=== PATIENT | female | born 1955 | race Caucasian/White ===

== ENCOUNTER 2018-08-21 15:41 | Inpatient (IN) | payer OTHER ==
[~2018-08-21] VITALS: Ht 170.2 cm; Wt 47.2 kg
[2018-08-21] VITALS (9 sets, daily range): BP systolic 92–139; BP diastolic 67–94; PULSE 78–90; RESP 18–21; Ht 170.2 cm; Wt 47.2 kg
[2018-08-21] MEDS ORDERED: SODIUM CHLORIDE 0.9% 1L BAG IV* STA (16:20)
[2018-08-21] MEDS ORDERED: NORepinephrine 8MG/250 ML (PMX 250 ML IV STA (16:20)
[2018-08-21] MEDS ORDERED: ACETAMINOPHEN 325 MG SUPP PR STA (16:20)
[2018-08-21] MEDS ORDERED: CEFEPIME 2GM/50 ML (PMX) 50 ML IVPB STA (16:20)
[2018-08-21] MEDS ORDERED: NORepinephrine 8MG/250 ML (PMX 250 ML IV SCH (16:30)
[2018-08-21] MEDS ORDERED: VANCOMYCIN 1 GM (PMX) 250 ML IVPB ONE (16:30)
[2018-08-21] MEDS ORDERED: LIDOCAINE 1% (MDV) 20 ML INJ ONE (19:28)
--- NOTE | 2018-08-21 19:50 | ERD ---
ER Documentation Chief Complaint Chief Complaint R89, from residential care home, respiratory arrest, CPR in progress HPI 62-year-old female brought to the emergency department by paramedics from her care home for evaluation of shortness of breath. Patient is nonverbal and history is available from paramedics. The paramedics arrived to the patient's care facility where they found the patient apparently very warm to touch and having difficulty breathing. They presumed the patient to be septic and began transporting. In route, patient decompensated and became more short of breath and then went into cardiac arrest. CPR was initiated just upon arrival to the emergency department. ROS All systems reviewed and are negative except as per history of present illness. Allergies Allergies: Coded Allergies: No Known Drug Allergies (Unverified Allergy, Unknown, 08/21/18) PMhx/Soc Hx Alcohol Use: No (UNABLE TO OBTAINED) Hx Substance Use: No (UNABLE TO OBTAINED) Hx Tobacco Use: No (UNABLE TO OBTAINED) Smoking Status: Unknown if ever smoked FmHx Unknown at this time Physical Exam Vitals Vital Signs Date Temp Pulse Resp B/P (MAP) Pulse Ox O2 O2 Flow FiO2 Time Delivery Rate 08/21/18 105 22 100 40 19:48 08/21/18 99.0 108 23 118/82 100 Mechanical 18:30 (94) Ventilator Trach Collar 08/21/18 110 22 100 40 18:08 08/21/18 109 23 116/75 100 Mechanical 18:00 (89) Ventilator Trach Collar 08/21/18 113 24 102/74 100 Mechanical 17:45 (83) Ventilator Trach Collar 08/21/18 98.9 17:20 08/21/18 98.8 118 27 95/72 (80) 100 Mechanical 17:12 Ventilator Trach Collar 08/21/18 120 25 74/51 (59) 100 Mechanical 16:45 Ventilator Trach Collar 08/21/18 119 27 76/47 (57) 100 Mechanical 16:30 Ventilator Trach Collar 08/21/18 118 25 100 100 16:19 08/21/18 129 23 150/95 100 Mechanical 16:00 (113) Ventilator Trach Collar 08/21/18 98.0 27 30 47/21 (30) 89 15:45 Physical Exam General: Frail, bed bound, ill appearing HEENT: Mucous membranes dry, sclera nonicteric Neck: Tracheostomy noted. Ostomy patent. No inflammatory changes noted. No JVD. Cardiovascular: Regular rate and rhythm, no murmurs rubs or gallops. Lungs: Diminished breath sounds bilaterally. She is ventilating through the tracheostomy. Transmission of upper airway sounds is noted Abdomen: Soft with G-tube appreciated. Nontender to palpation. Bowel sounds noted. : Diaper in place and incontinent. Extremities: Atrophic but atraumatic with no edema, cyanosis or clubbing. Neurologic: Patient is significantly obtunded and apparently at her vegetative baseline. Motor strength is diminished in all 4 extremities. Skin: Skin breakdown noted per nursing note. Result Diagram: 08/21/18 1556 08/21/18 1556 Results 24 hrs Laboratory Tests Test 08/21/18 15:56 08/21/18 16:20 08/21/18 16:30 08/21/18 19:01 White Blood 26.0 10^3/ul Count Red Blood Count 3.16 10^6/ul Hemoglobin 8.9 g/dl Hematocrit 31.1 % Mean 98.4 fl Corpuscular Volume Mean 28.2 pg Corpuscular Hemoglobin Mean 28.6 g/dl Corpuscular Hemoglobin Conc ent Red Cell 16.9 % Distribution Width Platelet Count 654 10^3/UL Mean Platelet 8.7 fl Volume Immature 6.200 % Granulocytes % Neutrophils % % Segmented 63 % Neutrophils % (Manual) Band 4 % Neutrophils % (Manual) Lymphocytes % % Lymphocytes % 25 % (Manual) Monocytes % % Monocytes % 5 % (Manual) Eosinophils % % Basophils % % Myelocytes % 2 % (Manual) Promyelocytes % 1 % (Manual) Nucleated Red 0.0 /100WBC Blood Cells % Immature 1.610 10^3/ul Granulocytes # Neutrophils # 10^3/ul Neutrophils # 16.6 10^3/ul (Manual) Band 1.0 10^3/ul Neutrophils # Lymphocytes 6.5 10^3/ul (Manual) Lymphocytes # 10^3/ul Monocytes # 10^3/ul Monocytes # 1.3 10^3/ul (Manual) Eosinophils # 10^3/ul Basophils # 10^3/ul Myelocytes # 0.5 10^3/ul Promyelocytes # 0.2 10^3/ul Nucleated Red 10^3/ul Blood Cells # Pathologist YES Review (Hematol ogy) Platelet @See below Morphology Comment Polychromasia 1+ Anisocytosis 1+ Prothrombin 15.3 Sec Time Prothrombin 1.2 Time Ratio INR 1.20 International Normalized Rati o Activated 32.2 Sec Partial Thrombo plast Time Sodium Level 133 mmol/L Potassium Level 4.6 mmol/L Chloride Level 102 mmol/L Carbon Dioxide 16 mmol/L Level Anion Gap 15 Blood Urea 29 mg/dl Nitrogen Creatinine 0.49 mg/dl Est Glomerular > 60 mL/min Filtrat Rate mL/min Glucose Level 367 mg/dl POC Venous 5.4 mmol/L 2.3 mmol/L Lactate Calcium Level 9.1 mg/dl Total Bilirubin 0.0 mg/dl Direct 0.00 mg/dl Bilirubin Indirect 0.0 mg/dl Bilirubin Aspartate Amino 44 IU/L Transf (AST/SGO T) Alanine 10 IU/L Aminotransferas e (ALT/SGPT) Alkaline 162 IU/L Phosphatase Troponin I < 0.012 ng/ml Total Protein 6.8 g/dl Albumin 3.0 g/dl Globulin 3.80 g/dl Albumin/Globuli 0.78 n Ratio Blood Gas Blood arterial Specimen Source Arterial Blood 08/21/2018 4:37: Date Drawn 24 PM Arterial Blood 7.308 pH (Temp corrected ) Arterial Blood 34.6 mmhg pCO2 (Temp correct) Arterial Blood 358.1 mmHG pO2 (Temp corrected ) Arterial Blood 17.0 mmol/L HCO3 Arterial Blood -8.5 mmol/L Base Excess Arterial Blood 99.6 mmHG Oxygen Saturati on Kiko Test ACCEPTAB Arterial Blood Left Radial Gas Puncture Site Arterial 0.3 % Blood Carboxyhe moglobin Arterial Blood 0.6 % Methemoglobin Blood Gas A-a 320.3 mmHg O2 Differential Oxyhemoglobin 98.7 % Percent Blood Gas 37.0 C Temperature Blood Gas 20.0 Respiration Rate Blood Gas 25 Actual Respiration Rat e Blood Gas VENT - AC Modality FiO2 100.0 % Blood Gas Tidal 450.0 mL Volume Blood Gas Low 5.0 cmH2O PEEP Setting Blood Gas M.D. Notified Whom Blood Gas 08/21/2018 4:48: Notified Time 50 PM Urine Color YELLOW Urine Clarity CLOUDY Urine pH 8.0 Urine Specific 1.015 [place] Urine Ketones NEGATIVE mg/dL Urine Nitrite NEGATIVE mg/dL Urine Bilirubin NEGATIVE mg/dL Urine NEGATIVE mg/dL Urobilinogen Urine Leukocyte 2+ Wade/ul Esterase Urine 16 /HPF Microscopic RBC Urine 32 /HPF Microscopic WBC Urine Amorphous FEW /HPF Crystals Urine NEGATIVE mg/dL Hemoglobin Urine Glucose NEGATIVE mg/dL Urine Total 1+ mg/dl Protein Current Medications Medications Dose Sig/Sharona Start Time Status Last (Trade) Ordered Route PRN Stop Time Admin Dose Reason Admin Sodium 1,800 ml BOLUS OVER 2 08/21/18 DC 08/21/18 Chloride HOURS STAT 16:20 16:50 (NS) IV* 08/21/18 16:21 325 mg ONCE STAT 08/21/18 DC 08/21/18 Acetaminophen FL 16:20 17:20 (Tylenol 08/21/18 16:21 Supp) 250 ml @ ONCE STAT 08/21/18 DC Norepinephrin 7.5 mls/hr IV 16:20 e 08/21/18 16:26 Cefepime HCl 50 ml @ ONCE STAT 08/21/18 DC 08/21/18 100 mls/hr IVPB 16:20 16:39 08/21/18 16:49 Vancomycin 250 ml @ ONCE ONCE 08/21/18 DC 08/21/18 HCl 125 mls/hr IVPB 16:30 17:24 08/21/18 18:29 250 ml @ TITRATE IV 08/21/18 08/21/18 Norepinephrin 7.5 mls/hr 16:30 16:49 e Lidocaine 20 ml STK-MED 08/21/18 DC (Xylocaine ONCE .ROUTE 19:28 1% (Mdv) 20 08/21/18 19:29 ml) Procedures/MDM Patient was taken to a room, seen and evaluated. Upon arrival to the emergency department, she had a palpable pulse and apparent return of spontaneous circulation. A code sepsis was initiated. She was continued on ventilator through her tracheostomy. Patient required central line placement. Central Line Placement by me: Percent guidance was used to localize the right internal jugular Under sterile Seldinger technique, initial attempt to place a triple-lumen catheter in the right IJ were unsuccessful with an apparent puncture of the carotid artery. Direct pressure was applied and bleeding was controlled.. Central Line Placement by me: Under sterile Seldinger technique, a triple-lumen catheter was placed in the left femoral vein. Patient had no obvious complications noted. Patient was placed on fluids and pressors and blood pressure stabilized and respiratory status was stabilized on a ventilator Diagnostic tests were ordered and reviewed. 3 LEAD RHYTHM STRIP: Normal sinus rhythm without ectopy Processing Engineer EK lead EKG reviewed by myself: Sinus tachycardia Normal [place] and intervals Baseline artifact with no significant ST elevation Impression: Specific EKG EKG upon arrival interpreted by myself: Sinus tachycardia Nonspecific ST and T wave changes No ST elevation Impression: Nonspecific EKG without significant interval change from the materials management manager EKG RADIOLOGY: Reviewed with the radiologist REEVALUATION: Chest x-ray interpretation was reviewed demonstrating evidence of the left pneumothorax. At this time, prior to the invasive left-sided chest tube, I made contact with the patient's son and discussed his desires for the patient's level of care. He soon call me back after speaking to his uncle and indicated that he did want the chest tube placed. Procedure: Chest tube placement On the left anterior axillary line at approximately the fourth/fifth intercostal space, the skin was prepped with Betadine solution and local lidocaine In the usual fashion a left thoracostomy tube was placed with release of air. Post procedure chest x-ray is now pending Reevaluation: Patient's blood pressure is remaining stable as is her respiratory status. With intervention, her neurologic status seems to be improving and she seems to be opening her eyes and moving weakly but more actively Consultations: Arrangements will be made for admission to the hospital in the intensive care unit MEDICAL DECISION MAKIN-year-old female presents the emergency department after a respiratory and possible brief cardiac arrest. She seems to be in septic shock from what appears to be a urinary tract infection complicated by chronic respiratory failure with tracheostomy dependence and a left-sided pneumothorax. She is required aggressive medical intervention include fluids and antibiotics as well as the chest tube and central line. She seems to be responding nicely on fluids and pressors. Targeted temperature management was not initiated as the patient is seems to be at baseline neurologic status which is a significantly diminished. CRITICAL CARE: Time:>35 minutes Patient has a significant chance of clinical deterioration Treatments/Evaluations: Close monitoring and treatment of unstable vital signs, cardiorespiratory, and neurologic status, while maintaining tight balance of fluid, respiratory, and cardiac interventions. Sepsis Documentation: SEVERE SEPSIS CRITERIA: Infectious source: UTI End organ damage indicated by: Lactate > 2.0 mmol/L Hypotension (SBP < 90 or >40 mmHG drop or MAP < 65) Acute Resp Failure (sat < 92% w/o oxygen) SEPSIS MANAGEMENT Time of recognition of sepsis: Upon arrival. Time of recognition of severe sepsis: upon arrival. Time of recognition of septic shock: upon arrival. 3 HOUR BUNDLE Blood cultures x 2 before broad-spectrum antibiotics: Yes 30 ml/kg NS bolus completed Initial lactate reviewed Repeat lactate pending SEPTIC SHOCK ASSESSMENT: Yes: Lactic acid > 4.0 Yes: Persistent hypotension (SBP < 90 or 40 mmHg drop, MAP < 65) despite 30 mL/kg IV fluid bolus VOLUME REASSESSMENT FOR SEPTIC SHOCK: Reevaluation Time: 1999 Vital signs appreciated per nursing note Heart regular rate & rhythm Lungs no crackles Skin warm & dry Cap Refill less than 2 seconds Peripheral pulses radially present PERSISTENT HYPOTENSION TREATMENT: Comfort care no Central line as above Vasopressor started: Levophed Departure Diagnosis: Primary Impression: Respiratory arrest Additional Impressions: Septic shock Pneumothorax Condition: Critical BRYIRINEOYOKO Aug 21, 2018 19:50
[2018-08-21] MEDS ORDERED: METH10TA3 GTB (20:09)
[2018-08-21] MEDS ORDERED: ONDA4TAB13 GTB (20:10)
[2018-08-21] MEDS ORDERED: [UNRECOGNIZED DRUG - CODE] GTB (20:11)
[2018-08-21] MEDS ORDERED: POTA473S3 GTB (20:13)
[2018-08-21] MEDS ORDERED: TOPI200C6 GTB (20:16)
[2018-08-21] MEDS ORDERED: ATOR10TA65 GTB (20:22)
[2018-08-21] MEDS ORDERED: CARV12.579 GTB (20:23)
[2018-08-21] MEDS ORDERED: BISA10SU75 PR (20:23)
[2018-08-21] MEDS ORDERED: ATRO INHALATION (20:24)
[2018-08-21] MEDS ORDERED: LACTINEX GTB (20:24)
[2018-08-21] MEDS ORDERED: LANS30CA GTB (20:25)
[2018-08-21] MEDS ORDERED: IPRA3AMP29 INHALATION (20:25)
[2018-08-21] MEDS ORDERED: KEP100S GTB (20:26)
[2018-08-21] MEDS ORDERED: LISI-471 GTB (20:27)
[2018-08-21] MEDS ORDERED: AMIN30LI GTB (20:28)
[2018-08-21] MEDS ORDERED: MULT-105 GTB (20:28)
[2018-08-21] MEDS ORDERED: ZINC220T GTB (20:29)
[2018-08-21] MEDS ORDERED: ASC500 GTB (20:29)
[2018-08-21] MEDS ORDERED: BISACODYL (EC) 5 MG TAB PO PRN (20:30)
[2018-08-21] MEDS ORDERED: DOCUSATE SODIUM 100 MG CAP PO PRN (20:30)
[2018-08-21] MEDS ORDERED: ACETAMINOPHEN 650MG/20.3ML CUP PO PRN (20:30)
[2018-08-21] MEDS ORDERED: LEVO500T10 GTB (20:30)
[2018-08-21] MEDS ORDERED: IPRATROPIUM (NEB) 0.5 MG/2.5 ML AMP NEB PRN (20:30)
[2018-08-21] MEDS ORDERED: LEVALBUTEROL (NEB) 1.25 MG/0.5 ML AMP HHN PRN (20:30)
[2018-08-21] MEDS ORDERED: CLIN300C10 GTB (20:31)
--- NOTE | 2018-08-21 20:48 | HP ---
Date/Time of Note Date/Time of Note DATE: 08/21/18 TIME: 20:47 Assessment/Plan VTE Prophylaxis SCD applied (from Nsg): Yes Pharmacological prophylaxis: NA/contraindicated Pharm contraindication: low risk/ambulating Lines/Catheters IV Catheter Type (from Nrsg): Central Line Central line still needed: Yes (pressor support) Assessment/Plan Hospital Course This is a 61-year-old female being admitted to the ICU floor for: #1 cardiopulmonary arrest: Unclear what rhythm patient was in during the arrest in route as I do not have the code run sheet. Currently patient is return of spontaneous circulation. 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 Continue monitoring in the ICU. Trend cardiac enzymes, the first that was negative we will check echocardiogram. Consult cardiology. #2 acute on chronic respiratory failure: Patient has tracheostomy. Currently connected to vent. Continue vent management, pulmonary to consult #3 septic shock: Secondary to pneumonia and urinary tract infection. Broad- spectrum antibiotics of vancomycin and Zosyn. Trend lactic acid levels, initial was 5.4. Pressor support with levophed. #4 healthcare associated pneumonia: Vanco and Zosyn, cultures pending. Respiratory cultures, await culture results #5 urinary tract infection: Antibiotics as per above, await urine culture results #6 left-sided pneumothorax: Possibly traumatic secondary to CPR, chest tube in place resulting in reexpansion of the lung. Connected to suction. recheck chest x-ray in the morning. Consult pulmonology. #7 metabolic acidosis: Secondary to underlying infectious process, shock. Antibiotics and fluids. Monitor labs. #8 normocytic anemia: Check fecal occult blood, iron stores #9 chronic encephalopathy: Secondary to intraparenchymal hemorrhage status post LINOLEUM LAYER shunt. Continue supportive care. Continue home meds #10 dysphagia: Continue meds via J-tube, consult nutrition for feeds #11 Seizure disorder: Continue Keppra, Topamax #12 hypertension: We will hold home blood pressure medications at the current time given patient's sepsis shock and hypotension. #13 DVT GI prophylaxis: SCDs, Protonix CODE STATUS currently full code we will need to get in touch with the son in the a.m. Guarding goals of care and CODE STATUS. PT SON RENZO [phone] L[facility] IN [facility]. Greater than 45 minutes critical care time spent on care management this patient. Result Diagram: 08/21/18 1556 08/21/18 1556 Results 24hrs Laboratory Tests Test 08/21/18 15:56 08/21/18 16:20 08/21/18 16:30 08/21/18 19:01 White Blood Count 26.0 H Red Blood Count 3.16 L Hemoglobin 8.9 L Hematocrit 31.1 L Mean Corpuscular 98.4 Volume Mean Corpuscular 28.2 L Hemoglobin Mean Corpuscular 28.6 L Hemoglobin Concen t Red Cell 16.9 H Distribution Width Platelet Count 654 H Mean Platelet 8.7 Volume Immature 6.200 H Granulocytes % Neutrophils % Segmented 63 Neutrophils % (Manual) Band Neutrophils 4 % (Manual) Lymphocytes % Lymphocytes % 25 (Manual) Monocytes % Monocytes % 5 (Manual) Eosinophils % Basophils % Myelocytes % 2 H (Manual) Promyelocytes % 1 H (Manual) Nucleated Red 0.0 Blood Cells % Immature 1.610 H Granulocytes # Neutrophils # Neutrophils # 16.6 H (Manual) Band Neutrophils 1.0 H # Lymphocytes 6.5 H (Manual) Lymphocytes # Monocytes # Monocytes # 1.3 H (Manual) Eosinophils # Basophils # Myelocytes # 0.5 H Promyelocytes # 0.2 H Nucleated Red Blood Cells # Pathologist YES Review (Hematolog y) Platelet @See below Morphology Comment Polychromasia 1+ Anisocytosis 1+ Prothrombin Time 15.3 H Prothrombin Time 1.2 Ratio INR International 1.20 Normalized Ratio Activated 32.2 Partial Thrombopl ast Time Sodium Level 133 L Potassium Level 4.6 Chloride Level 102 Carbon Dioxide 16 L Level Anion Gap 15 H Blood Urea 29 H Nitrogen Creatinine 0.49 Est Glomerular > 60 Filtrat Rate mL/min Glucose Level 367 H POC Venous 5.4 *H 2.3 *H Lactate Calcium Level 9.1 Total Bilirubin 0.0 L Direct Bilirubin 0.00 Indirect 0.0 Bilirubin Aspartate Amino 44 Transf (AST/SGOT) Alanine 10 L Aminotransferase (ALT/SGPT) Alkaline 162 H Phosphatase Troponin I < 0.012 Total Protein 6.8 Albumin 3.0 L Globulin 3.80 H Albumin/Globulin 0.78 Ratio Blood Gas Blood arterial Specimen Source Arterial Blood 08/21/2018 4:37:2 Date Drawn 4 PM Arterial Blood pH 7.308 L (Temp corrected) Arterial Blood 34.6 L pCO2 (Temp correct) Arterial Blood 358.1 H pO2 (Temp corrected) Arterial Blood 17.0 L HCO3 Arterial Blood -8.5 L Base Excess Arterial Blood 99.6 H Oxygen Saturation Kiko Test ACCEPTAB Arterial Blood Left Radial Gas Puncture Site Arterial 0.3 Blood Carboxyhemo globin Arterial Blood 0.6 Methemoglobin Blood Gas A-a O2 320.3 H Differential Oxyhemoglobin 98.7 Percent Blood Gas 37.0 Temperature Blood Gas 20.0 Respiration Rate Blood Gas Actual 25 Respiration Rate Blood Gas VENT - AC Modality FiO2 100.0 Blood Gas Tidal 450.0 Volume Blood Gas Low 5.0 PEEP Setting Blood Gas M.D. Notified Whom Blood Gas 08/21/2018 4:48:5 Notified Time 0 PM Urine Color YELLOW Urine Clarity CLOUDY A Urine pH 8.0 Urine Specific 1.015 [place] Urine Ketones NEGATIVE Urine Nitrite NEGATIVE Urine Bilirubin NEGATIVE Urine NEGATIVE Urobilinogen Urine Leukocyte 2+ H Esterase Urine Microscopic 16 H RBC Urine Microscopic 32 H WBC Urine Amorphous FEW A Crystals Urine Hemoglobin NEGATIVE Urine Glucose NEGATIVE Urine Total 1+ H Protein HPI/ROS Admit Date/Time Admit Date/Time Hx of Present Illness Chief complaint shortness of breath The following history was obtained from the ED physician documentation as well as from the chart as patient is unable to provide history given her clinical condition. This is a 62-year-old female who was brought in from [facility] care via EMS as patient was noted to be in respiratory distress. She is trached event. Patient is nonverbal as per the paramedics. The paramedics arrived at the facility I did notice the patient be very warm to touch and have difficulty breathing. She was being transported to [facility] while in route she decompensated and became more short of breath and went into cardiac arrest. CPR was initiated. Upon arrival to [facility] she had return of spontaneous circulation with palpable pulses. She was noted to be hypotensive. For which she had a central line placed and pressors were started. She was given antibiotics for suspected sepsis. Chest x-ray did reveal a pneumothorax and a chest tube was placed in the emergency department emergently. Patient at baseline is unresponsive secondary to encephalopathy from a history of intraparenchymal hemorrhage status post LINOLEUM LAYER shunt. She has a tracheostomy. Allergies: NKDA Medications: Ascorbic acid 500 mg G-tube daily Atorvastatin 10 mg via G-tube daily Bisacodyl 10 mg suppository RI daily Carvedilol 12.5 mg G-tube twice daily Stroke acid/potassium citrate 473 UT solution 5 mL's via G-tube daily Clindamycin 300 mg G-tube 4 times daily stop date 08/25/2018 Ipratropium 12.9 g 2 puffs every 6 hours as needed shortness of breath Ipratropium/albuterol 0.5/3 mg 3 mL every 6 hours as needed Lactobacillus 1 tab G-tube daily every 6 hours Lantus resolved 30 mg G-tube daily Keppra 100 mg via G-tube every 8 hours daily Levaquin 500 mg G-tube daily stop on 08/25/2018 Lisinopril 20 mg G-tube daily every 12 hours Methylphenidate 10 mg G-tube daily every 12 hours Multivitamin 1 tab G-tube daily Zofran every 6 hours as needed G-tube daily nausea Selenium 200 mcg G-tube daily Topamax 200 mg G-tube daily every 12 hours Zinc sulfate 220 mg G-tube daily ROS Subjective hx not possible: pt non-verbal Additional Comments PROCEDURE: XR Chest. CLINICAL INDICATION: Pneumothorax TECHNIQUE: Frontal chest x-ray was obtained. COMPARISON: Chest x-ray earlier same date FINDINGS: There has been interval insertion of a left chest tube with evacuation of previously noted pneumothorax and re-expansion of the lung. Again noted is a tracheostomy and a right-sided LINOLEUM LAYER shunt. Heart is not enlarged. Mediastinum is not widened. No hilar masses seen. There is atelectasis at the left lung base. Noted is hyperinflation. There is no effusion. IMPRESSION: Evacuation left pneumothorax with re-expansion left lung following insertion of chest tube. Hyperinflation with left basilar atelectasis. No pneumonia. .Yobany Dominguez MD, MD Date Time Electronically viewed and signed by .Yobany Dominguez MD, on 08/21/2018 20:38 .A/ CC: JUAN MANUEL LONDONO [id number] PROCEDURE: XR Chest. CLINICAL INDICATION: chest pain TECHNIQUE: Single frontal view of the chest was obtained COMPARISON: None FINDINGS: The heart and mediastinum are within normal limits. There is no focal infiltrate. There is a moderate left-sided pneumothorax. There is a tracheostomy tube in place. There is a LINOLEUM LAYER shunt catheter crossing the right hemithorax. There is no pleural effusion. RPTAT: AA IMPRESSION: Left-sided pneumothorax. A critical results call report was made and the findings discussed with Juan Manuel Killian at 08/21/2018 4:37:21 PM. .Shravan Brandt MD, MD Date Time Electronically viewed and signed by .Shravan Brandt MD, MD on 08/21/2018 16:36 .S/ CC: JUAN MANUEL LONDONO [phone] PMH/Family/Social Past Medical History Encephalopathy status post intraparenchymal hemorrhage status post LINOLEUM LAYER shunt Seizure disorder Dysphagia status post J-tube Respiratory failure status post tracheostomy Previous episode of atrial fibrillation Hypertension Hyperlipidemia Medications Current Medications Norepinephrine 250 ml @ 7.5 mls/hr TITRATE IV Last administered on 08/21/18at 16:49; Admin Dose 7.5 MLS/HR; Start 08/21/18 at 16:30 Sodium Chloride 1,000 ml @ 100 mls/hr Q10H IV ; Start 08/21/18 at 20:07 Ipratropium Hart (Atrovent 0.02% (Neb)) 0.5 mg Q2H RESP THERAPY PRN NEB SHORTNESS OF BREATH; Start 08/21/18 at 20:30 Acetaminophen (Tylenol Liquid) 650 mg Q6H PRN PO PAIN LEVEL 1-3 OR FEVER; Start 08/21/18 at 20:30 Docusate Sodium (Colace) 100 mg Q12H PRN PO CONSTIPATION; Start 08/21/18 at 20:30 Bisacodyl (Dulcolax) 5 mg DAILY PRN PO CONSTIPATION; Start 08/21/18 at 20:30 Famotidine (Pepcid Iv) 20 mg DAILY IV ; Start 08/22/18 at 09:00 Levalbuterol (Xopenex Neb) 1.25 mg Q4H RESP THERAPY PRN HHN SHORTNESS OF BREATH; Start 08/21/18 at 20:30 Coded Allergies: No Known Drug Allergies (Unverified Allergy, Unknown, 08/21/18) Past Surgical History Jejunostomy Tracheostomy, LINOLEUM LAYER shunt Family History Significant Family History: no pertinent family hx Social History Unknown, unable to obtain Smoking Status: Unknown if ever smoked Exam/Review of Systems Vital Signs Vitals Vital Signs Date Temp Pulse Resp B/P (MAP) Pulse Ox O2 O2 Flow FiO2 Time Delivery Rate 08/21/18 93 22 104/80 100 Mechanical 20:45 (88) Ventilator Trach Collar 08/21/18 99.1 20:00 08/21/18 40 19:48 Exam Exam General: Patient is nonverbal, trach to vent, minimal spontaneous movement noted of the bilateral lower extremities HEENT: Atraumatic, normocephalic. The pupils are equal, round and reactive. Neck: Tracheostomy in place connected to vent Lungs: Coarse breath sounds bilaterally chest tube Heart: Sinus tachycardia Abdomen: Soft , nontender, nondistended , bowel sounds are present. No guarding no rebound tenderness , No masses or organomegaly. No costovertebral temporal angle mass Extremities: Normal to inspection, no edema no cyanosis Neurologic: Nonverbal, has minimal spontaneous movements of the bilateral lower extremities, does not withdraw to pain Skin: Left femoral central line Additional Comments Sinus tachycardia 120 bpm, no ST or T wave abnormalities concerning for acute ischemia PROCEDURE: XR Chest. CLINICAL INDICATION: Pneumothorax TECHNIQUE: Frontal chest x-ray was obtained. COMPARISON: Chest x-ray earlier same date FINDINGS: There has been interval insertion of a left chest tube with evacuation of previously noted pneumothorax and re-expansion of the lung. Again noted is a tracheostomy and a right-sided LINOLEUM LAYER shunt. Heart is not enlarged. Mediastinum is not widened. No hilar masses seen. There is atelectasis at the left lung base. Noted is hyperinflation. There is no effusion. IMPRESSION: Evacuation left pneumothorax with re-expansion left lung following insertion of chest tube. Hyperinflation with left basilar atelectasis. No pneumonia. .Yobany Dominguez MD, Date Time Electronically viewed and signed by .Yobany Dominguez MD, on 08/21/2018 20: 38 .A/ CC: JUAN MANUEL LONDONO [phone] PROCEDURE: XR Chest. CLINICAL INDICATION: chest pain TECHNIQUE: Single frontal view of the chest was obtained COMPARISON: None FINDINGS: The heart and mediastinum are within normal limits. There is no focal infiltrate. There is a moderate left-sided pneumothorax. There is a tracheostomy tube in place. There is a LINOLEUM LAYER shunt catheter crossing the right hemithorax. There is no pleural effusion. RPTAT: AA IMPRESSION: Left-sided pneumothorax. A critical results call report was made and the findings discussed with Juan Manuel Killian at 08/21/2018 4:37:21 PM. .Shravan Brandt MD, MD Date Time Electronically viewed and signed by .Shravan Brandt MD, on 08/21/2018 16:36 .S/ CC: JUAN MANUEL LONDONO [id number] BIENVENIDO ACEVEDO Aug 21, 2018 20:48
[2018-08-21] MEDS: SOD CHLORIDE 0.9% 1,000 ML IV SCH (20:50)
[2018-08-21] MEDS ORDERED: VANCOMYCIN IV PER PHARMACY XX SCH (21:00)
[2018-08-22] VITALS (93 sets, daily range): BP systolic 82–155; BP diastolic 60–100; PULSE 77–105; RESP 15–23
[2018-08-22] MEDS ORDERED: ALBUTEROL/IPRATROPIUM (NEB) 3 ML AMP INH PRN
[2018-08-22] MEDS ORDERED: IPRATROPIUM (HFA) 12.9 GM INHALER INH PRN
[2018-08-22] MEDS ORDERED: NON-FORMULARY/PATIENT OWN MED (Methylphenidate Hcl* 10 MG) GTB SCH
[2018-08-22] MEDS: PIPER-TAZO 3.375 GM IV (PMX) 100 ML IVPB SCH ×4 (00:55→17:57)
[2018-08-22] MEDS: LEVETIRACETAM (100 MG/ML PO SYG) GTB SCH ×3 (02:04→16:02)
[2018-08-22] MEDS: VANCOMYCIN 500 MG (PMX) 100 ML IVPB SCH ×2 (04:26→16:03)
[2018-08-22] MEDS: ASCORBIC ACID 500 MG TAB GTB SCH (08:35)
[2018-08-22] MEDS: SOD CHLORIDE 0.9% 1,000 ML IV SCH ×3 (08:35→21:22)
[2018-08-22] MEDS: ZINC SULFATE 220 MG CAP GTB SCH (08:35)
[2018-08-22] MEDS: MULTIVITAMINS 30 ML CUP GTB SCH (08:35)
[2018-08-22] MEDS: METHYLPHENIDATE 5 MG TAB GTB SCH ×2 (08:39→21:00)
[2018-08-22] MEDS ORDERED: POT CITRATE/CITRIC ACID (PO SYG) GTB SCH (09:00)
[2018-08-22] MEDS ORDERED: FAMOTIDINE 20 MG INJ IV SCH (09:00)
[2018-08-22] MEDS ORDERED: SELENIUM 200 MCG GTB SCH (09:00)
[2018-08-22] MEDS ORDERED: NON-FORMULARY/PATIENT OWN MED (Amino Acids/Protein Hydrolys (Pro-Stat Liquid) 30 ML) GTB SCH (09:00)
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
--- NOTE | 2018-08-22 11:06 | CONS ---
DATE OF ADMISSION: 08/21/2018 DATE OF CONSULTATION: 08/22/2018 REASON FOR CONSULTATION: Antibiotic management. HISTORY OF PRESENT ILLNESS: Nica Blanco is a 62-year-old unfortunate female who was brought in from residential skilled nursing with respiratory arrest status post CPR and cardiac arrest. The patient was brought in with shortness of breath. She is nonverbal. She had difficulty breathing when the daljit edics came to see her. En route, the patient decompensated and went into cardiac arrest. CPR was in itiated just on arrival to the emergency room department. On admission, her white count was 26,000, H and H of 8.9 and 31.1, platelet counts 254,000. BUN and creatinine 29/0.49. Patient has a central line placed and pressor support. She had a cardiopulmonary arrest and returned to spontaneous circu lation. She has a chronic debility from intracerebral hemorrhage and chronic encephalopathy as well as underlying septic shock at this current time. She has acute respiratory failure. She has a trach eostomy connected to the vent. She has urinary tract infection and probable pneumonia. She is on va ncomycin and Zosyn for healthcare-associated pneumonia. Cultures are pending. UTI, left-sided pneum othorax, possibly secondary to CPR; chest tube in place resulting in reexpansion of the lung, connect ed to the suction, metabolic acidosis, normocytic anemia, chronic encephalopathy secondary to intrapa renchymal hemorrhage status post ventriculoperitoneal shunt, dysphagia. She has a J-tube, seizure di sorder, hypertension, with a white count of 26,000 with 63% polys, 4% bands. PAST MEDICAL HISTORY: As outlined. FAMILY HISTORY: Noncontributory. SOCIAL HISTORY: No history of smoking, drinking or abuse of drugs. ALLERGIES: NONE TO PENICILLIN, SULFA OR FOODS. MEDICATIONS: As per chart. REVIEW OF SYSTEMS: Noncontributory. PHYSICAL EXAMINATION: GENERAL: The patient is an elderly-appearing female. She has a trach, a J-tube, a Forman, and is on pressors. SKIN: Without generalized rash. She has some breakdown, sacral decubitus. HEENT: Within normal limits. NECK: Tracheostomy is present. NECK: Supple. LYMPH NODES: None palpable. CHEST: Decreased breath sounds at the bases with ventilatory sounds. HEART: Without murmur or gallop. ABDOMEN: Soft with J-tube in place. EXTREMITIES: She has a diaper in place. She is incontinent. RECTAL AND GENITAL: Deferred. NEUROLOGIC: The patient is vegetative. IMPRESSION AND PLAN: We should check on hospice status. She has a catheter in place now, Forman cath eter. She has a trach, PEG, Forman, respiratory arrest. Urine culture, so far, is negative. Chest x -ray shows left chest tube, retrocardiac opacity in the left lower lobe. We will continue her on van comycin and Zosyn. I will dictate my findings to the hospitalist. Dictated By: PAT ALLEN MD, JD/NTS Conf#: [id number] DID#: [id number] CC: ANGEL LUIS REDD MD;*EndCC*
--- NOTE | 2018-08-22 11:55 | CONS ---
DATE OF ADMISSION: 08/21/2018 DATE OF CONSULTATION: REASON FOR CONSULTATION: Ventilator management. Thank you, Dr. Meadows, for this consultation. HISTORY OF PRESENT ILLNESS: This is an unfortunate 62-year-old lady, vent-dependent respiratory fail ure, transferred from shelter facility yesterday for respiratory distress. On route, the pat sunny decompensated, had a transient cardiopulmonary arrest requiring CPR and ACLS protocol with subse quent return of circulation. Since that time, she has had central line placed and is now on low dose vasopressor. Chest x-ray demonstrating pneumothorax requiring chest tube placement. 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 PAST MEDICAL HISTORY: As above. MEDICATIONS: Per chart. ALLERGIES: NONE. SOCIAL HISTORY: Nonsmoker, no alcohol, no history of drug use. FAMILY HISTORY: Noncontributory. SYSTEMS REVIEW: A 12-point review of systems currently unable to perform. PHYSICAL EXAMINATION: GENERAL: Elderly-appearing lady on mechanical ventilation, appears comfortable. No respiratory dist ress. VITAL SIGNS: Temperature 98, pulse is 88, blood pressure 116/76, O2 saturation 96%, on FIO2 of 30%. NECK: Trach site clean and intact. CARDIAC: S1, S2, no added sounds or murmurs. CHEST: Diminished air entry bilaterally. ABDOMEN: Soft, nontender. No guarding or rebound. EXTREMITIES: No cyanosis, clubbing, or edema. NEUROLOGIC: Grossly intact. Generalized weakness. DIAGNOSTIC DATA: Chest x-ray demonstrates left chest tube with small apical pneumothorax. LABORATORY DATA: White count 11.6 down from 26, hemoglobin 7.7, platelets of 492. BUN 22, creatinin e 0.35. INR 1.2. IMPRESSION AND PLAN: 1. Cardiopulmonary arrest. 2. Respiratory failure, possibly secondary to healthcare-associated pneumonia. 3. Traumatic pneumothorax following CPR. 4. History of encephalopathy secondary to intraparenchymal bleed with TELEVISION ANNOUNCER shunt. PLAN: 1. Continue mechanical ventilation. 2. Continue broad-spectrum antibiotics. 3. Continue chest tube to suction. 4. Discuss code status with family. 5. Continue antiepileptics. 6. DVT and GI prophylaxis. Dictated By: RONALD CULP/JERARDO Conf#: [id number] [facility]#: [id number] CC: BIENVENIDO MEADOWS MD; ANGEL LUIS REDD MD;*[facility]*
[2018-08-22] MEDS: TOPIRAMATE 100 MG TAB GTB SCH (13:59)
--- NOTE | 2018-08-22 15:02 | CONS ---
Assessment/Plan Assessment/Plan Hospital Course 62 yo F with hx of seizures and multiple other comorbidities who presents for evaluation of respiratory distress. Now s/p cardiac arrest with ROSC x 1 day. Targeted temperature management was deferred. The pt reportedly opens her eyes spontaneously, occasionally. Acute hypoxic-ischemic injury is possible.. Subclinical seizure is not yet excluded.. P: Add CTH without contrast for further characterization. EEG to evaluate for epileptiform activity. Cont topamax/keppra per ops for now. Ativan IV PRN seizure > 5 min or for cluster Other medical management per primary Will follow clinically Consultation Date/Type/Reason Admit Date/Time Type of Consult Neurology Reason for Consultation eval prognosis s/p cardiac arrest Requesting Provider: ANGEL LUIS REDD MD Date/Time of Note DATE: 08/22/18 TIME: 15:02 Hx of Present Illness The pt is currently unable to contribute a hx. Per RN report, the pt's baseline is awake, though nonverbal. It is elsewhere noted: Hx of Present Illness Chief complaint shortness of breath The following history was obtained from the ED physician documentation as well as from the chart as patient is unable to provide history given her clinical condition. This is a 62-year-old female who was brought in from [facility] care via EMS as patient was noted to be in respiratory distress. She is trached event. Patient is nonverbal as per the paramedics. The paramedics arrived at the facility I did notice the patient be very warm to touch and have difficulty breathing. She was being transported to [facility] while in route she decompensated and became more short of breath and went into cardiac arrest. CPR was initiated. Upon arrival to [facility] emergency she had return of spontaneous circulation with palpable pulses. She was noted to be hypotensive. For which she had a central line placed and pressors were started. She was given antibiotics for suspected sepsis. Chest x-ray did reveal a pneumothorax and a chest tube was placed in the emergency department emergently. Patient at baseline is unresponsive secondary to encephalopathy from a history of intraparenchymal hemorrhage status post [employer] shunt. She has a tracheostomy. Subjective hx not possible: pt non-verbal, pt critical Exam/Review of Systems Exam Vitals Vital Signs Date Temp Pulse Resp B/P (MAP) Pulse Ox O2 O2 Flow FiO2 Time Delivery Rate 08/22/18 93 18 119/81 100 Mechanical 14:00 (94) Ventilator 08/22/18 99.0 12:00 08/22/18 30 05:09 Intake and Output 08/21/18 08/21/18 08/22/18 1515:00 23:00 07:00 IntakeIntake Total 2211.25 ml 946.875 ml OutputOutput Total 250 ml 815 ml BalanceBalance 1961.25 ml 131.875 ml Exam PE: Gen Appearance: No Apparent Distress HEENT: Has trach Cardiovascular: Regular rate Abdomen: Soft; has L sided chest tube Extremities: Dry NE: The patient was obtunded and nonverbal. Cranial nerve examination was limited by mental status. Pupils were equal and reactive to light. There was no afferent pupillary defect. Funduscopic examination was limited. Face was grossly symmetric, w/ present corneal and cough reflexes. Tone was increased in BUE. Muscle bulk was diminished. I did not see fasciculations. The patient withdrew to noxious stimulation x 4. Coordination and gait testing was limited by mental status. Arm and leg reflexes were within normal limits and symmetric. Casper's sign was absent. Plantar responses were flexor. Results Result Diagram: 08/22/18 0439 08/22/18 0439 Results 24hrs Laboratory Tests Test 08/21/18 15:56 08/21/18 16:20 08/21/18 16:30 08/21/18 19:01 White Blood Count 26.0 H Red Blood Count 3.16 L Hemoglobin 8.9 L Hematocrit 31.1 L Mean Corpuscular 98.4 Volume Mean Corpuscular 28.2 L Hemoglobin Mean Corpuscular 28.6 L Hemoglobin Concen t Red Cell 16.9 H Distribution Width Platelet Count 654 H Mean Platelet 8.7 Volume Immature 6.200 H Granulocytes % Neutrophils % Segmented 63 Neutrophils % (Manual) Band Neutrophils 4 % (Manual) Lymphocytes % Lymphocytes % 25 (Manual) Monocytes % Monocytes % 5 (Manual) Eosinophils % Basophils % Myelocytes % 2 H (Manual) Promyelocytes % 1 H (Manual) Nucleated Red 0.0 Blood Cells % Immature 1.610 H Granulocytes # Neutrophils # Neutrophils # 16.6 H (Manual) Band Neutrophils 1.0 H # Lymphocytes 6.5 H (Manual) Lymphocytes # Monocytes # Monocytes # 1.3 H (Manual) Eosinophils # Basophils # Myelocytes # 0.5 H Promyelocytes # 0.2 H Nucleated Red Blood Cells # Pathologist YES Review (Hematolog y) Platelet @See below Morphology Comment Polychromasia 1+ Anisocytosis 1+ Prothrombin Time 15.3 H Prothrombin Time 1.2 Ratio INR International 1.20 Normalized Ratio Activated 32.2 Partial Thrombopl ast Time Sodium Level 133 L Potassium Level 4.6 Chloride Level 102 Carbon Dioxide 16 L Level Anion Gap 15 H Blood Urea 29 H Nitrogen Creatinine 0.49 Est Glomerular > 60 Filtrat Rate mL/min Glucose Level 367 H POC Venous 5.4 *H 2.3 *H Lactate Calcium Level 9.1 Total Bilirubin 0.0 L Direct Bilirubin 0.00 Indirect 0.0 Bilirubin Aspartate Amino 44 Transf (AST/SGOT) Alanine 10 L Aminotransferase (ALT/SGPT) Alkaline 162 H Phosphatase Troponin I < 0.012 Total Protein 6.8 Albumin 3.0 L Globulin 3.80 H Albumin/Globulin 0.78 Ratio Blood Gas Blood arterial Specimen Source Arterial Blood 08/21/2018 4:37:2 Date Drawn 4 PM Arterial Blood pH 7.308 L (Temp corrected) Arterial Blood 34.6 L pCO2 (Temp correct) Arterial Blood 358.1 H pO2 (Temp corrected) Arterial Blood 17.0 L HCO3 Arterial Blood -8.5 L Base Excess Arterial Blood 99.6 H Oxygen Saturation Kiko Test ACCEPTAB Arterial Blood Left Radial Gas Puncture Site Arterial 0.3 Blood Carboxyhemo globin Arterial Blood 0.6 Methemoglobin Blood Gas A-a O2 320.3 H Differential Oxyhemoglobin 98.7 Percent Blood Gas 37.0 Temperature Blood Gas 20.0 Respiration Rate Blood Gas Actual 25 Respiration Rate Blood Gas VENT - AC Modality FiO2 100.0 Blood Gas Tidal 450.0 Volume Blood Gas Low 5.0 PEEP Setting Blood Gas M.D. Notified Whom Blood Gas 08/21/2018 4:48:5 Notified Time 0 PM Urine Color YELLOW Urine Clarity CLOUDY A Urine pH 8.0 Urine Specific 1.015 [place] Urine Ketones NEGATIVE Urine Nitrite NEGATIVE Urine Bilirubin NEGATIVE Urine NEGATIVE Urobilinogen Urine Leukocyte 2+ H Esterase Urine Microscopic 16 H RBC Urine Microscopic 32 H WBC Urine Amorphous FEW A Crystals Urine Hemoglobin NEGATIVE Urine Glucose NEGATIVE Urine Total 1+ H Protein Test 08/21/18 20:15 08/22/18 00:43 08/22/18 04:39 08/22/18 10:52 Lactic Acid Level 1.6 Creatine Kinase 64 39 Creatine Kinase 1.6 2.4 Index Creatinine Kinase 1.01 0.93 MB (Mass) Troponin I 0.037 0.018 White Blood Count 11.6 #H Red Blood Count 2.71 L Hemoglobin 7.7 L Hematocrit 25.4 L Mean Corpuscular 93.7 Volume Mean Corpuscular 28.4 L Hemoglobin Mean Corpuscular 30.3 L Hemoglobin Concen t Red Cell 17.0 H Distribution Width Platelet Count 492 #H Mean Platelet 8.6 Volume Immature 1.500 H Granulocytes % Neutrophils % 81.8 H Lymphocytes % 10.4 L Monocytes % 5.7 Eosinophils % 0.3 Basophils % 0.3 Nucleated Red 0.0 Blood Cells % Immature 0.170 H Granulocytes # Neutrophils # 9.5 H Lymphocytes # 1.2 Monocytes # 0.7 Eosinophils # 0.0 Basophils # 0.0 Nucleated Red 0.0 Blood Cells # Sodium Level 139 Potassium Level 3.9 Chloride Level 110 Carbon Dioxide 20 L Level Anion Gap 9 # Blood Urea 22 H Nitrogen Creatinine 0.35 L Est Glomerular > 60 Filtrat Rate mL/min Glucose Level 125 # Hemoglobin A1c 5.3 Calcium Level 8.9 Magnesium Level 2.1 Total Bilirubin 0.1 L Direct Bilirubin 0.00 Indirect 0.1 Bilirubin Aspartate Amino 30 Transf (AST/SGOT) Alanine 28 Aminotransferase (ALT/SGPT) Alkaline 182 H Phosphatase Total Protein 6.6 Albumin 2.8 L Globulin 3.80 H Albumin/Globulin 0.73 Ratio Triglycerides 56 Level Cholesterol Level 108 LDL Cholesterol, 66 Calculated HDL Cholesterol 31 L Cholesterol/HDL 3.4 Ratio Thyroid 4.430 Stimulating Hormone (TSH) Iron Level 17 L Total Iron 201 L Binding Capacity Percent Iron 8 L Saturation Ferritin 456.0 H Medications Medication Current Medications Norepinephrine 250 ml @ 7.5 mls/hr TITRATE IV Last administered on 08/21/18at 16:49; Admin Dose 7.5 MLS/HR; Start 08/21/18 at 16:30 Sodium Chloride 1,000 ml @ 100 mls/hr Q10H IV Last administered on 08/22/18at 08:35; Admin Dose 100 MLS/HR; Start 08/21/18 at 20:07 Ipratropium [place] (Atrovent 0.02% (Neb)) 0.5 mg Q2H RESP THERAPY PRN NEB SHORTNESS OF BREATH; Start 08/21/18 at 20:30 Acetaminophen (Tylenol Liquid) 650 mg Q6H PRN PO PAIN LEVEL 1-3 OR FEVER; Start 08/21/18 at 20:30 Docusate Sodium (Colace) 100 mg Q12H PRN PO CONSTIPATION; Start 08/21/18 at 20:30 Bisacodyl (Dulcolax) 5 mg DAILY PRN PO CONSTIPATION; Start 08/21/18 at 20:30 Famotidine (Pepcid Iv) 20 mg DAILY IV Last administered on 08/22/18at 08:35; Admin Dose 20 MG; Start 08/22/18 at 09:00 Levalbuterol (Xopenex Neb) 1.25 mg Q4H RESP THERAPY PRN HHN SHORTNESS OF BREATH; Start 08/21/18 at 20:30 Vancomycin HCl (Vanco Iv Per Pharmacy) VANCOMYCIN PER PHARMACY PER PROTOCOL XX ; Start 08/21/18 at 21:00 Piperacillin Sod/ Tazobactam Sod 100 ml @ 200 mls/hr Q6 IVPB Last administered on 08/22/18at 12:11; Admin Dose 200 MLS/HR; Start 08/22/18 at 00:00 Vancomycin HCl 100 ml @ 100 mls/hr Q12H IVPB Last administered on 08/22/18at 04:26; Admin Dose 100 MLS/HR; Start 08/22/18 at 05:00 Ascorbic Acid (Vitamin C) 500 mg DAILY GTB Last administered on 08/22/18at 08:35; Admin Dose 500 MG; Start 08/22/18 at 09:00 Atorvastatin Calcium (Lipitor) 10 mg QHS GTB ; Start 08/22/18 at 21:00 Ipratropium [place] (Atrovent Hfa) 2 puff Q6H RESP THERAPY PRN INH SHORTNESS OF BREATH; Start 08/22/18 at 00:00 Albuterol/ Ipratropium (Duoneb) 3 ml Q6H RESP THERAPY PRN INH SHORTNESS OF BREATH; Start 08/22/18 at 00:00 Levetiracetam (Keppra Liq (Ped)) 100 mg Q8H GTB Last administered on 08/22/18at 08:35; Admin Dose 100 MG; Start 08/22/18 at 00:00 Zinc Sulfate (Zinc Sulfate) 220 mg DAILY GTB Last administered on 08/22/18at 08:35; Admin Dose 220 MG; Start 08/22/18 at 09:00 Lactobacillus Acidophilus/ Rhamnosus (Culturelle) 1 cap BID PO ; Start 08/22/18 at 21:00 Topiramate (Topamax) 200 mg Q12H GTB Last administered on 08/22/18at 13:59; Admin Dose 200 MG; Start 08/22/18 at 12:00 Multivitamins (Multivitamin) 30 ml DAILY GTB Last administered on 08/22/18at 08:35; Admin Dose 30 ML; Start 08/22/18 at 09:00 Methylphenidate HCl (Ritalin) 10 mg Q12 GTB ; Start 08/22/18 at 09:00 Miscellaneous Information (*Rx Drug Level Order Reminder*) VANCO TROUGH @ 0,400 ONCE ONCE XX ; Start 08/23/18 at 04:00; Stop 08/23/18 at 04:01 Sodium Hypochlorite (Dakin'S (Dilute )) 1 applic BID IRR ; Start 08/22/18 at 21:00 Past Medical History reviewed Home Meds Reported Medications Clindamycin Hcl* (Clindamycin Hcl*) 300 Mg Capsule, 300 MG GTB QID, CAP STOP DATE 08/25/18 08/21/18 Levofloxacin* (Levofloxacin*) 500 Mg Tablet, 500 MG GTB DAILY, TAB STOP DATE 08/25/18 08/21/18 Zinc Sulfate* (Zinc Sulfate*) 220 Mg Tablet, 220 MG GTB DAILY, TAB 08/21/18 Ascorbic Acid (Vitamin C) 500 Mg Tab, 500 MG GTB DAILY, TAB 08/21/18 Multivitamin with Minerals (Multivitamins with Minerals) 1 Each Tablet, 1 EACH GTB DAILY, TAB 08/21/18 Amino Acids/Protein Hydrolys (PRO-STAT LIQUID) 30 Ml Liquid.pkt, 30 ML GTB BID SUGAR FREE 08/21/18 Lisinopril* (Lisinopril*) 20 Mg Tablet, 20 MG GTB Q12H, #30 TAB 08/21/18 Levetiracetam* (Keppra* (Ped)) 100 Mg/Ml Liq, 100 MG GTB Q8H for 30 Days, BOTTLE 08/21/18 Lansoprazole* (Lansoprazole*) 30 Mg Capsule.dr, 30 MG GTB DAILY, CAP 08/21/18 Ipratropium-Albuterol (Ipratropium-Albuterol) 0.5-3 Mg/3 Ml Ampul.neb, 3 ML INHALATION Q6, #30 VIAL 08/21/18 Ipratropium [place]* (Atrovent HFA*) 12.9 Gm Aer.w.adap, 2 PUFF INHALATION Q6H for SHORTNESS OF BREATH, #1 INHALER 08/21/18 Lactobacillus Acidophilus* (Lactinex*) 1 Tab Chew, 1 TAB GTB Q6H, TAB 08/21/18 Carvedilol* (Carvedilol*) 12.5 Mg Tablet, 12.5 MG GTB BID, #60 TAB 08/21/18 Bisacodyl* (Bisacodyl*) 10 Mg Supp, 10 MG MI Q OTHER DAY, SUPP 08/21/18 Atorvastatin Calcium (Atorvastatin Calcium) 10 Mg Tablet, 10 MG GTB QHS, #30 TAB 08/21/18 Topiramate* (Trokendi XR*) 200 Mg Cap.er.24h, 200 MG GTB Q12H, CAP 08/21/18 Citric Acid/Potassium Citrate (Cytra-K Oral Solution) 473 Ml Solution, 5 ML GTB DAILY 08/21/18 Selenium* (Selenimin*) 200 Mcg Tablet, 200 MCG GTB DAILY, TAB 08/21/18 Ondansetron Hcl* (Zofran*) 4 Mg Tab, 4 MG GTB Q6H PRN for NAUSEA AND OR VOMITING, TAB 08/21/18 Methylphenidate Hcl* (Methylphenidate Hcl*) 10 Mg Tablet, 10 MG GTB Q12H, TAB 08/21/18 Medications Current Medications Norepinephrine 250 ml @ 7.5 mls/hr TITRATE IV Last administered on 08/21/18at 16:49; Admin Dose 7.5 MLS/HR; Start 08/21/18 at 16:30 Sodium Chloride 1,000 ml @ 100 mls/hr Q10H IV Last administered on 08/22/18at 08:35; Admin Dose 100 MLS/HR; Start 08/21/18 at 20:07 Ipratropium [place] (Atrovent 0.02% (Neb)) 0.5 mg Q2H RESP THERAPY PRN NEB SHORTNESS OF BREATH; Start 08/21/18 at 20:30 Acetaminophen (Tylenol Liquid) 650 mg Q6H PRN PO PAIN LEVEL 1-3 OR FEVER; Start 08/21/18 at 20:30 Docusate Sodium (Colace) 100 mg Q12H PRN PO CONSTIPATION; Start 08/21/18 at 20:30 Bisacodyl (Dulcolax) 5 mg DAILY PRN PO CONSTIPATION; Start 08/21/18 at 20:30 Famotidine (Pepcid Iv) 20 mg DAILY IV Last administered on 08/22/18at 08:35; Admin Dose 20 MG; Start 08/22/18 at 09:00 Levalbuterol (Xopenex Neb) 1.25 mg Q4H RESP THERAPY PRN HHN SHORTNESS OF BREATH; Start 08/21/18 at 20:30 Vancomycin HCl (Vanco Iv Per Pharmacy) VANCOMYCIN PER PHARMACY PER PROTOCOL XX ; Start 08/21/18 at 21:00 Piperacillin Sod/ Tazobactam Sod 100 ml @ 200 mls/hr Q6 IVPB Last administered on 08/22/18at 12:11; Admin Dose 200 MLS/HR; Start 08/22/18 at 00:00 Vancomycin HCl 100 ml @ 100 mls/hr Q12H IVPB Last administered on 08/22/18at 04:26; Admin Dose 100 MLS/HR; Start 08/22/18 at 05:00 Ascorbic Acid (Vitamin C) 500 mg DAILY GTB Last administered on 08/22/18at 08:35; Admin Dose 500 MG; Start 08/22/18 at 09:00 Atorvastatin Calcium (Lipitor) 10 mg QHS GTB ; Start 08/22/18 at 21:00 Ipratropium [place] (Atrovent Hfa) 2 puff Q6H RESP THERAPY PRN INH SHORTNESS OF BREATH; Start 08/22/18 at 00:00 Albuterol/ Ipratropium (Duoneb) 3 ml Q6H RESP THERAPY PRN INH SHORTNESS OF BREATH; Start 08/22/18 at 00:00 Levetiracetam (Keppra Liq (Ped)) 100 mg Q8H GTB Last administered on 08/22/18at 08:35; Admin Dose 100 MG; Start 08/22/18 at 00:00 Zinc Sulfate (Zinc Sulfate) 220 mg DAILY GTB Last administered on 08/22/18at 08:35; Admin Dose 220 MG; Start 08/22/18 at 09:00 Lactobacillus Acidophilus/ Rhamnosus (Culturelle) 1 cap BID PO ; Start 08/22/18 at 21:00 Topiramate (Topamax) 200 mg Q12H GTB Last administered on 08/22/18at 13:59; Admin Dose 200 MG; Start 08/22/18 at 12:00 Multivitamins (Multivitamin) 30 ml DAILY GTB Last administered on 08/22/18at 08:35; Admin Dose 30 ML; Start 08/22/18 at 09:00 Methylphenidate HCl (Ritalin) 10 mg Q12 GTB ; Start 08/22/18 at 09:00 Miscellaneous Information (*Rx Drug Level Order Reminder*) VANCO TROUGH @ 0,400 ONCE ONCE XX ; Start 08/23/18 at 04:00; Stop 08/23/18 at 04:01 Sodium Hypochlorite (Dakin'S (Dilute )) 1 applic BID IRR ; Start 08/22/18 at 21:00 Allergies: Coded Allergies: No Known Drug Allergies (Unverified Allergy, Unknown, 08/21/18) Past Surgical History reviewed Social History reviewed Smoking Status: Unknown if ever smoked HELDER VILLALOBOS NP Aug 22, 2018 15:02 PRATIK TATUM Aug 22, 2018 16:39
--- NOTE | 2018-08-22 15:09 | CONS ---
DATE OF ADMISSION: 08/21/2018 DATE OF CONSULTATION: 08/22/2018 TYPE OF CONSULTATION: Cardiology. REASON FOR CONSULTATION: Cardiopulmonary arrest. REQUESTING PHYSICIAN: Angel Luis Johnson MD, from the hospitalist service. HISTORY OF PRESENT ILLNESS: Ms. Blanco is a 62-year-old female with a history of chronic respiratory failure, status post tracheostomy, dysphagia, status post G- tube, hypertension, dyslipidemia, seizure disorder who per report was noted to have respiratory distress in chronic care facility and paramedics were called. Upon arrival, the patient was having difficulty breathing. She was transferred to the ambulance and was brought to the [facility] and en route had a complete decompensation with cardiac arrest. CPR was initiated and ACLS protocol and easily, she had spontaneous return of circulation. She was placed on the vent and admitted to the ICU. The patient's initial vital signs since she arrived in the emergency department, temperature was 98, blood pressure 47/21, respiratory rate 30, satting 89% and then quickly rebound to 150/95 with pulse of 129. The patient's labs revealed white blood cell count of 26, hemoglobin 8.9 and platelet count of 654, sodium 133, potassium 4.6, creatinine 4.9, BUN 29, troponin negative. INR 1.2. UA positive. The patient underwent a chest x-ray revealing left-sided pneumothorax, heart mediastinum within normal limits. The patient subsequently required chest tube placement and remains in ICU now on low dose Levophed pressor support with currently stable blood pressures. PAST MEDICAL HISTORY: As above in HPI. MEDICATIONS CURRENTLY IN HOSPITAL: 1. Lipitor 20 mg at bedtime. 2. Topamax. 3. Pepcid. 4. Vitamin C. 5. Zinc sulfate. 6. Multi-Slime. 7. Ritalin. 8. Vancomycin. 9. Zosyn. 10. Atrovent. 11. Keppra. 12. Vancomycin. 13. Levophed. 14. IV fluid hydration at 100 mL an hour. ALLERGIES: NO KNOWN DRUG ALLERGIES. SOCIAL HISTORY: No current tobacco, EtOH or illicit drug use. FAMILY HISTORY: No history of sudden cardiac or early CAD. REVIEW OF SYSTEMS: As above in HPI. CONSTITUTIONAL: No fevers, chills. PULMONARY: Chronic respiratory failure, status post trach. GASTROINTESTINAL: Dysphagia, status post G-tube. GENITOURINARY: No hematuria. MUSCULOSKELETAL: Degenerative joint disease. PSYCHIATRIC: No documented psych history. NEUROLOGIC: Encephalopathy. PHYSICAL EXAMINATION: VITAL SIGNS: Temperature of 99, blood pressure 108/72, pulse 88, respiratory rate 20, satting 100%. GENERAL: The patient is encephalopathic. NECK: Tracheostomy in place. CHEST: Upper airway transmitted rhonchus sounds. HEART: Regular rate and rhythm. Normal S1, S2, I/ systolic murmur, nondisplaced PMI. ABDOMEN: Positive bowel sounds, soft. EXTREMITIES: No significant pitting edema, 1+ pulses bilateral posterior tibial. LABORATORIES: Most recently from today, sodium 139, potassium 4.9, creatinine 0.3, BUN 22. Troponin negative x3. White blood cell count 11.6, hemoglobin 7.7, platelet count 492. IMAGING STUDIES: As above in HPI with chest x-ray from today revealing limited exam with lateral left ____ chest tube with small pneumothorax in left apex and distal small pneumothorax in left subpulmonic region and deep sulcus sign, retrocardiac opacity, hyperexpanded lungs. ECG from 08/21/2018 reveals sinus tachycardia rate of 120, normal axis, poor R- wave progression across anterior precordial leads concerning for possible anterior GA. IMPRESSION: 1. Cardiopulmonary arrest. At this time, the patient has troponin negative x3 and no definite cardiac etiology and a tracheostomy, the patient may be due to primary respiratory event with hypoxia and subsequent cardiac decompensation. 2. Abnormal electrocardiogram with poor R-wave progression across the anterior precordial leads, assess for acute coronary syndrome. 3. Hypotension, on Levophed pressor support. 4. Chronic respiratory failure, status post tracheostomy, on a ventilator. 5. Dysphagia, status post G-tube. 6. Pneumothorax, status post chest tube. 7. Seizure disorder. 8. Dyslipidemia. 9. Anemia, worsening. 10. Leukocytosis, improving. RECOMMENDATIONS: 1. At this time, we would maintain the patient in ICU for close monitoring. 2. Wean the patient of Levophed pressor support as tolerated. 3. Check 2D echo for this patient's ejection fraction, wall motion or rule out any major valve abnormalities. 4. The patient is status post troponins negative x3. We will send 1 addition on discharge. The patient does not have any cardiac damage post-event or leading to her event. 5. Continue the patient's antibiotics and follow up all culture data. 6. We will follow the patient's respiratory status closely with aggressive pulmonary toilet. 7. Continue the patient's statin and adjust it according to fasting lipid panel to be checked. 8. Continue the patient's Keppra. Thank you for allowing me to take part in the care of this patient. I will continue to follow her very closely with you with further recommendations to be made as the patient progresses through her inpatient hospital clinical course. Dictated By: ANGEL LUIS HENAO/JERARDO Conf#: [id number] DID#: [id number] CC: BIENVENIDO ACEVEDO MD; RONALD GALO MD; ANGEL LUIS JOHNSON MD;*EndCC* MTDD
[2018-08-22] MEDS: LACTOBACILLUS RHAMNOSUS CAP PO SCH (21:22)
[2018-08-22] MEDS: BALSAM PERU/CASTOR OIL 60 GM TUBE TOP SCH (21:22)
[2018-08-22] MEDS: ATORVASTATIN 10 MG TAB GTB SCH (21:22)
[2018-08-22] MEDS: SODIUM HYPOCHLORITE (1/40) 1 APPLIC BTL IRR SCH (21:22)
--- NOTE | 2018-08-22 21:28 | RADRPT ---
Echocardiogram Report Patient Name: SUGEY PAGEPatient ID: [id number] : 1955 (62y 12m)Study Date: 08/22/2018 7:15:56 AM Gender: FAccession #: [id number] Tech: Lucretia Bianchi RDCS Location: 110 Ref.Physician: BIENVENIDO ACEVEDO Height(Cm): BSA: Weight(Kg): Quality: AdequateAccount #: Procedures: Echocardiographic Report: Transthoracic echocardiogram with complete 2D, M-Mode, and doppler examination. Indications: Cardiac Arrest. Measurements: 2D/M Mode Doppler Measurement Value Normal Range Measurement Value Normal Range LVIDd 2D 3.4 [ 3.8 - 5.2 ] cm AV Peak Tony 1.9 [ 100.0 - 170.0 ] cm/sec LVIDs 2D 1.7 [ 2.2 - 3.5 ] cm AV Peak PG 15.0 [ 2.0 - 9.0 ] mmHg LVPWd 2D 1.1 [ 0.6 - 0.9 ] cm LVOT Peak Tony 1.1 [ 70.0 - 110.0 ] cm/sec IVSd 2D 1.1 [ 0.6 - 0.9 ] cm LVOT Peak PG 5.0 [ 2.0 - 6.0 ] mmHg AoR Diam 2D 2.9 [ 2.3 - 3.1 ] cm MV E Peak Tony 0.6 [ 60.0 - 130.0 ] cm/sec EDV 2D 48.1 [ 46.0 - 106.0 ] ml MV A Peak Tony 0.7 [ 100.0 - 120.0 ] cm/sec ESV 2D 8.6 [ 14.0 - 42.0 ] ml MV E/A 0.7 [ 0.8 - 1.5 ] ratio EF 2D 82.0 [ 54.0 - 74.0 ] percent MV Decel Time 285 [ 104 - 258 ] msec LA Dimen 2D 2.9 [ 2.7 - 3.8 ] cm Lat E` Tony 0.1 [ 10.0 - 15.0 ] cm/sec Lateral E/E` 7.0 [ 1.0 - 2.0 ] ratio Med E` Tony 0.1 cm/sec MV E/A 0.7 [ 0.8 - 1.5 ] ratio TR Peak Tony 2.4 [ 100.0 - 280.0 ] cm/sec TR Peak PG 23.0 mmHg RVSP 38.0 [ 10.0 - 36.0 ] mmHg RA Pressure 15.0 mmHg Findings: Left Ventricle: Normal left ventricular systolic function. Normal left ventricular cavity size. Mild concentric left ventricular hypertrophy. Ejection fraction is visually estimated at 60 %. Tissue Doppler/Mitral Doppler indices are consistent with impaired relaxation (Stage I diastolic dysfunction). Right Ventricle: Normal right ventricular size. Normal right ventricular systolic function. Left Atrium: The left atrium is normal in size. Right Atrium: The right atrium is normal in size. Mitral Valve: Normal appearance and function of the mitral valve with trace physiologic regurgitation. Aortic Valve: Normal appearance of the aortic valve. No significant aortic stenosis or insufficiency. Tricuspid Valve: Normal appearance of the tricuspid valve. Estimated peak PA systolic pressure 38 mmHg. There is trace to mild tricuspid regurgitation. Pulmonic Valve: Pulmonic valve not well visualized. Pericardium: Normal pericardium with no significant pericardial effusion. Aorta: Normal aortic root. IVC: Dilated IVC without respiratory collapse, however, patient on ventilator. Conclusions: Normal left ventricular systolic function. Normal left ventricular cavity size. Mild concentric left ventricular hypertrophy. Ejection fraction is visually estimated at 60 %. Tissue Doppler/Mitral Doppler indices are consistent with impaired relaxation (Stage I diastolic dysfunction). Normal appearance and function of the mitral valve with trace physiologic regurgitation. Normal appearance of the tricuspid valve. Estimated peak PA systolic pressure 38 mmHg. There is trace to mild tricuspid regurgitation. Electronically Signed By: Anuj Rosa 2018-08-22 21:27:25 PDT
[2018-08-23] VITALS (37 sets, daily range): BP systolic 130–176; BP diastolic 80–102; PULSE 70–111; RESP 18–23
[2018-08-23] MEDS: TOPIRAMATE 100 MG TAB GTB SCH ×2 (00:44→13:48)
[2018-08-23] MEDS: LEVETIRACETAM (100 MG/ML PO SYG) GTB SCH ×4 (00:44→22:11)
[2018-08-23] MEDS: PIPER-TAZO 3.375 GM IV (PMX) 100 ML IVPB SCH ×4 (00:44→17:10)
[2018-08-23] MEDS: VANCOMYCIN 500 MG (PMX) 100 ML IVPB SCH ×2 (05:01→16:13)
[2018-08-23] MEDS ORDERED: ENALAPRILAT 1.25 MG INJ IV PRN (06:00)
--- NOTE | 2018-08-23 07:27 | EEG ---
EEG NOTE Report Details DATE OF TEST: 08/22/18 HISTORY: The patient is a 62-year-old F who presents with altered mental status s/p reported cardiac arrest.. This EEG is requested to evaluate for subclinical seizures. SEDATION: None. CONDITIONS OF RECORDING: This EEG was recorded digitally on the [employer] machine, using the International 10-20 System of electrodes plus anterior temporals and Nz. STATES SAMPLED: Comatose. FINDIN The background is grossly continuous and symmetric, predominated by polymorphic theta and delta activity. There are frequent right temporal onset seizures with left temporal spread, without consistently annotated clinical correlate. The normal [id number] frequency-amplitude gradient was absent. Photic stimulation does not elicit any definite driving responses or epileptiform discharges. Hyperventilation was not performed. IMPRESSION: Abnormal electroencephalogram due to: frequent right temporal onset seizures. PRATIK TATUM Aug 23, 2018 07:27
--- NOTE | 2018-08-23 07:30 | QN ---
Documentation Comment Subclinical seizures noted on spot EEG.. Load Keppra 1g iv x1 now, then increase maintenance to 250mg q8h for now.. Ativan iv prn prolonged clinical seizure or cluster of the same Will follow PRATIK TATUM Aug 23, 2018 07:30
[2018-08-23] MEDS ORDERED: LEVETIRACETAM 1000 MG (PMX) 100 ML IVPB ONE (08:00)
[2018-08-23] MEDS: MULTIVITAMINS 30 ML CUP GTB SCH (08:18)
[2018-08-23] MEDS: SODIUM HYPOCHLORITE (1/40) 1 APPLIC BTL IRR SCH ×2 (08:18→20:59)
[2018-08-23] MEDS: FAMOTIDINE 20 MG TAB GTB SCH (08:18)
[2018-08-23] MEDS: ZINC SULFATE 220 MG CAP GTB SCH (08:18)
[2018-08-23] MEDS: ASCORBIC ACID 500 MG TAB GTB SCH (08:18)
[2018-08-23] MEDS: LACTOBACILLUS RHAMNOSUS CAP PO SCH ×2 (08:18→20:52)
[2018-08-23] MEDS: BALSAM PERU/CASTOR OIL 60 GM TUBE TOP SCH ×2 (08:19→20:53)
[2018-08-23] MEDS: METHYLPHENIDATE 5 MG TAB GTB SCH ×2 (10:27→20:58)
--- NOTE | 2018-08-23 11:00 | PN ---
Date/Time of Note Date/Time of Note DATE: 08/23/18 TIME: 10:57 Assessment/Plan VTE Prophylaxis Risk score (from Ns)>0 risk: 11 SCD applied (from Ns): Yes Pharmacological prophylaxis: NA/contraindicated Pharm contraindication: hemorrhagic infarct Lines/Catheters IV Catheter Type (from Nrsg): Central Line Central line still needed: Yes Urinary Cath still in place: Yes Reason Cath still needed: other (indicate) (intubated) Assessment/Plan Assessment/Plan 61 yo woman history of stroke on chronic trach and PEG admitted after respiratory failure leading to cardiac arrest. # cardiac arrest: - Apparently patient was reported to have shortness of breath prior to cardiac arrest. Likely was hypoxic arrest. - According to code sheet, was PEA arrest. - No hypothermia due to severe underlying disability, trach and PEG. #Sepsis #Bacteremia - Leukocytosis to 26 on admission; UA with leuk esterase - Will treat empirically for urosepsis - Blood cultures growing gram positive cocci - ID following - Wait for sensitivities, continue current antibiotics per ID. #Pneumothorax - Also associated with L chest subcutaneous emphysema - Likely due to chest compressions - Now with chest tube, pulmonary to manage. #Acute on chronic respiratory failure - Patient chronically on tracheostomy - Continue ICU monitoring. - Vent per pulmonary. # metabolic acidosis: Secondary to underlying infectious process, shock. Antibiotics and fluids. Monitor labs. # normocytic anemia: Check iron stores # History of brain hemorrhage - Apparently had brain hemorrhage in 05/2018 - Will hold off on anticoagulation for now - Has [employer] shunt. - Chronic trach and PEG # Seizure disorder: Continue Keppra, Topamax # hypertension: We will hold home blood pressure medications at the current time given patient's sepsis shock and hypotension. # DVT GI prophylaxis: SCDs, Protonix Code status: Full code, pending neurology consult for prognosis. PT SON RENZO [phone] LIVES IN [facility]. Greater than 45 minutes critical care time spent on care management this patient. Result Diagram: 08/23/18 0357 08/23/18 0357 Subjective 24 Hr Interval Summary Free Text/Dictation No acute overnight events. Off pressors, now hypertensive. Patient opens eyes to stimulation. Exam/Review of Systems Exam Vitals Vital Signs Date Temp Pulse Resp B/P (MAP) Pulse Ox O2 O2 Flow FiO2 Time Delivery Rate 08/23/18 107 08:00 08/23/18 99.4 20 153/97 100 Mechanical 08:00 (115) Ventilator 08/23/18 30 05:47 Intake and Output 08/22/18 08/22/18 08/23/18 1515:00 23:00 07:00 IntakeIntake Total 1046.25 ml 1180 ml 1150 ml OutputOutput Total 365 ml 380 ml 440 ml BalanceBalance 681.25 ml 800 ml 710 ml Exam General: Patient is nonverbal, trach to vent HEENT: Atraumatic, normocephalic. The pupils are equal, round and reactive. Neck: Tracheostomy in place connected to vent Lungs: Mechanical breath sounds bilaterally Chest: L chest subcutaneous edema. L chest tube in place. Heart: Sinus tachycardia, no murmurs Abdomen: Soft , nontender, nondistended , bowel sounds are present. PEG in place. Extremities: Normal to inspection, no edema no cyanosis. L femoral central line. Neurologic: Nonverbal, has minimal spontaneous movements of the bilateral lower extremities, facial grimacing. Eyes now opening spontaneously. Results Results 24hrs Laboratory Tests Test 08/23/18 03:57 08/23/18 03:58 08/23/18 07:00 08/23/18 08:49 White Blood Count 11.9 H Red Blood Count 2.71 L Hemoglobin 7.8 L Hematocrit 25.9 L Mean Corpuscular 95.6 Volume Mean Corpuscular 28.8 L Hemoglobin Mean Corpuscular 30.1 L Hemoglobin Concen t Red Cell 17.2 H Distribution Width Platelet Count 415 Mean Platelet 8.4 Volume Immature 0.700 H Granulocytes % Neutrophils % 84.4 H Lymphocytes % 8.9 L Monocytes % 5.2 Eosinophils % 0.7 Basophils % 0.1 Nucleated Red 0.0 Blood Cells % Immature 0.080 H Granulocytes # Neutrophils # 10.0 H Lymphocytes # 1.1 Monocytes # 0.6 Eosinophils # 0.1 Basophils # 0.0 Nucleated Red 0.0 Blood Cells # Sodium Level 139 Potassium Level 3.1 L Chloride Level 108 Carbon Dioxide 19 L Level Anion Gap 12 Blood Urea 17 Nitrogen Creatinine 0.31 L Est Glomerular > 60 Filtrat Rate mL/min Glucose Level 124 Calcium Level 8.8 Total Bilirubin 0.1 L Direct Bilirubin 0.00 Indirect 0.1 Bilirubin Aspartate Amino 23 Transf (AST/SGOT) Alanine 13 Aminotransferase (ALT/SGPT) Alkaline 156 H Phosphatase Total Protein 6.8 Albumin 2.9 L Globulin 3.90 H Albumin/Globulin 0.74 Ratio Vancomycin Level 11.1 Trough Blood Gas Blood arterial Specimen Source Arterial Blood 08/23/2018 7:21:3 Date Drawn 4 AM Arterial Blood pH 7.452 H (Temp corrected) Arterial Blood 29.6 L pCO2 (Temp correct) Arterial Blood 139.3 H pO2 (Temp corrected) Arterial Blood 20.2 L HCO3 Arterial Blood -3.3 L Base Excess Arterial Blood 99.0 H Oxygen Saturation Kiko Test ACCEPTAB Arterial Blood Right Radial Gas Puncture Site Arterial 0.4 Blood Carboxyhemo globin Arterial Blood 0.5 Methemoglobin Blood Gas A-a O2 39.8 H Differential Oxyhemoglobin 98.1 Percent Blood Gas 37.0 Temperature Blood Gas 20.0 Respiration Rate Blood Gas Actual 21 Respiration Rate Blood Gas VENT - AC Modality FiO2 30.0 Blood Gas Tidal 450.0 Volume Blood Gas Low 5.0 PEEP Setting Blood Gas TM Notified Whom Blood Gas 08/23/2018 7:49:1 Notified Time 4 AM Creatine Kinase 31 Creatine Kinase 2.0 Index Creatinine Kinase 0.61 MB (Mass) Troponin I < 0.012 Medications Medication Current Medications Norepinephrine 250 ml @ 7.5 mls/hr TITRATE IV Last administered on 08/21/18at 16:49; Admin Dose 7.5 MLS/HR; Start 08/21/18 at 16:30 Sodium Chloride 1,000 ml @ 100 mls/hr Q10H IV Last administered on 08/22/18at 21:22; Admin Dose 100 MLS/HR; Start 08/21/18 at 20:07 Ipratropium [place] (Atrovent 0.02% (Neb)) 0.5 mg Q2H RESP THERAPY PRN NEB SHORTNESS OF BREATH; Start 08/21/18 at 20:30 Acetaminophen (Tylenol Liquid) 650 mg Q6H PRN PO PAIN LEVEL 1-3 OR FEVER; Start 08/21/18 at 20:30 Docusate Sodium (Colace) 100 mg Q12H PRN PO CONSTIPATION; Start 08/21/18 at 20:30 Bisacodyl (Dulcolax) 5 mg DAILY PRN PO CONSTIPATION; Start 08/21/18 at 20:30 Levalbuterol (Xopenex Neb) 1.25 mg Q4H RESP THERAPY PRN HHN SHORTNESS OF BREATH; Start 08/21/18 at 20:30 Vancomycin HCl (Vanco Iv Per Pharmacy) VANCOMYCIN PER PHARMACY PER PROTOCOL XX ; Start 08/21/18 at 21:00 Piperacillin Sod/ Tazobactam Sod 100 ml @ 200 mls/hr Q6 IVPB Last administered on 08/23/18 06:08; Admin Dose 200 MLS/HR; Start 08/22/18 at 00:00 Vancomycin HCl 100 ml @ 100 mls/hr Q12H IVPB Last administered on 08/23/18 05:01; Admin Dose 100 MLS/HR; Start 08/22/18 at 05:00 Ascorbic Acid (Vitamin C) 500 mg DAILY GTB Last administered on 08/23/18 08:18; Admin Dose 500 MG; Start 08/22/18 at 09:00 Atorvastatin Calcium (Lipitor) 10 mg QHS GTB Last administered on 08/22/18 21 :22; Admin Dose 10 MG; Start 08/22/18 at 21:00 Ipratropium [place] (Atrovent Hfa) 2 puff Q6H RESP THERAPY PRN INH SHORTNESS OF BREATH; Start 08/22/18 at 00:00 Albuterol/ Ipratropium (Duoneb) 3 ml Q6H RESP THERAPY PRN INH SHORTNESS OF BREATH; Start 08/22/18 at 00:00 Zinc Sulfate (Zinc Sulfate) 220 mg DAILY GTB Last administered on 08/23/18 08:18; Admin Dose 220 MG; Start 08/22/18 at 09:00 Lactobacillus Acidophilus/ Rhamnosus (Culturelle) 1 cap BID PO Last administered on 08/23/18 08:18; Admin Dose 1 CAP; Start 08/22/18 at 21:00 Topiramate (Topamax) 200 mg Q12H GTB Last administered on 08/23/18 00:44; Admin Dose 200 MG; Start 08/22/18 at 12:00 Multivitamins (Multivitamin) 30 ml DAILY GTB Last administered on 08/23/18 08:18; Admin Dose 30 ML; Start 08/22/18 at 09:00 Methylphenidate HCl (Ritalin) 10 mg Q12 GTB Last administered on 08/23/18 10:27; Admin Dose 10 MG; Start 08/22/18 at 09:00 Sodium Hypochlorite (Dakin'S (Dilute )) 1 applic BID IRR Last administered on 08/23/18at 08:18; Admin Dose 1 APPLIC; Start 08/22/18 at 21:00 Famotidine (Pepcid) 20 mg DAILY GTB Last administered on 08/23/18at 08:18; Admin Dose 20 MG; Start 08/23/18 at 09:00 Enalaprilat (Vasotec Iv) 1.25 mg Q6H PRN IV ELEVATED SYSTOLIC BP Last administered on 08/23/18at 10:27; Admin Dose 1.25 MG; Start 08/23/18 at 06:00 Levetiracetam (Keppra Liq (Ped)) 250 mg Q8 GTB ; Start 08/23/18 at 08:00 ANGEL LUIS REDD MD Aug 23, 2018 11:00
--- NOTE | 2018-08-23 11:05 | CONS ---
Consult Date/Type/Reason Admit Date/Time Aug 21, 2018 at 20:08 Initial Consult Date Type of Consult Pulmonary Requesting Provider: ANGEL LUIS REDD MD Date/Time of Note DATE: 08/23/18 TIME: 11:03 Subjective Appears comfortable. No new events. Has mild subcutaneous emphysema left chest wall. Objective Vital Signs Date Temp Pulse Resp B/P (MAP) Pulse Ox O2 O2 Flow FiO2 Time Delivery Rate 08/23/18 107 08:00 08/23/18 99.4 20 153/97 100 Mechanical 08:00 (115) Ventilator 08/23/18 30 05:47 Intake and Output 08/22/18 08/22/18 08/23/18 1515:00 23:00 07:00 IntakeIntake Total 1046.25 ml 1180 ml 1150 ml OutputOutput Total 365 ml 380 ml 440 ml BalanceBalance 681.25 ml 800 ml 710 ml Exam PHYSICAL EXAMINATION: GENERAL: Elderly-appearing lady on mechanical ventilation, appears comfortable. No respiratory distress. VITAL SIGNS: NECK: Trach site clean and intact. CARDIAC: S1, S2, no added sounds or murmurs. CHEST: Diminished air entry bilaterally. ABDOMEN: Soft, nontender. No guarding or rebound. EXTREMITIES: No cyanosis, clubbing, or edema. NEUROLOGIC: Grossly intact. Generalized weakness. Vent Setting Ventilator Support Mode: AC Fraction of Inspired Oxygen pe: 30 Positive End Expiratory Pressu: 5.0 Results/Medications Result Diagram: 08/23/18 0357 08/23/18 0357 Results 24 hrs Laboratory Tests Test 08/23/18 03:57 08/23/18 03:58 08/23/18 07:00 08/23/18 08:49 White Blood Count 11.9 H Red Blood Count 2.71 L Hemoglobin 7.8 L Hematocrit 25.9 L Mean Corpuscular 95.6 Volume Mean Corpuscular 28.8 L Hemoglobin Mean Corpuscular 30.1 L Hemoglobin Concen t Red Cell 17.2 H Distribution Width Platelet Count 415 Mean Platelet 8.4 Volume Immature 0.700 H Granulocytes % Neutrophils % 84.4 H Lymphocytes % 8.9 L Monocytes % 5.2 Eosinophils % 0.7 Basophils % 0.1 Nucleated Red 0.0 Blood Cells % Immature 0.080 H Granulocytes # Neutrophils # 10.0 H Lymphocytes # 1.1 Monocytes # 0.6 Eosinophils # 0.1 Basophils # 0.0 Nucleated Red 0.0 Blood Cells # Sodium Level 139 Potassium Level 3.1 L Chloride Level 108 Carbon Dioxide 19 L Level Anion Gap 12 Blood Urea 17 Nitrogen Creatinine 0.31 L Est Glomerular > 60 Filtrat Rate mL/min Glucose Level 124 Calcium Level 8.8 Total Bilirubin 0.1 L Direct Bilirubin 0.00 Indirect 0.1 Bilirubin Aspartate Amino 23 Transf (AST/SGOT) Alanine 13 Aminotransferase (ALT/SGPT) Alkaline 156 H Phosphatase Total Protein 6.8 Albumin 2.9 L Globulin 3.90 H Albumin/Globulin 0.74 Ratio Vancomycin Level 11.1 Trough Blood Gas Blood arterial Specimen Source Arterial Blood 08/23/2018 7:21:3 Date Drawn 4 AM Arterial Blood pH 7.452 H (Temp corrected) Arterial Blood 29.6 L pCO2 (Temp correct) Arterial Blood 139.3 H pO2 (Temp corrected) Arterial Blood 20.2 L HCO3 Arterial Blood -3.3 L Base Excess Arterial Blood 99.0 H Oxygen Saturation Kiko Test ACCEPTAB Arterial Blood Right Radial Gas Puncture Site Arterial 0.4 Blood Carboxyhemo globin Arterial Blood 0.5 Methemoglobin Blood Gas A-a O2 39.8 H Differential Oxyhemoglobin 98.1 Percent Blood Gas 37.0 Temperature Blood Gas 20.0 Respiration Rate Blood Gas Actual 21 Respiration Rate Blood Gas VENT - AC Modality FiO2 30.0 Blood Gas Tidal 450.0 Volume Blood Gas Low 5.0 PEEP Setting Blood Gas TM Notified Whom Blood Gas 08/23/2018 7:49:1 Notified Time 4 AM Creatine Kinase 31 Creatine Kinase 2.0 Index Creatinine Kinase 0.61 MB (Mass) Troponin I < 0.012 Medications Current Medications Norepinephrine 250 ml @ 7.5 mls/hr TITRATE IV Last administered on 08/21/18at 16:49; Admin Dose 7.5 MLS/HR; Start 08/21/18 at 16:30 Sodium Chloride 1,000 ml @ 100 mls/hr Q10H IV Last administered on 08/22/18at 21:22; Admin Dose 100 MLS/HR; Start 08/21/18 at 20:07 Ipratropium [place] (Atrovent 0.02% (Neb)) 0.5 mg Q2H RESP THERAPY PRN NEB SHORTNESS OF BREATH; Start 08/21/18 at 20:30 Acetaminophen (Tylenol Liquid) 650 mg Q6H PRN PO PAIN LEVEL 1-3 OR FEVER; Start 08/21/18 at 20:30 Docusate Sodium (Colace) 100 mg Q12H PRN PO CONSTIPATION; Start 08/21/18 at 20:30 Bisacodyl (Dulcolax) 5 mg DAILY PRN PO CONSTIPATION; Start 08/21/18 at 20:30 Levalbuterol (Xopenex Neb) 1.25 mg Q4H RESP THERAPY PRN HHN SHORTNESS OF BREATH; Start 08/21/18 at 20:30 Vancomycin HCl (Vanco Iv Per Pharmacy) VANCOMYCIN PER PHARMACY PER PROTOCOL XX ; Start 08/21/18 at 21:00 Piperacillin Sod/ Tazobactam Sod 100 ml @ 200 mls/hr Q6 IVPB Last administered on 08/23/18at 06:08; Admin Dose 200 MLS/HR; Start 08/22/18 at 00:00 Vancomycin HCl 100 ml @ 100 mls/hr Q12H IVPB Last administered on 08/23/18at 05:01; Admin Dose 100 MLS/HR; Start 08/22/18 at 05:00 Ascorbic Acid (Vitamin C) 500 mg DAILY GTB Last administered on 08/23/18at 08:18; Admin Dose 500 MG; Start 08/22/18 at 09:00 Atorvastatin Calcium (Lipitor) 10 mg QHS GTB Last administered on 08/22/18at 21:22; Admin Dose 10 MG; Start 08/22/18 at 21:00 Ipratropium [place] (Atrovent Hfa) 2 puff Q6H RESP THERAPY PRN INH SHORTNESS OF BREATH; Start 08/22/18 at 00:00 Albuterol/ Ipratropium (Duoneb) 3 ml Q6H RESP THERAPY PRN INH SHORTNESS OF NEDA TH; Start 08/22/18 at 00:00 Zinc Sulfate (Zinc Sulfate) 220 mg DAILY GTB Last administered on 08/23/18at 08:18; Admin Dose 220 MG; Start 08/22/18 at 09:00 Lactobacillus Acidophilus/ Rhamnosus (Culturelle) 1 cap BID PO Last administered on 08/23/18at 08:18; Admin Dose 1 CAP; Start 08/22/18 at 21:00 Topiramate (Topamax) 200 mg Q12H GTB Last administered on 08/23/18 00:44; Admin Dose 200 MG; Start 08/22/18 at 12:00 Multivitamins (Multivitamin) 30 ml DAILY GTB Last administered on 08/23/18 08:18; Admin Dose 30 ML; Start 08/22/18 at 09:00 Methylphenidate HCl (Ritalin) 10 mg Q12 GTB Last administered on 08/23/18 10:27; Admin Dose 10 MG; Start 08/22/18 at 09:00 Sodium Hypochlorite (Dakin'S (Dilute 40)) 1 applic BID IRR Last administered on 08/23/18 08:18; Admin Dose 1 APPLIC; Start 08/22/18 at 21:00 Famotidine (Pepcid) 20 mg DAILY GTB Last administered on 08/23/18 08:18; Admin Dose 20 MG; Start 08/23/18 at 09:00 Enalaprilat (Vasotec Iv) 1.25 mg Q6H PRN IV ELEVATED SYSTOLIC BP Last administered on 08/23/18 10:27; Admin Dose 1.25 MG; Start 08/23/18 at 06:00 Levetiracetam (Keppra Liq (Ped)) 250 mg Q8 GTB ; Start 08/23/18 at 08:00 Assessment/Plan Hospital Course (Demo Recall) IMPRESSION 1. Cardiopulmonary arrest. 2. Respiratory failure, possibly secondary to healthcare-associated pneumonia. 3. Traumatic left pneumothorax following CPR. 4. 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 PLAN: 1. Continue mechanical ventilation. 2. Continue broad-spectrum antibiotics. 3. Chest tube to waterseal cardiothoracic surgery evaluation for removal. I have contacted Dr. Rosado 4. Discuss code status with family. 5. Continue antiepileptics. 6. DVT and GI prophylaxis. cc 40 mins stable for transfer to [facility]. RONALD GALO MD, [facility] [place] Aug 23, 2018 11:04
--- NOTE | 2018-08-23 12:54 | CONS ---
Assessment/Plan Assessment/Plan Hospital Course (Demo Recall) No events overnight patient is noncommunicative laying comfortably in bed she opens eyes but does not track, afebrile with a T-max of 99.4, off pressors. WBC 11.9 H&H 7.8 and 25.9 platelets 415 neutrophils 84.4 BUN 17 creatinine 0.31 Microbiology: Blood culture growing gram-positive cocci in clusters, urine culture revealed contaminant sacral wound culture pending Chest x-ray this morning revealed retrocardiac atelectasis/infiltrate is unchanged. Small left-sided pneumothorax is unchanged. Left-sided subcutaneous emphysema is increased. Indwelling's: Trach, PEG, Forman, chest tube, left femoral triple-lumen catheter Antimicrobials: Vancomycin, Zosyn Physical examination: This is a chronically ill-appearing elderly woman who is in no distress. Head atraumatic normocephalic. Neck is supple chest rise symmetrical breath sounds diminished bases. Heart: S1-S2. Abdomen soft bowel sounds present. Extremities without cyanosis. Skin: Patient has unstageable necrotic sacral wound Assessment: 1. Sepsis with bacteremia 2. Status post cardiac arrest 3. Urinary tract infection per urinalysis 4. Left pneumothorax with subcutaneous emphysema 5. Encephalopathy, acute on chronic 6. Possible pneumonia 7. Seizure disorder Plan: Patient is stable, neurology on case, EEG report noted, continue antibiotics, repeat blood and urine cultures, vent management per pulmonary. Consider discontinue femoral line Consultation Date/Type/Reason Admit Date/Time Aug 21, 2018 at 20:08 Initial Consult Date Type of Consult id Requesting Provider: ANGEL LUIS REDD MD Date/Time of Note DATE: 08/23/18 TIME: 12:53 Exam/Review of Systems Exam Vitals Vital Signs Date Temp Pulse Resp B/P (MAP) Pulse Ox O2 O2 Flow FiO2 Time Delivery Rate 08/23/18 107 08:00 08/23/18 99.4 20 153/97 100 Mechanical 08:00 (115) Ventilator 08/23/18 30 05:47 Intake and Output 08/22/18 08/22/18 08/23/18 1515:00 23:00 07:00 IntakeIntake Total 1046.25 ml 1180 ml 1150 ml OutputOutput Total 365 ml 380 ml 440 ml BalanceBalance 681.25 ml 800 ml 710 ml Results Result Diagram: 08/23/18 0357 08/23/18 0357 Results 24hrs Laboratory Tests Test 08/23/18 03:57 08/23/18 03:58 08/23/18 07:00 08/23/18 08:49 White Blood Count 11.9 H Red Blood Count 2.71 L Hemoglobin 7.8 L Hematocrit 25.9 L Mean Corpuscular 95.6 Volume Mean Corpuscular 28.8 L Hemoglobin Mean Corpuscular 30.1 L Hemoglobin Concen t Red Cell 17.2 H Distribution Width Platelet Count 415 Mean Platelet 8.4 Volume Immature 0.700 H Granulocytes % Neutrophils % 84.4 H Lymphocytes % 8.9 L Monocytes % 5.2 Eosinophils % 0.7 Basophils % 0.1 Nucleated Red 0.0 Blood Cells % Immature 0.080 H Granulocytes # Neutrophils # 10.0 H Lymphocytes # 1.1 Monocytes # 0.6 Eosinophils # 0.1 Basophils # 0.0 Nucleated Red 0.0 Blood Cells # Sodium Level 139 Potassium Level 3.1 L Chloride Level 108 Carbon Dioxide 19 L Level Anion Gap 12 Blood Urea 17 Nitrogen Creatinine 0.31 L Est Glomerular > 60 Filtrat Rate mL/min Glucose Level 124 Calcium Level 8.8 Total Bilirubin 0.1 L Direct Bilirubin 0.00 Indirect 0.1 Bilirubin Aspartate Amino 23 Transf (AST/SGOT) Alanine 13 Aminotransferase (ALT/SGPT) Alkaline 156 H Phosphatase Total Protein 6.8 Albumin 2.9 L Globulin 3.90 H Albumin/Globulin 0.74 Ratio Vancomycin Level 11.1 Trough Blood Gas Blood arterial Specimen Source Arterial Blood 08/23/2018 7:21:3 Date Drawn 4 AM Arterial Blood pH 7.452 H (Temp corrected) Arterial Blood 29.6 L pCO2 (Temp correct) Arterial Blood 139.3 H pO2 (Temp corrected) Arterial Blood 20.2 L HCO3 Arterial Blood -3.3 L Base Excess Arterial Blood 99.0 H Oxygen Saturation Kiko Test ACCEPTAB Arterial Blood Right Radial Gas Puncture Site Arterial 0.4 Blood Carboxyhemo globin Arterial Blood 0.5 Methemoglobin Blood Gas A-a O2 39.8 H Differential Oxyhemoglobin 98.1 Percent Blood Gas 37.0 Temperature Blood Gas 20.0 Respiration Rate Blood Gas Actual 21 Respiration Rate Blood Gas VENT - AC Modality FiO2 30.0 Blood Gas Tidal 450.0 Volume Blood Gas Low 5.0 PEEP Setting Blood Gas TM Notified Whom Blood Gas 08/23/2018 7:49:1 Notified Time 4 AM Creatine Kinase 31 Creatine Kinase 2.0 Index Creatinine Kinase 0.61 MB (Mass) Troponin I < 0.012 Medications Medication Current Medications Norepinephrine 250 ml @ 7.5 mls/hr TITRATE IV Last administered on 08/21/18at 16:49; Admin Dose 7.5 MLS/HR; Start 08/21/18 at 16:30 Sodium Chloride 1,000 ml @ 100 mls/hr Q10H IV Last administered on 08/22/18at 21:22; Admin Dose 100 MLS/HR; Start 08/21/18 at 20:07 Ipratropium [place] (Atrovent 0.02% (Neb)) 0.5 mg Q2H RESP THERAPY PRN NEB SH ORTNESS OF BREATH; Start 08/21/18 at 20:30 Acetaminophen (Tylenol Liquid) 650 mg Q6H PRN PO PAIN LEVEL 1-3 OR FEVER; Start 08/21/18 at 20:30 Docusate Sodium (Colace) 100 mg Q12H PRN PO CONSTIPATION; Start 08/21/18 at 20:30 Bisacodyl (Dulcolax) 5 mg DAILY PRN PO CONSTIPATION; Start 08/21/18 at 20:30 Levalbuterol (Xopenex Neb) 1.25 mg Q4H RESP THERAPY PRN HHN SHORTNESS OF BREATH; Start 08/21/18 at 20:30 Vancomycin HCl (Vanco Iv Per Pharmacy) VANCOMYCIN PER PHARMACY PER PROTOCOL XX ; Start 08/21/18 at 21:00 Piperacillin Sod/ Tazobactam Sod 100 ml @ 200 mls/hr Q6 IVPB Last administered on 08/23/18at 06:08; Admin Dose 200 MLS/HR; Start 08/22/18 at 00:00 Vancomycin HCl 100 ml @ 100 mls/hr Q12H IVPB Last administered on 08/23/18at 05:01; Admin Dose 100 MLS/HR; Start 08/22/18 at 05:00 Ascorbic Acid (Vitamin C) 500 mg DAILY GTB Last administered on 08/23/18at 08:18; Admin Dose 500 MG; Start 08/22/18 at 09:00 Atorvastatin Calcium (Lipitor) 10 mg QHS GTB Last administered on 08/22/18at 21:22; Admin Dose 10 MG; Start 08/22/18 at 21:00 Ipratropium [place] (Atrovent Hfa) 2 puff Q6H RESP THERAPY PRN INH SHORTNESS OF BREATH; Start 08/22/18 at 00:00 Albuterol/ Ipratropium (Duoneb) 3 ml Q6H RESP THERAPY PRN INH SHORTNESS OF BREATH; Start 08/22/18 at 00:00 Zinc Sulfate (Zinc Sulfate) 220 mg DAILY GTB Last administered on 08/23/18 08:18; Admin Dose 220 MG; Start 08/22/18 at 09:00 Lactobacillus Acidophilus/ Rhamnosus (Culturelle) 1 cap BID PO Last administered on 08/23/18 08:18; Admin Dose 1 CAP; Start 08/22/18 at 21:00 Topiramate (Topamax) 200 mg Q12H GTB Last administered on 08/23/18 00:44; Admin Dose 200 MG; Start 08/22/18 at 12:00 Multivitamins (Multivitamin) 30 ml DAILY GTB Last administered on 08/23/18 08:18; Admin Dose 30 ML; Start 08/22/18 at 09:00 Methylphenidate HCl (Ritalin) 10 mg Q12 GTB Last administered on 08/23/18 10:27; Admin Dose 10 MG; Start 08/22/18 at 09:00 Sodium Hypochlorite (Dakin'S (Dilute 1/40)) 1 applic BID IRR Last administered on 08/23/18 08:18; Admin Dose 1 APPLIC; Start 08/22/18 at 21:00 Famotidine (Pepcid) 20 mg DAILY GTB Last administered on 08/23/18 08:18; Admin Dose 20 MG; Start 08/23/18 at 09:00 Enalaprilat (Vasotec Iv) 1.25 mg Q6H PRN IV ELEVATED SYSTOLIC BP Last administered on 08/23/18 10:27; Admin Dose 1.25 MG; Start 08/23/18 at 06:00 Levetiracetam (Keppra Liq (Ped)) 250 mg Q8 GTB ; Start 08/23/18 at 08:00 URIAH GARCIA NP Aug 23, 2018 12:54
--- NOTE | 2018-08-23 13:33 | CONS ---
Assessment/Plan Assessment/Plan Hospital Course 62 yo F with hx of seizures and multiple other comorbidities who presents for evaluation of respiratory distress. Now s/p cardiac arrest with ROSC x 2 days. Targeted temperature management was deferred. EEG is notable for frequent R temporal seizures. Now s/p Keppra bolus on 08/23. CTH is without acute intracranial pathology, though is notable for a VPS on the R. P: Cont keppra 250 TID for now Cont topamax per ops for now. Ativan IV PRN seizure > 5 min or for cluster Other medical management per primary Will follow clinically Consultation Date/Type/Reason Admit Date/Time Aug 21, 2018 at 20:08 Type of Consult Neurology Reason for Consultation eval prognosis s/p cardiac arrest Requesting Provider: ANGEL LUIS REDD MD Date/Time of Note DATE: 08/23/18 TIME: 13:33 24 HR Interval Summary Free Text/Dictation Continues critical care. S/p EEG. No seizure events reported. Exam Vital Signs Vitals Vital Signs Date Temp Pulse Resp B/P (MAP) Pulse Ox O2 O2 Flow FiO2 Time Delivery Rate 08/23/18 92 12:00 08/23/18 99.4 20 153/97 100 Mechanical 08:00 (115) Ventilator 08/23/18 30 05:47 Intake and Output 08/22/18 08/22/18 08/23/18 1515:00 23:00 07:00 IntakeIntake Total 1046.25 ml 1180 ml 1150 ml OutputOutput Total 365 ml 380 ml 440 ml BalanceBalance 681.25 ml 800 ml 710 ml Exam PE: Gen Appearance: No Apparent Distress HEENT: Has trach Cardiovascular: Regular rate Abdomen: Soft; has L sided chest tube Extremities: Dry NE: The patient was asleep, though opens eyes to voice. Does not track or follow commands. Cranial nerve examination was limited by mental status. Pupils were equal and reactive to light. There was no afferent pupillary defect. Funduscopic examination was limited. Face was grossly symmetric, w/ present corneal and cough reflexes. Tone was increased in BUE. Muscle bulk was diminished. I did not see fasciculations. The patient withdrew to noxious stimulation x 4. Coordination and gait testing was limited by mental status. Arm and leg reflexes were within normal limits and symmetric. Casper's sign was absent. Plantar responses were flexor. HELDER VILLALOBOS NP Aug 23, 2018 13:33 PRATIK TATUM Aug 23, 2018 19:42
[2018-08-23] MEDS: SOD CHLORIDE 0.9% 1,000 ML IV SCH ×2 (13:44→21:07)
--- NOTE | 2018-08-23 14:23 | RADRPT ---
Vent Rate: 108 bpm RR Interval: 552 msec OR Interval: 196 msec QRS Duration: 93 msec QT Interval: 351 msec QTC Interval: 472 msec P-R-T [place]: 79 - 51 - 37 degrees Sinus tachycardia...rate> 99 Anterior infarct, age indeterminate...Q >35mS, T neg, in V2-V5 Electronically Signed By: Wally Pa
--- NOTE | 2018-08-23 14:27 | RADRPT ---
Vent Rate: 93 bpm RR Interval: 644 msec PA Interval: 155 msec QRS Duration: 91 msec QT Interval: 437 msec QTC Interval: 545 msec P-R-T [place]: 86 - 77 - 53 degrees Sinus rhythm...normal P axis, V-rate 50- 99 Atrial premature complex...SV complex w/ short R-R interval Anterior infarct, age indeterminate...Q >35mS, T neg, in V2-V5 Prolonged QT interval...QTc >500mS Lead(s) I were not used for morphology analysis Electronically Signed By: Wally Pa
--- NOTE | 2018-08-23 14:40 | CONS ---
Assessment/Plan Assessment/Plan Hospital Course (Demo Recall) IMPRESSION: 1. Cardiopulmonary arrest. At this time, the patient has troponin negative x3 and no definite cardiac etiology and a tracheostomy, the patient may be due to primary respiratory event with hypoxia and subsequent cardiac decompensation.-NL EF 60% by echo this admit 2. Abnormal electrocardiogram with poor R-wave progression across the anterior precordial leads, assess for acute coronary syndrome. 3. Hypotension, on Levophed pressor support.-now resolved and hypertensive 4. Chronic respiratory failure, status post tracheostomy, on a ventilator. 5. Dysphagia, status post G-tube. 6. Pneumothorax, status post chest tube. 7. Seizure disorder. 8. Dyslipidemia. 9. Anemia, worsening. 10. Leukocytosis, improving. Recc: -ICU -start antihypertensives -start statin -Contineu abx's and f/u cx data -[place] Consultation Date/Type/Reason Admit Date/Time Aug 21, 2018 at 20:08 Initial Consult Date 08/22/18 Type of Consult Cardiology Reason for Consultation Cardiopulmonary arrest Requesting Provider: ANGEL LUIS REDD MD Date/Time of Note DATE: 08/23/18 TIME: 14:36 Exam/Review of Systems Vital Signs Vitals Vital Signs Date Temp Pulse Resp B/P (MAP) Pulse Ox O2 O2 Flow FiO2 Time Delivery Rate 08/23/18 92 12:00 08/23/18 99.4 20 153/97 100 Mechanical 08:00 (115) Ventilator 08/23/18 30 05:47 Intake and Output 08/22/18 08/22/18 08/23/18 1515:00 23:00 07:00 IntakeIntake Total 1046.25 ml 1180 ml 1200 ml OutputOutput Total 365 ml 380 ml 500 ml BalanceBalance 681.25 ml 800 ml 700 ml Exam Exam Review of Systems: CONSTITUTIONAL: No fevers, chills. PULMONARY: No sob CARDIOVASCULAR: No chest pain/palpitations GASTROINTESTINAL: No nausea/vomiting. GENITOURINARY: No hematuria/dysuria. MUSCULOSKELETAL: No myagias/arthalgias. PSYCHIATRIC: The patient denies depression. NEUROLOGIC: No weakness Constitutional: other (encephalopathic) Psych: no complaints Head: normocephalic ENMT: mucosa pink and moist Neck: other (trached) Respiratory: diminished breath sounds (at bases/B) Cardiovascular: other (tachycardic) Gastrointestinal: soft, non-tender Musculoskeletal: muscle weakness (generalized) Extremities: edema (none) Labs Result Diagram: 08/23/18 0357 08/23/18 0357 Results 24hrs Laboratory Tests Test 08/23/18 03:57 08/23/18 03:58 08/23/18 07:00 08/23/18 08:49 White Blood Count 11.9 H Red Blood Count 2.71 L Hemoglobin 7.8 L Hematocrit 25.9 L Mean Corpuscular 95.6 Volume Mean Corpuscular 28.8 L Hemoglobin Mean Corpuscular 30.1 L Hemoglobin Concen t Red Cell 17.2 H Distribution Width Platelet Count 415 Mean Platelet 8.4 Volume Immature 0.700 H Granulocytes % Neutrophils % 84.4 H Lymphocytes % 8.9 L Monocytes % 5.2 Eosinophils % 0.7 Basophils % 0.1 Nucleated Red 0.0 Blood Cells % Immature 0.080 H Granulocytes # Neutrophils # 10.0 H Lymphocytes # 1.1 Monocytes # 0.6 Eosinophils # 0.1 Basophils # 0.0 Nucleated Red 0.0 Blood Cells # Sodium Level 139 Potassium Level 3.1 L Chloride Level 108 Carbon Dioxide 19 L Level Anion Gap 12 Blood Urea 17 Nitrogen Creatinine 0.31 L Est Glomerular > 60 Filtrat Rate mL/min Glucose Level 124 Calcium Level 8.8 Total Bilirubin 0.1 L Direct Bilirubin 0.00 Indirect 0.1 Bilirubin Aspartate Amino 23 Transf (AST/SGOT) Alanine 13 Aminotransferase (ALT/SGPT) Alkaline 156 H Phosphatase Total Protein 6.8 Albumin 2.9 L Globulin 3.90 H Albumin/Globulin 0.74 Ratio Vancomycin Level 11.1 Trough Blood Gas Blood arterial Specimen Source Arterial Blood 08/23/2018 7:21:3 Date Drawn 4 AM Arterial Blood pH 7.452 H (Temp corrected) Arterial Blood 29.6 L pCO2 (Temp correct) Arterial Blood 139.3 H pO2 (Temp corrected) Arterial Blood 20.2 L HCO3 Arterial Blood -3.3 L Base Excess Arterial Blood 99.0 H Oxygen Saturation Kiko Test ACCEPTAB Arterial Blood Right Radial Gas Puncture Site Arterial 0.4 Blood Carboxyhemo globin Arterial Blood 0.5 Methemoglobin Blood Gas A-a O2 39.8 H Differential Oxyhemoglobin 98.1 Percent Blood Gas 37.0 Temperature Blood Gas 20.0 Respiration Rate Blood Gas Actual 21 Respiration Rate Blood Gas VENT - AC Modality FiO2 30.0 Blood Gas Tidal 450.0 Volume Blood Gas Low 5.0 PEEP Setting Blood Gas TM Notified Whom Blood Gas 08/23/2018 7:49:1 Notified Time 4 AM Creatine Kinase 31 Creatine Kinase 2.0 Index Creatinine Kinase 0.61 MB (Mass) Troponin I < 0.012 Medications Medications Current Medications Norepinephrine 250 ml @ 7.5 mls/hr TITRATE IV Last administered on 08/21/18at 16:49; Admin Dose 7.5 MLS/HR; Start 08/21/18 at 16:30 Sodium Chloride 1,000 ml @ 100 mls/hr Q10H IV Last administered on 08/23/18 13:44; Admin Dose 100 MLS/HR; Start 08/21/18 at 20:07 Ipratropium [place] (Atrovent 0.02% (Neb)) 0.5 mg Q2H RESP THERAPY PRN NEB SHORTNESS OF BREATH; Start 08/21/18 at 20:30 Acetaminophen (Tylenol Liquid) 650 mg Q6H PRN PO PAIN LEVEL 1-3 OR FEVER; Start 08/21/18 at 20:30 Docusate Sodium (Colace) 100 mg Q12H PRN PO CONSTIPATION; Start 08/21/18 at 20:30 Bisacodyl (Dulcolax) 5 mg DAILY PRN PO CONSTIPATION; Start 08/21/18 at 20:30 Levalbuterol (Xopenex Neb) 1.25 mg Q4H RESP THERAPY PRN HHN SHORTNESS OF BREATH; Start 08/21/18 at 20:30 Vancomycin HCl (Vanco Iv Per Pharmacy) VANCOMYCIN PER PHARMACY PER PROTOCOL XX ; Start 08/21/18 at 21:00 Piperacillin Sod/ Tazobactam Sod 100 ml @ 200 mls/hr Q6 IVPB Last administered on 08/23/18at 13:46; Admin Dose 200 MLS/HR; Start 08/22/18 at 00:00 Vancomycin HCl 100 ml @ 100 mls/hr Q12H IVPB Last administered on 08/23/18at 05:01; Admin Dose 100 MLS/HR; Start 08/22/18 at 05:00 Ascorbic Acid (Vitamin C) 500 mg DAILY GTB Last administered on 08/23/18at 08:18; Admin Dose 500 MG; Start 08/22/18 at 09:00 Atorvastatin Calcium (Lipitor) 10 mg QHS GTB Last administered on 08/22/18 21:22; Admin Dose 10 MG; Start 08/22/18 at 21:00 Ipratropium [place] (Atrovent Hfa) 2 puff Q6H RESP THERAPY PRN INH SHORTNESS OF BREATH; Start 08/22/18 at 00:00 Albuterol/ Ipratropium (Duoneb) 3 ml Q6H RESP THERAPY PRN INH SHORTNESS OF BREATH; Start 08/22/18 at 00:00 Zinc Sulfate (Zinc Sulfate) 220 mg DAILY GTB Last administered on 08/23/18 08:18; Admin Dose 220 MG; Start 08/22/18 at 09:00 Lactobacillus Acidophilus/ Rhamnosus (Culturelle) 1 cap BID PO Last administered on 08/23/18 08:18; Admin Dose 1 CAP; Start 08/22/18 at 21:00 Topiramate (Topamax) 200 mg Q12H GTB Last administered on 08/23/18 13:48; Admin Dose 200 MG; Start 08/22/18 at 12:00 Multivitamins (Multivitamin) 30 ml DAILY GTB Last administered on 08/23/18 08:18; Admin Dose 30 ML; Start 08/22/18 at 09:00 Methylphenidate HCl (Ritalin) 10 mg Q12 GTB Last administered on 08/23/18 10:27; Admin Dose 10 MG; Start 08/22/18 at 09:00 Sodium Hypochlorite ([place] (Dilute 140)) 1 applic BID IRR Last administered on 08/23/18 08:18; Admin Dose 1 APPLIC; Start 08/22/18 at 21:00 Famotidine (Pepcid) 20 mg DAILY GTB Last administered on 08/23/18 08:18; Admin Dose 20 MG; Start 08/23/18 at 09:00 Enalaprilat (Vasotec Iv) 1.25 mg Q6H PRN IV ELEVATED SYSTOLIC BP Last administered on 08/23/18 10:27; Admin Dose 1.25 MG; Start 08/23/18 at 06:00 Levetiracetam (Keppra Liq (Ped)) 250 mg Q8 GTB ; Start 08/23/18 at 08:00 ANGEL LUIS HERNANDEZ Aug 23, 2018 14:40
[2018-08-23] MEDS: ATORVASTATIN 10 MG TAB GTB SCH (20:52)
[2018-08-23] MEDS: METOPROLOL 25 MG TAB PO SCH (20:53)
[2018-08-24] VITALS (22 sets, daily range): BP systolic 149–173; BP diastolic 69–97; PULSE 70–96; RESP 19–24
[2018-08-24] MEDS: POTASSIUM CHLORIDE 100 ML IVPB SCH ×2 (01:02→03:16)
[2018-08-24] MEDS: TOPIRAMATE 100 MG TAB GTB SCH ×2 (01:08→13:19)
[2018-08-24] MEDS: PIPER-TAZO 3.375 GM IV (PMX) 100 ML IVPB SCH ×4 (02:03→18:33)
[2018-08-24] MEDS: VANCOMYCIN 500 MG (PMX) 100 ML IVPB SCH ×2 (06:01→17:18)
[2018-08-24] MEDS: LEVETIRACETAM (100 MG/ML PO SYG) GTB SCH ×3 (06:01→21:28)
[2018-08-24] MEDS ORDERED: SOD CHLORIDE 0.9% 250 ML IV* ONE (06:41)
[2018-08-24] MEDS ORDERED: POTASSIUM CHLORIDE 20 MEQ POWDER FOR ORAL SOLN GTB ONE (07:30)
[2018-08-24] MEDS: LACTOBACILLUS RHAMNOSUS CAP PO SCH ×2 (10:09→21:28)
[2018-08-24] MEDS: FAMOTIDINE 20 MG TAB GTB SCH (10:09)
[2018-08-24] MEDS: ASCORBIC ACID 500 MG TAB GTB SCH (10:09)
[2018-08-24] MEDS: ZINC SULFATE 220 MG CAP GTB SCH (10:09)
[2018-08-24] MEDS: SODIUM HYPOCHLORITE (1/40) 1 APPLIC BTL IRR SCH ×2 (10:10→21:29)
[2018-08-24] MEDS: METOPROLOL 25 MG TAB PO SCH (10:10)
[2018-08-24] MEDS: BALSAM PERU/CASTOR OIL 60 GM TUBE TOP SCH ×2 (10:10→21:29)
[2018-08-24] MEDS: SOD CHLORIDE 0.9% 1,000 ML IV SCH ×2 (10:11→21:35)
[2018-08-24] MEDS: METHYLPHENIDATE 5 MG TAB GTB SCH ×2 (13:00→21:35)
[2018-08-24] MEDS: MULTIVITAMINS 30 ML CUP GTB SCH (13:19)
[2018-08-24] MEDS: ENALAPRILAT 2.5 MG INJ IV PRN (13:37)
--- NOTE | 2018-08-24 14:16 | CONS ---
Assessment/Plan Assessment/Plan Hospital Course (Demo Recall) IMPRESSION: 1. Cardiopulmonary arrest. At this time, the patient has troponin negative x3 and no definite cardiac etiology and a tracheostomy, the patient may be due to primary respiratory event with hypoxia and subsequent cardiac decompensation.-NL EF 60% by echo this admit 2. Abnormal electrocardiogram with poor R-wave progression across the anterior precordial leads, assess for acute coronary syndrome. 3. Hypotension, on Levophed pressor support.-now resolved and hypertensive 4. Chronic respiratory failure, status post tracheostomy, on a ventilator. 5. Dysphagia, status post G-tube. 6. Pneumothorax, status post chest tube. 7. Seizure disorder. 8. Dyslipidemia. 9. Anemia, worsening. 10. Leukocytosis, improving. Recc: -Tele -uptitrate antihypertensinves -Continue statin -Contineu abx's and f/u cx data -[place] Consultation Date/Type/Reason Admit Date/Time Aug 21, 2018 at 20:08 Initial Consult Date 08/22/18 Type of Consult Cardiology Reason for Consultation CP arrest Requesting Provider: ANGEL LUIS REDD MD Date/Time of Note DATE: 08/24/18 TIME: 14:14 Exam/Review of Systems Vital Signs Vitals Vital Signs Date Temp Pulse Resp B/P (MAP) Pulse Ox O2 O2 Flow FiO2 Time Delivery Rate 08/24/18 70 12:30 08/24/18 98.8 19 150/90 99 11:38 (110) 08/24/18 30 11:29 08/23/18 Mechanical 22:00 Ventilator Trach Collar Intake and Output 08/23/18 08/23/18 08/24/18 1515:00 23:00 07:00 IntakeIntake Total 900 ml 950 ml 580 ml OutputOutput Total 530 ml 560 ml 1720 ml BalanceBalance 370 ml 390 ml -1140 ml Exam Exam Review of Systems: CONSTITUTIONAL: No fevers, chills. PULMONARY: No sob CARDIOVASCULAR: No chest pain/palpitations GASTROINTESTINAL: No nausea/vomiting. GENITOURINARY: No hematuria/dysuria. MUSCULOSKELETAL: No myagias/arthalgias. PSYCHIATRIC: The patient denies depression. NEUROLOGIC: No weakness Constitutional: other (encephalopathic) Psych: no complaints Head: normocephalic ENMT: mucosa pink and moist, other (trached) Neck: supple, jvd (9 cm water) Respiratory: diminished breath sounds Cardiovascular: regular rate and rhythm Gastrointestinal: soft, non-tender Musculoskeletal: muscle tone (normal) Extremities: edema (none) Labs Result Diagram: 08/24/18 0527 08/24/18 0524 Results 24hrs Laboratory Tests Test 08/24/18 05:24 08/24/18 05:27 Sodium Level 137 Potassium Level 3.1 L Chloride Level 108 Carbon Dioxide Level 20 L Anion Gap 9 Blood Urea Nitrogen 12 Creatinine 0.30 L Est Glomerular Filtrat Rate mL/min > 60 Glucose Level 110 Calcium Level 8.7 Magnesium Level 1.7 Total Bilirubin 0.1 L Direct Bilirubin 0.00 Indirect Bilirubin 0.1 Aspartate Amino Transf (AST/SGOT) 30 Alanine Aminotransferase (ALT/SGPT) 24 Alkaline Phosphatase 147 H Total Protein 6.1 Albumin 2.5 L Globulin 3.60 H Albumin/Globulin Ratio 0.69 White Blood Count 9.5 # Red Blood Count 2.36 L Hemoglobin 6.6 *L Hematocrit 22.1 L Mean Corpuscular Volume 93.6 Mean Corpuscular Hemoglobin 28.0 L Mean Corpuscular Hemoglobin Concent 29.9 L Red Cell Distribution Width 16.7 H Platelet Count 384 Mean Platelet Volume 8.4 Immature Granulocytes % 0.500 H Neutrophils % Segmented Neutrophils % (Manual) 82 H Band Neutrophils % (Manual) 2 Lymphocytes % Lymphocytes % (Manual) 9 L Monocytes % Monocytes % (Manual) 4 Eosinophils % Eosinophils % (Manual) 2 Basophils % Myelocytes % (Manual) 1 H Nucleated Red Blood Cells % 0.0 Immature Granulocytes # 0.050 H Neutrophils # Neutrophils # (Manual) 7.8 H Band Neutrophils # 0.1 Lymphocytes (Manual) 0.8 Lymphocytes # Monocytes # Monocytes # (Manual) 0.3 Eosinophils # Basophils # Myelocytes # 0.0 Nucleated Red Blood Cells # Platelet Estimate NORMAL Polychromasia 2+ Hypochromasia 1+ Poikilocytosis 1+ Ovalocytes 1+ Medications Medications Current Medications Sodium Chloride 1,000 ml @ 100 mls/hr Q10H IV Last administered on 08/24/18at 10:11; Admin Dose 100 MLS/HR; Start 08/21/18 at 20:07 Ipratropium [place] (Atrovent 0.02% (Neb)) 0.5 mg Q2H RESP THERAPY PRN NEB SHORTNESS OF BREATH; Start 08/21/18 at 20:30 Acetaminophen (Tylenol Liquid) 650 mg Q6H PRN PO PAIN LEVEL 1-3 OR FEVER; Start 08/21/18 at 20:30 Docusate Sodium (Colace) 100 mg Q12H PRN PO CONSTIPATION; Start 08/21/18 at 20:30 Bisacodyl (Dulcolax) 5 mg DAILY PRN PO CONSTIPATION; Start 08/21/18 at 20:30 Levalbuterol (Xopenex Neb) 1.25 mg Q4H RESP THERAPY PRN HHN SHORTNESS OF BREATH; Start 08/21/18 at 20:30 Vancomycin HCl (Vanco Iv Per Pharmacy) VANCOMYCIN PER PHARMACY PER PROTOCOL XX ; Start 08/21/18 at 21:00 Piperacillin Sod/ Tazobactam Sod 100 ml @ 200 mls/hr Q6 IVPB Last administered on 08/24/18at 13:19; Admin Dose 200 MLS/HR; Start 08/22/18 at 00:00 Vancomycin HCl 100 ml @ 100 mls/hr Q12H IVPB Last administered on 08/24/18at 06:01; Admin Dose 100 MLS/HR; Start 08/22/18 at 05:00 Ascorbic Acid (Vitamin C) 500 mg DAILY GTB Last administered on 08/24/18at 10:09; Admin Dose 500 MG; Start 08/22/18 at 09:00 Atorvastatin Calcium (Lipitor) 10 mg QHS GTB Last administered on 08/23/18at 20:52; Admin Dose 10 MG; Start 08/22/18 at 21:00 Ipratropium [place] (Atrovent Hfa) 2 puff Q6H RESP THERAPY PRN INH SHORTNESS OF BREATH; Start 08/22/18 at 00:00 Albuterol/ Ipratropium (Duoneb) 3 ml Q6H RESP THERAPY PRN INH SHORTNESS OF BREATH; Start 08/22/18 at 00:00 Zinc Sulfate (Zinc Sulfate) 220 mg DAILY GTB Last administered on 08/24/18at 10:09; Admin Dose 220 MG; Start 08/22/18 at 09:00 Lactobacillus Acidophilus/ Rhamnosus (Culturelle) 1 cap BID PO Last administered on 08/24/18at 10:09; Admin Dose 1 CAP; Start 08/22/18 at 21:00 Topiramate (Topamax) 200 mg Q12H GTB Last administered on 08/24/18 13:19; Admi n Dose 200 MG; Start 08/22/18 at 12:00 Multivitamins (Multivitamin) 30 ml DAILY GTB Last administered on 08/24/18 13:19; Admin Dose 30 ML; Start 08/22/18 at 09:00 Methylphenidate HCl (Ritalin) 10 mg Q12 GTB Last administered on 08/23/18 20:58; Admin Dose 10 MG; Start 08/22/18 at 09:00 Sodium Hypochlorite (Dakin'S (Dilute )) 1 applic BID IRR Last administered on 08/24/18 10:10; Admin Dose 1 APPLIC; Start 08/22/18 at 21:00 Famotidine (Pepcid) 20 mg DAILY GTB Last administered on 08/24/18 10:09; Admin Dose 20 MG; Start 08/23/18 at 09:00 Levetiracetam (Keppra Liq (Ped)) 250 mg Q8 GTB Last administered on 08/24/18 13:19; Admin Dose 250 MG; Start 08/23/18 at 08:00 Metoprolol Tartrate (Lopressor) 25 mg BID PO Last administered on 08/24/18 10:10; Admin Dose 25 MG; Start 08/23/18 at 21:00 Enalaprilat (Vasotec Iv) 1.25 mg Q6H PRN IV ELEVATED SYSTOLIC BP Last administered on 08/24/18 13:37; Admin Dose 1.25 MG; Start 08/24/18 at 14:00 ANGEL LUIS HERNANDEZ Aug 24, 2018 14:16
--- NOTE | 2018-08-24 14:56 | CONS ---
Assessment/Plan Assessment/Plan Hospital Course (Demo Recall) Patient was transfer to telemetry she is noncommunicative looks comfortable no fevers overnight WBC today 9.5 H&H 6.6 and 22.1 platelets 384 neutrophils 82 bands 2 BUN 12 creatinine 0.30 Microbiology: Blood cultures on admission and repeated growing coag negative staph species. Sacral wound culture growing enterococcus and gram-negative rods Chest x-ray this morning revealed bibasilar infiltrates slightly increased Indwelling's: Trach, PEG, [place], chest tube, left femoral triple-lumen catheter Antimicrobials: Vancomycin, Zosyn Physical examination: This is a chronically ill-appearing elderly woman who is in no distress. Head atraumatic normocephalic. Neck is supple chest rise s ymmetrical breath sounds diminished bases. Heart: S1-S2. Abdomen soft bowel sounds present. Extremities without cyanosis. Skin: Patient has unstageable necrotic sacral wound Assessment: 1. Sepsis with bacteremia 2. Status post cardiac arrest 3. Urinary tract infection per urinalysis 4. Left pneumothorax with subcutaneous emphysema 5. Encephalopathy, acute on chronic 6. Healthcare associated pneumonia 7. Seizure disorder 8. Sacral decub Plan: Remains stable, 2D echo revealed no vegetations, continue antibiotics, follow final cultures, vent management per pulmonary. Consultation Date/Type/Reason Admit Date/Time Aug 21, 2018 at 20:08 Initial Consult Date Type of Consult id Requesting Provider: ANGEL LUIS REDD MD Date/Time of Note DATE: 08/24/18 TIME: 14:53 Exam/Review of Systems Exam Vitals Vital Signs Date Temp Pulse Resp B/P (MAP) Pulse Ox O2 O2 Flow FiO2 Time Delivery Rate 08/24/18 70 12:30 08/24/18 98.8 19 150/90 99 11:38 (110) 08/24/18 30 11:29 08/23/18 Mechanical 22:00 Ventilator Trach Collar Intake and Output 08/23/18 08/23/18 08/24/18 1515:00 23:00 07:00 IntakeIntake Total 900 ml 950 ml 580 ml OutputOutput Total 530 ml 560 ml 1720 ml BalanceBalance 370 ml 390 ml -1140 ml Results Result Diagram: 08/24/18 0527 08/24/18 0524 Results 24hrs Laboratory Tests Test 08/24/18 05:24 08/24/18 05:27 Sodium Level 137 Potassium Level 3.1 L Chloride Level 108 Carbon Dioxide Level 20 L Anion Gap 9 Blood Urea Nitrogen 12 Creatinine 0.30 L Est Glomerular Filtrat Rate mL/min > 60 Glucose Level 110 Calcium Level 8.7 Magnesium Level 1.7 Total Bilirubin 0.1 L Direct Bilirubin 0.00 Indirect Bilirubin 0.1 Aspartate Amino Transf (AST/SGOT) 30 Alanine Aminotransferase (ALT/SGPT) 24 Alkaline Phosphatase 147 H Total Protein 6.1 Albumin 2.5 L Globulin 3.60 H Albumin/Globulin Ratio 0.69 White Blood Count 9.5 # Red Blood Count 2.36 L Hemoglobin 6.6 *L Hematocrit 22.1 L Mean Corpuscular Volume 93.6 Mean Corpuscular Hemoglobin 28.0 L Mean Corpuscular Hemoglobin Concent 29.9 L Red Cell Distribution Width 16.7 H Platelet Count 384 Mean Platelet Volume 8.4 Immature Granulocytes % 0.500 H Neutrophils % Segmented Neutrophils % (Manual) 82 H Band Neutrophils % (Manual) 2 Lymphocytes % Lymphocytes % (Manual) 9 L Monocytes % Monocytes % (Manual) 4 Eosinophils % Eosinophils % (Manual) 2 Basophils % Myelocytes % (Manual) 1 H Nucleated Red Blood Cells % 0.0 Immature Granulocytes # 0.050 H Neutrophils # Neutrophils # (Manual) 7.8 H Band Neutrophils # 0.1 Lymphocytes (Manual) 0.8 Lymphocytes # Monocytes # Monocytes # (Manual) 0.3 Eosinophils # Basophils # Myelocytes # 0.0 Nucleated Red Blood Cells # Platelet Estimate NORMAL Polychromasia 2+ Hypochromasia 1+ Poikilocytosis 1+ Ovalocytes 1+ Medications Medication Current Medications Sodium Chloride 1,000 ml @ 100 mls/hr Q10H IV Last administered on 08/24/18at 10:11; Admin Dose 100 MLS/HR; Start 08/21/18 at 20:07 Ipratropium [place] (Atrovent 0.02% (Neb)) 0.5 mg Q2H RESP THERAPY PRN NEB SHORTNESS OF BREATH; Start 08/21/18 at 20:30 Acetaminophen (Tylenol Liquid) 650 mg Q6H PRN PO PAIN LEVEL 1-3 OR FEVER; Start 08/21/18 at 20:30 Docusate Sodium (Colace) 100 mg Q12H PRN PO CONSTIPATION; Start 08/21/18 at 20:30 Bisacodyl (Dulcolax) 5 mg DAILY PRN PO CONSTIPATION; Start 08/21/18 at 20:30 Levalbuterol (Xopenex Neb) 1.25 mg Q4H RESP THERAPY PRN HHN SHORTNESS OF BREATH; Start 08/21/18 at 20:30 Vancomycin HCl (Vanco Iv Per Pharmacy) VANCOMYCIN PER PHARMACY PER PROTOCOL XX ; Start 08/21/18 at 21:00 Piperacillin Sod/ Tazobactam Sod 100 ml @ 200 mls/hr Q6 IVPB Last administered on 08/24/18at 13:19; Admin Dose 200 MLS/HR; Start 08/22/18 at 00:00 Vancomycin HCl 100 ml @ 100 mls/hr Q12H IVPB Last administered on 08/24/18at 06:01; Admin Dose 100 MLS/HR; Start 08/22/18 at 05:00 Ascorbic Acid (Vitamin C) 500 mg DAILY GTB Last administered on 08/24/18 10:09; Admin Dose 500 MG; Start 08/22/18 at 09:00 Atorvastatin Calcium (Lipitor) 10 mg QHS GTB Last administered on 08/23/18at 20:52; Admin Dose 10 MG; Start 08/22/18 at 21:00 Ipratropium [place] (Atrovent Hfa) 2 puff Q6H RESP THERAPY PRN INH SHORTNESS OF BREATH; Start 08/22/18 at 00:00 Albuterol/ Ipratropium (Duoneb) 3 ml Q6H RESP THERAPY PRN INH SHORTNESS OF BREATH; Start 08/22/18 at 00:00 Zinc Sulfate (Zinc Sulfate) 220 mg DAILY GTB Last administered on 08/24/18at 10:09; Admin Dose 220 MG; Start 08/22/18 at 09:00 Lactobacillus Acidophilus/ Rhamnosus (Culturelle) 1 cap BID PO Last administered on 08/24/18 10:09; Admin Dose 1 CAP; Start 08/22/18 at 21:00 Topiramate (Topamax) 200 mg Q12H GTB Last administered on 08/24/18 13:19; Admin Dose 200 MG; Start 08/22/18 at 12:00 Multivitamins (Multivitamin) 30 ml DAILY GTB Last administered on 08/24/18 13:19; Admin Dose 30 ML; Start 08/22/18 at 09:00 Methylphenidate HCl (Ritalin) 10 mg Q12 GTB Last administered on 08/23/18at 20: 58; Admin Dose 10 MG; Start 08/22/18 at 09:00 Sodium Hypochlorite (Dakin'S (Dilute )) 1 applic BID IRR Last administered on 08/24/18at 10:10; Admin Dose 1 APPLIC; Start 08/22/18 at 21:00 Famotidine (Pepcid) 20 mg DAILY GTB Last administered on 08/24/18at 10:09; Admin Dose 20 MG; Start 08/23/18 at 09:00 Levetiracetam (Keppra Liq (Ped)) 250 mg Q8 GTB Last administered on 08/24/18at 13:19; Admin Dose 250 MG; Start 08/23/18 at 08:00 Enalaprilat (Vasotec Iv) 1.25 mg Q6H PRN IV ELEVATED SYSTOLIC BP Last administered on 08/24/18at 13:37; Admin Dose 1.25 MG; Start 08/24/18 at 14:00 Metoprolol Tartrate (Lopressor) 50 mg BID PO ; Start 08/24/18 at 21:00 URIAH GARCIA NP Aug 24, 2018 14:56
--- NOTE | 2018-08-24 16:51 | PN ---
Date/Time of Note Date/Time of Note DATE: 08/24/18 TIME: 16:48 Assessment/Plan VTE Prophylaxis Risk score (from Ns)>0 risk: 7 SCD applied (from [facility]): Yes Pharmacological prophylaxis: NA/contraindicated Pharm contraindication: other (stroke in last 6 months) Lines/Catheters IV Catheter Type (from [facility]): Central Line Central line still needed: Yes Urinary Cath still in place: Yes Reason Cath still needed: skin wounds contaminated by urine Assessment/Plan Assessment/Plan 61 yo woman history of stroke on chronic trach and PEG admitted after respiratory failure leading to cardiac arrest. # cardiac arrest: - Apparently patient was reported to have shortness of breath prior to cardiac arrest. - According to code sheet, was PEA arrest. - No hypothermia due to severe underlying disability, trach and PEG. # Seizure disorder: Continue Keppra, Topamax. - According to EEG, may be having active seizures in the hospital. Neuro following. #Sepsis #Bacteremia - Leukocytosis to 26 on admission; UA with leuk esterase - Will treat empirically for urosepsis - Blood cultures growing gram positive cocci - ID following - Wait for sensitivities, continue current antibiotics per ID. #Pneumothorax - Also associated with L chest subcutaneous emphysema - Likely due to chest compressions - Now with chest tube, pulmonary to manage. #Acute on chronic respiratory failure - Patient chronically on tracheostomy - Continue ICU monitoring. - Vent per pulmonary. # metabolic acidosis: Secondary to underlying infectious process, shock. Antibiotics and fluids. Monitor labs. 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 - Chronic trach and PEG # hypertension: We will hold home blood pressure medications at the current time given patient's sepsis shock and hypotension. # DVT GI prophylaxis: SCDs, Protonix Code status: Full code, pending neurology consult for prognosis. PT SON RENZO [phone] LIVES IN [facility]. Result Diagram: 08/24/1852608/24/1824 Subjective 24 Hr Interval Summary Free Text/Dictation No acute overnight events. Exam/Review of Systems Exam Vitals Vital Signs Date Temp Pulse Resp B/P (MAP) Pulse Ox O2 O2 Flow FiO2 Time Delivery Rate 08/24/18 80 16:11 08/24/18 20 100 30 15:32 08/24/18 98.8 173/97 15:23 (122) 08/23/18 Mechanical 22:00 Ventilator Trach Collar Intake and Output 08/23/18 08/23/18 08/24/18 1515:00 23:00 07:00 IntakeIntake Total 900 ml 950 ml 580 ml OutputOutput Total 530 ml 560 ml 1720 ml BalanceBalance 370 ml 390 ml -1140 ml Exam General: Patient is nonverbal, trach to vent HEENT: Atraumatic, normocephalic. The pupils are equal, round and reactive. Neck: Tracheostomy in place connected to vent Lungs: Mechanical breath sounds bilaterally Chest: L chest subcutaneous edema. L chest tube in place. Heart: Sinus tachycardia, no murmurs Abdomen: Soft , nontender, nondistended , bowel sounds are present. PEG in place. Extremities: Normal to inspection, no edema no cyanosis. L femoral central line. Neurologic: Nonverbal, has minimal spontaneous movements of the bilateral lower extremities, facial grimacing. Eyes now opening spontaneously. Results Results 24hrs Laboratory Tests Test 08/24/18 05:24 08/24/18 05:27 Sodium Level 137 Potassium Level 3.1 L Chloride Level 108 Carbon Dioxide Level 20 L Anion Gap 9 Blood Urea Nitrogen 12 Creatinine 0.30 L Est Glomerular Filtrat Rate mL/min > 60 Glucose Level 110 Calcium Level 8.7 Magnesium Level 1.7 Total Bilirubin 0.1 L Direct Bilirubin 0.00 Indirect Bilirubin 0.1 Aspartate Amino Transf (AST/SGOT) 30 Alanine Aminotransferase (ALT/SGPT) 24 Alkaline Phosphatase 147 H Total Protein 6.1 Albumin 2.5 L Globulin 3.60 H Albumin/Globulin Ratio 0.69 White Blood Count 9.5 # Red Blood Count 2.36 L Hemoglobin 6.6 *L Hematocrit 22.1 L Mean Corpuscular Volume 93.6 Mean Corpuscular Hemoglobin 28.0 L Mean Corpuscular Hemoglobin Concent 29.9 L Red Cell Distribution Width 16.7 H Platelet Count 384 Mean Platelet Volume 8.4 Immature Granulocytes % 0.500 H Neutrophils % Segmented Neutrophils % (Manual) 82 H Band Neutrophils % (Manual) 2 Lymphocytes % Lymphocytes % (Manual) 9 L Monocytes % Monocytes % (Manual) 4 Eosinophils % Eosinophils % (Manual) 2 Basophils % Myelocytes % (Manual) 1 H Nucleated Red Blood Cells % 0.0 Immature Granulocytes # 0.050 H Neutrophils # Neutrophils # (Manual) 7.8 H Band Neutrophils # 0.1 Lymphocytes (Manual) 0.8 Lymphocytes # Monocytes # Monocytes # (Manual) 0.3 Eosinophils # Basophils # Myelocytes # 0.0 Nucleated Red Blood Cells # Platelet Estimate NORMAL Polychromasia 2+ Hypochromasia 1+ Poikilocytosis 1+ Ovalocytes 1+ Medications Medication Current Medications Sodium Chloride 1,000 ml @ 100 mls/hr Q10H IV Last administered on 08/24/18at 10:11; Admin Dose 100 MLS/HR; Start 08/21/18 at 20:07 Ipratropium [place] (Atrovent 0.02% (Neb)) 0.5 mg Q2H RESP THERAPY PRN NEB SHORTNESS OF BREATH; Start 08/21/18 at 20:30 Acetaminophen (Tylenol Liquid) 650 mg Q6H PRN PO PAIN LEVEL 1-3 OR FEVER; Start 08/21/18 at 20:30 Docusate Sodium (Colace) 100 mg Q12H PRN PO CONSTIPATION; Start 08/21/18 at 20:30 Bisacodyl (Dulcolax) 5 mg DAILY PRN PO CONSTIPATION; Start 08/21/18 at 20:30 Levalbuterol (Xopenex Neb) 1.25 mg Q4H RESP THERAPY PRN HHN SHORTNESS OF BREAT H; Start 08/21/18 at 20:30 Vancomycin HCl (Vanco Iv Per Pharmacy) VANCOMYCIN PER PHARMACY PER PROTOCOL XX ; Start 08/21/18 at 21:00 Piperacillin Sod/ Tazobactam Sod 100 ml @ 200 mls/hr Q6 IVPB Last administered on 08/24/18at 13:19; Admin Dose 200 MLS/HR; Start 08/22/18 at 00:00 Vancomycin HCl 100 ml @ 100 mls/hr Q12H IVPB Last administered on 08/24/18at 06:01; Admin Dose 100 MLS/HR; Start 08/22/18 at 05:00 Ascorbic Acid (Vitamin C) 500 mg DAILY GTB Last administered on 08/24/18at 10:09; Admin Dose 500 MG; Start 08/22/18 at 09:00 Atorvastatin Calcium (Lipitor) 10 mg QHS GTB Last administered on 08/23/18at 20:52; Admin Dose 10 MG; Start 08/22/18 at 21:00 Ipratropium [place] (Atrovent Hfa) 2 puff Q6H RESP THERAPY PRN INH SHORTNESS OF BREATH; Start 08/22/18 at 00:00 Albuterol/ Ipratropium (Duoneb) 3 ml Q6H RESP THERAPY PRN INH SHORTNESS OF BREATH; Start 08/22/18 at 00:00 Zinc Sulfate (Zinc Sulfate) 220 mg DAILY GTB Last administered on 08/24/18 10:09; Admin Dose 220 MG; Start 08/22/18 at 09:00 Lactobacillus Acidophilus/ Rhamnosus (Culturelle) 1 cap BID PO Last administered on 08/24/18 10:09; Admin Dose 1 CAP; Start 08/22/18 at 21:00 Topiramate (Topamax) 200 mg Q12H GTB Last administered on 08/24/18 13:19; Admin Dose 200 MG; Start 08/22/18 at 12:00 Multivitamins (Multivitamin) 30 ml DAILY GTB Last administered on 08/24/18 13:19; Admin Dose 30 ML; Start 08/22/18 at 09:00 Methylphenidate HCl (Ritalin) 10 mg Q12 GTB Last administered on 08/23/18 20:58; Admin Dose 10 MG; Start 08/22/18 at 09:00 Sodium Hypochlorite (Dakin'S (Dilute 1/40)) 1 applic BID IRR Last administered on 08/24/18 10:10; Admin Dose 1 APPLIC; Start 08/22/18 at 21:00 Famotidine (Pepcid) 20 mg DAILY GTB Last administered on 08/24/18 10:09; Admin Dose 20 MG; Start 08/23/18 at 09:00 Levetiracetam (Keppra Liq (Ped)) 250 mg Q8 GTB Last administered on 08/24/18 13:19; Admin Dose 250 MG; Start 08/23/18 at 08:00 Enalaprilat (Vasotec Iv) 1.25 mg Q6H PRN IV ELEVATED SYSTOLIC BP Last administered on 08/24/18 13:37; Admin Dose 1.25 MG; Start 08/24/18 at 14:00 Metoprolol Tartrate (Lopressor) 50 mg BID PO ; Start 08/24/18 at 21:00 ANGEL LUIS REDD MD Aug 24, 2018 16:51
--- NOTE | 2018-08-24 16:53 | CONS ---
Consult Date/Type/Reason Admit Date/Time Aug 21, 2018 at 20:08 Initial Consult Date Type of Consultation: Pulm Requesting Provider: ANGEL LUIS REDD MD Date/Time of Note DATE: 08/24/18 TIME: 16:50 Subjective No events overnight Objective Vitals Vital Signs Date Temp Pulse Resp B/P (MAP) Pulse Ox O2 O2 Flow FiO2 Time Delivery Rate 08/24/18 80 16:11 08/24/18 20 100 30 15:32 08/24/18 98.8 173/97 15:23 (122) 08/23/18 Mechanical 22:00 Ventilator Trach Collar Intake and Output 08/23/18 08/23/18 08/24/18 1515:00 23:00 07:00 IntakeIntake Total 900 ml 950 ml 580 ml OutputOutput Total 530 ml 560 ml 1720 ml BalanceBalance 370 ml 390 ml -1140 ml Exam HEENT: Neck supple; no JVD; no LAD; trach site clean CVS: Irreg, S1 and S2 CHEST: Coarse BS b/l ABD: Soft, NT, + BS EXT: No c/c/e Results/Medications Result Diagram: 08/24/18 0527 08/24/18 0524 Results 24 hrs Laboratory Tests Test 08/24/18 05:24 08/24/18 05:27 Sodium Level 137 Potassium Level 3.1 L Chloride Level 108 Carbon Dioxide Level 20 L Anion Gap 9 Blood Urea Nitrogen 12 Creatinine 0.30 L Est Glomerular Filtrat Rate mL/min > 60 Glucose Level 110 Calcium Level 8.7 Magnesium Level 1.7 Total Bilirubin 0.1 L Direct Bilirubin 0.00 Indirect Bilirubin 0.1 Aspartate Amino Transf (AST/SGOT) 30 Alanine Aminotransferase (ALT/SGPT) 24 Alkaline Phosphatase 147 H Total Protein 6.1 Albumin 2.5 L Globulin 3.60 H Albumin/Globulin Ratio 0.69 White Blood Count 9.5 # Red Blood Count 2.36 L Hemoglobin 6.6 *L Hematocrit 22.1 L Mean Corpuscular Volume 93.6 Mean Corpuscular Hemoglobin 28.0 L Mean Corpuscular Hemoglobin Concent 29.9 L Red Cell Distribution Width 16.7 H Platelet Count 384 Mean Platelet Volume 8.4 Immature Granulocytes % 0.500 H Neutrophils % Segmented Neutrophils % (Manual) 82 H Band Neutrophils % (Manual) 2 Lymphocytes % Lymphocytes % (Manual) 9 L Monocytes % Monocytes % (Manual) 4 Eosinophils % Eosinophils % (Manual) 2 Basophils % Myelocytes % (Manual) 1 H Nucleated Red Blood Cells % 0.0 Immature Granulocytes # 0.050 H Neutrophils # Neutrophils # (Manual) 7.8 H Band Neutrophils # 0.1 Lymphocytes (Manual) 0.8 Lymphocytes # Monocytes # Monocytes # (Manual) 0.3 Eosinophils # Basophils # Myelocytes # 0.0 Nucleated Red Blood Cells # Platelet Estimate NORMAL Polychromasia 2+ Hypochromasia 1+ Poikilocytosis 1+ Ovalocytes 1+ Home Meds Reported Medications Clindamycin Hcl* (Clindamycin Hcl*) 300 Mg Capsule, 300 MG GTB QID, CAP STOP DATE 08/25/18 08/21/18 Levofloxacin* (Levofloxacin*) 500 Mg Tablet, 500 MG GTB DAILY, TAB STOP DATE 08/25/18 08/21/18 Zinc Sulfate* (Zinc Sulfate*) 220 Mg Tablet, 220 MG GTB DAILY, TAB 08/21/18 Ascorbic Acid (Vitamin C) 500 Mg Tab, 500 MG GTB DAILY, TAB 08/21/18 Multivitamin with Minerals (Multivitamins with Minerals) 1 Each Tablet, 1 EACH GTB DAILY, TAB 08/21/18 Amino Acids/Protein Hydrolys (PRO-STAT LIQUID) 30 Ml Liquid.pkt, 30 ML GTB BID SUGAR FREE 08/21/18 Lisinopril* (Lisinopril*) 20 Mg Tablet, 20 MG GTB Q12H, #30 TAB 08/21/18 Levetiracetam* (Keppra* (Ped)) 100 Mg/Ml Liq, 100 MG GTB Q8H for 30 Days, BOTTLE 08/21/18 Lansoprazole* (Lansoprazole*) 30 Mg Capsule.dr, 30 MG GTB DAILY, CAP 08/21/18 Ipratropium-Albuterol (Ipratropium-Albuterol) 0.5-3 Mg/3 Ml Ampul.neb, 3 ML INHALATION Q6, #30 VIAL 08/21/[address] [place]* (Atrovent HFA*) 12.9 Gm Aer.w.adap, 2 PUFF INHALATION Q6H for SHORTNESS OF BREATH, #1 INHALER 08/21/18 Lactobacillus Acidophilus* (Lactinex*) 1 Tab Chew, 1 TAB GTB Q6H, TAB 3/20/19 Carvedilol* (Carvedilol*) 12.5 Mg Tablet, 12.5 MG GTB BID, #60 TAB 08/21/18 Bisacodyl* (Bisacodyl*) 10 Mg Supp, 10 MG NH Q OTHER DAY, SUPP 08/21/18 Atorvastatin Calcium (Atorvastatin Calcium) 10 Mg Tablet, 10 MG GTB QHS, #30 TAB 08/21/18 Topiramate* (Trokendi XR*) 200 Mg Cap.er.24h, 200 MG GTB Q12H, CAP 08/21/18 Citric Acid/Potassium Citrate (Cytra-K Oral Solution) 473 Ml Solution, 5 ML GTB DAILY 08/21/18 Selenium* (Selenimin*) 200 Mcg Tablet, 200 MCG GTB DAILY, TAB 08/21/18 Ondansetron Hcl* (Zofran*) 4 Mg Tab, 4 MG GTB Q6H PRN for NAUSEA AND OR VOMITING, TAB 08/21/18 Methylphenidate Hcl* (Methylphenidate Hcl*) 10 Mg Tablet, 10 MG GTB Q12H, TAB 08/21/18 Medications Current Medications Sodium Chloride 1,000 ml @ 100 mls/hr Q10H IV Last administered on 08/24/18at 10:11; Admin Dose 100 MLS/HR; Start 08/21/18 at 20:[address] [place] (Atrovent 0.02% (Neb)) 0.5 mg Q2H RESP THERAPY PRN NEB SHORTNESS OF BREATH; Start 08/21/18 at 20:30 Acetaminophen (Tylenol Liquid) 650 mg Q6H PRN PO PAIN LEVEL 1-3 OR FEVER; Start 08/21/18 at 20:30 Docusate Sodium (Colace) 100 mg Q12H PRN PO CONSTIPATION; Start 08/21/18 at 20:30 Bisacodyl (Dulcolax) 5 mg DAILY PRN PO CONSTIPATION; Start 08/21/18 at 20:30 Levalbuterol (Xopenex Neb) 1.25 mg Q4H RESP THERAPY PRN HHN SHORTNESS OF BREATH; Start 08/21/18 at 20:30 Vancomycin HCl (Vanco Iv Per Pharmacy) VANCOMYCIN PER PHARMACY PER PROTOCOL XX ; Start 08/21/18 at 21:00 Piperacillin Sod/ Tazobactam Sod 100 ml @ 200 mls/hr Q6 IVPB Last administered on 08/24/18 13:19; Admin Dose 200 MLS/HR; Start 08/22/18 at 00:00 Vancomycin HCl 100 ml @ 100 mls/hr Q12H IVPB Last administered on 08/24/18 06:01; Admin Dose 100 MLS/HR; Start 08/22/18 at 05:00 Ascorbic Acid (Vitamin C) 500 mg DAILY GTB Last administered on 08/24/18 10:09; Admin Dose 500 MG; Start 08/22/18 at 09:00 Atorvastatin Calcium (Lipitor) 10 mg QHS GTB Last administered on 08/23/18 20:52; Admin Dose 10 MG; Start 08/22/18 at 21:[address] [place] (Atrovent Hfa) 2 puff Q6H RESP THERAPY PRN INH SHORTNESS OF BREATH; Start 08/22/18 at 00:00 Albuterol/ Ipratropium (Duoneb) 3 ml Q6H RESP THERAPY PRN INH SHORTNESS OF BREATH; Start 08/22/18 at 00:00 Zinc Sulfate (Zinc Sulfate) 220 mg DAILY GTB Last administered on 08/24/18 10:09; Admin Dose 220 MG; Start 08/22/18 at 09:00 Lactobacillus Acidophilus/ Rhamnosus (Culturelle) 1 cap BID PO Last administered on 08/24/18 10:09; Admin Dose 1 CAP; Start 08/22/18 at 21:00 Topiramate (Topamax) 200 mg Q12H GTB Last administered on 08/24/18 13:19; Admin Dose 200 MG; Start 08/22/18 at 12:00 Multivitamins (Multivitamin) 30 ml DAILY GTB Last administered on 08/24/18 13:19; Admin Dose 30 ML; Start 08/22/18 at 09:00 Methylphenidate HCl (Ritalin) 10 mg Q12 GTB Last administered on 08/23/18 20:5 8; Admin Dose 10 MG; Start 08/22/18 at 09:00 Sodium Hypochlorite (Dakin'S (Dilute 40)) 1 applic BID IRR Last administered on 08/24/18 10:10; Admin Dose 1 APPLIC; Start 08/22/18 at 21:00 Famotidine (Pepcid) 20 mg DAILY GTB Last administered on 08/24/18at 10:09; Admin Dose 20 MG; Start 08/23/18 at 09:00 Levetiracetam (Keppra Liq (Ped)) 250 mg Q8 GTB Last administered on 08/24/18at 13:19; Admin Dose 250 MG; Start 08/23/18 at 08:00 Enalaprilat (Vasotec Iv) 1.25 mg Q6H PRN IV ELEVATED SYSTOLIC BP Last administered on 08/24/18at 13:37; Admin Dose 1.25 MG; Start 08/24/18 at 14:00 Metoprolol Tartrate (Lopressor) 50 mg BID PO ; Start 08/24/18 at 21:00 Assessment/Plan Assessment/Plan (Daily) IMP: 1. s/p Cardiopulmonary arrest. 2. Respiratory failure, possibly secondary to healthcare-associated pneumonia. 3. Traumatic left pneumothorax following CPR. 4. 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 RECS: 1. Vent support 2. Continue broad-spectrum antibiotics. 3. Chest tube to water seal 4. Discuss code status with family. 5. Continue antiepileptics. 6. Am CXR ALENA CARDOZO MD Aug 24, 2018 16:53
[2018-08-24] MEDS: ATORVASTATIN 10 MG TAB GTB SCH (21:28)
[2018-08-24] MEDS: METOPROLOL 50 MG TAB PO SCH (21:28)
[2018-08-25] VITALS (22 sets, daily range): BP systolic 151–170; BP diastolic 70–98; PULSE 69–90; RESP 19–22
[2018-08-25] MEDS: PIPER-TAZO 3.375 GM IV (PMX) 100 ML IVPB SCH ×3 (00:22→12:11)
[2018-08-25] MEDS: TOPIRAMATE 100 MG TAB GTB SCH ×2 (00:22→12:10)
[2018-08-25] MEDS: ENALAPRILAT 2.5 MG INJ IV PRN (00:29)
[2018-08-25] MEDS: VANCOMYCIN 500 MG (PMX) 100 ML IVPB SCH ×2 (04:43→16:35)
[2018-08-25] MEDS: SOD CHLORIDE 0.9% 1,000 ML IV SCH ×2 (04:45→14:07)
[2018-08-25] MEDS: LEVETIRACETAM (100 MG/ML PO SYG) GTB SCH ×3 (06:21→21:03)
[2018-08-25] MEDS: BALSAM PERU/CASTOR OIL 60 GM TUBE TOP SCH ×2 (07:50→20:55)
[2018-08-25] MEDS: LACTOBACILLUS RHAMNOSUS CAP PO SCH ×2 (09:01→20:54)
[2018-08-25] MEDS: FAMOTIDINE 20 MG TAB GTB SCH (09:01)
[2018-08-25] MEDS: ZINC SULFATE 220 MG CAP GTB SCH (09:01)
[2018-08-25] MEDS: MULTIVITAMINS 30 ML CUP GTB SCH (09:01)
[2018-08-25] MEDS: METHYLPHENIDATE 5 MG TAB GTB SCH ×2 (09:01→21:03)
[2018-08-25] MEDS: SODIUM HYPOCHLORITE (1/40) 1 APPLIC BTL IRR SCH ×2 (09:02→20:56)
[2018-08-25] MEDS: ASCORBIC ACID 500 MG TAB GTB SCH (09:02)
[2018-08-25] MEDS: METOPROLOL 50 MG TAB PO SCH ×2 (09:02→20:54)
--- NOTE | 2018-08-25 11:41 | CONS ---
Assessment/Plan Assessment/Plan Assessment/Plan (Daily) That is post cardiopulmonary arrest Chest tube in place Chest x-ray with small basilar left-sided pneumothorax Chest tube output is about 50 cc a day Continue chest tube suction Low up chest x-ray tomorrow Consultation Date/Type/Reason Admit Date/Time Aug 21, 2018 at 20:08 Date of Consultation: Aug 25, 2018 Type of Consult Thoracic surgery Reason for Consultation Chest tube managed Date/Time of Note DATE: 08/25/18 TIME: 11:39 Hx of Present Illness 61-year-old female admitted after cardiopulmonary arrest status post CPR patient was found to have a pneumothorax and left chest tube has been placed which is currently functioning Gastrointestinal: no complaints Genitourinary: no complaints Musculoskeletal: no complaints Skin: no complaints Neurologic: no complaints Endocrine: no complaints Lymphatic: no complaints Past Medical History Home Meds Reported Medications Clindamycin Hcl* (Clindamycin Hcl*) 300 Mg Capsule, 300 MG GTB QID, CAP STOP DATE 08/25/18 08/21/18 Levofloxacin* (Levofloxacin*) 500 Mg Tablet, 500 MG GTB DAILY, TAB STOP DATE 08/25/18 08/21/18 Zinc Sulfate* (Zinc Sulfate*) 220 Mg Tablet, 220 MG GTB DAILY, TAB 08/21/18 Ascorbic Acid (Vitamin C) 500 Mg Tab, 500 MG GTB DAILY, TAB 08/21/18 Multivitamin with Minerals (Multivitamins with Minerals) 1 Each Tablet, 1 EACH GTB DAILY, TAB 08/21/18 Amino Acids/Protein Hydrolys (PRO-STAT LIQUID) 30 Ml Liquid.pkt, 30 ML GTB BID SUGAR FREE 08/21/18 Lisinopril* (Lisinopril*) 20 Mg Tablet, 20 MG GTB Q12H, #30 TAB 08/21/18 Levetiracetam* (Keppra* (Ped)) 100 Mg/Ml Liq, 100 MG GTB Q8H for 30 Days, BOTTLE 08/21/18 Lansoprazole* (Lansoprazole*) 30 Mg Capsule.dr, 30 MG GTB DAILY, CAP 08/21/18 Ipratropium-Albuterol (Ipratropium-Albuterol) 0.5-3 Mg/3 Ml Ampul.neb, 3 ML INHALATION Q6, #30 VIAL 08/21/18 Ipratropium [place]* (Atrovent HFA*) 12.9 Gm Aer.w.adap, 2 PUFF INHALATION Q6H for SHORTNESS OF BREATH, #1 INHALER 08/21/18 Lactobacillus Acidophilus* (Lactinex*) 1 Tab Chew, 1 TAB GTB Q6H, TAB 08/21/18 Carvedilol* (Carvedilol*) 12.5 Mg Tablet, 12.5 MG GTB BID, #60 TAB 08/21/18 Bisacodyl* (Bisacodyl*) 10 Mg Supp, 10 MG TX Q OTHER DAY, SUPP 08/21/18 Atorvastatin Calcium (Atorvastatin Calcium) 10 Mg Tablet, 10 MG GTB QHS, #30 TAB 08/21/18 Topiramate* (Trokendi XR*) 200 Mg Cap.er.24h, 200 MG GTB Q12H, CAP 08/21/18 Citric Acid/Potassium Citrate (Cytra-K Oral Solution) 473 Ml Solution, 5 ML GTB DAILY 08/21/18 Selenium* (Selenimin*) 200 Mcg Tablet, 200 MCG GTB DAILY, TAB 08/21/18 Ondansetron Hcl* (Zofran*) 4 Mg Tab, 4 MG GTB Q6H PRN for NAUSEA AND OR VOMITING, TAB 08/21/18 Methylphenidate Hcl* (Methylphenidate Hcl*) 10 Mg Tablet, 10 MG GTB Q12H, TAB 08/21/18 Medications Current Medications Sodium Chloride 1,000 ml @ 100 mls/hr Q10H IV Last administered on 08/25/18at 04:45; Admin Dose 100 MLS/HR; Start 08/21/18 at 20:07 Ipratropium [place] (Atrovent 0.02% (Neb)) 0.5 mg Q2H RESP THERAPY PRN NEB SHORTNESS OF BREATH; Start 08/21/18 at 20:30 Acetaminophen (Tylenol Liquid) 650 mg Q6H PRN PO PAIN LEVEL 1-3 OR FEVER; Start 08/21/18 at 20:30 Docusate Sodium (Colace) 100 mg Q12H PRN PO CONSTIPATION; Start 08/21/18 at 20:30 Bisacodyl (Dulcolax) 5 mg DAILY PRN PO CONSTIPATION; Start 08/21/18 at 20:30 Levalbuterol (Xopenex Neb) 1.25 mg Q4H RESP THERAPY PRN HHN SHORTNESS OF BREATH; Start 08/21/18 at 20:30 Vancomycin HCl (Vanco Iv Per Pharmacy) VANCOMYCIN PER PHARMACY PER PROTOCOL XX ; Start 08/21/18 at 21:00 Piperacillin Sod/ Tazobactam Sod 100 ml @ 200 mls/hr Q6 IVPB Last administered on 08/25/18 06:22; Admin Dose 200 MLS/HR; Start 08/22/18 at 00:00 Vancomycin HCl 100 ml @ 100 mls/hr Q12H IVPB Last administered on 08/25/18 04:43; Admin Dose 100 MLS/HR; Start 08/22/18 at 05:00 Ascorbic Acid (Vitamin C) 500 mg DAILY GTB Last administered on 08/25/18 09:02; Admin Dose 500 MG; Start 08/22/18 at 09:00 Atorvastatin Calcium (Lipitor) 10 mg QHS GTB Last administered on 08/24/18 21:28; Admin Dose 10 MG; Start 08/22/18 at 21:00 Ipratropium [place] (Atrovent Hfa) 2 puff Q6H RESP THERAPY PRN INH SHORTNESS OF BREATH; Start 08/22/18 at 00:00 Albuterol/ Ipratropium (Duoneb) 3 ml Q6H RESP THERAPY PRN INH SHORTNESS OF BREATH; Start 08/22/18 at 00:00 Zinc Sulfate (Zinc Sulfate) 220 mg DAILY GTB Last administered on 08/25/18 09:01; Admin Dose 220 MG; Start 08/22/18 at 09:00 Lactobacillus Acidophilus/ Rhamnosus (Culturelle) 1 cap BID PO Last administered on 08/25/18 09:01; Admin Dose 1 CAP; Start 08/22/18 at 21:00 Topiramate (Topamax) 200 mg Q12H GTB Last administered on 08/25/18 00:22; Admin Dose 200 MG; Start 08/22/18 at 12:00 Multivitamins (Multivitamin) 30 ml DAILY GTB Last administered on 08/25/18 09:01; Admin Dose 30 ML; Start 08/22/18 at 09:00 Methylphenidate HCl (Ritalin) 10 mg Q12 GTB Last administered on 08/25/18 09:01; Admin Dose 10 MG; Start 08/22/18 at 09:00 Sodium Hypochlorite (Dakin'S (Dilute )) 1 applic BID IRR Last administered on 08/25/18at 09:02; Admin Dose 1 APPLIC; Start 08/22/18 at 21:00 Famotidine (Pepcid) 20 mg DAILY GTB Last administered on 08/25/18at 09:01; Admin Dose 20 MG; Start 08/23/18 at 09:00 Levetiracetam (Keppra Liq (Ped)) 250 mg Q8 GTB Last administered on 08/25/18 06:21; Admin Dose 250 MG; Start 08/23/18 at 08:00 Enalaprilat (Vasotec Iv) 1.25 mg Q6H PRN IV ELEVATED SYSTOLIC BP Last administered on 08/25/18at 00:29; Admin Dose 1.25 MG; Start 08/24/18 at 14:00 Metoprolol Tartrate (Lopressor) 50 mg BID PO Last administered on 08/25/18 09:02; Admin Dose 50 MG; Start 08/24/18 at 21:00 Allergies: Coded Allergies: No Known Drug Allergies (Unverified Allergy, Unknown, 08/21/18) Social History Smoking Status: Unknown if ever smoked Exam/Review of Systems Exam Vitals Vital Signs Date Temp Pulse Resp B/P (MAP) Pulse Ox O2 O2 Flow FiO2 Time Delivery Rate 08/25/18 98.4 72 19 169/98 97 11:25 (121) 08/25/18 30 09:00 08/23/18 Mechanical 22:00 Ventilator Trach Collar Intake and Output 08/24/18 08/24/18 08/25/18 1515:00 23:00 07:00 IntakeIntake Total 920 ml 200 ml OutputOutput Total 1100 ml BalanceBalance -180 ml 200 ml Eyes: nl conjunctiva, EOMI, nl lids, nl sclera, PERRL ENMT: nl external ears & nose, nl lips & teeth, nl nasal mucosa & septum Neck: supple, non-tender Respiratory: clear to auscultation, normal air movement Cardiovascular: regular rate and rhythm, nl pulses Musculoskeletal: nl extremities to inspection, nl gait and stance Extremities: normal pulses Results Result Diagram: 3/24/19 0537 3/24/19 0537 Results 24hrs Laboratory Tests Test 08/25/18 05:37 White Blood Count 9.5 Red Blood Count 3.01 #L Hemoglobin 8.5 #L Hematocrit 26.9 #L Mean Corpuscular Volume 89.4 Mean Corpuscular Hemoglobin 28.2 L Mean Corpuscular Hemoglobin Concent 31.6 L Red Cell Distribution Width 16.4 H Platelet Count 384 Mean Platelet Volume 8.6 Immature Granulocytes % 0.600 H Neutrophils % 79.4 H Lymphocytes % 12.3 L Monocytes % 5.6 Eosinophils % 2.0 Basophils % 0.1 Nucleated Red Blood Cells % 0.0 Immature Granulocytes # 0.060 H Neutrophils # 7.5 Lymphocytes # 1.2 Monocytes # 0.5 Eosinophils # 0.2 Basophils # 0.0 Nucleated Red Blood Cells # 0.0 Sodium Level 138 Potassium Level 3.3 L Chloride Level 106 Carbon Dioxide Level 21 Anion Gap 11 Blood Urea Nitrogen 13 Creatinine 0.34 L Est Glomerular Filtrat Rate mL/min > 60 Glucose Level 104 Calcium Level 8.8 Total Bilirubin 0.2 Direct Bilirubin 0.00 Indirect Bilirubin 0.2 Aspartate Amino Transf (AST/SGOT) 29 Alanine Aminotransferase (ALT/SGPT) 24 Alkaline Phosphatase 149 H Total Protein 6.4 Albumin 2.6 L Globulin 3.80 H Albumin/Globulin Ratio 0.68 Medications Medication Current Medications Sodium Chloride 1,000 ml @ 100 mls/hr Q10H IV Last administered on 08/25/18at 04:45; Admin Dose 100 MLS/HR; Start 08/21/18 at 20:07 Ipratropium [place] (Atrovent 0.02% (Neb)) 0.5 mg Q2H RESP THERAPY PRN NEB SHORTNESS OF BREATH; Start 08/21/18 at 20:30 Acetaminophen (Tylenol Liquid) 650 mg Q6H PRN PO PAIN LEVEL 1-3 OR FEVER; Start 08/21/18 at 20:30 Docusate Sodium (Colace) 100 mg Q12H PRN PO CONSTIPATION; Start 08/21/18 at 20:30 Bisacodyl (Dulcolax) 5 mg DAILY PRN PO CONSTIPATION; Start 08/21/18 at 20:30 Levalbuterol (Xopenex Neb) 1.25 mg Q4H RESP THERAPY PRN HHN SHORTNESS OF BREAT H; Start 08/21/18 at 20:30 Vancomycin HCl (Vanco Iv Per Pharmacy) VANCOMYCIN PER PHARMACY PER PROTOCOL XX ; Start 08/21/18 at 21:00 Piperacillin Sod/ Tazobactam Sod 100 ml @ 200 mls/hr Q6 IVPB Last administered on 08/25/18 06:22; Admin Dose 200 MLS/HR; Start 08/22/18 at 00:00 Vancomycin HCl 100 ml @ 100 mls/hr Q12H IVPB Last administered on 08/25/18 04:43; Admin Dose 100 MLS/HR; Start 08/22/18 at 05:00 Ascorbic Acid (Vitamin C) 500 mg DAILY GTB Last administered on 08/25/18 09:02; Admin Dose 500 MG; Start 08/22/18 at 09:00 Atorvastatin Calcium (Lipitor) 10 mg QHS GTB Last administered on 08/24/18 21:28; Admin Dose 10 MG; Start 08/22/18 at 21:00 Ipratropium [place] (Atrovent Hfa) 2 puff Q6H RESP THERAPY PRN INH SHORTNESS OF BREATH; Start 08/22/18 at 00:00 Albuterol/ Ipratropium (Duoneb) 3 ml Q6H RESP THERAPY PRN INH SHORTNESS OF BREATH; Start 08/22/18 at 00:00 Zinc Sulfate (Zinc Sulfate) 220 mg DAILY GTB Last administered on 08/25/18 09:01; Admin Dose 220 MG; Start 08/22/18 at 09:00 Lactobacillus Acidophilus/ Rhamnosus (Culturelle) 1 cap BID PO Last administered on 08/25/18 09:01; Admin Dose 1 CAP; Start 08/22/18 at 21:00 Topiramate (Topamax) 200 mg Q12H GTB Last administered on 08/25/18 00:22; Admin Dose 200 MG; Start 08/22/18 at 12:00 Multivitamins (Multivitamin) 30 ml DAILY GTB Last administered on 08/25/18 09:01; Admin Dose 30 ML; Start 08/22/18 at 09:00 Methylphenidate HCl (Ritalin) 10 mg Q12 GTB Last administered on 08/25/18 09:01; Admin Dose 10 MG; Start 08/22/18 at 09:00 Sodium Hypochlorite (Dakin'S (Dilute 1/40)) 1 applic BID IRR Last administered on 08/25/18 09:02; Admin Dose 1 APPLIC; Start 08/22/18 at 21:00 Famotidine (Pepcid) 20 mg DAILY GTB Last administered on 08/25/18 09:01; Admin Dose 20 MG; Start 08/23/18 at 09:00 Levetiracetam (Keppra Liq (Ped)) 250 mg Q8 GTB Last administered on 08/25/18 06:21; Admin Dose 250 MG; Start 08/23/18 at 08:00 Enalaprilat (Vasotec Iv) 1.25 mg Q6H PRN IV ELEVATED SYSTOLIC BP Last administered on 08/25/18 00:29; Admin Dose 1.25 MG; Start 08/24/18 at 14:00 Metoprolol Tartrate (Lopressor) 50 mg BID PO Last administered on 08/25/18 09:02; Admin Dose 50 MG; Start 08/24/18 at 21:00 MELISSA TOUSSAINT MD Aug 25, 2018 11:41
--- NOTE | 2018-08-25 12:55 | CONS ---
Assessment/Plan Assessment/Plan Hospital Course (Demo Recall) IMPRESSION: 1. Cardiopulmonary arrest. At this time, the patient has troponin negative x3 and no definite cardiac etiology and a tracheostomy, the patient may be due to primary respiratory event with hypoxia and subsequent cardiac decompensation.-NL EF 60% by echo this admit 2. Abnormal electrocardiogram with poor R-wave progression across the anterior precordial leads, assess for acute coronary syndrome. 3. Hypotension, on Levophed pressor support.-now resolved and hypertensive 4. Chronic respiratory failure, status post tracheostomy, on a ventilator. 5. Dysphagia, status post G-tube. 6. Pneumothorax, status post chest tube. 7. Seizure disorder. 8. Dyslipidemia. 9. Anemia, worsening. 10. Leukocytosis, improving. Recc: -Tele -uptitrate antihypertensinves further given uncontrollled BP -Continue statin -Contineu abx's and f/u cx data -[place] Consultation Date/Type/Reason Admit Date/Time Aug 21, 2018 at 20:08 Initial Consult Date 08/22/18 Type of Consult Cardiology Reason for Consultation HTN Requesting Provider: ANGEL LUIS REDD MD Date/Time of Note DATE: 08/25/18 TIME: 12:54 Exam/Review of Systems Vital Signs Vitals Vital Signs Date Temp Pulse Resp B/P (MAP) Pulse Ox O2 O2 Flow FiO2 Time Delivery Rate 08/25/18 98.4 72 19 169/98 97 11:25 (121) 08/25/18 30 09:00 08/23/18 Mechanical 22:00 Ventilator Trach Collar Intake and Output 08/24/18 08/24/18 08/25/18 1515:00 23:00 07:00 IntakeIntake Total 920 ml 200 ml OutputOutput Total 1100 ml BalanceBalance -180 ml 200 ml Exam Exam Review of Systems: CONSTITUTIONAL: No fevers, chills. PULMONARY: No sob CARDIOVASCULAR: No chest pain/palpitations GASTROINTESTINAL: No nausea/vomiting. GENITOURINARY: No hematuria/dysuria. MUSCULOSKELETAL: No myagias/arthalgias. PSYCHIATRIC: The patient denies depression. NEUROLOGIC: No weakness Constitutional: other (encephalopathic) Psych: no complaints Head: normocephalic ENMT: mucosa pink and moist Neck: supple, jvd (9 cm water) Respiratory: diminished breath sounds Cardiovascular: regular rate and rhythm Gastrointestinal: soft, non-tender Musculoskeletal: muscle weakness (generalized) Extremities: edema (none) Neurological: unresponsive Labs Result Diagram: 08/25/1837 08/25/18 0537 Results 24hrs Laboratory Tests Test 08/25/18 05:37 White Blood Count 9.5 Red Blood Count 3.01 #L Hemoglobin 8.5 #L Hematocrit 26.9 #L Mean Corpuscular Volume 89.4 Mean Corpuscular Hemoglobin 28.2 L Mean Corpuscular Hemoglobin Concent 31.6 L Red Cell Distribution Width 16.4 H Platelet Count 384 Mean Platelet Volume 8.6 Immature Granulocytes % 0.600 H Neutrophils % 79.4 H Lymphocytes % 12.3 L Monocytes % 5.6 Eosinophils % 2.0 Basophils % 0.1 Nucleated Red Blood Cells % 0.0 Immature Granulocytes # 0.060 H Neutrophils # 7.5 Lymphocytes # 1.2 Monocytes # 0.5 Eosinophils # 0.2 Basophils # 0.0 Nucleated Red Blood Cells # 0.0 Sodium Level 138 Potassium Level 3.3 L Chloride Level 106 Carbon Dioxide Level 21 Anion Gap 11 Blood Urea Nitrogen 13 Creatinine 0.34 L Est Glomerular Filtrat Rate mL/min > 60 Glucose Level 104 Calcium Level 8.8 Total Bilirubin 0.2 Direct Bilirubin 0.00 Indirect Bilirubin 0.2 Aspartate Amino Transf (AST/SGOT) 29 Alanine Aminotransferase (ALT/SGPT) 24 Alkaline Phosphatase 149 H Total Protein 6.4 Albumin 2.6 L Globulin 3.80 H Albumin/Globulin Ratio 0.68 Medications Medications Current Medications Sodium Chloride 1,000 ml @ 100 mls/hr Q10H IV Last administered on 08/25/18at 04:45; Admin Dose 100 MLS/HR; Start 08/21/18 at 20:07 Ipratropium [place] (Atrovent 0.02% (Neb)) 0.5 mg Q2H RESP THERAPY PRN NEB SHORTNESS OF BREATH; Start 08/21/18 at 20:30 Acetaminophen (Tylenol Liquid) 650 mg Q6H PRN PO PAIN LEVEL 1-3 OR FEVER; Start 08/21/18 at 20:30 Docusate Sodium (Colace) 100 mg Q12H PRN PO CONSTIPATION; Start 08/21/18 at 20:30 Bisacodyl (Dulcolax) 5 mg DAILY PRN PO CONSTIPATION; Start 08/21/18 at 20:30 Levalbuterol (Xopenex Neb) 1.25 mg Q4H RESP THERAPY PRN HHN SHORTNESS OF BREATH; Start 08/21/18 at 20:30 Vancomycin HCl (Vanco Iv Per Pharmacy) VANCOMYCIN PER PHARMACY PER PROTOCOL XX ; Start 08/21/18 at 21:00 Piperacillin Sod/ Tazobactam Sod 100 ml @ 200 mls/hr Q6 IVPB Last administered on 08/25/18 12:11; Admin Dose 200 MLS/HR; Start 08/22/18 at 00:00 Vancomycin HCl 100 ml @ 100 mls/hr Q12H IVPB Last administered on 08/25/18 04:43; Admin Dose 100 MLS/HR; Start 08/22/18 at 05:00 Ascorbic Acid (Vitamin C) 500 mg DAILY GTB Last administered on 08/25/18 09:02; Admin Dose 500 MG; Start 08/22/18 at 09:00 Atorvastatin Calcium (Lipitor) 10 mg QHS GTB Last administered on 08/24/18 21:28; Admin Dose 10 MG; Start 08/22/18 at 21:00 Ipratropium [place] (Atrovent Hfa) 2 puff Q6H RESP THERAPY PRN INH SHORTNESS OF BREATH; Start 08/22/18 at 00:00 Albuterol/ Ipratropium (Duoneb) 3 ml Q6H RESP THERAPY PRN INH SHORTNESS OF BREATH; Start 08/22/18 at 00:00 Zinc Sulfate (Zinc Sulfate) 220 mg DAILY GTB Last administered on 08/25/18 09:01; Admin Dose 220 MG; Start 08/22/18 at 09:00 Lactobacillus Acidophilus/ Rhamnosus (Culturelle) 1 cap BID PO Last administered on 08/25/18 09:01; Admin Dose 1 CAP; Start 08/22/18 at 21:00 Topiramate (Topamax) 200 mg Q12H GTB Last administered on 08/25/18 12:10; Admin Dose 200 MG; Start 08/22/18 at 12:00 Multivitamins (Multivitamin) 30 ml DAILY GTB Last administered on 08/25/18 09:01; Admin Dose 30 ML; Start 08/22/18 at 09:00 Methylphenidate HCl (Ritalin) 10 mg Q12 GTB Last administered on 08/25/18 09:01; Admin Dose 10 MG; Start 08/22/18 at 09:00 Sodium Hypochlorite (Dakin'S (Dilute )) 1 applic BID IRR Last administered on 08/25/18 09:02; Admin Dose 1 APPLIC; Start 08/22/18 at 21:00 Famotidine (Pepcid) 20 mg DAILY GTB Last administered on 08/25/18 09:01; Admin Dose 20 MG; Start 08/23/18 at 09:00 Levetiracetam (Keppra Liq (Ped)) 250 mg Q8 GTB Last administered on 08/25/18 06:21; Admin Dose 250 MG; Start 08/23/18 at 08:00 Enalaprilat (Vasotec Iv) 1.25 mg Q6H PRN IV ELEVATED SYSTOLIC BP Last administered on 08/25/18 00:29; Admin Dose 1.25 MG; Start 08/24/18 at 14:00 Metoprolol Tartrate (Lopressor) 50 mg BID PO Last administered on 08/25/18 09:02; Admin Dose 50 MG; Start 08/24/18 at 21:00 ANGEL LUIS HERNANDEZ Aug 25, 2018 12:55
--- NOTE | 2018-08-25 13:22 | CONS ---
Consultation Date/Type/Reason Admit Date/Time Aug 21, 2018 at 20:08 Initial Consult Date SUBJECTIVE: Patient is noncommunicative, looks comfortable , afebrile. VS: stable T: 98.4 LABS: Reviewed. WBC- 9.5 Microbiology: Blood cultures on admission and repeated growing coag negative staph species. Sacral wound culture growing enterococcus and gram-negative rods Repeat blood Cultures: BLOOD CULTURE Preliminary BCULT GRAM BOTTLE 1 Gram positive cocci in clusters 1 of 2 bottles . seen on gram stain of the broth Organism 1 STAPHYLOCOCCUS SPECIES CRITICAL TEST VALUE BTL 1 . PHONED TO & READ BACK BY MALIHA RIDER,[id number],08/24/18 AD. WOUND CULTURE: GRAM STAIN Final POLYMORPH. LEUKOCYTE RARE GRAM POS COCCI IN PAIRS RARE WOUND CULTURE Preliminary Organism 1 ESCHERICHIA COLI (ESBL) QUANTITY SCANT GROWTH . MULTI DRUG RESISTANT ORGANISM Organism 2 PROTEUS MIRABILIS QUANTITY SCANT GROWTH Organism 3 ENTEROCOCCUS SPECIES QUANTITY SCANT GROWTH Organism 4 CORYNEBACTER JEIKEIUM (GRP JK) QUANTITY SCANT GROWTH CORYNEBACTERIUM JK: Clinical susceptibiltiy testing standard for this organism have not been established. However, this organism has demonstrated in vitro growth inhibition to the following chemotherapeutic agents listed as susceptible. CXR: IMPRESSION: Displacement of left-sided chest tube which is now in the subcutaneous soft tissues of the left chest. Similar appearance of bibasilar infiltrates. Minimal pleural effusions are unchanged. New small left-sided pneumothorax. Indwelling's: Trach, PEG, Forman, chest tube, left femoral triple-lumen catheter Antimicrobials: Vancomycin, Zosyn Physical examination: GEN: This is a chronically ill-appearing elderly woman who is in no distress. HENT: Head atraumatic normocephalic. Neck is supple PULM: chest rise symmetrical breath sounds diminished bases. Heart: S1-S2. Abdomen soft bowel sounds present. Extremities without cyanosis. Skin: Patient has unstageable necrotic sacral wound Assessment: 1. Sepsis with bacteremia 2. Status post cardiac arrest 3. Urinary tract infection per urinalysis 4. Left pneumothorax with subcutaneous emphysema 5. Encephalopathy, acute on chronic 6. Healthcare associated pneumonia 7. Seizure disorder 8. Sacral decub 9. Lt side pneumothorax. with chest tube Plan: Pt remains stable. Continue current antibiotics. Wound culture final results pending + ESBL . Isolation. Await for final cultures, vent management per pulmonary. Daily wound care and offloading. Pt with persistent bacteremia. Will order to remove triple lumen femoral catheter. D/W nurse Requesting Provider: ANGEL LUIS REDD MD Date/Time of Note DATE: 08/25/18 TIME: 13:03 Exam/Review of Systems Exam Vitals Vital Signs Date Temp Pulse Resp B/P (MAP) Pulse Ox O2 O2 Flow FiO2 Time Delivery Rate 08/25/18 98.4 72 19 169/98 97 11:25 (121) 08/25/18 30 09:00 08/23/18 Mechanical 22:00 Ventilator Trach Collar Intake and Output 08/24/18 08/24/18 08/25/18 1515:00 23:00 07:00 IntakeIntake Total 920 ml 200 ml OutputOutput Total 1100 ml BalanceBalance -180 ml 200 ml Results Result Diagram: 08/25/18 0537 08/25/18 0537 Results 24hrs Laboratory Tests Test 08/25/18 05:37 White Blood Count 9.5 Red Blood Count 3.01 #L Hemoglobin 8.5 #L Hematocrit 26.9 #L Mean Corpuscular Volume 89.4 Mean Corpuscular Hemoglobin 28.2 L Mean Corpuscular Hemoglobin Concent 31.6 L Red Cell Distribution Width 16.4 H Platelet Count 384 Mean Platelet Volume 8.6 Immature Granulocytes % 0.600 H Neutrophils % 79.4 H Lymphocytes % 12.3 L Monocytes % 5.6 Eosinophils % 2.0 Basophils % 0.1 Nucleated Red Blood Cells % 0.0 Immature Granulocytes # 0.060 H Neutrophils # 7.5 Lymphocytes # 1.2 Monocytes # 0.5 Eosinophils # 0.2 Basophils # 0.0 Nucleated Red Blood Cells # 0.0 Sodium Level 138 Potassium Level 3.3 L Chloride Level 106 Carbon Dioxide Level 21 Anion Gap 11 Blood Urea Nitrogen 13 Creatinine 0.34 L Est Glomerular Filtrat Rate mL/min > 60 Glucose Level 104 Calcium Level 8.8 Total Bilirubin 0.2 Direct Bilirubin 0.00 Indirect Bilirubin 0.2 Aspartate Amino Transf (AST/SGOT) 29 Alanine Aminotransferase (ALT/SGPT) 24 Alkaline Phosphatase 149 H Total Protein 6.4 Albumin 2.6 L Globulin 3.80 H Albumin/Globulin Ratio 0.68 Medications Medication Current Medications Sodium Chloride 1,000 ml @ 100 mls/hr Q10H IV Last administered on 08/25/18at 04:45; Admin Dose 100 MLS/HR; Start 08/21/18 at 20:07 Ipratropium [place] (Atrovent 0.02% (Neb)) 0.5 mg Q2H RESP THERAPY PRN NEB SHORTNESS OF BREATH; Start 08/21/18 at 20:30 Acetaminophen (Tylenol Liquid) 650 mg Q6H PRN PO PAIN LEVEL 1-3 OR FEVER; Start 08/21/18 at 20:30 Docusate Sodium (Colace) 100 mg Q12H PRN PO CONSTIPATION; Start 08/21/18 at 20:30 Bisacodyl (Dulcolax) 5 mg DAILY PRN PO CONSTIPATION; Start 08/21/18 at 20:30 Levalbuterol (Xopenex Neb) 1.25 mg Q4H RESP THERAPY PRN HHN SHORTNESS OF BREATH; Start 08/21/18 at 20:30 Vancomycin HCl (Vanco Iv Per Pharmacy) VANCOMYCIN PER PHARMACY PER PROTOCOL XX ; Start 08/21/18 at 21:00 Piperacillin Sod/ Tazobactam Sod 100 ml @ 200 mls/hr Q6 IVPB Last administered on 08/25/18at 12:11; Admin Dose 200 MLS/HR; Start 08/22/18 at 00:00 Vancomycin HCl 100 ml @ 100 mls/hr Q12H IVPB Last administered on 08/25/18at 04:43; Admin Dose 100 MLS/HR; Start 08/22/18 at 05:00 Ascorbic Acid (Vitamin C) 500 mg DAILY GTB Last administered on 08/25/18at 09:02; Admin Dose 500 MG; Start 08/22/18 at 09:00 Atorvastatin Calcium (Lipitor) 10 mg QHS GTB Last administered on 08/24/18at 21:28; Admin Dose 10 MG; Start 08/22/18 at 21:00 Ipratropium [place] (Atrovent Hfa) 2 puff Q6H RESP THERAPY PRN INH SHORTNESS OF BREATH; Start 08/22/18 at 00:00 Albuterol/ Ipratropium (Duoneb) 3 ml Q6H RESP THERAPY PRN INH SHORTNESS OF [place] ATH; Start 08/22/18 at 00:00 Zinc Sulfate (Zinc Sulfate) 220 mg DAILY GTB Last administered on 08/25/18at 09:01; Admin Dose 220 MG; Start 08/22/18 at 09:00 Lactobacillus Acidophilus/ Rhamnosus (Culturelle) 1 cap BID PO Last administered on 08/25/18 09:01; Admin Dose 1 CAP; Start 08/22/18 at 21:00 Topiramate (Topamax) 200 mg Q12H GTB Last administered on 08/25/18 12:10; Admin Dose 200 MG; Start 08/22/18 at 12:00 Multivitamins (Multivitamin) 30 ml DAILY GTB Last administered on 08/25/18 09:01; Admin Dose 30 ML; Start 08/22/18 at 09:00 Methylphenidate HCl (Ritalin) 10 mg Q12 GTB Last administered on 08/25/18 09:01; Admin Dose 10 MG; Start 08/22/18 at 09:00 Sodium Hypochlorite (Dakin'S (Dilute 40)) 1 applic BID IRR Last administered on 08/25/18 09:02; Admin Dose 1 APPLIC; Start 08/22/18 at 21:00 Famotidine (Pepcid) 20 mg DAILY GTB Last administered on 08/25/18 09:01; Admin Dose 20 MG; Start 08/23/18 at 09:00 Levetiracetam (Keppra Liq (Ped)) 250 mg Q8 GTB Last administered on 08/25/18 06:21; Admin Dose 250 MG; Start 08/23/18 at 08:00 Enalaprilat (Vasotec Iv) 1.25 mg Q6H PRN IV ELEVATED SYSTOLIC BP Last administered on 08/25/18 00:29; Admin Dose 1.25 MG; Start 08/24/18 at 14:00 Metoprolol Tartrate (Lopressor) 50 mg BID PO Last administered on 08/25/18 09:02; Admin Dose 50 MG; Start 08/24/18 at 21:00 Benazepril HCl (Lotensin) 10 mg BID PO ; Start 08/25/18 at 21:00 FAISAL KYLE Aug 25, 2018 13:13
--- NOTE | 2018-08-25 13:47 | PN ---
Date/Time of Note Date/Time of Note DATE: 08/25/18 TIME: 13:41 Assessment/Plan VTE Prophylaxis Risk score (from Nsg)>0 risk: 2 SCD applied (from Ns): Yes Pharmacological prophylaxis: NA/contraindicated Pharm contraindication: other (stroke in May) Lines/Catheters IV Catheter Type (from [facility]): Central Line Central line still needed: Yes Urinary Cath still in place: Yes Reason Cath still needed: other (indicate) (on vent) Assessment/Plan Assessment/Plan 61 yo woman history of stroke on chronic trach and PEG admitted after respiratory failure leading to cardiac arrest. # cardiac arrest: - Apparently patient was reported to have shortness of breath prior to cardiac arrest. - According to code sheet, was PEA arrest. - No hypothermia due to severe underlying disability, trach and PEG. # Seizure disorder: Continue Keppra, Topamax. - According to EEG, may be having active seizures in the hospital. Neuro following. - Son wants to know drawer in plain loom neurologic prognosis prior to deciding on DNR status. #Sepsis #Bacteremia - Leukocytosis to 26 on admission; UA with leuk esterase - Will treat empirically for urosepsis - Blood cultures growing staph aureus, pending sensitivities - ID following - Wait for sensitivities, continue current antibiotics per ID. - Had "wound cultures" done on 08/21 but this was not associated with surgical debridement to my knowledge. Maybe just a swab of the surface of her sacral decub ulcer? The ulcer did not appear infected on my exam. So will disregard these results. #Pneumothorax - Also associated with L chest subcutaneous emphysema - Likely due to chest compressions - Now with chest tube, pulmonary to manage. #Acute on chronic respiratory failure - Patient chronically on tracheostomy - Continue ICU monitoring. - Vent per pulmonary. # metabolic acidosis: Secondary to underlying infectious process, shock. Antibiotics and fluids. Monitor labs. 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 - Chronic trach and PEG # hypertension: We will hold home blood pressure medications at the current time given patient's sepsis shock and hypotension. # DVT GI prophylaxis: SCDs, Protonix Code status: Full code, pending neurology consult for prognosis. PT SON RENZO [phone] [facility]. Result Diagram: 08/25/18 0537 08/25/18 0537 Subjective 24 Hr Interval Summary Free Text/Dictation No acute overnight events. Repeat CXR shows dislodgement of chest tube today with enlargement of pneumothorax. Exam/Review of Systems Exam Vitals Vital Signs Date Temp Pulse Resp B/P (MAP) Pulse Ox O2 O2 Flow FiO2 Time Delivery Rate 08/25/18 79 12:30 08/25/18 98.4 19 169/98 97 11:25 (121) 08/25/18 30 11:20 08/23/18 Mechanical 22:00 Ventilator Trach Collar Intake and Output 08/24/18 08/24/18 08/25/18 1515:00 23:00 07:00 IntakeIntake Total 920 ml 200 ml OutputOutput Total 1100 ml BalanceBalance -180 ml 200 ml Exam General: Patient is nonverbal, trach to vent HEENT: Atraumatic, normocephalic. The pupils are equal, round and reactive. Neck: Tracheostomy in place connected to vent Lungs: Mechanical breath sounds bilaterally Chest: L chest subcutaneous edema. L chest tube in place. Heart: Sinus tachycardia, no murmurs Abdomen: Soft , nontender, nondistended , bowel sounds are present. PEG in place. Extremities: Normal to inspection, no edema no cyanosis. L femoral central line. Neurologic: Nonverbal, has minimal spontaneous movements of the bilateral lower extremities, facial grimacing. Eyes now opening spontaneously. Results Results 24hrs Laboratory Tests Test 08/25/18 05:37 White Blood Count 9.5 Red Blood Count 3.01 #L Hemoglobin 8.5 #L Hematocrit 26.9 #L Mean Corpuscular Volume 89.4 Mean Corpuscular Hemoglobin 28.2 L Mean Corpuscular Hemoglobin Concent 31.6 L Red Cell Distribution Width 16.4 H Platelet Count 384 Mean Platelet Volume 8.6 Immature Granulocytes % 0.600 H Neutrophils % 79.4 H Lymphocytes % 12.3 L Monocytes % 5.6 Eosinophils % 2.0 Basophils % 0.1 Nucleated Red Blood Cells % 0.0 Immature Granulocytes # 0.060 H Neutrophils # 7.5 Lymphocytes # 1.2 Monocytes # 0.5 Eosinophils # 0.2 Basophils # 0.0 Nucleated Red Blood Cells # 0.0 Sodium Level 138 Potassium Level 3.3 L Chloride Level 106 Carbon Dioxide Level 21 Anion Gap 11 Blood Urea Nitrogen 13 Creatinine 0.34 L Est Glomerular Filtrat Rate mL/min > 60 Glucose Level 104 Calcium Level 8.8 Total Bilirubin 0.2 Direct Bilirubin 0.00 Indirect Bilirubin 0.2 Aspartate Amino Transf (AST/SGOT) 29 Alanine Aminotransferase (ALT/SGPT) 24 Alkaline Phosphatase 149 H Total Protein 6.4 Albumin 2.6 L Globulin 3.80 H Albumin/Globulin Ratio 0.68 Medications Medication Current Medications Sodium Chloride 1,000 ml @ 100 mls/hr Q10H IV Last administered on 08/25/18at 04:45; Admin Dose 100 MLS/HR; Start 08/21/18 at 20:07 Ipratropium [place] (Atrovent 0.02% (Neb)) 0.5 mg Q2H RESP THERAPY PRN NEB SHORTNESS OF BREATH; Start 08/21/18 at 20:30 Acetaminophen (Tylenol Liquid) 650 mg Q6H PRN PO PAIN LEVEL 1-3 OR FEVER; Start 08/21/18 at 20:30 Docusate Sodium (Colace) 100 mg Q12H PRN PO CONSTIPATION; Start 08/21/18 at 20:30 Bisacodyl (Dulcolax) 5 mg DAILY PRN PO CONSTIPATION; Start 08/21/18 at 20:30 Levalbuterol (Xopenex Neb) 1.25 mg Q4H RESP THERAPY PRN HHN SHORTNESS OF BREATH; Start 08/21/18 at 20:30 Vancomycin HCl (Vanco Iv Per Pharmacy) VANCOMYCIN PER PHARMACY PER PROTOCOL XX ; Start 08/21/18 at 21:00 Piperacillin Sod/ Tazobactam Sod 100 ml @ 200 mls/hr Q6 IVPB Last administered on 08/25/18at 12:11; Admin Dose 200 MLS/HR; Start 08/22/18 at 00:00 Vancomycin HCl 100 ml @ 100 mls/hr Q12H IVPB Last administered on 08/25/18at 04:43; Admin Dose 100 MLS/HR; Start 08/22/18 at 05:00 Ascorbic Acid (Vitamin C) 500 mg DAILY GTB Last administered on 08/25/18at 09:02; Admin Dose 500 MG; Start 08/22/18 at 09:00 Atorvastatin Calcium (Lipitor) 10 mg QHS GTB Last administered on 08/24/18at 21:28; Admin Dose 10 MG; Start 08/22/18 at 21:00 Ipratropium [place] (Atrovent Hfa) 2 puff Q6H RESP THERAPY PRN INH SHORTNESS OF BREATH; Start 08/22/18 at 00:00 Albuterol/ Ipratropium (Duoneb) 3 ml Q6H RESP THERAPY PRN INH SHORTNESS OF BREATH; Start 08/22/18 at 00:00 Zinc Sulfate (Zinc Sulfate) 220 mg DAILY GTB Last administered on 08/25/18 09:01; Admin Dose 220 MG; Start 08/22/18 at 09:00 Lactobacillus Acidophilus/ Rhamnosus (Culturelle) 1 cap BID PO Last administered on 08/25/18 09:01; Admin Dose 1 CAP; Start 08/22/18 at 21:00 Topiramate (Topamax) 200 mg Q12H GTB Last administered on 08/25/18 12:10; Admin Dose 200 MG; Start 08/22/18 at 12:00 Multivitamins (Multivitamin) 30 ml DAILY GTB Last administered on 08/25/18 09:01; Admin Dose 30 ML; Start 08/22/18 at 09:00 Methylphenidate HCl (Ritalin) 10 mg Q12 GTB Last administered on 08/25/18 09:01; Admin Dose 10 MG; Start 08/22/18 at 09:00 Sodium Hypochlorite (Dakin'S (Dilute 1/40)) 1 applic BID IRR Last administered on 08/25/18 09:02; Admin Dose 1 APPLIC; Start 08/22/18 at 21:00 Famotidine (Pepcid) 20 mg DAILY GTB Last administered on 08/25/18 09:01; Admin Dose 20 MG; Start 08/23/18 at 09:00 Levetiracetam (Keppra Liq (Ped)) 250 mg Q8 GTB Last administered on 08/25/18 06:21; Admin Dose 250 MG; Start 08/23/18 at 08:00 Enalaprilat (Vasotec Iv) 1.25 mg Q6H PRN IV ELEVATED SYSTOLIC BP Last administered on 08/25/18 00:29; Admin Dose 1.25 MG; Start 08/24/18 at 14:00 Metoprolol Tartrate (Lopressor) 50 mg BID PO Last administered on 3/24/19at 09:02; Admin Dose 50 MG; Start 08/24/18 at 21:00 Benazepril HCl (Lotensin) 10 mg BID PO ; Start 08/25/18 at 21:00 ANGEL LUIS REDD MD Aug 25, 2018 13:47
--- NOTE | 2018-08-25 15:05 | CONS ---
Consult Date/Type/Reason Admit Date/Time Aug 21, 2018 at 20:08 Initial Consult Date Type of Consultation: Pulm Requesting Provider: ANGEL LUIS ERDD MD Date/Time of Note DATE: 08/25/18 TIME: 15:01 Subjective Remains on the vent via trach. Right chest tube appears to be nearly out. Objective Vitals Vital Signs Date Temp Pulse Resp B/P (MAP) Pulse Ox O2 O2 Flow FiO2 Time Delivery Rate 08/25/18 97 20 100 30 13:10 08/25/18 98.4 169/98 11:25 (121) 08/23/18 Mechanical 22:00 Ventilator Trach Collar Intake and Output 08/24/18 08/24/18 08/25/18 1515:00 23:00 07:00 IntakeIntake Total 920 ml 200 ml OutputOutput Total 1100 ml BalanceBalance -180 ml 200 ml Exam HEENT: Neck supple; no JVD; no LAD; trach site clean CVS: Irreg, S1 and S2 CHEST: Coarse BS b/l ABD: Soft, NT, + BS EXT: No c/c/e Results/Medications Result Diagram: 08/25/1837 08/25/18 0537 Results 24 hrs Laboratory Tests Test 08/25/18 05:37 White Blood Count 9.5 Red Blood Count 3.01 #L Hemoglobin 8.5 #L Hematocrit 26.9 #L Mean Corpuscular Volume 89.4 Mean Corpuscular Hemoglobin 28.2 L Mean Corpuscular Hemoglobin Concent 31.6 L Red Cell Distribution Width 16.4 H Platelet Count 384 Mean Platelet Volume 8.6 Immature Granulocytes % 0.600 H Neutrophils % 79.4 H Lymphocytes % 12.3 L Monocytes % 5.6 Eosinophils % 2.0 Basophils % 0.1 Nucleated Red Blood Cells % 0.0 Immature Granulocytes # 0.060 H Neutrophils # 7.5 Lymphocytes # 1.2 Monocytes # 0.5 Eosinophils # 0.2 Basophils # 0.0 Nucleated Red Blood Cells # 0.0 Sodium Level 138 Potassium Level 3.3 L Chloride Level 106 Carbon Dioxide Level 21 Anion Gap 11 Blood Urea Nitrogen 13 Creatinine 0.34 L Est Glomerular Filtrat Rate mL/min > 60 Glucose Level 104 Calcium Level 8.8 Total Bilirubin 0.2 Direct Bilirubin 0.00 Indirect Bilirubin 0.2 Aspartate Amino Transf (AST/SGOT) 29 Alanine Aminotransferase (ALT/SGPT) 24 Alkaline Phosphatase 149 H Total Protein 6.4 Albumin 2.6 L Globulin 3.80 H Albumin/Globulin Ratio 0.68 Home Meds Reported Medications Clindamycin Hcl* (Clindamycin Hcl*) 300 Mg Capsule, 300 MG GTB QID, CAP STOP DATE 08/25/18 08/21/18 Levofloxacin* (Levofloxacin*) 500 Mg Tablet, 500 MG GTB DAILY, TAB STOP DATE 08/25/18 08/21/18 Zinc Sulfate* (Zinc Sulfate*) 220 Mg Tablet, 220 MG GTB DAILY, TAB 08/21/18 Ascorbic Acid (Vitamin C) 500 Mg Tab, 500 MG GTB DAILY, TAB 08/21/18 Multivitamin with Minerals (Multivitamins with Minerals) 1 Each Tablet, 1 EACH GTB DAILY, TAB 08/21/18 Amino Acids/Protein Hydrolys (PRO-STAT LIQUID) 30 Ml Liquid.pkt, 30 ML GTB BID SUGAR FREE 08/21/18 Lisinopril* (Lisinopril*) 20 Mg Tablet, 20 MG GTB Q12H, #30 TAB 08/21/18 Levetiracetam* (Keppra* (Ped)) 100 Mg/Ml Liq, 100 MG GTB Q8H for 30 Days, BOTTLE 08/21/18 Lansoprazole* (Lansoprazole*) 30 Mg Capsule.dr, 30 MG GTB DAILY, CAP 08/21/18 Ipratropium-Albuterol (Ipratropium-Albuterol) 0.5-3 Mg/3 Ml Ampul.neb, 3 ML INHALATION Q6, #30 VIAL 08/21/18 Ipratropium [place]* (Atrovent HFA*) 12.9 Gm Aer.w.adap, 2 PUFF INHALATION Q6H for SHORTNESS OF BREATH, #1 INHALER 08/21/18 Lactobacillus Acidophilus* (Lactinex*) 1 Tab Chew, 1 TAB GTB Q6H, TAB 08/21/18 Carvedilol* (Carvedilol*) 12.5 Mg Tablet, 12.5 MG GTB BID, #60 TAB 08/21/18 Bisacodyl* (Bisacodyl*) 10 Mg Supp, 10 MG MT Q OTHER DAY, SUPP 08/21/18 Atorvastatin Calcium (Atorvastatin Calcium) 10 Mg Tablet, 10 MG GTB QHS, #30 TAB 08/21/18 Topiramate* (Trokendi XR*) 200 Mg Cap.er.24h, 200 MG GTB Q12H, CAP 08/21/18 Citric Acid/Potassium Citrate (Cytra-K Oral Solution) 473 Ml Solution, 5 ML GTB DAILY 08/21/18 Selenium* (Selenimin*) 200 Mcg Tablet, 200 MCG GTB DAILY, TAB 08/21/18 Ondansetron Hcl* (Zofran*) 4 Mg Tab, 4 MG GTB Q6H PRN for NAUSEA AND OR VOMITING, TAB 08/21/18 Methylphenidate Hcl* (Methylphenidate Hcl*) 10 Mg Tablet, 10 MG GTB Q12H, TAB 08/21/18 Medications Current Medications Sodium Chloride 1,000 ml @ 100 mls/hr Q10H IV Last administered on 08/25/18at 04:45; Admin Dose 100 MLS/HR; Start 08/21/18 at 20:07 Ipratropium [place] (Atrovent 0.02% (Neb)) 0.5 mg Q2H RESP THERAPY PRN NEB SHORTNESS OF BREATH; Start 08/21/18 at 20:30 Acetaminophen (Tylenol Liquid) 650 mg Q6H PRN PO PAIN LEVEL 1-3 OR FEVER; Start 08/21/18 at 20:30 Docusate Sodium (Colace) 100 mg Q12H PRN PO CONSTIPATION; Start 08/21/18 at 20:30 Bisacodyl (Dulcolax) 5 mg DAILY PRN PO CONSTIPATION; Start 08/21/18 at 20:30 Levalbuterol (Xopenex Neb) 1.25 mg Q4H RESP THERAPY PRN HHN SHORTNESS OF BREATH; Start 08/21/18 at 20:30 Vancomycin HCl (Vanco Iv Per Pharmacy) VANCOMYCIN PER PHARMACY PER PROTOCOL XX ; Start 08/21/18 at 21:00 Piperacillin Sod/ Tazobactam Sod 100 ml @ 200 mls/hr Q6 IVPB Last administered on 08/25/18at 12:11; Admin Dose 200 MLS/HR; Start 08/22/18 at 00:00 Vancomycin HCl 100 ml @ 100 mls/hr Q12H IVPB Last administered on 08/25/18at 04:43; Admin Dose 100 MLS/HR; Start 08/22/18 at 05:00 Ascorbic Acid (Vitamin C) 500 mg DAILY GTB Last administered on 08/25/18 09:02; Admin Dose 500 MG; Start 08/22/18 at 09:00 Atorvastatin Calcium (Lipitor) 10 mg QHS GTB Last administered on 08/24/18 21:28; Admin Dose 10 MG; Start 08/22/18 at 21:00 Ipratropium [place] (Atrovent Hfa) 2 puff Q6H RESP THERAPY PRN INH SHORTNESS OF BREATH; Start 08/22/18 at 00:00 Albuterol/ Ipratropium (Duoneb) 3 ml Q6H RESP THERAPY PRN INH SHORTNESS OF BREATH; Start 08/22/18 at 00:00 Zinc Sulfate (Zinc Sulfate) 220 mg DAILY GTB Last administered on 08/25/18 09:01; Admin Dose 220 MG; Start 08/22/18 at 09:00 Lactobacillus Acidophilus/ Rhamnosus (Culturelle) 1 cap BID PO Last ad ministered on 08/25/18 09:01; Admin Dose 1 CAP; Start 08/22/18 at 21:00 Topiramate (Topamax) 200 mg Q12H GTB Last administered on 08/25/18 12:10; Admin Dose 200 MG; Start 08/22/18 at 12:00 Multivitamins (Multivitamin) 30 ml DAILY GTB Last administered on 08/25/18 09:01; Admin Dose 30 ML; Start 08/22/18 at 09:00 Methylphenidate HCl (Ritalin) 10 mg Q12 GTB Last administered on 08/25/18 09:01; Admin Dose 10 MG; Start 08/22/18 at 09:00 Sodium Hypochlorite (Dakin'S (Dilute 1/40)) 1 applic BID IRR Last administered on 08/25/18 09:02; Admin Dose 1 APPLIC; Start 08/22/18 at 21:00 Famotidine (Pepcid) 20 mg DAILY GTB Last administered on 08/25/18 09:01; Admin Dose 20 MG; Start 08/23/18 at 09:00 Levetiracetam (Keppra Liq (Ped)) 250 mg Q8 GTB Last administered on 08/25/18 06:21; Admin Dose 250 MG; Start 08/23/18 at 08:00 Enalaprilat (Vasotec Iv) 1.25 mg Q6H PRN IV ELEVATED SYSTOLIC BP Last administered on 08/25/18at 00:29; Admin Dose 1.25 MG; Start 08/24/18 at 14:00 Metoprolol Tartrate (Lopressor) 50 mg BID PO Last administered on 08/25/18at 09:02; Admin Dose 50 MG; Start 08/24/18 at 21:00 Benazepril HCl (Lotensin) 10 mg BID PO ; Start 08/25/18 at 21:00 Assessment/Plan Assessment/Plan (Daily) IMP: 1. s/p Cardiopulmonary arrest. 2. Respiratory failure, possibly secondary to healthcare-associated pneumonia. 3. Traumatic left pneumothorax following CPR--CXR today shows chest tube nearly out and a moderate-sized loculated left PTX 4. 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 RECS: 1. Vent support. 2. Will need a new chest tube placed given risk of tension physiology given positive pressure ventilation. ALENA CARDOZO MD Aug 25, 2018 15:05
[2018-08-25] MEDS ORDERED: HYDROmorphONE 0.5 MG/0.5 ML SYG IV STA (15:21)
--- NOTE | 2018-08-25 15:44 | PRO ---
Date/Time of Note Date/Time of Note DATE: 08/25/18 TIME: 15:37 Femoral CV Placement PROCEDURE NOTE PROCEDURE: Left chest tube thoracostomy INDICATION: Pneumothorax on the ventilator/dislodgement of existing chest tube PROCEDURE ENERGY TRADER: Enrique CONSENT: Consent was implied due to the emergent nature of the procedure. PROCEDURE SUMMARY: The patient was prepped and draped in the usual sterile manner. 1% lidocaine was used to numb the region. The existing 20F chest tube appeared to be fully out with the end tip of the catheter out of the thorax. The sutures were removed. Using the existing incision and minimal blunt dissection, a 24 F chest tube was advanced in the mid-axillary region 4/5th ICS in to the pleural cavity. Upon insertion a large mcneil of air was noted. Chest tube was secured in place with 0 sutures. The tube was also secured using sterile dressings and silk tape. The chest tube was connected to a pleurevac. Normal tidal pattern was noted with an airleak. Patient tolerated procedure well with no complications. Stat CXR ordered. ESTIMATED BLOOD LOSS: < 1 ml ALENA CARDOZO MD Aug 25, 2018 15:44
[2018-08-25] MEDS: CEFEPIME 1GM/50 ML (PMX) 50 ML IVPB SCH ×2 (16:35→20:54)
[2018-08-25] MEDS: ATORVASTATIN 10 MG TAB GTB SCH (20:54)
[2018-08-25] MEDS: BENAZEPRIL 10 MG TAB PO SCH (20:55)
[2018-08-26] VITALS (22 sets, daily range): BP systolic 149–182; BP diastolic 69–101; PULSE 72–117; RESP 19–33
[2018-08-26] MEDS: TOPIRAMATE 100 MG TAB GTB SCH ×3 (01:11→22:08)
[2018-08-26] MEDS: SOD CHLORIDE 0.9% 1,000 ML IV SCH ×4 (01:11→20:07)
[2018-08-26] MEDS: VANCOMYCIN 500 MG (PMX) 100 ML IVPB SCH ×2 (05:43→16:36)
[2018-08-26] MEDS: LEVETIRACETAM (100 MG/ML PO SYG) GTB SCH ×3 (05:44→22:08)
[2018-08-26] MEDS: LACTOBACILLUS RHAMNOSUS CAP PO SCH ×2 (09:10→22:02)
[2018-08-26] MEDS: CEFEPIME 1GM/50 ML (PMX) 50 ML IVPB SCH ×2 (09:10→22:03)
[2018-08-26] MEDS: MULTIVITAMINS 30 ML CUP GTB SCH (09:10)
[2018-08-26] MEDS: ZINC SULFATE 220 MG CAP GTB SCH (09:10)
[2018-08-26] MEDS: ASCORBIC ACID 500 MG TAB GTB SCH (09:10)
[2018-08-26] MEDS: FAMOTIDINE 20 MG TAB GTB SCH (09:10)
[2018-08-26] MEDS: BENAZEPRIL 10 MG TAB PO SCH (09:11)
[2018-08-26] MEDS: METOPROLOL 50 MG TAB PO SCH ×2 (09:11→22:04)
[2018-08-26] MEDS: SODIUM HYPOCHLORITE (1/40) 1 APPLIC BTL IRR SCH ×2 (09:12→22:02)
[2018-08-26] MEDS: BALSAM PERU/CASTOR OIL 60 GM TUBE TOP SCH ×2 (09:12→22:03)
[2018-08-26] MEDS: METHYLPHENIDATE 5 MG TAB GTB SCH ×2 (09:14→22:02)
--- NOTE | 2018-08-26 11:41 | CONS ---
Consult Date/Type/Reason Admit Date/Time Aug 21, 2018 at 20:08 Initial Consult Date Type of Consult Pulmonary Requesting Provider: ANGEL LUIS REDD MD Date/Time of Note DATE: 08/26/18 TIME: 11:40 Subjective Chest tube replaced yesterday. Patient remained stable this morning. Objective Vital Signs Date Temp Pulse Resp B/P (MAP) Pulse Ox O2 O2 Flow FiO2 Time Delivery Rate 08/26/18 30 09:24 08/26/18 72 20 97 09:00 08/26/18 98.6 151/87 07:47 (108) 08/23/18 Mechanical 22:00 Ventilator Trach Collar Intake and Output 08/25/18 08/25/18 08/26/18 1515:00 23:00 07:00 IntakeIntake Total 1120 ml 2480 ml 1180 ml OutputOutput Total 1200 ml 2800 ml 1400 ml BalanceBalance -80 ml -320 ml -220 ml Exam GENERAL: Elderly lady on mechanical ventilation via tracheostomy VITAL SIGNS: per chart NECK: Supple. No JVD or lymphadenopathy. CARDIAC EXAM: S1, S2. No added sounds or murmurs. CHEST: clear bilaterally, No added sounds, rales or wheezes ABDOMEN: Soft, nontender. No guarding or rebound. EXTREMITIES: No cyanosis, clubbing or edema. NEUROLOGIC: Generalized weakness. No focal deficits. Vent Setting Ventilator Support Mode: AC Fraction of Inspired Oxygen pe: 30 Positive End Expiratory Pressu: 5.0 Results/Medications Result Diagram: 08/25/18 0537 08/25/18 0537 Results 24 hrs Laboratory Tests Test 08/26/18 08:48 Lab Scanned Report BLOOD TRANSFUSION Medications Current Medications Sodium Chloride 1,000 ml @ 100 mls/hr Q10H IV Last administered on 08/26/18at 01:11; Admin Dose 100 MLS/HR; Start 08/21/18 at 20:07 Ipratropium [place] (Atrovent 0.02% (Neb)) 0.5 mg Q2H RESP THERAPY PRN NEB SHORTNESS OF BREATH; Start 08/21/18 at 20:30 Acetaminophen (Tylenol Liquid) 650 mg Q6H PRN PO PAIN LEVEL 1-3 OR FEVER; Start 08/21/18 at 20:30 Docusate Sodium (Colace) 100 mg Q12H PRN PO CONSTIPATION; Start 08/21/18 at 20:30 Bisacodyl (Dulcolax) 5 mg DAILY PRN PO CONSTIPATION; Start 08/21/18 at 20:30 Levalbuterol (Xopenex Neb) 1.25 mg Q4H RESP THERAPY PRN HHN SHORTNESS OF BREATH; Start 08/21/18 at 20:30 Vancomycin HCl (Vanco Iv Per Pharmacy) VANCOMYCIN PER PHARMACY PER PROTOCOL XX ; Start 08/21/18 at 21:00 Vancomycin HCl 100 ml @ 100 mls/hr Q12H IVPB Last administered on 08/26/18 05:43; Admin Dose 100 MLS/HR; Start 08/22/18 at 05:00 Ascorbic Acid (Vitamin C) 500 mg DAILY GTB Last administered on 08/26/18 09:10; Admin Dose 500 MG; Start 08/22/18 at 09:00 Atorvastatin Calcium (Lipitor) 10 mg QHS GTB Last administered on 08/25/18 20:54; Admin Dose 10 MG; Start 08/22/18 at 21:00 Ipratropium [place] (Atrovent Hfa) 2 puff Q6H RESP THERAPY PRN INH SHORTNESS OF BREATH; Start 08/22/18 at 00:00 Albuterol/ Ipratropium (Duoneb) 3 ml Q6H RESP THERAPY PRN INH SHORTNESS OF BREATH; Start 08/22/18 at 00:00 Zinc Sulfate (Zinc Sulfate) 220 mg DAILY GTB Last administered on 08/26/18 09:10; Admin Dose 220 MG; Start 08/22/18 at 09:00 Lactobacillus Acidophilus/ Rhamnosus (Culturelle) 1 cap BID PO Last administered on 08/26/18 09:10; Admin Dose 1 CAP; Start 08/22/18 at 21:00 Topiramate (Topamax) 200 mg Q12H GTB Last administered on 08/26/18 11:03; Admin Dose 200 MG; Start 08/22/18 at 12:00 Multivitamins (Multivitamin) 30 ml DAILY GTB Last administered on 08/26/18 09:10; Admin Dose 30 ML; Start 08/22/18 at 09:00 Methylphenidate HCl (Ritalin) 10 mg Q12 GTB Last administered on 08/26/18 09:14; Admin Dose 10 MG; Start 08/22/18 at 09:00 Sodium Hypochlorite (Dakin'S (Dilute 140)) 1 applic BID IRR Last administered on 08/26/18 09:12; Admin Dose 1 APPLIC; Start 08/22/18 at 21:00 Famotidine (Pepcid) 20 mg DAILY GTB Last administered on 08/26/18 09:10; Admin Dose 20 MG; Start 08/23/18 at 09:00 Levetiracetam (Keppra Liq (Ped)) 250 mg Q8 GTB Last administered on 08/26/18 05:44; Admin Dose 250 MG; Start 08/23/18 at 08:00 Enalaprilat (Vasotec Iv) 1.25 mg Q6H PRN IV ELEVATED SYSTOLIC BP Last administered on 08/25/18 00:29; Admin Dose 1.25 MG; Start 08/24/18 at 14:00 Metoprolol Tartrate (Lopressor) 50 mg BID PO Last administered on 08/26/18 09:11; Admin Dose 50 MG; Start 08/24/18 at 21:00 Benazepril HCl (Lotensin) 10 mg BID PO Last administered on 08/26/18 09:11; Admin Dose 10 MG; Start 08/25/18 at 21:00 Cefepime HCl 50 ml @ 100 mls/hr Q12 IVPB Last administered on 08/26/18 09:10; Admin Dose 100 MLS/HR; Start 08/25/18 at 15:30 Assessment/Plan Hospital Course (Demo Recall) IMP: 1. s/p Cardiopulmonary arrest. 2. Respiratory failure, possibly secondary to healthcare-associated pneumonia. 3. Traumatic left pneumothorax following CPR--CXR today shows chest tube nearly out and a moderate-sized loculated left PTX now removed and replaced 4. 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 RECS: 1. Vent support. 2. Chest tube repositioned Thoracic surgery evaluation for removal of chest tube DC planning. RONALD GALO MD, [facility] Aug 26, 2018 11:41
--- NOTE | 2018-08-26 11:45 | CONS ---
Assessment/Plan Assessment/Plan Hospital Course (Demo Recall) IMPRESSION: 1. Cardiopulmonary arrest. At this time, the patient has troponin negative x3 and no definite cardiac etiology and a tracheostomy, the patient may be due to primary respiratory event with hypoxia and subsequent cardiac decompensation.-NL EF 60% by echo this admit 2. Abnormal electrocardiogram with poor R-wave progression across the anterior precordial leads, assess for acute coronary syndrome. 3. Hypotension, on Levophed pressor support.-now resolved and hypertensive 4. Chronic respiratory failure, status post tracheostomy, on a ventilator. 5. Dysphagia, status post G-tube. 6. Pneumothorax, status post chest tube. 7. Seizure disorder. 8. Dyslipidemia. 9. Anemia, worsening. 10. Leukocytosis, improving. Recc: -Tele -uptitrate antihypertensinves further given uncontrollled BP -Continue statin -Contineu abx's and f/u cx data -[place] Consultation Date/Type/Reason Admit Date/Time Aug 21, 2018 at 20:08 Initial Consult Date 08/22/18 Type of Consult Cardiology Reason for Consultation Cardiac arrest Requesting Provider: ANGEL LUIS REDD MD Date/Time of Note DATE: 08/26/18 TIME: 11:44 Exam/Review of Systems Vital Signs Vitals Vital Signs Date Temp Pulse Resp B/P (MAP) Pulse Ox O2 O2 Flow FiO2 Time Delivery Rate 08/26/18 76 20 98 30 11:41 08/26/18 98.6 151/87 07:47 (108) 08/23/18 Mechanical 22:00 Ventilator Trach Collar Intake and Output 08/25/18 08/25/18 08/26/18 1515:00 23:00 07:00 IntakeIntake Total 1120 ml 2480 ml 1180 ml OutputOutput Total 1200 ml 2800 ml 1400 ml BalanceBalance -80 ml -320 ml -220 ml Exam Exam Review of Systems: CONSTITUTIONAL: No fevers, chills. PULMONARY: No sob CARDIOVASCULAR: No chest pain/palpitations GASTROINTESTINAL: No nausea/vomiting. GENITOURINARY: No hematuria/dysuria. MUSCULOSKELETAL: No myagias/arthalgias. PSYCHIATRIC: The patient denies depression. NEUROLOGIC: encaphalopathic Constitutional: other (encephalopathic) Psych: no complaints Head: normocephalic ENMT: mucosa pink and moist Neck: supple, jvd (9 cm water), other (trached) Respiratory: diminished breath sounds Cardiovascular: regular rate and rhythm Gastrointestinal: soft, non-tender Musculoskeletal: muscle weakness (generalized) Extremities: edema (none) Neurological: lethargic Labs Result Diagram: 08/25/1853608/25/18536 Results 24hrs Laboratory Tests Test 08/26/18 08:48 Lab Scanned Report BLOOD TRANSFUSION Medications Medications Current Medications Sodium Chloride 1,000 ml @ 100 mls/hr Q10H IV Last administered on 08/26/18at 01:11; Admin Dose 100 MLS/HR; Start 08/21/18 at 20:07 Ipratropium [place] (Atrovent 0.02% (Neb)) 0.5 mg Q2H RESP THERAPY PRN NEB SHORTNESS OF BREATH; Start 08/21/18 at 20:30 Acetaminophen (Tylenol Liquid) 650 mg Q6H PRN PO PAIN LEVEL 1-3 OR FEVER; Start 08/21/18 at 20:30 Docusate Sodium (Colace) 100 mg Q12H PRN PO CONSTIPATION; Start 08/21/18 at 20:30 Bisacodyl (Dulcolax) 5 mg DAILY PRN PO CONSTIPATION; Start 08/21/18 at 20:30 Levalbuterol (Xopenex Neb) 1.25 mg Q4H RESP THERAPY PRN HHN SHORTNESS OF BREATH; Start 08/21/18 at 20:30 Vancomycin HCl (Vanco Iv Per Pharmacy) VANCOMYCIN PER PHARMACY PER PROTOCOL XX ; Start 08/21/18 at 21:00 Vancomycin HCl 100 ml @ 100 mls/hr Q12H IVPB Last administered on 08/26/18at 05:43; Admin Dose 100 MLS/HR; Start 08/22/18 at 05:00 Ascorbic Acid (Vitamin C) 500 mg DAILY GTB Last administered on 08/26/18at 09:10; Admin Dose 500 MG; Start 08/22/18 at 09:00 Atorvastatin Calcium (Lipitor) 10 mg QHS GTB Last administered on 08/25/18at 20:54; Admin Dose 10 MG; Start 08/22/18 at 21:00 Ipratropium [place] (Atrovent Hfa) 2 puff Q6H RESP THERAPY PRN INH SHORTNESS OF BREATH; Start 08/22/18 at 00:00 Albuterol/ Ipratropium (Duoneb) 3 ml Q6H RESP THERAPY PRN INH SHORTNESS OF BREATH; Start 08/22/18 at 00:00 Zinc Sulfate (Zinc Sulfate) 220 mg DAILY GTB Last administered on 08/26/18 09:10; Admin Dose 220 MG; Start 08/22/18 at 09:00 Lactobacillus Acidophilus/ Rhamnosus (Culturelle) 1 cap BID PO Last administered on 08/26/18 09:10; Admin Dose 1 CAP; Start 08/22/18 at 21:00 Topiramate (Topamax) 200 mg Q12H GTB Last administered on 08/26/18 11:03; Admin Dose 200 MG; Start 08/22/18 at 12:00 Multivitamins (Multivitamin) 30 ml DAILY GTB Last administered on 08/26/18 09:10; Admin Dose 30 ML; Start 08/22/18 at 09:00 Methylphenidate HCl (Ritalin) 10 mg Q12 GTB Last administered on 08/26/18 09:14; Admin Dose 10 MG; Start 08/22/18 at 09:00 Sodium Hypochlorite (Dakin'S (Dilute 1/40)) 1 applic BID IRR Last administered on 08/26/18 09:12; Admin Dose 1 APPLIC; Start 08/22/18 at 21:00 Famotidine (Pepcid) 20 mg DAILY GTB Last administered on 08/26/18 09:10; Admin Dose 20 MG; Start 08/23/18 at 09:00 Levetiracetam (Keppra Liq (Ped)) 250 mg Q8 GTB Last administered on 08/26/18 05:44; Admin Dose 250 MG; Start 08/23/18 at 08:00 Enalaprilat (Vasotec Iv) 1.25 mg Q6H PRN IV ELEVATED SYSTOLIC BP Last administered on 08/25/18 00:29; Admin Dose 1.25 MG; Start 08/24/18 at 14:00 Metoprolol Tartrate (Lopressor) 50 mg BID PO Last administered on 08/26/18 09:11; Admin Dose 50 MG; Start 08/24/18 at 21:00 Benazepril HCl (Lotensin) 10 mg BID PO Last administered on 08/26/18 09:11; Admin Dose 10 MG; Start 08/25/18 at 21:00 Cefepime HCl 50 ml @ 100 mls/hr Q12 IVPB Last administered on 08/26/18at 09:10; Admin Dose 100 MLS/HR; Start 08/25/18 at 15:30 ANGEL LUIS HERNANDEZ Aug 26, 2018 11:45
--- NOTE | 2018-08-26 11:51 | PN ---
Date/Time of Note Date/Time of Note DATE: 08/26/18 TIME: 11:36 Assessment/Plan VTE Prophylaxis Risk score (from Ns)>0 risk: 6 SCD applied (from Nsg): Yes Pharmacological prophylaxis: other Lines/Catheters IV Catheter Type (from Nrsg): Peripheral IV Urinary Cath still in place: Yes Reason Cath still needed: urinary retention Assessment/Plan Hospital Course S: Tolerating tube feeds, still unresponsive, per nurse exam no apparent seizure activity overnight. Chest tube appears to be working better today. No fevers overnight. Tolerating PEG feeds. O: Vs - see below PE: General: Patient is nonverbal, trach to vent HEENT: Atraumatic, normocephalic. The pupils are equal, round and reactive. Neck: Tracheostomy in place connected to vent Lungs: Mechanical breath sounds bilaterally Chest: L chest subcutaneous edema. L chest tube in place. Heart: Sinus tachycardia, no murmurs Abdomen: Soft , nontender, nondistended , bowel sounds are present. PEG in place. Extremities: Normal to inspection, no edema no cyanosis. L femoral central line. Neurologic: Nonverbal, has minimal spontaneous movements of the bilateral lower extremities, facial grimacing. Opens eyes spontaneously Assessment/Plan: 61 yo woman history of stroke on chronic trach and PEG admitted after respiratory failure leading to cardiac arrest. # cardiac arrest: - Apparently patient was reported to have shortness of breath prior to cardiac arrest- According to code sheet, was PEA arrest- No hypothermia due to severe underlying disability, trach and PEG. -Continue EDWIN inhibitor, beta-anali, Lipitor -Continue antiseizure medications, follow cardiology and neurology recommendations # Seizure disorder: No seizures noted in the last 24 hours, however EEG apparently was positive for right temporal seizures, presently on Keppra, Topamax. - According to EEG, may be having active seizures in the hospital. Neuro following. 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 #Sepsis-secondary to coagulase-negative staph bacteremia and polymicrobial growth wound infection- Leukocytosis to 26 on admission with fevers, now both resolving; -Continue cefepime and vancomycin IV now per ID recommendation -Follow final culture results #Pneumothorax- Also associated with L chest subcutaneous emphysema- Likely due to chest compressions- Now with chest tube which apparently had to be readjusted yesterday -Monitor drainage from left chest tube, chest x-ray as per pulmonary and cardiothoracic surgery recommendations #Acute on chronic respiratory failure- Patient chronically on tracheostomy -Monitor, vent management per pulmonary. # metabolic acidosis: Secondary to underlying infectious process, shock. Improving - antibiotics and fluids. Monitor labs. 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 Result Diagram: 08/25/18 0537 08/25/18 0537 Results 24hrs Laboratory Tests Test 08/26/18 08:48 Lab Scanned Report BLOOD TRANSFUSION Exam/Review of Systems Exam Vitals Vital Signs Date Temp Pulse Resp B/P (MAP) Pulse Ox O2 O2 Flow FiO2 Time Delivery Rate 08/26/18 30 09:24 08/26/18 72 20 97 09:00 08/26/18 98.6 151/87 07:47 (108) 08/23/18 Mechanical 22:00 Ventilator Trach Collar Intake and Output 08/25/18 08/25/18 08/26/18 1515:00 23:00 07:00 IntakeIntake Total 1120 ml 2480 ml 1180 ml OutputOutput Total 1200 ml 2800 ml 1400 ml BalanceBalance -80 ml -320 ml -220 ml Results Results 24hrs Laboratory Tests Test 08/26/18 08:48 Lab Scanned Report BLOOD TRANSFUSION Medications Medication Current Medications Sodium Chloride 1,000 ml @ 100 mls/hr Q10H IV Last administered on 08/26/18at 01:11; Admin Dose 100 MLS/HR; Start 08/21/18 at 20:07 Ipratropium [place] (Atrovent 0.02% (Neb)) 0.5 mg Q2H RESP THERAPY PRN NEB SHORTNESS OF BREATH; Start 08/21/18 at 20:30 Acetaminophen (Tylenol Liquid) 650 mg Q6H PRN PO PAIN LEVEL 1-3 OR FEVER; Start 08/21/18 at 20:30 Docusate Sodium (Colace) 100 mg Q12H PRN PO CONSTIPATION; Start 08/21/18 at 20:30 Bisacodyl (Dulcolax) 5 mg DAILY PRN PO CONSTIPATION; Start 08/21/18 at 20:30 Levalbuterol (Xopenex Neb) 1.25 mg Q4H RESP THERAPY PRN HHN SHORTNESS OF BREATH; Start 08/21/18 at 20:30 Vancomycin HCl (Vanco Iv Per Pharmacy) VANCOMYCIN PER PHARMACY PER PROTOCOL XX ; Start 08/21/18 at 21:00 Vancomycin HCl 100 ml @ 100 mls/hr Q12H IVPB Last administered on 08/26/18 05:43; Admin Dose 100 MLS/HR; Start 08/22/18 at 05:00 Ascorbic Acid (Vitamin C) 500 mg DAILY GTB Last administered on 08/26/18 09:10; Admin Dose 500 MG; Start 08/22/18 at 09:00 Atorvastatin Calcium (Lipitor) 10 mg QHS GTB Last administered on 08/25/18 20:54; Admin Dose 10 MG; Start 08/22/18 at 21:00 Ipratropium [place] (Atrovent Hfa) 2 puff Q6H RESP THERAPY PRN INH SHORTNESS OF BREATH; Start 08/22/18 at 00:00 Albuterol/ Ipratropium (Duoneb) 3 ml Q6H RESP THERAPY PRN INH SHORTNESS OF BREATH; Start 08/22/18 at 00:00 Zinc Sulfate (Zinc Sulfate) 220 mg DAILY GTB Last administered on 08/26/18 09:10; Admin Dose 220 MG; Start 08/22/18 at 09:00 Lactobacillus Acidophilus/ Rhamnosus (Culturelle) 1 cap BID PO Last administered on 08/26/18 09:10; Admin Dose 1 CAP; Start 08/22/18 at 21:00 Topiramate (Topamax) 200 mg Q12H GTB Last administered on 08/26/18 11:03; Admin Dose 200 MG; Start 08/22/18 at 12:00 Multivitamins (Multivitamin) 30 ml DAILY GTB Last administered on 08/26/18 09:10; Admin Dose 30 ML; Start 08/22/18 at 09:00 Methylphenidate HCl (Ritalin) 10 mg Q12 GTB Last administered on 08/26/18 09:14; Admin Dose 10 MG; Start 08/22/18 at 09:00 Sodium Hypochlorite (Dakin'S (Dilute )) 1 applic BID IRR Last administered on 08/26/18 09:12; Admin Dose 1 APPLIC; Start 08/22/18 at 21:00 Famotidine (Pepcid) 20 mg DAILY GTB Last administered on 08/26/18 09:10; Admin Dose 20 MG; Start 08/23/18 at 09:00 Levetiracetam (Keppra Liq (Ped)) 250 mg Q8 GTB Last administered on 08/26/18 05:44; Admin Dose 250 MG; Start 08/23/18 at 08:00 Enalaprilat (Vasotec Iv) 1.25 mg Q6H PRN IV ELEVATED SYSTOLIC BP Last administered on 08/25/18 00:29; Admin Dose 1.25 MG; Start 08/24/18 at 14:00 Metoprolol Tartrate (Lopressor) 50 mg BID PO Last administered on 08/26/18 09:11; Admin Dose 50 MG; Start 08/24/18 at 21:00 Benazepril HCl (Lotensin) 10 mg BID PO Last administered on 08/26/18 09:11; Admin Dose 10 MG; Start 08/25/18 at 21:00 Cefepime HCl 50 ml @ 100 mls/hr Q12 IVPB Last administered on 08/26/18 09:10; Admin Dose 100 MLS/HR; Start 08/25/18 at 15:30 DIMA MARCUS Aug 26, 2018 11:46
--- NOTE | 2018-08-26 12:00 | CONS ---
Assessment/Plan Assessment/Plan Hospital Course 62 yo F with hx of seizures and multiple other comorbidities who presents for evaluation of respiratory distress. Now s/p cardiac arrest with ROSC x 2 days. Targeted temperature management was deferred. EEG was notable for frequent R temporal seizures. Now s/p Keppra bolus on 08/23. The pt now opens her eyes to voice. CTH is without acute intracranial pathology, though is notable for a VPS on the R. P: Cont keppra 250 TID for now Cont topamax per ops for now. Ativan IV PRN seizure > 5 min or for cluster Other medical management per primary Will follow clinically Consultation Date/Type/Reason Admit Date/Time Aug 21, 2018 at 20:08 Type of Consult Neurology Reason for Consultation eval prognosis s/p cardiac arrest Requesting Provider: ANGEL LUIS REDD MD Date/Time of Note DATE: 08/26/18 TIME: 12:00 24 HR Interval Summary Free Text/Dictation Cont acute care. No seizure events reported. Subjective hx not possible: pt non-verbal Exam Vital Signs Vitals Vital Signs Date Temp Pulse Resp B/P (MAP) Pulse Ox O2 O2 Flow FiO2 Time Delivery Rate 08/26/18 98.0 102 20 149/85 98 11:49 (106) 08/26/18 30 11:41 08/23/18 Mechanical 22:00 Ventilator Trach Collar Intake and Output 08/25/18 08/25/18 08/26/18 1515:00 23:00 07:00 IntakeIntake Total 1120 ml 2480 ml 1180 ml OutputOutput Total 1200 ml 2800 ml 1400 ml BalanceBalance -80 ml -320 ml -220 ml Exam PE: Gen Appearance: No Apparent Distress HEENT: Has trach Cardiovascular: Regular rate Abdomen: Soft; has L sided chest tube Extremities: Dry NE: The patient was awake with eyes opening spontaneously. Does not track or follow commands. Cranial nerve examination was limited by mental status. Pupils were equal and reactive to light. There was no afferent pupillary defect. Funduscopic examination was limited. Face was grossly symmetric, w/ present corneal and cough reflexes. Tone was increased in BUE. Muscle bulk was diminished. I did not see fasciculations. The patient withdrew to noxious stimulation x 4. Coordination and gait testing was limited by mental status. Arm and leg reflexes were within normal limits and symmetric. Casper's sign was absent. Plantar responses were flexor. HELDER VILALLOBOS NP Aug 26, 2018 12:00 PRATIK TATUM Aug 26, 2018 15:04
--- NOTE | 2018-08-26 15:13 | CONS ---
Assessment/Plan Assessment/Plan Hospital Course (Demo Recall) No events patient looks comfortable afebrile Microbiology: Blood cultures grew growing coag negative staph species. Sacral wound culture growing E. coli ESBL, pseudomonas aeruginosa, Corynebacterium group JK, enterococcus species, Proteus mirabilis Indwelling's: Trach, PEG, [place], chest tube, left femoral triple-lumen catheter Antimicrobials: Vancomycin, cefepime Physical examination: This is a chronically ill-appearing elderly woman who is in no distress. Head atraumatic normocephalic. Neck is supple chest rise symmetrical breath sounds diminished bases. Heart: S1-S2. Abdomen soft bowel sounds present. Extremities without cyanosis. Skin: Patient has unstageable necrotic sacral wound Assessment: 1. Status post sepsis with bacteremia 2. Status post cardiac arrest 3. Urinary tract infection per urinalysis 4. Left pneumothorax with subcutaneous emphysema 5. Encephalopathy, acute on chronic 6. Healthcare associated pneumonia 7. Seizure disorder 8. Sacral decub Plan: Remains stable, 2D echo revealed no vegetations, patient had triple-lumen catheter in her femoral area that was discontinued yesterday, repeat blood cultures pending, continue antibiotics Consultation Date/Type/Reason Admit Date/Time Aug 21, 2018 at 20:08 Initial Consult Date Type of Consult id Requesting Provider: ANGEL LUIS REDD MD Date/Time of Note DATE: 08/26/18 TIME: 15:11 Exam/Review of Systems Exam Vitals Vital Signs Date Temp Pulse Resp B/P (MAP) Pulse Ox O2 O2 Flow FiO2 Time Delivery Rate 08/26/18 72 20 96 30 13:49 08/26/18 98.0 149/85 11:49 (106) 08/23/18 Mechanical 22:00 Ventilator Trach Collar Intake and Output 08/25/18 08/25/18 08/26/18 1515:00 23:00 07:00 IntakeIntake Total 1120 ml 2480 ml 1180 ml OutputOutput Total 1200 ml 2800 ml 1400 ml BalanceBalance -80 ml -320 ml -220 ml Results Result Diagram: 08/25/18 0537 08/25/18 0537 Results 24hrs Laboratory Tests Test 08/26/18 08:48 Lab Scanned Report BLOOD TRANSFUSION Medications Medication Current Medications Sodium Chloride 1,000 ml @ 100 mls/hr Q10H IV Last administered on 08/26/18at 01:11; Admin Dose 100 MLS/HR; Start 08/21/18 at 20:07 Ipratropium [place] (Atrovent 0.02% (Neb)) 0.5 mg Q2H RESP THERAPY PRN NEB SHORTNESS OF BREATH; Start 08/21/18 at 20:30 Acetaminophen (Tylenol Liquid) 650 mg Q6H PRN PO PAIN LEVEL 1-3 OR FEVER; Start 08/21/18 at 20:30 Docusate Sodium (Colace) 100 mg Q12H PRN PO CONSTIPATION; Start 08/21/18 at 20:30 Bisacodyl (Dulcolax) 5 mg DAILY PRN PO CONSTIPATION; Start 08/21/18 at 20:30 Levalbuterol (Xopenex Neb) 1.25 mg Q4H RESP THERAPY PRN HHN SHORTNESS OF BREATH; Start 08/21/18 at 20:30 Vancomycin HCl (Vanco Iv Per Pharmacy) VANCOMYCIN PER PHARMACY PER PROTOCOL XX ; Start 08/21/18 at 21:00 Vancomycin HCl 100 ml @ 100 mls/hr Q12H IVPB Last administered on 08/26/18at 05:43; Admin Dose 100 MLS/HR; Start 08/22/18 at 05:00 Ascorbic Acid (Vitamin C) 500 mg DAILY GTB Last administered on 08/26/18at 09:10; Admin Dose 500 MG; Start 08/22/18 at 09:00 Atorvastatin Calcium (Lipitor) 10 mg QHS GTB Last administered on 08/25/18at 20:54; Admin Dose 10 MG; Start 08/22/18 at 21:00 Ipratropium [place] (Atrovent Hfa) 2 puff Q6H RESP THERAPY PRN INH SHORTNESS OF BREATH; Start 08/22/18 at 00:00 Albuterol/ Ipratropium (Duoneb) 3 ml Q6H RESP THERAPY PRN INH SHORTNESS OF BREATH; Start 08/22/18 at 00:00 Zinc Sulfate (Zinc Sulfate) 220 mg DAILY GTB Last administered on 08/26/18at 09:10; Admin Dose 220 MG; Start 08/22/18 at 09:00 Lactobacillus Acidophilus/ Rhamnosus (Culturelle) 1 cap BID PO Last administered on 08/26/18at 09:10; Admin Dose 1 CAP; Start 08/22/18 at 21:00 Topiramate (Topamax) 200 mg Q12H GTB Last administered on 08/26/18 11:03; Admin Dose 200 MG; Start 08/22/18 at 12:00 Multivitamins (Multivitamin) 30 ml DAILY GTB Last administered on 08/26/18 09:10; Admin Dose 30 ML; Start 08/22/18 at 09:00 Methylphenidate HCl (Ritalin) 10 mg Q12 GTB Last administered on 08/26/18 09:14; Admin Dose 10 MG; Start 08/22/18 at 09:00 Sodium Hypochlorite (Dakin'S (Dilute 40)) 1 applic BID IRR Last administered on 08/26/18 09:12; Admin Dose 1 APPLIC; Start 08/22/18 at 21:00 Famotidine (Pepcid) 20 mg DAILY GTB Last administered on 08/26/18 09:10; Admin Dose 20 MG; Start 08/23/18 at 09:00 Levetiracetam (Keppra Liq (Ped)) 250 mg Q8 GTB Last administered on 08/26/18 14:02; Admin Dose 250 MG; Start 08/23/18 at 08:00 Enalaprilat (Vasotec Iv) 1.25 mg Q6H PRN IV ELEVATED SYSTOLIC BP Last administered on 08/25/18 00:29; Admin Dose 1.25 MG; Start 08/24/18 at 14:00 Metoprolol Tartrate (Lopressor) 50 mg BID PO Last administered on 08/26/18 09:11; Admin Dose 50 MG; Start 08/24/18 at 21:00 Cefepime HCl 50 ml @ 100 mls/hr Q12 IVPB Last administered on 08/26/18 09:10; Admin Dose 100 MLS/HR; Start 08/25/18 at 15:30 Benazepril HCl (Lotensin) 20 mg BID PO ; Start 08/26/18 at 21:00 Miscellaneous Information (*Rx Drug Level Order Reminder*) VANCOMYCIN TROUGH AT... ONCE ONCE XX ; Start 08/27/18 at 16:00; Stop 08/27/18 at 16:01 URIAH GARCIA NP Aug 26, 2018 15:13
--- NOTE | 2018-08-26 16:09 | PN ---
Date/Time of Note Date/Time of Note DATE: 08/26/18 TIME: 16:04 Assessment/Plan Lines/Catheters IV Catheter Type (from Nrsg): Peripheral IV Forman in Place (from Nrsg): Yes Assessment/Plan Assessment/Plan Left-sided Status post repositioning left chest tube Patient with a 3 mm pneumothorax Clamp the chest tube If no significant pneumothorax plan to remove the chest tube Subjective 24 Hr Interval Summary Constitutional: improved Pain Control: mild Exam/Review of Systems Vital Signs Vitals Vital Signs Date Temp Pulse Resp B/P (MAP) Pulse Ox O2 O2 Flow FiO2 Time Delivery Rate 08/26/18 81 20 97 30 15:58 08/26/18 98.2 157/90 15:39 (112) 08/23/18 Mechanical 22:00 Ventilator Trach Collar Intake and Output 08/25/18 08/25/18 08/26/18 1414:59 22:59 06:59 IntakeIntake Total 1120 ml 2480 ml 1180 ml OutputOutput Total 1200 ml 2800 ml 1400 ml BalanceBalance -80 ml -320 ml -220 ml Exam Eyes: nl conjunctiva, EOMI, nl lids, nl sclera ENMT: nl external ears & nose, nl lips & teeth, nl nasal mucosa & septum, mucosa pink and moist Neck: supple, non-tender Respiratory: clear to auscultation, normal air movement Cardiovascular: regular rate and rhythm, nl pulses Gastrointestinal: soft, nl liver, spleen, non-tender Musculoskeletal: nl extremities to inspection, nl gait and stance Results Result Diagram: 08/25/18 0537 08/25/18 0537 MELISSA TOUSSAINT MD Aug 26, 2018 16:09
[2018-08-26] MEDS: ATORVASTATIN 10 MG TAB GTB SCH (22:02)
[2018-08-26] MEDS: BENAZEPRIL 20 MG TAB PO SCH (22:04)
[2018-08-26] MEDS: ENALAPRILAT 2.5 MG INJ IV PRN (22:08)
[2018-08-27] VITALS (23 sets, daily range): BP systolic 140–188; BP diastolic 84–108; PULSE 79–95; RESP 19–28
[2018-08-27] MEDS ORDERED: LABETALOL HCL 20MG INJ IV ONE (02:30)
[2018-08-27] MEDS: VANCOMYCIN 500 MG (PMX) 100 ML IVPB SCH ×2 (06:11→17:17)
[2018-08-27] MEDS: SOD CHLORIDE 0.9% 1,000 ML IV SCH ×3 (06:11→18:30)
[2018-08-27] MEDS: LEVETIRACETAM (100 MG/ML PO SYG) GTB SCH ×3 (06:11→21:07)
[2018-08-27] MEDS: BENAZEPRIL 20 MG TAB PO SCH ×2 (08:34→21:06)
[2018-08-27] MEDS: POTASSIUM CHLORIDE 20 MEQ POWDER FOR ORAL SOLN GTB SCH ×2 (08:34→12:34)
[2018-08-27] MEDS: FAMOTIDINE 20 MG TAB GTB SCH (08:34)
[2018-08-27] MEDS: ASCORBIC ACID 500 MG TAB GTB SCH (08:34)
[2018-08-27] MEDS: LACTOBACILLUS RHAMNOSUS CAP PO SCH ×2 (08:34→21:06)
[2018-08-27] MEDS: BALSAM PERU/CASTOR OIL 60 GM TUBE TOP SCH ×2 (08:35→21:06)
[2018-08-27] MEDS: ZINC SULFATE 220 MG CAP GTB SCH (08:35)
[2018-08-27] MEDS: SODIUM HYPOCHLORITE (1/40) 1 APPLIC BTL IRR SCH ×2 (08:35→21:05)
[2018-08-27] MEDS: CEFEPIME 1GM/50 ML (PMX) 50 ML IVPB SCH ×2 (08:35→21:05)
[2018-08-27] MEDS: METOPROLOL 50 MG TAB PO SCH ×2 (08:35→21:06)
[2018-08-27] MEDS: MULTIVITAMINS 30 ML CUP GTB SCH (08:35)
[2018-08-27] MEDS: METHYLPHENIDATE 5 MG TAB GTB SCH ×2 (09:09→21:05)
--- NOTE | 2018-08-27 11:13 | PN ---
Date/Time of Note Date/Time of Note DATE: 08/27/18 TIME: 11:04 Assessment/Plan VTE Prophylaxis Risk score (from Nsg)>0 risk: 6 SCD applied (from Nsg): Yes Pharmacological prophylaxis: other Lines/Catheters IV Catheter Type (from Nrsg): Saline Lock Urinary Cath still in place: Yes Reason Cath still needed: urinary retention Assessment/Plan Hospital Course S: Tolerating tube feeds, seen by neuro, CTS teams yesterday. Chest tube has been clamped since yesterday. Per neuro team, opening eyes to voice, but not tracking. O: Vs - see below PE: General: Patient is nonverbal, trach to vent HEENT: Atraumatic, normocephalic. The pupils are equal, round and reactive. Neck: Tracheostomy in place connected to vent Lungs: Mechanical breath sounds bilaterally Chest: L chest subcutaneous edema. L chest tube in place. Heart: Sinus tachycardia, no murmurs Abdomen: Soft , nontender, nondistended , bowel sounds are present. PEG in place. Extremities: Normal to inspection, no edema no cyanosis. L femoral central line. Neurologic: Nonverbal, has minimal spontaneous movements of the bilateral lower extremities, facial grimacing. Assessment/Plan: 61 yo woman history of stroke on chronic trach and PEG admitted after respiratory failure leading to cardiac arrest. # cardiac arrest: - Apparently patient was reported to have shortness of breath prior to cardiac arrest- According to code sheet, was PEA arrest- No hypothermia due to severe underlying disability, trach and PEG. -Continue EDWIN inhibitor, beta-anali, Lipitor -Continue antiseizure medications, follow cardiology and neurology recommendations # Seizure disorder: No seizures noted in the last 24 hours, however EEG apparently was positive for right temporal seizures, presently on Keppra, Topamax. -Continue current antiseizure medications, neuro following. - Son wants to know jail neurologic prognosis prior to deciding on DNR status. #Sepsis-secondary to coagulase-negative staph bacteremia and polymicrobial growth wound infection- Leukocytosis to 26 on admission with fevers, now both resolving; -Continue cefepime and vancomycin IV now per ID recommendation -Follow final culture results #Pneumothorax- Also associated with L chest subcutaneous emphysema- Likely due to chest compressions- Now the chest tube as mentioned above was clamped -Follow-up repeat chest x-ray results and recommendations from cardiothoracic surgery team #Acute on chronic respiratory failure- Patient chronically on tracheostomy -Monitor, vent management per pulmonary. # metabolic acidosis: Secondary to underlying infectious process, shock. Improving - antibiotics and fluids. Monitor labs. # normocytic anemia: Check iron stores # History of brain hemorrhage-patient with encephalopathy from a history of intraparenchymal hemorrhage status post [employer]IST shunt (Apparently had brain hemorrhage in 05/2018). -Holding off on anticoagulation for now -Continue antiseizure medicines, follow neurology recommendations, patient also with chronic trach and PEG # hypertension: Presently in the high normal range -Patient back on home blood pressure medications, continue for now, follow-up cardiology recommendations # DVT GI prophylaxis: SCDs, Protonix Code status: Full code, for now, but again son may change that to DNR once he has a better idea of the patient's long-term neurologic status. PT SON RENZO [phone] LIV[facility] IN [facility]. Result Diagram: 08/27/18 0611 08/27/18 0611 Results 24hrs Laboratory Tests Test 08/27/18 06:11 White Blood Count 13.3 #H Red Blood Count 3.79 #L Hemoglobin 10.5 #L Hematocrit 33.6 #L Mean Corpuscular Volume 88.7 Mean Corpuscular Hemoglobin 27.7 L Mean Corpuscular Hemoglobin Concent 31.3 L Red Cell Distribution Width 16.4 H Platelet Count 455 H Mean Platelet Volume 9.4 Immature Granulocytes % 0.600 H Neutrophils % 88.6 H Lymphocytes % 6.0 L Monocytes % 4.1 Eosinophils % 0.5 Basophils % 0.2 Nucleated Red Blood Cells % 0.0 Immature Granulocytes # 0.080 H Neutrophils # 11.8 H Lymphocytes # 0.8 Monocytes # 0.5 Eosinophils # 0.1 Basophils # 0.0 Nucleated Red Blood Cells # 0.0 Sodium Level 139 Potassium Level 2.9 *L Chloride Level 103 Carbon Dioxide Level 23 Anion Gap 13 Blood Urea Nitrogen 21 H Creatinine 0.48 Est Glomerular Filtrat Rate mL/min > 60 Glucose Level 139 Calcium Level 9.0 Phosphorus Level 5.5 H Magnesium Level 2.0 Exam/Review of Systems Exam Vitals Vital Signs Date Temp Pulse Resp B/P (MAP) Pulse Ox O2 O2 Flow FiO2 Time Delivery Rate 08/27/18 88 20 98 30 09:35 08/27/18 140/84 09:08 (102) 08/27/18 98.0 07:47 08/23/18 Mechanical 22:00 Ventilator Trach Collar Intake and Output 08/26/18 08/26/18 08/27/18 1414:59 22:59 06:59 IntakeIntake Total 50 ml 2330 ml 2330 ml OutputOutput Total 21 ml 2606 ml 1850 ml BalanceBalance 29 ml -276 ml 480 ml Results Results 24hrs Laboratory Tests Test 08/27/18 06:11 White Blood Count 13.3 #H Red Blood Count 3.79 #L Hemoglobin 10.5 #L Hematocrit 33.6 #L Mean Corpuscular Volume 88.7 Mean Corpuscular Hemoglobin 27.7 L Mean Corpuscular Hemoglobin Concent 31.3 L Red Cell Distribution Width 16.4 H Platelet Count 455 H Mean Platelet Volume 9.4 Immature Granulocytes % 0.600 H Neutrophils % 88.6 H Lymphocytes % 6.0 L Monocytes % 4.1 Eosinophils % 0.5 Basophils % 0.2 Nucleated Red Blood Cells % 0.0 Immature Granulocytes # 0.080 H Neutrophils # 11.8 H Lymphocytes # 0.8 Monocytes # 0.5 Eosinophils # 0.1 Basophils # 0.0 Nucleated Red Blood Cells # 0.0 Sodium Level 139 Potassium Level 2.9 *L Chloride Level 103 Carbon Dioxide Level 23 Anion Gap 13 Blood Urea Nitrogen 21 H Creatinine 0.48 Est Glomerular Filtrat Rate mL/min > 60 Glucose Level 139 Calcium Level 9.0 Phosphorus Level 5.5 H Magnesium Level 2.0 Medications Medication Current Medications Sodium Chloride 1,000 ml @ 100 mls/hr Q10H IV Last administered on 08/27/18at 06:11; Admin Dose 100 MLS/HR; Start 08/21/18 at 20:07 Ipratropium [place] (Atrovent 0.02% (Neb)) 0.5 mg Q2H RESP THERAPY PRN NEB SHORTNESS OF BREATH; Start 08/21/18 at 20:30 Acetaminophen (Tylenol Liquid) 650 mg Q6H PRN PO PAIN LEVEL 1-3 OR FEVER; Start 08/21/18 at 20:30 Docusate Sodium (Colace) 100 mg Q12H PRN PO CONSTIPATION; Start 08/21/18 at 20:30 Bisacodyl (Dulcolax) 5 mg DAILY PRN PO CONSTIPATION; Start 08/21/18 at 20:30 Levalbuterol (Xopenex Neb) 1.25 mg Q4H RESP THERAPY PRN HHN SHORTNESS OF BREATH; Start 08/21/18 at 20:30 Vancomycin HCl (Vanco Iv Per Pharmacy) VANCOMYCIN PER PHARMACY PER PROTOCOL XX ; Start 08/21/18 at 21:00 Vancomycin HCl 100 ml @ 100 mls/hr Q12H IVPB Last administered on 08/27/18 06:11; Admin Dose 100 MLS/HR; Start 08/22/18 at 05:00 Ascorbic Acid (Vitamin C) 500 mg DAILY GTB Last administered on 08/27/18 08:34; Admin Dose 500 MG; Start 08/22/18 at 09:00 Atorvastatin Calcium (Lipitor) 10 mg QHS GTB Last administered on 08/26/18 22:02; Admin Dose 10 MG; Start 08/22/18 at 21:00 Ipratropium [place] (Atrovent Hfa) 2 puff Q6H RESP THERAPY PRN INH SHORTNESS OF BREATH; Start 08/22/18 at 00:00 Albuterol/ Ipratropium (Duoneb) 3 ml Q6H RESP THERAPY PRN INH SHORTNESS OF BREATH; Start 08/22/18 at 00:00 Zinc Sulfate (Zinc Sulfate) 220 mg DAILY GTB Last administered on 08/27/18 08:35; Admin Dose 220 MG; Start 08/22/18 at 09:00 Lactobacillus Acidophilus/ Rhamnosus (Culturelle) 1 cap BID PO Last administered on 08/27/18 08:34; Admin Dose 1 CAP; Start 08/22/18 at 21:00 Topiramate (Topamax) 200 mg Q12H GTB Last administered on 08/26/18 22:08; Admin Dose 200 MG; Start 08/22/18 at 12:00 Multivitamins (Multivitamin) 30 ml DAILY GTB Last administered on 08/27/18 08:35; Admin Dose 30 ML; Start 08/22/18 at 09:00 Methylphenidate HCl (Ritalin) 10 mg Q12 GTB Last administered on 08/27/18 09:09; Admin Dose 10 MG; Start 08/22/18 at 09:00 Sodium Hypochlorite (Dakin'S (Dilute 1/40)) 1 applic BID IRR Last administered on 08/27/18 08:35; Admin Dose 1 APPLIC; Start 08/22/18 at 21:00 Famotidine (Pepcid) 20 mg DAILY GTB Last administered on 08/27/18 08:34; Admin Dose 20 MG; Start 08/23/18 at 09:00 Levetiracetam (Keppra Liq (Ped)) 250 mg Q8 GTB Last administered on 08/27/18 06:11; Admin Dose 250 MG; Start 08/23/18 at 08:00 Enalaprilat (Vasotec Iv) 1.25 mg Q6H PRN IV ELEVATED SYSTOLIC BP Last administered on 08/26/18 22:08; Admin Dose 1.25 MG; Start 08/24/18 at 14:00 Metoprolol Tartrate (Lopressor) 50 mg BID PO Last administered on 08/27/18 08:35; Admin Dose 50 MG; Start 08/24/18 at 21:00 Cefepime HCl 50 ml @ 100 mls/hr Q12 IVPB Last administered on 08/27/18 08:35; Admin Dose 100 MLS/HR; Start 08/25/18 at 15:30 Benazepril HCl (Lotensin) 20 mg BID PO Last administered on 08/27/18 08:34; Admin Dose 20 MG; Start 08/26/18 at 21:00 Miscellaneous Information (*Rx Drug Level Order Reminder*) VANCOMYCIN TROUGH AT... ONCE ONCE XX ; Start 08/27/18 at 16:00; Stop 08/27/18 at 16:01 Potassium Chloride (Potassium Chloride Pwd/Soln) 40 meq Q4H GTB Last administered on 08/27/18 08:34; Admin Dose 40 MEQ; Start 08/27/18 at 08:00; Stop 08/27/18 at 12:01 DIMA MARCUS Aug 27, 2018 11:13
--- NOTE | 2018-08-27 11:39 | CONS ---
Consult Date/Type/Reason Admit Date/Time Aug 21, 2018 at 20:08 Initial Consult Date Type of Consult Pulmonary Requesting Provider: ANGEL LUIS REDD MD Date/Time of Note DATE: 08/27/18 TIME: 11:39 Subjective Patient continues mechanical ventilation appears comfortable with no respiratory distress Objective Vital Signs Date Temp Pulse Resp B/P (MAP) Pulse Ox O2 O2 Flow FiO2 Time Delivery Rate 08/27/18 84 20 99 30 11:33 08/27/18 140/84 09:08 (102) 08/27/18 98.0 07:47 08/23/18 Mechanical 22:00 Ventilator Trach Collar Intake and Output 08/26/18 08/26/18 08/27/18 1515:00 23:00 07:00 IntakeIntake Total 50 ml 2330 ml 2330 ml OutputOutput Total 21 ml 2606 ml 1850 ml BalanceBalance 29 ml -276 ml 480 ml Exam GENERAL: Elderly lady on mechanical ventilation via tracheostomy VITAL SIGNS: per chart NECK: Supple. No JVD or lymphadenopathy. CARDIAC EXAM: S1, S2. No added sounds or murmurs. CHEST: clear bilaterally, No added sounds, rales or wheezes ABDOMEN: Soft, nontender. No guarding or rebound. EXTREMITIES: No cyanosis, clubbing or edema. NEUROLOGIC: Generalized weakness. No focal deficits. Vent Setting Ventilator Support Mode: AC Fraction of Inspired Oxygen pe: 30 Positive End Expiratory Pressu: 5.0 Results/Medications Result Diagram: 08/27/18 0611 08/27/18 0611 Results 24 hrs Laboratory Tests Test 08/27/18 06:11 White Blood Count 13.3 #H Red Blood Count 3.79 #L Hemoglobin 10.5 #L Hematocrit 33.6 #L Mean Corpuscular Volume 88.7 Mean Corpuscular Hemoglobin 27.7 L Mean Corpuscular Hemoglobin Concent 31.3 L Red Cell Distribution Width 16.4 H Platelet Count 455 H Mean Platelet Volume 9.4 Immature Granulocytes % 0.600 H Neutrophils % 88.6 H Lymphocytes % 6.0 L Monocytes % 4.1 Eosinophils % 0.5 Basophils % 0.2 Nucleated Red Blood Cells % 0.0 Immature Granulocytes # 0.080 H Neutrophils # 11.8 H Lymphocytes # 0.8 Monocytes # 0.5 Eosinophils # 0.1 Basophils # 0.0 Nucleated Red Blood Cells # 0.0 Sodium Level 139 Potassium Level 2.9 *L Chloride Level 103 Carbon Dioxide Level 23 Anion Gap 13 Blood Urea Nitrogen 21 H Creatinine 0.48 Est Glomerular Filtrat Rate mL/min > 60 Glucose Level 139 Calcium Level 9.0 Phosphorus Level 5.5 H Magnesium Level 2.0 Medications Current Medications Sodium Chloride 1,000 ml @ 100 mls/hr Q10H IV Last administered on 08/27/18at 06:11; Admin Dose 100 MLS/HR; Start 08/21/18 at 20:07 Ipratropium [place] (Atrovent 0.02% (Neb)) 0.5 mg Q2H RESP THERAPY PRN NEB BRIAN RTNESS OF BREATH; Start 08/21/18 at 20:30 Acetaminophen (Tylenol Liquid) 650 mg Q6H PRN PO PAIN LEVEL 1-3 OR FEVER; Start 08/21/18 at 20:30 Docusate Sodium (Colace) 100 mg Q12H PRN PO CONSTIPATION; Start 08/21/18 at 20:30 Bisacodyl (Dulcolax) 5 mg DAILY PRN PO CONSTIPATION; Start 08/21/18 at 20:30 Levalbuterol (Xopenex Neb) 1.25 mg Q4H RESP THERAPY PRN HHN SHORTNESS OF BREATH; Start 08/21/18 at 20:30 Vancomycin HCl (Vanco Iv Per Pharmacy) VANCOMYCIN PER PHARMACY PER PROTOCOL XX ; Start 08/21/18 at 21:00 Vancomycin HCl 100 ml @ 100 mls/hr Q12H IVPB Last administered on 08/27/18at 06:11; Admin Dose 100 MLS/HR; Start 08/22/18 at 05:00 Ascorbic Acid (Vitamin C) 500 mg DAILY GTB Last administered on 08/27/18at 08:34; Admin Dose 500 MG; Start 08/22/18 at 09:00 Atorvastatin Calcium (Lipitor) 10 mg QHS GTB Last administered on 08/26/18at 22:02; Admin Dose 10 MG; Start 08/22/18 at 21:00 Ipratropium [place] (Atrovent Hfa) 2 puff Q6H RESP THERAPY PRN INH SHORTNESS OF BREATH; Start 08/22/18 at 00:00 Albuterol/ Ipratropium (Duoneb) 3 ml Q6H RESP THERAPY PRN INH SHORTNESS OF BREATH; Start 08/22/18 at 00:00 Zinc Sulfate (Zinc Sulfate) 220 mg DAILY GTB Last administered on 08/27/18 08:35; Admin Dose 220 MG; Start 08/22/18 at 09:00 Lactobacillus Acidophilus/ Rhamnosus (Culturelle) 1 cap BID PO Last administered on 08/27/18 08:34; Admin Dose 1 CAP; Start 08/22/18 at 21:00 Topiramate (Topamax) 200 mg Q12H GTB Last administered on 08/26/18 22:08; Admin Dose 200 MG; Start 08/22/18 at 12:00 Multivitamins (Multivitamin) 30 ml DAILY GTB Last administered on 08/27/18 08:35; Admin Dose 30 ML; Start 08/22/18 at 09:00 Methylphenidate HCl (Ritalin) 10 mg Q12 GTB Last administered on 08/27/18 09:09; Admin Dose 10 MG; Start 08/22/18 at 09:00 Sodium Hypochlorite (Dakin'S (Dilute )) 1 applic BID IRR Last administered on 08/27/18 08:35; Admin Dose 1 APPLIC; Start 08/22/18 at 21:00 Famotidine (Pepcid) 20 mg DAILY GTB Last administered on 08/27/18 08:34; Admin Dose 20 MG; Start 08/23/18 at 09:00 Levetiracetam (Keppra Liq (Ped)) 250 mg Q8 GTB Last administered on 08/27/18 0 6:11; Admin Dose 250 MG; Start 08/23/18 at 08:00 Enalaprilat (Vasotec Iv) 1.25 mg Q6H PRN IV ELEVATED SYSTOLIC BP Last administered on 08/26/18 22:08; Admin Dose 1.25 MG; Start 08/24/18 at 14:00 Metoprolol Tartrate (Lopressor) 50 mg BID PO Last administered on 08/27/18 08:35; Admin Dose 50 MG; Start 08/24/18 at 21:00 Cefepime HCl 50 ml @ 100 mls/hr Q12 IVPB Last administered on 08/27/18 08:35; Admin Dose 100 MLS/HR; Start 08/25/18 at 15:30 Benazepril HCl (Lotensin) 20 mg BID PO Last administered on 08/27/18at 08:34; Admin Dose 20 MG; Start 08/26/18 at 21:00 Miscellaneous Information (*Rx Drug Level Order Reminder*) VANCOMYCIN TROUGH AT... ONCE ONCE XX ; Start 08/27/18 at 16:00; Stop 08/27/18 at 16:01 Potassium Chloride (Potassium Chloride Pwd/Soln) 40 meq Q4H GTB Last admini stered on 08/27/18at 08:34; Admin Dose 40 MEQ; Start 08/27/18 at 08:00; Stop 08/27/18 at 12:01 Assessment/Plan Hospital Course (Demo Recall) IMP: 1. s/p Cardiopulmonary arrest. 2. Respiratory failure, possibly secondary to healthcare-associated pneumonia. 3. Traumatic left pneumothorax following CPR--CXR today shows chest tube nearly out and a moderate-sized loculated left PTX now removed and replaced 4. History of encephalopathy secondary to intraparenchymal bleed with [employer]GER shunt. RECS: 1. Vent support. 2. Chest tube repositioned Chest tube clamped hopefully removed today. DC planning. RONALD GALO MD, [facility] Aug 27, 2018 11:39
--- NOTE | 2018-08-27 11:42 | CONS ---
Assessment/Plan Assessment/Plan Hospital Course 62 yo F with hx of seizures and multiple other comorbidities who presents for evaluation of respiratory distress. Now s/p cardiac arrest with ROSC x 2 days. Targeted temperature management was deferred. EEG is notable for frequent R temporal seizures. Now s/p Keppra bolus on 08/23. The pt now opens her eyes to voice. CTH is without acute intracranial pathology, though is notable for a VPS on the R. P: Cont keppra 250 TID for now Cont topamax per ops for now. Ativan IV PRN seizure > 5 min or for cluster Other medical management per primary Will follow clinically Consultation Date/Type/Reason Admit Date/Time Aug 21, 2018 at 20:08 Type of Consult Neurology Reason for Consultation eval prognosis s/p cardiac arrest Requesting Provider: ANGEL LUIS REDD MD Date/Time of Note DATE: 08/27/18 TIME: 11:42 24 HR Interval Summary Free Text/Dictation Continues acute care. Exam Vital Signs Vitals Vital Signs Date Temp Pulse Resp B/P (MAP) Pulse Ox O2 O2 Flow FiO2 Time Delivery Rate 08/27/18 84 20 99 30 11:33 08/27/18 140/84 09:08 (102) 08/27/18 98.0 07:47 08/23/18 Mechanical 22:00 Ventilator Trach Collar Intake and Output 08/26/18 08/26/18 08/27/18 1515:00 23:00 07:00 IntakeIntake Total 50 ml 2330 ml 2330 ml OutputOutput Total 21 ml 2606 ml 1850 ml BalanceBalance 29 ml -276 ml 480 ml Exam PE: Gen Appearance: No Apparent Distress HEENT: Has trach Cardiovascular: Regular rate Abdomen: Soft; has L sided chest tube Extremities: Dry NE: The patient was awake with eyes opening spontaneously. Does not track or follow commands. Cranial nerve examination was limited by mental status. Pupils were equal and reactive to light. There was no afferent pupillary defect. Funduscopic examination was limited. Face was grossly symmetric, w/ present corneal and cough reflexes. Tone was increased in BUE. Muscle bulk was diminished. I did not see fasciculations. The patient moved her L wrist/hand spontaneously; withdrew to noxious stimulation x 4. Coordination and gait testing was limited by mental status. Arm and leg reflexes were within normal limits and symmetric. Casper's sign was absent. Plantar responses were flexor. HELDER VILLALOBOS NP Aug 27, 2018 11:42 PRATIK TATUM Aug 27, 2018 14:59
[2018-08-27] MEDS: TOPIRAMATE 100 MG TAB GTB SCH ×2 (12:32→23:38)
--- NOTE | 2018-08-27 13:51 | CONS ---
Consult Date/Type/Reason Admit Date/Time Aug 21, 2018 at 20:08 Initial Consult Date 08/25/18 Type of Consultation: Pulm Requesting Provider: ANGEL LUIS REDD MD Date/Time of Note DATE: 08/27/18 TIME: 13:49 Subjective NO acute events - rate controlled - con't resp Rx now. ROS: No fever, no chills, no nausea, no vomiting, no diarrhea/constipation No recent weight changes No chest pain, no PND, no orthopnea - chronic SOB No dizziness, blurred vision No thirst, no heat or cold intolerance Objective Vitals Vital Signs Date Temp Pulse Resp B/P (MAP) Pulse Ox O2 O2 Flow FiO2 Time Delivery Rate 08/27/18 79 13:22 08/27/18 98.8 20 157/89 99 12:45 (111) 08/27/18 30 11:33 08/23/18 Mechanical 22:00 Ventilator Trach Collar Intake and Output 08/26/18 08/26/18 08/27/18 1515:00 23:00 07:00 IntakeIntake Total 50 ml 2330 ml 2330 ml OutputOutput Total 21 ml 2606 ml 1850 ml BalanceBalance 29 ml -276 ml 480 ml Exam General: WN/WD/NAD, AOx comfortable HEENT: Unicetric/atraumatic/EOMI (does not follow commands) NECK: trach Lymph: no lymphadenopathy HEART: regular with no S3, II/ systolic murmur at apex LUNGS: Coarse sounds ABD: soft, NT, ND, +BS : Intact Neuro: non focal SKIN: chronic changes EXT: trace edema Results/Medications Result Diagram: 08/27/18 0611 08/27/18 0611 Results 24 hrs Laboratory Tests Test 08/27/18 06:11 White Blood Count 13.3 #H Red Blood Count 3.79 #L Hemoglobin 10.5 #L Hematocrit 33.6 #L Mean Corpuscular Volume 88.7 Mean Corpuscular Hemoglobin 27.7 L Mean Corpuscular Hemoglobin Concent 31.3 L Red Cell Distribution Width 16.4 H Platelet Count 455 H Mean Platelet Volume 9.4 Immature Granulocytes % 0.600 H Neutrophils % 88.6 H Lymphocytes % 6.0 L Monocytes % 4.1 Eosinophils % 0.5 Basophils % 0.2 Nucleated Red Blood Cells % 0.0 Immature Granulocytes # 0.080 H Neutrophils # 11.8 H Lymphocytes # 0.8 Monocytes # 0.5 Eosinophils # 0.1 Basophils # 0.0 Nucleated Red Blood Cells # 0.0 Sodium Level 139 Potassium Level 2.9 *L Chloride Level 103 Carbon Dioxide Level 23 Anion Gap 13 Blood Urea Nitrogen 21 H Creatinine 0.48 Est Glomerular Filtrat Rate mL/min > 60 Glucose Level 139 Calcium Level 9.0 Phosphorus Level 5.5 H Magnesium Level 2.0 Home Meds Reported Medications Clindamycin Hcl* (Clindamycin Hcl*) 300 Mg Capsule, 300 MG GTB QID, CAP STOP DATE 08/25/18 08/21/18 Levofloxacin* (Levofloxacin*) 500 Mg Tablet, 500 MG GTB DAILY, TAB STOP DATE 08/25/18 08/21/18 Zinc Sulfate* (Zinc Sulfate*) 220 Mg Tablet, 220 MG GTB DAILY, TAB 08/21/18 Ascorbic Acid (Vitamin C) 500 Mg Tab, 500 MG GTB DAILY, TAB 08/21/18 Multivitamin with Minerals (Multivitamins with Minerals) 1 Each Tablet, 1 EACH GTB DAILY, TAB 08/21/18 Amino Acids/Protein Hydrolys (PRO-STAT LIQUID) 30 Ml Liquid.pkt, 30 ML GTB BID SUGAR FREE 08/21/18 Lisinopril* (Lisinopril*) 20 Mg Tablet, 20 MG GTB Q12H, #30 TAB 08/21/18 Levetiracetam* (Keppra* (Ped)) 100 Mg/Ml Liq, 100 MG GTB Q8H for 30 Days, BOTTLE 08/21/18 Lansoprazole* (Lansoprazole*) 30 Mg Capsule.dr, 30 MG GTB DAILY, CAP 08/21/18 Ipratropium-Albuterol (Ipratropium-Albuterol) 0.5-3 Mg/3 Ml Ampul.neb, 3 ML INHALATION Q6, #30 VIAL 08/21/18 Ipratropium [place]* (Atrovent HFA*) 12.9 Gm Aer.w.adap, 2 PUFF INHALATION Q6H for SHORTNESS OF BREATH, #1 INHALER 08/21/18 Lactobacillus Acidophilus* (Lactinex*) 1 Tab Chew, 1 TAB GTB Q6H, TAB 08/21/18 Carvedilol* (Carvedilol*) 12.5 Mg Tablet, 12.5 MG GTB BID, #60 TAB 08/21/18 Bisacodyl* (Bisacodyl*) 10 Mg Supp, [address] Q OTHER DAY, SUPP 08/21/18 Atorvastatin Calcium (Atorvastatin Calcium) 10 Mg Tablet, 10 MG GTB QHS, #30 TAB 08/21/18 Topiramate* (Trokendi XR*) 200 Mg Cap.er.24h, 200 MG GTB Q12H, CAP 08/21/18 Citric Acid/Potassium Citrate (Cytra-K Oral Solution) 473 Ml Solution, 5 ML GTB DAILY 08/21/18 Selenium* (Selenimin*) 200 Mcg Tablet, 200 MCG GTB DAILY, TAB 08/21/18 Ondansetron Hcl* (Zofran*) 4 Mg Tab, 4 MG GTB Q6H PRN for NAUSEA AND OR VOMITING, TAB 08/21/18 Methylphenidate Hcl* (Methylphenidate Hcl*) 10 Mg Tablet, 10 MG GTB Q12H, TAB 08/21/18 Medications Current Medications Sodium Chloride 1,000 ml @ 100 mls/hr Q10H IV Last administered on 08/27/18at 06:11; Admin Dose 100 MLS/HR; Start 08/21/18 at 20:07 Ipratropium [place] (Atrovent 0.02% (Neb)) 0.5 mg Q2H RESP THERAPY PRN NEB SHORTNESS OF BREATH; Start 08/21/18 at 20:30 Acetaminophen (Tylenol Liquid) 650 mg Q6H PRN PO PAIN LEVEL 1-3 OR FEVER; Start 08/21/18 at 20:30 Docusate Sodium (Colace) 100 mg Q12H PRN PO CONSTIPATION; Start 08/21/18 at 20:30 Bisacodyl (Dulcolax) 5 mg DAILY PRN PO CONSTIPATION; Start 08/21/18 at 20:30 Levalbuterol (Xopenex Neb) 1.25 mg Q4H RESP THERAPY PRN HHN SHORTNESS OF BREATH; Start 08/21/18 at 20:30 Vancomycin HCl (Vanco Iv Per Pharmacy) VANCOMYCIN PER PHARMACY PER PROTOCOL XX ; Start 08/21/18 at 21:00 Vancomycin HCl 100 ml @ 100 mls/hr Q12H IVPB Last administered on 08/27/18at 06:11; Admin Dose 100 MLS/HR; Start 08/22/18 at 05:00 Ascorbic Acid (Vitamin C) 500 mg DAILY GTB Last administered on 08/27/18 08:34; Admin Dose 500 MG; Start 08/22/18 at 09:00 Atorvastatin Calcium (Lipitor) 10 mg QHS GTB Last administered on 08/26/18 22:02; Admin Dose 10 MG; Start 08/22/18 at 21:00 Ipratropium [place] (Atrovent Hfa) 2 puff Q6H RESP THERAPY PRN INH SHORTNESS OF BREATH; Start 08/22/18 at 00:00 Albuterol/ Ipratropium (Duoneb) 3 ml Q6H RESP THERAPY PRN INH SHORTNESS OF BREATH; Start 08/22/18 at 00:00 Zinc Sulfate (Zinc Sulfate) 220 mg DAILY GTB Last administered on 08/27/18 08:35; Admin Dose 220 MG; Start 08/22/18 at 09:00 Lactobacillus Acidophilus/ Rhamnosus (Culturelle) 1 cap BID PO Last administered on 08/27/18 08:34; Admin Dose 1 CAP; Start 08/22/18 at 21:00 Topiramate (Topamax) 200 mg Q12H GTB Last administered on 08/27/18 12:32; Admin Dose 200 MG; Start 08/22/18 at 12:00 Multivitamins (Multivitamin) 30 ml DAILY GTB Last administered on 08/27/18 08:35; Admin Dose 30 ML; Start 08/22/18 at 09:00 Methylphenidate HCl (Ritalin) 10 mg Q12 GTB Last administered on 08/27/18 09:09; Admin Dose 10 MG; Start 08/22/18 at 09:00 Sodium Hypochlorite (Dakin'S (Dilute )) 1 applic BID IRR Last administered on 08/27/18 08:35; Admin Dose 1 APPLIC; Start 08/22/18 at 21:00 Famotidine (Pepcid) 20 mg DAILY GTB Last administered on 08/27/18 08:34; Admin Dose 20 MG; Start 08/23/18 at 09:00 Levetiracetam (Keppra Liq (Ped)) 250 mg Q8 GTB Last administered on 3/26/19at 13:40; Admin Dose 250 MG; Start 08/23/18 at 08:00 Enalaprilat (Vasotec Iv) 1.25 mg Q6H PRN IV ELEVATED SYSTOLIC BP Last administe red on 08/26/18at 22:08; Admin Dose 1.25 MG; Start 08/24/18 at 14:00 Metoprolol Tartrate (Lopressor) 50 mg BID PO Last administered on 08/27/18 08:35; Admin Dose 50 MG; Start 08/24/18 at 21:00 Cefepime HCl 50 ml @ 100 mls/hr Q12 IVPB Last administered on 08/27/18 08:35; Admin Dose 100 MLS/HR; Start 08/25/18 at 15:30 Benazepril HCl (Lotensin) 20 mg BID PO Last administered on 08/27/18 08:34; Admin Dose 20 MG; Start 08/26/18 at 21:00 Miscellaneous Information (*Rx Drug Level Order Reminder*) VANCOMYCIN TROUGH AT... ONCE ONCE XX ; Start 08/27/18 at 16:00; Stop 08/27/18 at 16:01 VASU GUERRA MD Aug 27, 2018 13:50
--- NOTE | 2018-08-27 15:05 | CONS ---
Assessment/Plan Assessment/Plan Hospital Course (Demo Recall) No events patient remains afebrile looks comfortable, repeat blood cultures 2 days ago negative Microbiology: Blood cultures grew growing coag negative staph species. Sacral wound culture growing E. coli ESBL, pseudomonas aeruginosa, Corynebacterium group JK, enterococcus species, Proteus mirabilis Indwelling's: Trach, PEG, Forman, chest tube, left femoral triple-lumen catheter Antimicrobials: Vancomycin, cefepime Physical examination: This is a chronically ill-appearing elderly woman who is in no distress. Head atraumatic normocephalic. Neck is supple chest rise symmetrical breath sounds diminished bases. Heart: S1-S2. Abdomen soft bowel sounds present. Extremities without cyanosis. Skin: Patient has unstageable necrotic sacral wound Assessment: 1. Status post sepsis with bacteremia 2. Status post cardiac arrest 3. Urinary tract infection per urinalysis 4. Left pneumothorax with subcutaneous emphysema 5. Encephalopathy, acute on chronic 6. Healthcare associated pneumonia 7. Seizure disorder 8. Sacral decub Plan: Remains stable, 2D echo revealed no vegetations, repeat blood cultures negative, continue local wound care, okay to discharge on current antibiotics for patient had triple-lumen catheter in her femoral area that was discontinued yesterday, repeat blood cultures pending, continue antibiotics 7 more days Consultation Date/Type/Reason Admit Date/Time Aug 21, 2018 at 20:08 Initial Consult Date Type of Consult id Requesting Provider: ANGEL LUIS REDD MD Date/Time of Note DATE: 08/27/18 TIME: 15:04 Exam/Review of Systems Exam Vitals Vital Signs Date Temp Pulse Resp B/P (MAP) Pulse Ox O2 O2 Flow FiO2 Time Delivery Rate 08/27/18 80 20 97 30 13:45 08/27/18 98.8 157/89 12:45 (111) 08/23/18 Mechanical 22:00 Ventilator Trach Collar Intake and Output 08/26/18 08/26/18 08/27/18 1515:00 23:00 07:00 IntakeIntake Total 50 ml 2330 ml 2330 ml OutputOutput Total 21 ml 2606 ml 1850 ml BalanceBalance 29 ml -276 ml 480 ml Results Result Diagram: 08/27/18 0611 08/27/18 0611 Results 24hrs Laboratory Tests Test 08/27/18 06:11 White Blood Count 13.3 #H Red Blood Count 3.79 #L Hemoglobin 10.5 #L Hematocrit 33.6 #L Mean Corpuscular Volume 88.7 Mean Corpuscular Hemoglobin 27.7 L Mean Corpuscular Hemoglobin Concent 31.3 L Red Cell Distribution Width 16.4 H Platelet Count 455 H Mean Platelet Volume 9.4 Immature Granulocytes % 0.600 H Neutrophils % 88.6 H Lymphocytes % 6.0 L Monocytes % 4.1 Eosinophils % 0.5 Basophils % 0.2 Nucleated Red Blood Cells % 0.0 Immature Granulocytes # 0.080 H Neutrophils # 11.8 H Lymphocytes # 0.8 Monocytes # 0.5 Eosinophils # 0.1 Basophils # 0.0 Nucleated Red Blood Cells # 0.0 Sodium Level 139 Potassium Level 2.9 *L Chloride Level 103 Carbon Dioxide Level 23 Anion Gap 13 Blood Urea Nitrogen 21 H Creatinine 0.48 Est Glomerular Filtrat Rate mL/min > 60 Glucose Level 139 Calcium Level 9.0 Phosphorus Level 5.5 H Magnesium Level 2.0 Medications Medication Current Medications Sodium Chloride 1,000 ml @ 100 mls/hr Q10H IV Last administered on 08/27/18at 06:11; Admin Dose 100 MLS/HR; Start 08/21/18 at 20:07 Ipratropium [place] (Atrovent 0.02% (Neb)) 0.5 mg Q2H RESP THERAPY PRN NEB SHORTNESS OF BREATH; Start 08/21/18 at 20:30 Acetaminophen (Tylenol Liquid) 650 mg Q6H PRN PO PAIN LEVEL 1-3 OR FEVER; Star t 08/21/18 at 20:30 Docusate Sodium (Colace) 100 mg Q12H PRN PO CONSTIPATION; Start 08/21/18 at 20:30 Bisacodyl (Dulcolax) 5 mg DAILY PRN PO CONSTIPATION; Start 08/21/18 at 20:30 Levalbuterol (Xopenex Neb) 1.25 mg Q4H RESP THERAPY PRN HHN SHORTNESS OF BREATH; Start 08/21/18 at 20:30 Vancomycin HCl (Vanco Iv Per Pharmacy) VANCOMYCIN PER PHARMACY PER PROTOCOL XX ; Start 08/21/18 at 21:00 Vancomycin HCl 100 ml @ 100 mls/hr Q12H IVPB Last administered on 08/27/18at 06:11; Admin Dose 100 MLS/HR; Start 08/22/18 at 05:00 Ascorbic Acid (Vitamin C) 500 mg DAILY GTB Last administered on 08/27/18 08 :34; Admin Dose 500 MG; Start 08/22/18 at 09:00 Atorvastatin Calcium (Lipitor) 10 mg QHS GTB Last administered on 08/26/18 22:02; Admin Dose 10 MG; Start 08/22/18 at 21:00 Ipratropium [place] (Atrovent Hfa) 2 puff Q6H RESP THERAPY PRN INH SHORTNESS OF BREATH; Start 08/22/18 at 00:00 Albuterol/ Ipratropium (Duoneb) 3 ml Q6H RESP THERAPY PRN INH SHORTNESS OF BREATH; Start 08/22/18 at 00:00 Zinc Sulfate (Zinc Sulfate) 220 mg DAILY GTB Last administered on 08/27/18 08:35; Admin Dose 220 MG; Start 08/22/18 at 09:00 Lactobacillus Acidophilus/ Rhamnosus (Culturelle) 1 cap BID PO Last administe red on 08/27/18 08:34; Admin Dose 1 CAP; Start 08/22/18 at 21:00 Topiramate (Topamax) 200 mg Q12H GTB Last administered on 08/27/18 12:32; Admin Dose 200 MG; Start 08/22/18 at 12:00 Multivitamins (Multivitamin) 30 ml DAILY GTB Last administered on 08/27/18 08:35; Admin Dose 30 ML; Start 08/22/18 at 09:00 Methylphenidate HCl (Ritalin) 10 mg Q12 GTB Last administered on 08/27/18 09:09; Admin Dose 10 MG; Start 08/22/18 at 09:00 Sodium Hypochlorite (Dakin'S (Dilute )) 1 applic BID IRR Last administered on 08/27/18 08:35; Admin Dose 1 APPLIC; Start 08/22/18 at 21:00 Famotidine (Pepcid) 20 mg DAILY GTB Last administered on 08/27/18 08:34; Admin Dose 20 MG; Start 08/23/18 at 09:00 Levetiracetam (Keppra Liq (Ped)) 250 mg Q8 GTB Last administered on 08/27/18 13:40; Admin Dose 250 MG; Start 08/23/18 at 08:00 Enalaprilat (Vasotec Iv) 1.25 mg Q6H PRN IV ELEVATED SYSTOLIC BP Last ad ministered on 08/26/18at 22:08; Admin Dose 1.25 MG; Start 08/24/18 at 14:00 Metoprolol Tartrate (Lopressor) 50 mg BID PO Last administered on 08/27/18at 08:35; Admin Dose 50 MG; Start 08/24/18 at 21:00 Cefepime HCl 50 ml @ 100 mls/hr Q12 IVPB Last administered on 08/27/18at 08:35; Admin Dose 100 MLS/HR; Start 08/25/18 at 15:30 Benazepril HCl (Lotensin) 20 mg BID PO Last administered on 08/27/18at 08:34; Admin Dose 20 MG; Start 08/26/18 at 21:00 Miscellaneous Information (*Rx Drug Level Order Reminder*) VANCOMYCIN TROUGH AT... ONCE ONCE XX ; Start 08/27/18 at 16:00; Stop 08/27/18 at 16:01 URIAH GARCIA NP Aug 27, 2018 15:05
[2018-08-27] MEDS: ATORVASTATIN 10 MG TAB GTB SCH (21:05)
[2018-08-28] VITALS (23 sets, daily range): BP systolic 132–206; BP diastolic 72–100; PULSE 78–148; RESP 20–28
[2018-08-28] MEDS: ENALAPRILAT 2.5 MG INJ IV PRN (01:45)
[2018-08-28] MEDS: SOD CHLORIDE 0.9% 1,000 ML IV SCH ×3 (02:07→22:56)
[2018-08-28] MEDS ORDERED: hydrALAzine 20 MG INJ IV ONE (05:00)
[2018-08-28] MEDS: LEVETIRACETAM (100 MG/ML PO SYG) GTB SCH ×3 (05:19→21:10)
[2018-08-28] MEDS: VANCOMYCIN 500 MG (PMX) 100 ML IVPB SCH ×2 (05:19→16:47)
[2018-08-28] MEDS: FAMOTIDINE 20 MG TAB GTB SCH (08:57)
[2018-08-28] MEDS: LACTOBACILLUS RHAMNOSUS CAP PO SCH ×2 (08:57→21:12)
[2018-08-28] MEDS: ZINC SULFATE 220 MG CAP GTB SCH (08:57)
[2018-08-28] MEDS: BENAZEPRIL 20 MG TAB PO SCH ×2 (08:57→21:09)
[2018-08-28] MEDS: METHYLPHENIDATE 5 MG TAB GTB SCH ×2 (08:57→21:10)
[2018-08-28] MEDS: ASCORBIC ACID 500 MG TAB GTB SCH (08:57)
[2018-08-28] MEDS: MULTIVITAMINS 30 ML CUP GTB SCH (08:57)
[2018-08-28] MEDS: METOPROLOL 50 MG TAB PO SCH ×2 (08:58→21:10)
[2018-08-28] MEDS: SODIUM HYPOCHLORITE (1/40) 1 APPLIC BTL IRR SCH ×2 (08:59→21:09)
[2018-08-28] MEDS: BALSAM PERU/CASTOR OIL 60 GM TUBE TOP SCH ×2 (08:59→21:09)
[2018-08-28] MEDS: CEFEPIME 1GM/50 ML (PMX) 50 ML IVPB SCH ×2 (09:03→21:11)
--- NOTE | 2018-08-28 11:41 | CONS ---
Assessment/Plan Assessment/Plan Hospital Course 62 yo F with hx of seizures and multiple other comorbidities who presents for evaluation of respiratory distress. Now s/p cardiac arrest with ROSC x 2 days. Targeted temperature management was deferred. EEG is notable for frequent R temporal seizures. Now s/p Keppra bolus on 08/23. The pt now opens her eyes to voice. CTH is without acute intracranial pathology, though is notable for a VPS on the R. P: Cont keppra 250 TID for now Cont topamax per ops for now. Ativan IV PRN seizure > 5 min or for cluster Other medical management per primary Will follow clinically Consultation Date/Type/Reason Admit Date/Time Aug 21, 2018 at 20:08 Type of Consult Neurology Reason for Consultation eval prognosis s/p cardiac arrest Requesting Provider: ANGEL LUIS REDD MD Date/Time of Note DATE: 08/28/18 TIME: 11:41 Exam Vital Signs Vitals Vital Signs Date Temp Pulse Resp B/P (MAP) Pulse Ox O2 O2 Flow FiO2 Time Delivery Rate 08/28/18 99.0 84 24 146/83 99 Mechanical 11:34 (104) Ventilator 08/28/18 30 10:16 Intake and Output 08/27/18 08/27/18 08/28/18 1515:00 23:00 07:00 IntakeIntake Total 50 ml 2230 ml 1230 ml OutputOutput Total 2600 ml 1700 ml BalanceBalance 50 ml -370 ml -470 ml Exam PE: Gen Appearance: No Apparent Distress HEENT: Has trach Cardiovascular: Regular rate Abdomen: Soft; has L sided chest tube Extremities: Dry NE: The patient was awake with eyes opening spontaneously. Does not track or follow commands. Cranial nerve examination was limited by mental status. Pupils were equal and reactive to light. There was no afferent pupillary defect. Funduscopic examination was limited. Face was grossly symmetric, w/ present corneal and cough reflexes. Tone was increased in BUE. Muscle bulk was diminished. I did not see fasciculations. The patient moved her L wrist/hand spontaneously; withdrew to noxious stimulation x 4. Coordination and gait testing was limited by mental status. Arm and leg reflexes were within normal limits and symmetric. Casper's sign was absent. Plantar responses were flexor. HELDER VILLALOBOS NP Aug 28, 2018 11:41 PRATIK TATUM Aug 28, 2018 14:44
--- NOTE | 2018-08-28 11:49 | PDOCDIS ---
Discharge Instructions CONDITION [id number] Patient Condition: [id number] Stable DIMA MARCUS Aug 28, 2018 11:49
--- NOTE | 2018-08-28 12:01 | DS ---
Date/Time of Note Date/Time of Note DATE: 08/28/18 TIME: 11:54 Discharge Summary Admission/Discharge Info Admit Date/Time Aug 21, 2018 at 20:08 Discharge Date/Time Discharge Diagnosis # cardiac arrest: - Apparently patient was reported to have shortness of breath prior to cardiac arrest- According to code sheet, was PEA arrest-patient had ROSC -no hypothermia due to severe underlying disability, trach and PEG. # Seizure disorder:presently on Keppra, Topamax. 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 # hypertension Patient Condition: Stable Hx of Present Illness 62-year-old female who was brought in from [facility] via EMS as patient was noted to be in respiratory distress. She is trached event. Patient is nonverbal as per the paramedics. The paramedics arrived at the facility I did notice the patient be very warm to touch and have difficulty breathing. She was being transported to [facility] while in route she decompensated and became more short of breath and went into cardiac arrest. CPR was initiated. Upon arrival to [facility] she had return of spontaneous circulation with palpable pulses. She was noted to be hypotensive. For which she had a central line placed and pressors were started. She was gi cony antibiotics for suspected sepsis. Chest x-ray did reveal a pneumothorax and a chest tube was placed in the emergency department emergently. 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 She has a tracheostomy. Hospital Course Patient was admitted after being stabilized, seen by multiple specialists during this hospital stay including pulmonary, infectious disease, cardio thoracic surgery, cardiology and neurology teams. Patient had ROS C after cardiac arrest occurred. Patient also had seizure activity will start antiseizure medication, this was noted on EEG performed by neurology team as well. Patient continued on mechanical ventilation via trach. Patient also found with sepsis secondary to staph bacteremia and polymicrobial growth wound infection. Patient improved on appropriate antibiotic treatment. White blood cell count improved, no fevers. Patient received chest tube placement for the pneumothorax, and this appeared to be improving by the time of hospital discharge. The tube was clamped the day before discharge and cardiothoracic surgery team will come reevaluate to see if the tube can come out which will likely occur later today since the chest x-ray looks improved with no signs of any further pneumothorax. Regarding her infections and cardiac arrest, patient appears to be back at baseline status after being treated for those. She was able to open her eyes on verbal command but still not able to speak. Again she did have a history of a prior brain hemorrhage that occurred in May 2018 at another hospital. Patient was encephalopathic for that prior to this admission. Because of patient's vital signs improved, labs are improved, patient tolerating tube feeding. Once the chest tube is removed which will likely occur later today, patient will be [facility] condition. See printed medical reconciliation sheet for full list of discharge medications. Home Meds Reported Medications Clindamycin Hcl* (Clindamycin Hcl*) 300 Mg Capsule, 300 MG GTB QID, CAP STOP DATE 08/25/18 08/21/18 Levofloxacin* (Levofloxacin*) 500 Mg Tablet, 500 MG GTB DAILY, TAB STOP DATE 08/25/18 08/21/18 Zinc Sulfate* (Zinc Sulfate*) 220 Mg Tablet, 220 MG GTB DAILY, TAB 08/21/18 Ascorbic Acid (Vitamin C) 500 Mg Tab, 500 MG GTB DAILY, TAB 08/21/18 Multivitamin with Minerals (Multivitamins with Minerals) 1 Each Tablet, 1 EACH GTB DAILY, TAB 08/21/18 Amino Acids/Protein Hydrolys (PRO-STAT LIQUID) 30 Ml Liquid.pkt, 30 ML GTB BID SUGAR FREE 08/21/18 Lisinopril* (Lisinopril*) 20 Mg Tablet, 20 MG GTB Q12H, #30 TAB 08/21/18 Levetiracetam* (Keppra* (Ped)) 100 Mg/Ml Liq, 100 MG GTB Q8H for 30 Days, BOTTLE 08/21/18 Lansoprazole* (Lansoprazole*) 30 Mg Capsule.dr, 30 MG GTB DAILY, CAP 08/21/18 Ipratropium-Albuterol (Ipratropium-Albuterol) 0.5-3 Mg/3 Ml Ampul.neb, 3 ML INHALATION Q6, #30 VIAL 08/21/18 Ipratropium [place]* (Atrovent HFA*) 12.9 Gm Aer.w.adap, 2 PUFF INHALATION Q6H for SHORTNESS OF BREATH, #1 INHALER 08/21/18 Lactobacillus Acidophilus* (Lactinex*) 1 Tab Chew, 1 TAB GTB Q6H, TAB 08/21/18 Carvedilol* (Carvedilol*) 12.5 Mg Tablet, 12.5 MG GTB BID, #60 TAB 08/21/18 Bisacodyl* (Bisacodyl*) 10 Mg Supp, 10 MG IA Q OTHER DAY, SUPP 08/21/18 Atorvastatin Calcium (Atorvastatin Calcium) 10 Mg Tablet, 10 MG GTB QHS, #30 TAB 08/21/18 Topiramate* (Trokendi XR*) 200 Mg Cap.er.24h, 200 MG GTB Q12H, CAP 08/21/18 Citric Acid/Potassium Citrate (Cytra-K Oral Solution) 473 Ml Solution, 5 ML GTB DAILY 08/21/18 Selenium* (Selenimin*) 200 Mcg Tablet, 200 MCG GTB DAILY, TAB 08/21/18 Ondansetron Hcl* (Zofran*) 4 Mg Tab, 4 MG GTB Q6H PRN for NAUSEA AND OR VOMITING, TAB 08/21/18 Methylphenidate Hcl* (Methylphenidate Hcl*) 10 Mg Tablet, 10 MG GTB Q12H, TAB 08/21/18 Primary Care Provider Husam Jacobson MD Time spent on discharge: > 30 minutes Pending Labs Laboratory Tests Test 08/27/18 16:07 Vancomycin Level Trough 14.2 ug/ml (10.0-20.0) DIMA MARCUS Aug 28, 2018 12:01
--- NOTE | 2018-08-28 12:04 | CONS ---
Consult Date/Type/Reason Admit Date/Time Aug 21, 2018 at 20:08 Initial Consult Date Type of Consult Pulmonary Requesting Provider: ANGEL LUIS REDD MD Date/Time of Note DATE: 08/28/18 TIME: 12:03 Subjective Patient remained stable on mechanical ventilation no evidence of pneumothorax with chest tube clamped. Objective Vital Signs Date Temp Pulse Resp B/P (MAP) Pulse Ox O2 O2 Flow FiO2 Time Delivery Rate 08/28/18 99.0 84 24 146/83 99 Mechanical 11:34 (104) Ventilator 08/28/18 30 10:16 Intake and Output 08/27/18 08/27/18 08/28/18 1515:00 23:00 07:00 IntakeIntake Total 50 ml 2230 ml 1230 ml OutputOutput Total 2600 ml 1700 ml BalanceBalance 50 ml -370 ml -470 ml Exam GENERAL: Elderly appearing lady on mechanical ventilation. VITAL SIGNS: per chart NECK: Supple. No JVD or lymphadenopathy. CARDIAC EXAM: S1, S2. No added sounds or murmurs. CHEST: clear bilaterally, No added sounds, rales or wheezes ABDOMEN: Soft, nontender. No guarding or rebound. EXTREMITIES: No cyanosis, clubbing or edema. NEUROLOGIC: Generalized weakness. No focal deficits. Vent Setting Ventilator Support Mode: AC Fraction of Inspired Oxygen pe: 30 Positive End Expiratory Pressu: 5.0 Results/Medications Result Diagram: 08/27/18 0611 08/27/18 0611 Results 24 hrs Laboratory Tests Test 08/27/18 16:07 Vancomycin Level Trough 14.2 Medications Current Medications Sodium Chloride 1,000 ml @ 100 mls/hr Q10H IV Last administered on 08/27/18at 06:11; Admin Dose 100 MLS/HR; Start 08/21/18 at 20:07 Ipratropium [place] (Atrovent 0.02% (Neb)) 0.5 mg Q2H RESP THERAPY PRN NEB SHORTNESS OF BREATH; Start 08/21/18 at 20:30 Acetaminophen (Tylenol Liquid) 650 mg Q6H PRN PO PAIN LEVEL 1-3 OR FEVER; Start 08/21/18 at 20:30 Docusate Sodium (Colace) 100 mg Q12H PRN PO CONSTIPATION; Start 08/21/18 at 20:30 Bisacodyl (Dulcolax) 5 mg DAILY PRN PO CONSTIPATION; Start 08/21/18 at 20:30 Levalbuterol (Xopenex Neb) 1.25 mg Q4H RESP THERAPY PRN HHN SHORTNESS OF BREATH; Start 08/21/18 at 20:30 Vancomycin HCl (Vanco Iv Per Pharmacy) VANCOMYCIN PER PHARMACY PER PROTOCOL XX ; Start 08/21/18 at 21:00 Vancomycin HCl 100 ml @ 100 mls/hr Q12H IVPB Last administered on 08/28/18 05:19; Admin Dose 100 MLS/HR; Start 08/22/18 at 05:00 Ascorbic Acid (Vitamin C) 500 mg DAILY GTB Last administered on 08/28/18 08:57; Admin Dose 500 MG; Start 08/22/18 at 09:00 Atorvastatin Calcium (Lipitor) 10 mg QHS GTB Last administered on 08/27/18 21:05; Admin Dose 10 MG; Start 08/22/18 at 21:00 Ipratropium [place] (Atrovent Hfa) 2 puff Q6H RESP THERAPY PRN INH SHORTNESS OF BREATH; Start 08/22/18 at 00:00 Albuterol/ Ipratropium (Duoneb) 3 ml Q6H RESP THERAPY PRN INH SHORTNESS OF BREATH; Start 08/22/18 at 00:00 Zinc Sulfate (Zinc Sulfate) 220 mg DAILY GTB Last administered on 08/28/18 08:57; Admin Dose 220 MG; Start 08/22/18 at 09:00 Lactobacillus Acidophilus/ Rhamnosus (Culturelle) 1 cap BID PO Last administered on 08/28/18 08:57; Admin Dose 1 CAP; Start 08/22/18 at 21:00 Topiramate (Topamax) 200 mg Q12H GTB Last administered on 08/27/18 23:38; Admin Dose 200 MG; Start 08/22/18 at 12:00 Multivitamins (Multivitamin) 30 ml DAILY GTB Last administered on 08/28/18 08:57; Admin Dose 30 ML; Start 08/22/18 at 09:00 Methylphenidate HCl (Ritalin) 10 mg Q12 GTB Last administered on 08/28/18 08:57; Admin Dose 10 MG; Start 08/22/18 at 09:00 Sodium Hypochlorite (Dakin'S (Dilute 1/40)) 1 applic BID IRR Last administered on 08/28/18 08:59; Admin Dose 1 APPLIC; Start 08/22/18 at 21:00 Famotidine (Pepcid) 20 mg DAILY GTB Last administered on 08/28/18 08:57; Admin Dose 20 MG; Start 08/23/18 at 09:00 Levetiracetam (Keppra Liq (Ped)) 250 mg Q8 GTB Last administered on 08/28/18 05:19; Admin Dose 250 MG; Start 08/23/18 at 08:00 Enalaprilat (Vasotec Iv) 1.25 mg Q6H PRN IV ELEVATED SYSTOLIC BP Last administered on 08/28/18 01:45; Admin Dose 1.25 MG; Start 08/24/18 at 14:00 Metoprolol Tartrate (Lopressor) 50 mg BID PO Last administered on 08/28/18 08:58; Admin Dose 50 MG; Start 08/24/18 at 21:00 Cefepime HCl 50 ml @ 100 mls/hr Q12 IVPB Last administered on 08/28/18 09:03; Admin Dose 100 MLS/HR; Start 08/25/18 at 15:30 Benazepril HCl (Lotensin) 20 mg BID PO Last administered on 08/28/18 08:57; Admin Dose 20 MG; Start 08/26/18 at 21:00 Assessment/Plan Hospital Course (Demo Recall) IMP: 1. s/p Cardiopulmonary arrest. 2. Respiratory failure, possibly secondary to healthcare-associated pneumonia. 3. Traumatic left pneumothorax following CPR--CXR today shows chest tube nearly out and a moderate-sized loculated left PTX now removed and replaced 4. 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 RECS: 1. Vent support. 2. Chest tube repositioned Chest tube clamped hopefully removed today. DC planning. RONALD GALO MD, [facility] Aug 28, 2018 12:04
[2018-08-28] MEDS: TOPIRAMATE 100 MG TAB GTB SCH ×2 (12:26→23:55)
--- NOTE | 2018-08-28 12:44 | CONS ---
Assessment/Plan Assessment/Plan Hospital Course (Demo Recall) IMPRESSION: 1. Cardiopulmonary arrest. At this time, the patient has troponin negative x3 and no definite cardiac etiology and a tracheostomy, the patient may be due to primary respiratory event with hypoxia and subsequent cardiac decompensation.-NL EF 60% by echo this admit 2. Abnormal electrocardiogram with poor R-wave progression across the anterior precordial leads, assess for acute coronary syndrome. 3. Hypotension, on Levophed pressor support.-now resolved and hypertensive 4. Chronic respiratory failure, status post tracheostomy, on a ventilator. 5. Dysphagia, status post G-tube. 6. Pneumothorax, status post chest tube. 7. Seizure disorder. 8. Dyslipidemia. 9. Anemia, worsening. 10. Leukocytosis, improving. Recc: -Tele -uptitrate antihypertensinves further given uncontrollled BP -Continue statin -Contineu abx's and f/u cx data -[place] Consultation Date/Type/Reason Admit Date/Time Aug 21, 2018 at 20:08 Initial Consult Date 08/22/18 Type of Consult Cardiology Reason for Consultation HTN Requesting Provider: ANGEL LUIS REDD MD Date/Time of Note DATE: 08/28/18 TIME: 12:41 Exam/Review of Systems Vital Signs Vitals Vital Signs Date Temp Pulse Resp B/P (MAP) Pulse Ox O2 O2 Flow FiO2 Time Delivery Rate 08/28/18 99.0 84 24 146/83 99 Mechanical 11:34 (104) Ventilator 08/28/18 30 10:16 Intake and Output 08/27/18 08/27/18 08/28/18 1515:00 23:00 07:00 IntakeIntake Total 50 ml 2230 ml 1230 ml OutputOutput Total 2600 ml 1700 ml BalanceBalance 50 ml -370 ml -470 ml Exam Exam Review of Systems: CONSTITUTIONAL: No fevers, chills. PULMONARY: No sob CARDIOVASCULAR: No chest pain/palpitations GASTROINTESTINAL: No nausea/vomiting. GENITOURINARY: No hematuria/dysuria. MUSCULOSKELETAL: No myagias/arthalgias. PSYCHIATRIC: The patient denies depression. NEUROLOGIC: No weakness Constitutional: alert Psych: no complaints Head: normocephalic ENMT: mucosa pink and moist Neck: supple, jvd (9 cm water) Respiratory: diminished breath sounds (at bases/B) Cardiovascular: regular rate and rhythm Gastrointestinal: soft, non-tender Musculoskeletal: muscle tone (normal) Extremities: edema (none) Neurological: unresponsive Labs Result Diagram: 08/27/18 0608/27/18 06 Results 24hrs Laboratory Tests Test 08/27/18 16:07 Vancomycin Level Trough 14.2 Medications Medications Current Medications Sodium Chloride 1,000 ml @ 100 mls/hr Q10H IV Last administered on 08/27/18at 18:30; Admin Dose 100 MLS/HR; Start 08/21/18 at 20:07 Ipratropium [place] (Atrovent 0.02% (Neb)) 0.5 mg Q2H RESP THERAPY PRN NEB SHORTNESS OF BREATH; Start 08/21/18 at 20:30 Acetaminophen (Tylenol Liquid) 650 mg Q6H PRN PO PAIN LEVEL 1-3 OR FEVER; Start 08/21/18 at 20:30 Docusate Sodium (Colace) 100 mg Q12H PRN PO CONSTIPATION; Start 08/21/18 at 20:30 Bisacodyl (Dulcolax) 5 mg DAILY PRN PO CONSTIPATION; Start 08/21/18 at 20:30 Levalbuterol (Xopenex Neb) 1.25 mg Q4H RESP THERAPY PRN HHN SHORTNESS OF BREATH; Start 08/21/18 at 20:30 Vancomycin HCl (Vanco Iv Per Pharmacy) VANCOMYCIN PER PHARMACY PER PROTOCOL XX ; Start 08/21/18 at 21:00 Vancomycin HCl 100 ml @ 100 mls/hr Q12H IVPB Last administered on 08/28/18at 05:19; Admin Dose 100 MLS/HR; Start 08/22/18 at 05:00 Ascorbic Acid (Vitamin C) 500 mg DAILY GTB Last administered on 08/28/18at 08:57; Admin Dose 500 MG; Start 08/22/18 at 09:00 Atorvastatin Calcium (Lipitor) 10 mg QHS GTB Last administered on 08/27/18at 21:05; Admin Dose 10 MG; Start 08/22/18 at 21:00 Ipratropium [place] (Atrovent Hfa) 2 puff Q6H RESP THERAPY PRN INH SHORTNESS OF BREATH; Start 08/22/18 at 00:00 Albuterol/ Ipratropium (Duoneb) 3 ml Q6H RESP THERAPY PRN INH SHORTNESS OF BREATH; Start 08/22/18 at 00:00 Zinc Sulfate (Zinc Sulfate) 220 mg DAILY GTB Last administered on 08/28/18 08:57; Admin Dose 220 MG; Start 08/22/18 at 09:00 Lactobacillus Acidophilus/ Rhamnosus (Culturelle) 1 cap BID PO Last administered on 08/28/18 08:57; Admin Dose 1 CAP; Start 08/22/18 at 21:00 Topiramate (Topamax) 200 mg Q12H GTB Last administered on 08/28/18 12:26; Admin Dose 200 MG; Start 08/22/18 at 12:00 Multivitamins (Multivitamin) 30 ml DAILY GTB Last administered on 08/28/18 08:57; Admin Dose 30 ML; Start 08/22/18 at 09:00 Methylphenidate HCl (Ritalin) 10 mg Q12 GTB Last administered on 08/28/18 08:57; Admin Dose 10 MG; Start 08/22/18 at 09:00 Sodium Hypochlorite (Dakin'S (Dilute 40)) 1 applic BID IRR Last administered on 08/28/18 08:59; Admin Dose 1 APPLIC; Start 08/22/18 at 21:00 Famotidine (Pepcid) 20 mg DAILY GTB Last administered on 08/28/18 08:57; Admin Dose 20 MG; Start 08/23/18 at 09:00 Levetiracetam (Keppra Liq (Ped)) 250 mg Q8 GTB Last administered on 08/28/18 05:19; Admin Dose 250 MG; Start 08/23/18 at 08:00 Enalaprilat (Vasotec Iv) 1.25 mg Q6H PRN IV ELEVATED SYSTOLIC BP Last administered on 08/28/18 01:45; Admin Dose 1.25 MG; Start 08/24/18 at 14:00 Metoprolol Tartrate (Lopressor) 50 mg BID PO Last administered on 08/28/18 08:58; Admin Dose 50 MG; Start 08/24/18 at 21:00 Cefepime HCl 50 ml @ 100 mls/hr Q12 IVPB Last administered on 08/28/18 09:03; Admin Dose 100 MLS/HR; Start 08/25/18 at 15:30 Benazepril HCl (Lotensin) 20 mg BID PO Last administered on 08/28/18at 08:57; Admin Dose 20 MG; Start 08/26/18 at 21:00 ANGEL LUIS HERNANDEZ Aug 28, 2018 12:44
--- NOTE | 2018-08-28 13:29 | CONS ---
Assessment/Plan Assessment/Plan Hospital Course (Demo Recall) No events, patient remains afebrile looks comfortable, repeat blood cultures 2 days ago negative Microbiology: Blood cultures grew growing coag negative staph species, repeat blood cultures 2 days ago negative. Sacral wound culture growing E. coli ESBL, pseudomonas aeruginosa, Corynebacterium group JK, enterococcus species, Proteus mirabilis Indwelling's: Trach, PEG, [place], chest tube, left femoral triple-lumen catheter Antimicrobials: Vancomycin, cefepime Physical examination: This is a chronically ill-appearing elderly woman who is in no distress. Head atraumatic normocephalic. Neck is supple chest rise symmetrical breath sounds diminished bases. Heart: S1-S2. Abdomen soft bowel sounds present. Extremities without cyanosis. Skin: Patient has unstageable necrotic sacral wound Assessment: 1. Status post sepsis with bacteremia 2. Status post cardiac arrest 3. Urinary tract infection per urinalysis 4. Left pneumothorax with subcutaneous emphysema 5. Encephalopathy, acute on chronic 6. Healthcare associated pneumonia 7. Seizure disorder 8. Sacral decub Plan: Remains stable,continue abx, pending dc to SNF, pending CT dc, abx for 6 more days Consultation Date/Type/Reason Admit Date/Time Aug 21, 2018 at 20:08 Initial Consult Date Type of Consult id Requesting Provider: ANGEL LUIS REDD MD Date/Time of Note DATE: 08/28/18 TIME: 13:28 Exam/Review of Systems Exam Vitals Vital Signs Date Temp Pulse Resp B/P (MAP) Pulse Ox O2 O2 Flow FiO2 Time Delivery Rate 08/28/18 99.0 84 24 146/83 99 Mechanical 11:34 (104) Ventilator 08/28/18 30 10:16 Intake and Output 08/27/18 08/27/18 08/28/18 1515:00 23:00 07:00 IntakeIntake Total 50 ml 2230 ml 1230 ml OutputOutput Total 2600 ml 1700 ml BalanceBalance 50 ml -370 ml -470 ml Results Result Diagram: 08/27/18 0611 08/27/18 0611 Results 24hrs Laboratory Tests Test 08/27/18 16:07 Vancomycin Level Trough 14.2 Medications Medication Current Medications Sodium Chloride 1,000 ml @ 100 mls/hr Q10H IV Last administered on 08/27/18at 18:30; Admin Dose 100 MLS/HR; Start 08/21/18 at 20:07 Ipratropium [place] (Atrovent 0.02% (Neb)) 0.5 mg Q2H RESP THERAPY PRN NEB SHORTNESS OF BREATH; Start 08/21/18 at 20:30 Acetaminophen (Tylenol Liquid) 650 mg Q6H PRN PO PAIN LEVEL 1-3 OR FEVER; Start 08/21/18 at 20:30 Docusate Sodium (Colace) 100 mg Q12H PRN PO CONSTIPATION; Start 08/21/18 at 20:30 Bisacodyl (Dulcolax) 5 mg DAILY PRN PO CONSTIPATION; Start 08/21/18 at 20:30 Levalbuterol (Xopenex Neb) 1.25 mg Q4H RESP THERAPY PRN HHN SHORTNESS OF BREATH; Start 08/21/18 at 20:30 Vancomycin HCl (Vanco Iv Per Pharmacy) VANCOMYCIN PER PHARMACY PER PROTOCOL XX ; Start 08/21/18 at 21:00 Vancomycin HCl 100 ml @ 100 mls/hr Q12H IVPB Last administered on 08/28/18at 05:19; Admin Dose 100 MLS/HR; Start 08/22/18 at 05:00 Ascorbic Acid (Vitamin C) 500 mg DAILY GTB Last administered on 08/28/18at 08:57; Admin Dose 500 MG; Start 08/22/18 at 09:00 Atorvastatin Calcium (Lipitor) 10 mg QHS GTB Last administered on 08/27/18at 21:05; Admin Dose 10 MG; Start 08/22/18 at 21:00 Ipratropium [place] (Atrovent Hfa) 2 puff Q6H RESP THERAPY PRN INH SHORTNESS OF BREATH; Start 08/22/18 at 00:00 Albuterol/ Ipratropium (Duoneb) 3 ml Q6H RESP THERAPY PRN INH SHORTNESS OF BR EATH; Start 08/22/18 at 00:00 Zinc Sulfate (Zinc Sulfate) 220 mg DAILY GTB Last administered on 08/28/18at 08:57; Admin Dose 220 MG; Start 08/22/18 at 09:00 Lactobacillus Acidophilus/ Rhamnosus (Culturelle) 1 cap BID PO Last administered on 08/28/18at 08:57; Admin Dose 1 CAP; Start 08/22/18 at 21:00 Topiramate (Topamax) 200 mg Q12H GTB Last administered on 08/28/18 12:26; Admin Dose 200 MG; Start 08/22/18 at 12:00 Multivitamins (Multivitamin) 30 ml DAILY GTB Last administered on 08/28/18 08: 57; Admin Dose 30 ML; Start 08/22/18 at 09:00 Methylphenidate HCl (Ritalin) 10 mg Q12 GTB Last administered on 08/28/18 08:57; Admin Dose 10 MG; Start 08/22/18 at 09:00 Sodium Hypochlorite (Dakin'S (Dilute )) 1 applic BID IRR Last administered on 08/28/18 08:59; Admin Dose 1 APPLIC; Start 08/22/18 at 21:00 Famotidine (Pepcid) 20 mg DAILY GTB Last administered on 08/28/18 08:57; Admin Dose 20 MG; Start 08/23/18 at 09:00 Levetiracetam (Keppra Liq (Ped)) 250 mg Q8 GTB Last administered on 08/28/18 05:19; Admin Dose 250 MG; Start 08/23/18 at 08:00 Enalaprilat (Vasotec Iv) 1.25 mg Q6H PRN IV ELEVATED SYSTOLIC BP Last administered on 08/28/18 01:45; Admin Dose 1.25 MG; Start 08/24/18 at 14:00 Cefepime HCl 50 ml @ 100 mls/hr Q12 IVPB Last administered on 08/28/18 09:03; Admin Dose 100 MLS/HR; Start 08/25/18 at 15:30 Benazepril HCl (Lotensin) 20 mg BID PO Last administered on 08/28/18 08:57; Admin Dose 20 MG; Start 08/26/18 at 21:00 Metoprolol Tartrate (Lopressor) 75 mg BID PO ; Start 08/28/18 at 21:00 URIAH GARCIA NP Aug 28, 2018 13:29
--- NOTE | 2018-08-28 19:40 | PN ---
Date/Time of Note Date/Time of Note DATE: 08/28/18 TIME: 19:39 Assessment/Plan Lines/Catheters IV Catheter Type (from Nrsg): Peripheral IV Forman in Place (from Nrsg): Yes Assessment/Plan Assessment/Plan Left-sided Status post repositioning left chest tube pneumothorax resolved plan to remove the chest tube Subjective 24 Hr Interval Summary Constitutional: improved Pain Control: mild Exam/Review of Systems Vital Signs Vitals Vital Signs Date Temp Pulse Resp B/P (MAP) Pulse Ox O2 O2 Flow FiO2 Time Delivery Rate 08/28/18 94 24 99 30 17:19 08/28/18 97.6 154/88 Mechanical 16:13 (110) Ventilator Intake and Output 08/27/18 08/27/18 08/28/18 1414:59 22:59 06:59 IntakeIntake Total 50 ml 2230 ml 1230 ml OutputOutput Total 2600 ml 1700 ml BalanceBalance 50 ml -370 ml -470 ml Exam ENMT: nl external ears & nose, nl lips & teeth, nl nasal mucosa & septum, mucosa pink and moist Neck: supple, non-tender Respiratory: clear to auscultation, normal air movement Cardiovascular: regular rate and rhythm, nl pulses Gastrointestinal: soft, nl liver, spleen, non-tender Musculoskeletal: nl extremities to inspection, nl gait and stance Results Result Diagram: 08/27/1861008/27/18610 MELISSA TOUSSAINT MD Aug 28, 2018 19:40
[2018-08-28] MEDS: ATORVASTATIN 10 MG TAB GTB SCH (21:12)
[2018-08-29] VITALS (19 sets, daily range): BP systolic 155–184; BP diastolic 81–96; PULSE 68–89; RESP 13–26
[2018-08-29] MEDS: ENALAPRILAT 2.5 MG INJ IV PRN ×2 (05:14→13:41)
[2018-08-29] MEDS: LEVETIRACETAM (100 MG/ML PO SYG) GTB SCH ×2 (06:08→13:34)
[2018-08-29] MEDS: VANCOMYCIN 500 MG (PMX) 100 ML IVPB SCH ×2 (06:08→17:08)
[2018-08-29] MEDS: MULTIVITAMINS 30 ML CUP GTB SCH (09:10)
[2018-08-29] MEDS: METHYLPHENIDATE 5 MG TAB GTB SCH (09:10)
[2018-08-29] MEDS: ASCORBIC ACID 500 MG TAB GTB SCH (09:11)
[2018-08-29] MEDS: METOPROLOL 50 MG TAB PO SCH (09:11)
[2018-08-29] MEDS: FAMOTIDINE 20 MG TAB GTB SCH (09:11)
[2018-08-29] MEDS: BENAZEPRIL 20 MG TAB PO SCH (09:11)
[2018-08-29] MEDS: LACTOBACILLUS RHAMNOSUS CAP PO SCH (09:11)
[2018-08-29] MEDS: ZINC SULFATE 220 MG CAP GTB SCH (09:11)
[2018-08-29] MEDS: SODIUM HYPOCHLORITE (1/40) 1 APPLIC BTL IRR SCH (09:12)
[2018-08-29] MEDS: CEFEPIME 1GM/50 ML (PMX) 50 ML IVPB SCH (09:12)
[2018-08-29] MEDS: BALSAM PERU/CASTOR OIL 60 GM TUBE TOP SCH (09:12)
[2018-08-29] MEDS: SOD CHLORIDE 0.9% 1,000 ML IV SCH (09:16)
--- NOTE | 2018-08-29 10:59 | DS ---
Date/Time of Note Date/Time of Note DATE: 08/29/18 TIME: 10:58 Discharge Summary Admission/Discharge Info Admit Date/Time Aug 21, 2018 at 20:08 Discharge Date/Time Discharge Diagnosis # cardiac arrest: - Apparently patient was reported to have shortness of breath prior to cardiac arrest- According to code sheet, was PEA arrest-patient had ROSC -no hypothermia due to severe underlying disability, trach and PEG. # Seizure disorder:presently on Keppra, Topamax. 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 # hypertension Patient Condition: Stable Hx of Present Illness 62-year-old female who was brought in from [facility] via EMS as patient was noted to be in respiratory distress. She is trached event. Patient is nonverbal as per the paramedics. The paramedics arrived at the facility I did notice the patient be very warm to touch and have difficulty breathing. She was being transported to [facility] while in route she decompensated and became more short of breath and went into cardiac arrest. CPR was initiated. Upon arrival to [facility] she had return of spontaneous circulation with palpable pulses. She was noted to be hypotensive. For which she had a central line placed and pressors were started. She was gi cony antibiotics for suspected sepsis. Chest x-ray did reveal a pneumothorax and a chest tube was placed in the emergency department emergently. Patient at baseline is unresponsive secondary to encephalopathy from a history of intraparenchymal hemorrhage status post OPTICAL INSTRUMENT INSPECTOR shunt. She has a tracheostomy. Hospital Course Patient was admitted after being stabilized, seen by multiple specialists during this hospital stay including pulmonary, infectious disease, cardio thoracic surgery, cardiology and neurology teams. Patient had ROS C after cardiac arrest occurred. Patient also had seizure activity will start antiseizure medication, this was noted on EEG performed by neurology team as well. Patient continued on mechanical ventilation via trach. Patient also found with sepsis secondary to staph bacteremia and polymicrobial growth wound infection. Patient improved on appropriate antibiotic treatment. White blood cell count improved, no fevers. Patient received chest tube placement for the pneumothorax, and this appeared to be improving by the time of hospital discharge. The tube was clamped the day before discharge and cardiothoracic surgery team will come reevaluate to see if the tube can come out which will likely occur later today since the chest x-ray looks improved with no signs of any further pneumothorax. Regarding her infections and cardiac arrest, patient appears to be back at baseline status after being treated for those. She was able to open her eyes on verbal command but still not able to speak. Again she did have a history of a prior brain hemorrhage that occurred in May 2018 at another hospital. Patient was encephalopathic for that prior to this admission. Because of patient's vital signs improved, labs are improved, patient tolerating tube feeding. Chest tube was removed on August 28, 2018, follow-up chest x-ray on the morning of August 29, 2018 shows very small apical left pneumothorax. Patient on same ventilator settings with good saturations. Once we get clearance from cardiothoracic surgery team, if cleared patient will be discharged to intermediate facility later today and in improved condition. See printed medical reconciliation sheet for full list of discharge medications. Home Meds Reported Medications Clindamycin Hcl* (Clindamycin Hcl*) 300 Mg Capsule, 300 MG GTB QID, CAP STOP DATE 08/25/18 08/21/18 Levofloxacin* (Levofloxacin*) 500 Mg Tablet, 500 MG GTB DAILY, TAB STOP DATE 08/25/18 08/21/18 Zinc Sulfate* (Zinc Sulfate*) 220 Mg Tablet, 220 MG GTB DAILY, TAB 08/21/18 Ascorbic Acid (Vitamin C) 500 Mg Tab, 500 MG GTB DAILY, TAB 08/21/18 Multivitamin with Minerals (Multivitamins with Minerals) 1 Each Tablet, 1 EACH GTB DAILY, TAB 08/21/18 Amino Acids/Protein Hydrolys (PRO-STAT LIQUID) 30 Ml Liquid.pkt, 30 ML GTB BID SUGAR FREE 08/21/18 Lisinopril* (Lisinopril*) 20 Mg Tablet, 20 MG GTB Q12H, #30 TAB 08/21/18 Levetiracetam* (Keppra* (Ped)) 100 Mg/Ml Liq, 100 MG GTB Q8H for 30 Days, BOTTLE 08/21/18 Lansoprazole* (Lansoprazole*) 30 Mg Capsule.dr, 30 MG GTB DAILY, CAP 08/21/18 Ipratropium-Albuterol (Ipratropium-Albuterol) 0.5-3 Mg/3 Ml Ampul.neb, 3 ML INHALATION Q6, #30 VIAL 08/21/18 Ipratropium [place]* (Atrovent HFA*) 12.9 Gm Aer.w.adap, 2 PUFF INHALATION Q6H for SHORTNESS OF BREATH, #1 INHALER 08/21/18 Lactobacillus Acidophilus* (Lactinex*) 1 Tab Chew, 1 TAB GTB Q6H, TAB 08/21/18 Carvedilol* (Carvedilol*) 12.5 Mg Tablet, 12.5 MG GTB BID, #60 TAB 08/21/18 Bisacodyl* (Bisacodyl*) 10 Mg Supp, 10 MG IL Q OTHER DAY, SUPP 08/21/18 Atorvastatin Calcium (Atorvastatin Calcium) 10 Mg Tablet, 10 MG GTB QHS, #30 TAB 08/21/18 Topiramate* (Trokendi XR*) 200 Mg Cap.er.24h, 200 MG GTB Q12H, CAP 08/21/18 Citric Acid/Potassium Citrate (Cytra-K Oral Solution) 473 Ml Solution, 5 ML GTB DAILY 08/21/18 Selenium* (Selenimin*) 200 Mcg Tablet, 200 MCG GTB DAILY, TAB 08/21/18 Ondansetron Hcl* (Zofran*) 4 Mg Tab, 4 MG GTB Q6H PRN for NAUSEA AND OR VOMITING, TAB 08/21/18 Methylphenidate Hcl* (Methylphenidate Hcl*) 10 Mg Tablet, 10 MG GTB Q12H, TAB 08/21/18 Primary Care Provider Husam Jacobson MD Time spent on discharge: > 30 minutes Pending Labs Laboratory Tests Test 08/29/18 05:41 Blood Urea Nitrogen 18 mg/dl (7-20) Creatinine 0.30 mg/dl (0.44-1.00) DIMA MARCUS Aug 29, 2018 10:59
--- NOTE | 2018-08-29 11:13 | CONS ---
Consult Date/Type/Reason Admit Date/Time Aug 21, 2018 at 20:08 Initial Consult Date Type of Consult Pulmonary Requesting Provider: ANGEL LUIS REDD MD Date/Time of Note DATE: 08/29/18 TIME: 11:12 Subjective Chest tube removed. Small apical pneumothorax. Patient is asymptomatic Objective Vital Signs Date Temp Pulse Resp B/P (MAP) Pulse Ox O2 O2 Flow FiO2 Time Delivery Rate 08/29/18 91 20 100 30 09:05 08/29/18 99.8 173/96 Mechanical 08:32 (121) Ventilator Intake and Output 08/28/18 08/28/18 08/29/18 1515:00 23:00 07:00 IntakeIntake Total 50 ml 1080 ml OutputOutput Total 2000 ml BalanceBalance 50 ml -920 ml Exam GENERAL: Elderly appearing lady on mechanical ventilation. VITAL SIGNS: per chart NECK: Supple. No JVD or lymphadenopathy. CARDIAC EXAM: S1, S2. No added sounds or murmurs. CHEST: clear bilaterally, No added sounds, rales or wheezes ABDOMEN: Soft, nontender. No guarding or rebound. EXTREMITIES: No cyanosis, clubbing or edema. NEUROLOGIC: Generalized weakness. No focal deficits. Vent Setting Ventilator Support Mode: AC Fraction of Inspired Oxygen pe: 30 Positive End Expiratory Pressu: 5.0 Results/Medications Result Diagram: 08/27/18 0611 08/29/18 0541 Results 24 hrs Laboratory Tests Test 08/29/18 05:41 Blood Urea Nitrogen 18 Creatinine 0.30 L Medications Current Medications Sodium Chloride 1,000 ml @ 100 mls/hr Q10H IV Last administered on 08/29/18at 09:16; Admin Dose 100 MLS/HR; Start 08/21/18 at 20:07 Ipratropium [place] (Atrovent 0.02% (Neb)) 0.5 mg Q2H RESP THERAPY PRN NEB SHORTNESS OF BREATH; Start 08/21/18 at 20:30 Acetaminophen (Tylenol Liquid) 650 mg Q6H PRN PO PAIN LEVEL 1-3 OR FEVER; Start 08/21/18 at 20:30 Docusate Sodium (Colace) 100 mg Q12H PRN PO CONSTIPATION; Start 08/21/18 at 20:30 Bisacodyl (Dulcolax) 5 mg DAILY PRN PO CONSTIPATION; Start 08/21/18 at 20:30 Levalbuterol (Xopenex Neb) 1.25 mg Q4H RESP THERAPY PRN HHN SHORTNESS OF BREATH; Start 08/21/18 at 20:30 Vancomycin HCl (Vanco Iv Per Pharmacy) VANCOMYCIN PER PHARMACY PER PROTOCOL XX ; Start 08/21/18 at 21:00 Vancomycin HCl 100 ml @ 100 mls/hr Q12H IVPB Last administered on 08/29/18 06:08; Admin Dose 100 MLS/HR; Start 08/22/18 at 05:00 Ascorbic Acid (Vitamin C) 500 mg DAILY GTB Last administered on 08/29/18 09:11; Admin Dose 500 MG; Start 08/22/18 at 09:00 Atorvastatin Calcium (Lipitor) 10 mg QHS GTB Last administered on 08/28/18 21:12; Admin Dose 10 MG; Start 08/22/18 at 21:00 Ipratropium [place] (Atrovent Hfa) 2 puff Q6H RESP THERAPY PRN INH SHORTNESS OF BREATH; Start 08/22/18 at 00:00 Albuterol/ Ipratropium (Duoneb) 3 ml Q6H RESP THERAPY PRN INH SHORTNESS OF BREATH; Start 08/22/18 at 00:00 Zinc Sulfate (Zinc Sulfate) 220 mg DAILY GTB Last administered on 08/29/18 09:11; Admin Dose 220 MG; Start 08/22/18 at 09:00 Lactobacillus Acidophilus/ Rhamnosus (Culturelle) 1 cap BID PO Last administered on 08/29/18 09:11; Admin Dose 1 CAP; Start 08/22/18 at 21:00 Topiramate (Topamax) 200 mg Q12H GTB Last administered on 08/28/18 23:55; Admin Dose 200 MG; Start 08/22/18 at 12:00 Multivitamins (Multivitamin) 30 ml DAILY GTB Last administered on 08/29/18 09:10; Admin Dose 30 ML; Start 08/22/18 at 09:00 Methylphenidate HCl (Ritalin) 10 mg Q12 GTB Last administered on 08/29/18 09:10; Admin Dose 10 MG; Start 08/22/18 at 09:00 Sodium Hypochlorite (Dakin'S (Dilute )) 1 applic BID IRR Last administered on 08/29/18 09:12; Admin Dose 1 APPLIC; Start 08/22/18 at 21:00 Famotidine (Pepcid) 20 mg DAILY GTB Last administered on 08/29/18 09:11; Admin Dose 20 MG; Start 08/23/18 at 09:00 Levetiracetam (Keppra Liq (Ped)) 250 mg Q8 GTB Last administered on 08/29/18 06:08; Admin Dose 250 MG; Start 08/23/18 at 08:00 Enalaprilat (Vasotec Iv) 1.25 mg Q6H PRN IV ELEVATED SYSTOLIC BP Last administered on 08/29/18 05:14; Admin Dose 1.25 MG; Start 08/24/18 at 14:00 Cefepime HCl 50 ml @ 100 mls/hr Q12 IVPB Last administered on 08/29/18 09:12; Admin Dose 100 MLS/HR; Start 08/25/18 at 15:30 Benazepril HCl (Lotensin) 20 mg BID PO Last administered on 08/29/18 09:11; Admin Dose 20 MG; Start 08/26/18 at 21:00 Metoprolol Tartrate (Lopressor) 75 mg BID PO Last administered on 08/29/18 09:11; Admin Dose 75 MG; Start 08/28/18 at 21:00 Assessment/Plan Hospital Course (Demo Recall) IMP: 1. s/p Cardiopulmonary arrest. 2. Respiratory failure, possibly secondary to healthcare-associated pneumonia. 3. Traumatic left pneumothorax following CPR-chest tube now removed small apical pneumothorax present no evidence of tension pneumothorax 4. 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 RECS: 1. Vent support. 2. Small apical pneumothorax post chest tube removal currently not clinically significant Discharge planning okay from pulmonary standpoint RONALD GALO MD, [facility] Aug 29, 2018 11:13
--- NOTE | 2018-08-29 12:23 | CONS ---
Assessment/Plan Assessment/Plan Hospital Course (Demo Recall) No events,looks comfortable, Tm 99.8 Microbiology: Blood cultures grew growing coag negative staph species, repeat blood cultures 2 days ago negative. Sacral wound culture growing E. coli ESBL, pseudomonas aeruginosa, Corynebacterium group JK, enterococcus species, Proteus mirabilis Indwelling's: Trach, PEG, Form[place], chest tube, left femoral triple-lumen catheter Antimicrobials: Vancomycin, cefepime Physical examination: This is a chronically ill-appearing elderly woman who is in no distress. Head atraumatic normocephalic. Neck is supple chest rise symmetrical breath sounds diminished bases. Heart: S1-S2. Abdomen soft bowel sounds present. Extremities without cyanosis. Skin: Patient has unstageable necrotic sacral wound Assessment: 1. Status post sepsis with bacteremia 2. Status post cardiac arrest 3. Urinary tract infection per urinalysis 4. Left pneumothorax with subcutaneous emphysema, s/p CT removed 5. Encephalopathy, acute on chronic 6. Healthcare associated pneumonia 7. Seizure disorder 8. Sacral decub Plan: Remains stable, pulmonary rec-s noted, pending dc on current abx for 5 more days Consultation Date/Type/Reason Admit Date/Time Aug 21, 2018 at 20:08 Initial Consult Date Type of Consult id Requesting Provider: ANGEL LUIS REDD MD Date/Time of Note DATE: 08/29/18 TIME: 12:22 Exam/Review of Systems Exam Vitals Vital Signs Date Temp Pulse Resp B/P (MAP) Pulse Ox O2 O2 Flow FiO2 Time Delivery Rate 08/29/18 97.8 68 176/91 99 Mechanical 11:58 (119) Ventilator 08/29/18 20 30 09:05 Intake and Output 08/28/18 08/28/18 08/29/18 1515:00 23:00 07:00 IntakeIntake Total 50 ml 1080 ml OutputOutput Total 2000 ml BalanceBalance 50 ml -920 ml Results Result Diagram: 08/27/18 0611 08/29/18 0541 Results 24hrs Laboratory Tests Test 08/29/18 05:41 Blood Urea Nitrogen 18 Creatinine 0.30 L Medications Medication Current Medications Sodium Chloride 1,000 ml @ 100 mls/hr Q10H IV Last administered on 08/29/18at 09:16; Admin Dose 100 MLS/HR; Start 08/21/18 at 20:07 Ipratropium [place] (Atrovent 0.02% (Neb)) 0.5 mg Q2H RESP THERAPY PRN NEB SHORTNESS OF BREATH; Start 08/21/18 at 20:30 Acetaminophen (Tylenol Liquid) 650 mg Q6H PRN PO PAIN LEVEL 1-3 OR FEVER; Start 08/21/18 at 20:30 Docusate Sodium (Colace) 100 mg Q12H PRN PO CONSTIPATION; Start 08/21/18 at 20:30 Bisacodyl (Dulcolax) 5 mg DAILY PRN PO CONSTIPATION; Start 08/21/18 at 20:30 Levalbuterol (Xopenex Neb) 1.25 mg Q4H RESP THERAPY PRN HHN SHORTNESS OF BREATH; Start 08/21/18 at 20:30 Vancomycin HCl (Vanco Iv Per Pharmacy) VANCOMYCIN PER PHARMACY PER PROTOCOL XX ; Start 08/21/18 at 21:00 Vancomycin HCl 100 ml @ 100 mls/hr Q12H IVPB Last administered on 08/29/18at 06:08; Admin Dose 100 MLS/HR; Start 08/22/18 at 05:00 Ascorbic Acid (Vitamin C) 500 mg DAILY GTB Last administered on 08/29/18at 09:11; Admin Dose 500 MG; Start 08/22/18 at 09:00 Atorvastatin Calcium (Lipitor) 10 mg QHS GTB Last administered on 08/28/18at 21:12; Admin Dose 10 MG; Start 08/22/18 at 21:00 Ipratropium [place] (Atrovent Hfa) 2 puff Q6H RESP THERAPY PRN INH SHORTNESS OF BREATH; Start 08/22/18 at 00:00 Albuterol/ Ipratropium (Duoneb) 3 ml Q6H RESP THERAPY PRN INH SHORTNESS OF BREATH; Start 08/22/18 at 00:00 Zinc Sulfate (Zinc Sulfate) 220 mg DAILY GTB Last administered on 08/29/18at 09:11; Admin Dose 220 MG; Start 08/22/18 at 09:00 Lactobacillus Acidophilus/ Rhamnosus (Culturelle) 1 cap BID PO Last administered on 08/29/18 09:11; Admin Dose 1 CAP; Start 08/22/18 at 21:00 Topiramate (Topamax) 200 mg Q12H GTB Last administered on 08/28/18 23:55; Admin Dose 200 MG; Start 08/22/18 at 12:00 Multivitamins (Multivitamin) 30 ml DAILY GTB Last administered on 08/29/18 09:10; Admin Dose 30 ML; Start 08/22/18 at 09:00 Methylphenidate HCl (Ritalin) 10 mg Q12 GTB Last administered on 08/29/18 09:10; Admin Dose 10 MG; Start 08/22/18 at 09:00 Sodium Hypochlorite (Dakin'S (Dilute 40)) 1 applic BID IRR Last administered on 08/29/18 09:12; Admin Dose 1 APPLIC; Start 08/22/18 at 21:00 Famotidine (Pepcid) 20 mg DAILY GTB Last administered on 08/29/18 09:11; Admin Dose 20 MG; Start 08/23/18 at 09:00 Levetiracetam (Keppra Liq (Ped)) 250 mg Q8 GTB Last administered on 08/29/18 06:08; Admin Dose 250 MG; Start 08/23/18 at 08:00 Enalaprilat (Vasotec Iv) 1.25 mg Q6H PRN IV ELEVATED SYSTOLIC BP Last administered on 08/29/18 05:14; Admin Dose 1.25 MG; Start 08/24/18 at 14:00 Cefepime HCl 50 ml @ 100 mls/hr Q12 IVPB Last administered on 08/29/18 09:12; Admin Dose 100 MLS/HR; Start 08/25/18 at 15:30 Benazepril HCl (Lotensin) 20 mg BID PO Last administered on 08/29/18 09:11; Admin Dose 20 MG; Start 08/26/18 at 21:00 Metoprolol Tartrate (Lopressor) 75 mg BID PO Last administered on 08/29/18 09:11; Admin Dose 75 MG; Start 08/28/18 at 21:00 URIAH GARCIA NP Aug 29, 2018 12:23
--- NOTE | 2018-08-29 13:32 | CONS ---
Assessment/Plan Assessment/Plan Hospital Course (Demo Recall) IMPRESSION: 1. Cardiopulmonary arrest. At this time, the patient has troponin negative x3 and no definite cardiac etiology and a tracheostomy, the patient may be due to primary respiratory event with hypoxia and subsequent cardiac decompensation.-NL EF 60% by echo this admit 2. Abnormal electrocardiogram with poor R-wave progression across the anterior precordial leads, assess for acute coronary syndrome. 3. Hypotension, on Levophed pressor support.-now resolved and hypertensive 4. Chronic respiratory failure, status post tracheostomy, on a ventilator. 5. Dysphagia, status post G-tube. 6. Pneumothorax, status post chest tube. 7. Seizure disorder. 8. Dyslipidemia. 9. Anemia, worsening. 10. Leukocytosis, improving. Recc: -Tele -uptitrate antihypertensinves with benazepril further given uncontrollled BP -Continue statin -Contineu abx's and f/u cx data -[place] Consultation Date/Type/Reason Admit Date/Time Aug 21, 2018 at 20:08 Initial Consult Date 08/22/18 Type of Consult Cardiology Reason for Consultation CP arrest Requesting Provider: ANGEL LUIS REDD MD Date/Time of Note DATE: 08/29/18 TIME: 13:30 Exam/Review of Systems Vital Signs Vitals Vital Signs Date Temp Pulse Resp B/P (MAP) Pulse Ox O2 O2 Flow FiO2 Time Delivery Rate 08/29/18 75 12:40 08/29/18 97.8 176/91 99 Mechanical 11:58 (119) Ventilator 08/29/18 20 30 09:05 Intake and Output 08/28/18 08/28/18 08/29/18 1515:00 23:00 07:00 IntakeIntake Total 50 ml 1080 ml OutputOutput Total 2000 ml BalanceBalance 50 ml -920 ml Exam Exam Review of Systems: CONSTITUTIONAL: No fevers, chills. PULMONARY: No sob CARDIOVASCULAR: No chest pain/palpitations GASTROINTESTINAL: No nausea/vomiting. GENITOURINARY: No hematuria/dysuria. MUSCULOSKELETAL: No myagias/arthalgias. PSYCHIATRIC: The patient denies depression. NEUROLOGIC: encephalopathic Constitutional: alert Psych: no complaints Head: normocephalic ENMT: mucosa pink and moist Neck: supple, jvd (9 cm water) Respiratory: diminished breath sounds Cardiovascular: regular rate and rhythm Gastrointestinal: soft, non-tender Musculoskeletal: muscle tone (normal) Extremities: edema (none) Neurological: other (No focal deficits) Labs Result Diagram: 08/27/18 0611 08/29/18 0541 Results 24hrs Laboratory Tests Test 08/29/18 05:41 Blood Urea Nitrogen 18 Creatinine 0.30 L Medications Medications Current Medications Sodium Chloride 1,000 ml @ 100 mls/hr Q10H IV Last administered on 08/29/18at 09:16; Admin Dose 100 MLS/HR; Start 08/21/18 at 20:07 Ipratropium [place] (Atrovent 0.02% (Neb)) 0.5 mg Q2H RESP THERAPY PRN NEB SHORTNESS OF BREATH; Start 08/21/18 at 20:30 Acetaminophen (Tylenol Liquid) 650 mg Q6H PRN PO PAIN LEVEL 1-3 OR FEVER; Start 08/21/18 at 20:30 Docusate Sodium (Colace) 100 mg Q12H PRN PO CONSTIPATION; Start 08/21/18 at 20:30 Bisacodyl (Dulcolax) 5 mg DAILY PRN PO CONSTIPATION; Start 08/21/18 at 20:30 Levalbuterol (Xopenex Neb) 1.25 mg Q4H RESP THERAPY PRN HHN SHORTNESS OF BREATH; Start 08/21/18 at 20:30 Vancomycin HCl (Vanco Iv Per Pharmacy) VANCOMYCIN PER PHARMACY PER PROTOCOL XX ; Start 08/21/18 at 21:00 Vancomycin HCl 100 ml @ 100 mls/hr Q12H IVPB Last administered on 08/29/18at 06:08; Admin Dose 100 MLS/HR; Start 08/22/18 at 05:00 Ascorbic Acid (Vitamin C) 500 mg DAILY GTB Last administered on 08/29/18at 09:11; Admin Dose 500 MG; Start 08/22/18 at 09:00 Atorvastatin Calcium (Lipitor) 10 mg QHS GTB Last administered on 08/28/18at 21:12; Admin Dose 10 MG; Start 08/22/18 at 21:00 Ipratropium [place] (Atrovent Hfa) 2 puff Q6H RESP THERAPY PRN INH SHORTNESS OF BREATH; Start 08/22/18 at 00:00 Albuterol/ Ipratropium (Duoneb) 3 ml Q6H RESP THERAPY PRN INH SHORTNESS OF BREATH; Start 08/22/18 at 00:00 Zinc Sulfate (Zinc Sulfate) 220 mg DAILY GTB Last administered on 08/29/18 09:11; Admin Dose 220 MG; Start 08/22/18 at 09:00 Lactobacillus Acidophilus/ Rhamnosus (Culturelle) 1 cap BID PO Last administered on 08/29/18 09:11; Admin Dose 1 CAP; Start 08/22/18 at 21:00 Topiramate (Topamax) 200 mg Q12H GTB Last administered on 08/28/18 23:55; Ad min Dose 200 MG; Start 08/22/18 at 12:00 Multivitamins (Multivitamin) 30 ml DAILY GTB Last administered on 08/29/18 09:10; Admin Dose 30 ML; Start 08/22/18 at 09:00 Methylphenidate HCl (Ritalin) 10 mg Q12 GTB Last administered on 08/29/18 09:10; Admin Dose 10 MG; Start 08/22/18 at 09:00 Sodium Hypochlorite (Dakin'S (Dilute 1/40)) 1 applic BID IRR Last administered on 08/29/18 09:12; Admin Dose 1 APPLIC; Start 08/22/18 at 21:00 Famotidine (Pepcid) 20 mg DAILY GTB Last administered on 08/29/18 09:11; Admin Dose 20 MG; Start 08/23/18 at 09:00 Levetiracetam (Keppra Liq (Ped)) 250 mg Q8 GTB Last administered on 08/29/18 06:08; Admin Dose 250 MG; Start 08/23/18 at 08:00 Enalaprilat (Vasotec Iv) 1.25 mg Q6H PRN IV ELEVATED SYSTOLIC BP Last administered on 08/29/18 05:14; Admin Dose 1.25 MG; Start 08/24/18 at 14:00 Cefepime HCl 50 ml @ 100 mls/hr Q12 IVPB Last administered on 08/29/18 09:12; Admin Dose 100 MLS/HR; Start 08/25/18 at 15:30 Benazepril HCl (Lotensin) 20 mg BID PO Last administered on 08/29/18 09:11; Admin Dose 20 MG; Start 08/26/18 at 21:00 Metoprolol Tartrate (Lopressor) 75 mg BID PO Last administered on 08/29/18at 09:11; Admin Dose 75 MG; Start 08/28/18 at 21:00 ANGEL LUIS HERNANDEZ Aug 29, 2018 13:32
[2018-08-29] MEDS: TOPIRAMATE 100 MG TAB GTB SCH (13:34)
[2018-08-29] MEDS ORDERED: hydrALAzine 20 MG INJ IV ONE (17:30)
--- NOTE | 2018-08-29 17:46 | CONS ---
Assessment/Plan Assessment/Plan Hospital Course 62 yo F with hx of seizures and multiple other comorbidities who presents for evaluation of respiratory distress. Now s/p cardiac arrest with ROSC x 2 days. Targeted temperature management was deferred. EEG is notable for frequent R temporal seizures. Now s/p Keppra bolus on 08/23. CTH is without acute intracranial pathology, though is notable for a VPS on the R. P: Cont keppra 250 TID for now Cont topamax per ops for now. Ativan IV PRN seizure > 5 min or for cluster Other medical management per primary Will follow clinically Consultation Date/Type/Reason Admit Date/Time Aug 21, 2018 at 20:08 Type of Consult Neurology Reason for Consultation eval prognosis s/p cardiac arrest Requesting Provider: ANGEL LUIS REDD MD Date/Time of Note DATE: 08/29/18 TIME: 17:45 24 HR Interval Summary Free Text/Dictation Continues acute care. Exam Vital Signs Vitals Vital Signs Date Temp Pulse Resp B/P (MAP) Pulse Ox O2 O2 Flow FiO2 Time Delivery Rate 08/29/18 78 13 100 30 17:23 08/29/18 97.8 176/91 Mechanical 11:58 (119) Ventilator Intake and Output 08/28/18 08/28/18 08/29/18 1515:00 23:00 07:00 IntakeIntake Total 50 ml 1080 ml OutputOutput Total 2000 ml BalanceBalance 50 ml -920 ml Exam PE: Gen Appearance: No Apparent Distress HEENT: Has trach Cardiovascular: Regular rate Abdomen: Soft Extremities: Dry NE: The patient was awake with eyes opening spontaneously. Able to track and follow simple axial commands. Cranial nerve examination was limited by mental status. Pupils were equal and reactive to light. There was no afferent pupillary defect. Funduscopic examination was limited. Face was grossly symmetric, w/ present corneal and cough reflexes. Tone was increased in BUE. Muscle bulk was diminished. I did not see fasciculations. The patient withdrew her extremities to noxious stimuli. Coordination and gait testing was limited by mental status. Arm and leg reflexes were within normal limits and symmetric. Casper's sign was absent. Plantar responses were flexor. HELDER VILLALOBOS NP Aug 29, 2018 17:46
[2018-08-29] MEDS ORDERED: BENAZEPRIL 40 MG TAB PO SCH (21:00)
== END 2018-08-29 18:06 | DRG 870 ==
LOC: E/R 15:41 → ICU 20:08 → 6WM 08-23 23:27
PROVIDERS: ADMIT Family Medicine; ATTEND Hospitalist
PROC: 5A1955Z Respiratory Ventilation, Greater than 96 Consecutive Hours (ICD-10-PCS; principal; 2018-08-21)
PROC: 06HY33Z Insertion of Infusion Device into Lower Vein, Percutaneous Approach (ICD-10-PCS; 2018-08-21)
PROC: 0W9B30Z Drainage of Left Pleural Cavity with Drainage Device, Percutaneous Approach (ICD-10-PCS; 2018-08-21)
PROC: 30233N1 Transfusion of Nonautologous Red Blood Cells into Peripheral Vein, Percutaneous Approach (ICD-10-PCS; 2018-08-24)
PROC: 0W9B30Z Drainage of Left Pleural Cavity with Drainage Device, Percutaneous Approach (ICD-10-PCS; 2018-08-25)
PROC: 0BPQX0Z Removal of Drainage Device from Pleura, External Approach (ICD-10-PCS; 2018-08-25)
DX: A41.9 Sepsis, unspecified organism (principal); I46.9 Cardiac arrest, cause unspecified; L89.154 Pressure ulcer of sacral region, stage 4; R65.21 Severe sepsis with septic shock; J96.20 Acute and chronic respiratory failure, unspecified whether with hypoxia or hypercapnia; J18.9 Pneumonia, unspecified organism; N39.0 Urinary tract infection, site not specified; E87.2 Acidosis; E44.0 Moderate protein-calorie malnutrition; G93.49 Other encephalopathy; S27.0XXA Traumatic pneumothorax, initial encounter; T85.628A Displacement of other specified internal prosthetic devices, implants and grafts, initial encounter; Z68.1 Body mass index [BMI] 19.9 or less, adult; D64.9 Anemia, unspecified; E78.5 Hyperlipidemia, unspecified; G40.909 Epilepsy, unspecified, not intractable, without status epilepticus; I10 Essential (primary) hypertension; J98.2 Interstitial emphysema; R13.10 Dysphagia, unspecified; X58.XXXA Exposure to other specified factors, initial encounter; Y83.8 Other surgical procedures as the cause of abnormal reaction of the patient, or of later complication, without mention of misadventure at the time of the procedure; I69.198 Other sequelae of nontraumatic intracerebral hemorrhage; Z93.1 Gastrostomy status; Z93.0 Tracheostomy status; Z98.2 Presence of cerebrospinal fluid drainage device; Z74.01 Bed confinement status
CPT/HCPCS: 36415; 36430; 36600; 70450; 71045; 80048; 80053; 80061; 80202; 81001; 82306; 82550; 82553; 82565; 82728; 82803; 83036; 83540; 83605; 83735; 84100; 84443; 84484; 84520; 85025; 85610; 85730; 86850; 86900; 86901; 86920; 87040; 87070; 87081; 87086; 92950; 93005; 93306; 94002; 94003; 95819; 96365; 96366; 96367; 96375; C1751; J0360; J0692; J1170; J1953; J2543; J3370; J3480; J7030; J7040; P9016

== ENCOUNTER 2018-10-02 18:55 | Inpatient (IN) | payer OTHER ==
[~2018-10-02] VITALS: Ht 142.2 cm; Wt 48.9 kg
[~2018-10-02 18:55] MED LIST: AMIN30LI GTB; ASC500 GTB; ATOR10TA65 GTB; ATRO INHALATION; BISA10SU75 PR; CARV12.579 GTB; CLIN300C10 GTB; IPRA3AMP29 INHALATION; KEP100S GTB; LACTINEX GTB; LANS30CA GTB; LEVO500T10 GTB; LISI-471 GTB; METH10TA3 GTB; MULT-105 GTB; ONDA4TAB13 GTB; POTA473S3 GTB; TOPI200C6 GTB; ZINC220T GTB; [UNRECOGNIZED DRUG - CODE] GTB
[2018-10-02] MEDS ORDERED: SODIUM CHLORIDE 0.9% 1L BAG IV* STA (19:42)
[2018-10-02] MEDS ORDERED: SOD CHLORIDE 0.9% 1,000 ML IV STA (21:22)
[2018-10-02] MEDS ORDERED: CEFTRIAXONE 1 GM/50 ML (PMX) 50 ML IVPB ONE (22:30)
--- NOTE | 2018-10-02 23:40 | ERD ---
ER Documentation Chief Complaint Chief Complaint bib ra from long term for fever, HPI 63 year old female that is nonverbal at baseline with trach and vent dependent brought in by ambulance from her long term for reported fever. Otherwise no other history was available and patient is unable to answer any questions. ROS Unable to obtain due to chronic altered mental status Medications Home Meds Reported Medications Acetaminophen* (Acetaminophen*) 650 Mg Tablet, 650 MG GTB Q6H PRN for PAIN AND OR ELEVATED TEMP, #30 TAB 10/03/18 Zinc Sulfate* (Zinc Sulfate*) 220 Mg Tablet, 220 MG GTB DAILY, TAB 08/21/18 Ascorbic Acid (Vitamin C) 500 Mg Tab, 500 MG GTB DAILY, TAB 08/21/18 Multivitamin with Minerals (Multivitamins with Minerals) 1 Each Tablet, 1 EACH GTB DAILY, TAB 08/21/18 Amino Acids/Protein Hydrolys (PRO-STAT LIQUID) 30 Ml Liquid.pkt, 30 ML GTB BID SUGAR FREE 08/21/18 Lisinopril* (Lisinopril*) 20 Mg Tablet, 20 MG GTB Q12H, #30 TAB 08/21/18 Levetiracetam* (Keppra* (Ped)) 100 Mg/Ml Liq, 250 ML GTB Q8H for 30 Days, BOTTLE GIVE 250MG/2.5ML VIA GT Q8H 08/21/18 Lansoprazole* (Lansoprazole*) 30 Mg Capsule.dr, 30 MG GTB DAILY, CAP 08/21/18 Ipratropium-Albuterol (Ipratropium-Albuterol) 0.5-3 Mg/3 Ml Ampul.neb, 3 ML INHALATION Q6, #30 VIAL 08/21/18 Ipratropium [place]* (Atrovent HFA*) 12.9 Gm Aer.w.adap, 2 PUFF INHALATION Q6H for SHORTNESS OF BREATH, #1 INHALER 08/21/18 Lactobacillus Acidophilus* (Lactinex*) 1 Tab Chew, 1 TAB GTB Q6H, TAB 08/21/18 Carvedilol* (Carvedilol*) 12.5 Mg Tablet, 12.5 MG GTB BID, #60 TAB 08/21/18 Bisacodyl* (Bisacodyl*) 10 Mg Supp, 10 MG MA Q OTHER DAY, SUPP 08/21/18 Atorvastatin Calcium (Atorvastatin Calcium) 10 Mg Tablet, 10 MG GTB QHS, #30 TAB 08/21/18 Topiramate* (Trokendi XR*) 200 Mg Cap.er.24h, 200 MG GTB Q12H, CAP 08/21/18 Selenium* (Selenimin*) 200 Mcg Tablet, 200 MCG GTB DAILY, TAB 08/21/18 Ondansetron Hcl* (Zofran*) 4 Mg Tab, 4 MG GTB Q6H PRN for NAUSEA AND OR VOMITING, TAB 08/21/18 Methylphenidate Hcl* (Methylphenidate Hcl*) 10 Mg Tablet, 10 MG GTB Q12H, TAB 08/21/18 Discontinued Reported Medications Clindamycin Hcl* (Clindamycin Hcl*) 300 Mg Capsule, 300 MG GTB QID, CAP STOP DATE 08/25/18 08/21/18 Levofloxacin* (Levofloxacin*) 500 Mg Tablet, 500 MG GTB DAILY, TAB STOP DATE 08/25/18 08/21/18 Citric Acid/Potassium Citrate (Cytra-K Oral Solution) 473 Ml Solution, 5 ML GTB DAILY 08/21/18 Allergies Allergies: Coded Allergies: No Known Drug Allergies (Unverified Allergy, Unknown, 10/03/18) PMhx/Soc Medical and Surgical Hx: Unable to obtain History of Surgery: Yes (Trach, G-tube) Anesthesia Reaction: No (BRENDA) Hx Neurological Disorder: Yes (CVA) Hx Respiratory Disorders: No (BRENDA) Hx Cardiac Disorders: No (BRENDA) Hx Psychiatric Problems: Yes (BRENDA) Hx Miscellaneous Medical Probl: Yes (VDRF, CHRONIC ENCEPHALOPATHY) Hx Alcohol Use: No (BRENDA) Hx Substance Use: No (BRENDA) Hx Tobacco Use: No (BRENDA) Smoking Status: Unknown if ever smoked FmHx Unable to obtain Physical Exam Vitals Physical Exam INITIAL VITAL SIGNS: Reviewed by me GENERAL: Patient is lying on gurney, chronically ill-appearing HEAD: Normocephalic EYES: conjunctiva clear. ENT: Mucous membranes dry, no erythema or tonsillar exudates. Airway patent. NECK: Supple. Trach in place. No surrounding erythema. No masses. RESPIRATORY: Coarse breath sounds bilaterally CV: Regular rate and rhythm. No murmurs, No rubs or gallops. ABDOMEN: Soft, non-distended, non-tender. No guarding. No rebound. No pulsatile mass. Bowel sounds normal. EXTREMITIES: No edema. No clubbing or cyanosis. Pulses symmetric. SKIN: Warm and dry. Decreased turgor. No obvious rash, petechiae or purpura. NEUROLOGIC: Awake and alert. Nonverbal. Does not follow commands. Result Diagram: 10/06/18 0559 10/06/18 0559 Results 24 hrs Laboratory Tests Test 10/02/18 19:18 10/02/18 19:34 10/02/18 19:37 10/02/18 21:12 Blood Gas Blood arterial Specimen Source Arterial Blood 10/02/2018 7:57:4 Date Drawn 5 PM Arterial Blood 7.458 pH (Temp corrected) Arterial Blood 36.9 mmhg pCO2 (Temp correct) Arterial Blood 309.9 mmHG pO2 (Temp corrected) Arterial Blood 25.5 mmol/L HCO3 Arterial Blood 1.8 mmol/L Base Excess Arterial Blood 99.5 mmHG Oxygen Saturatio n Kiko Test ACCEPTAB Arterial Blood Right Radial Gas Puncture Site Arterial 0.2 % Blood Carboxyhem oglobin Arterial Blood 0.4 % Methemoglobin Blood Gas A-a O2 77.3 mmHg Differential Oxyhemoglobin 98.9 % Percent Blood Gas 37.0 C Temperature Blood Gas 14.0 Respiration Rate Blood Gas Actual 14 Respiration Rate Blood Gas VENT - AC Modality FiO2 60.0 % Blood Gas Tidal 450.0 mL Volume Blood Gas Low 5.0 cmH2O PEEP Setting Blood Gas 20.0 Inspiratory Pressure Blood Gas Notified Whom Blood Gas 10/02/2018 8:08:1 Notified Time 5 PM POC Venous 1.4 mmol/L Lactate White Blood 8.2 10^3/ul Count Red Blood Count 3.79 10^6/ul Hemoglobin 10.3 g/dl Hematocrit 33.3 % Mean Corpuscular 87.9 fl Volume Mean Corpuscular 27.2 pg Hemoglobin Mean Corpuscular 30.9 g/dl Hemoglobin Staci nt Red Cell 15.2 % Distribution Width Platelet Count 594 10^3/UL Mean Platelet 9.1 fl Volume Immature 0.700 % Granulocytes % Neutrophils % 69.4 % Lymphocytes % 18.9 % Monocytes % 6.8 % Eosinophils % 3.8 % Basophils % 0.4 % Nucleated Red 0.0 /100WBC Blood Cells % Immature 0.060 10^3/ul Granulocytes # Neutrophils # 5.7 10^3/ul Lymphocytes # 1.6 10^3/ul Monocytes # 0.6 10^3/ul Eosinophils # 0.3 10^3/ul Basophils # 0.0 10^3/ul Nucleated Red 0.0 10^3/ul Blood Cells # Prothrombin Time 13.4 Sec Prothrombin Time 1.0 Ratio INR 1.01 International Normalized Ratio Activated 23.7 Sec Partial Thrombop last Time Sodium Level 136 mmol/L Potassium Level 4.5 mmol/L Chloride Level 98 mmol/L Carbon Dioxide 27 mmol/L Level Anion Gap 11 Blood Urea 63 mg/dl Nitrogen Creatinine 0.66 mg/dl Est Glomerular > 60 mL/min Filtrat Rate mL/min Glucose Level 142 mg/dl Calcium Level 11.0 mg/dl Total Bilirubin 0.2 mg/dl Direct Bilirubin 0.00 mg/dl Indirect 0.2 mg/dl Bilirubin Aspartate Amino 26 IU/L Transf (AST/SGOT ) Alanine 28 IU/L Aminotransferase (ALT/SGPT) Alkaline 178 IU/L Phosphatase Troponin I < 0.012 ng/ml Total Protein 9.0 g/dl Albumin 3.9 g/dl Globulin 5.10 g/dl Albumin/Globulin 0.76 Ratio Urine Color GWYN Urine Clarity TURBID Urine pH 9.0 Urine Specific 1.015 [place] Urine Ketones NEGATIVE mg/dL Urine Nitrite NEGATIVE mg/dL Urine Bilirubin NEGATIVE mg/dL Urine NEGATIVE mg/dL Urobilinogen Urine Leukocyte 3+ Wade/ul Esterase Urine 5 /HPF Microscopic RBC Urine 42 /HPF Microscopic WBC Urine Bacteria MANY /HPF Urine Hemoglobin NEGATIVE mg/dL Urine Glucose NEGATIVE mg/dL Urine Total 1+ mg/dl Protein Current Medications Medications Dose Sig/Sharona Start Time Status Last (Trade) Ordered Route PRN Stop Time Admin Dose Reason Admin Sodium 1,390 ml BOLUS OVER 2 10/02/18 DC 10/02/18 Chloride HOURS STAT 19:42 10/02/18 20:01 (NS) IV* 19:43 Sodium 1,000 ml @ Q1H STAT 10/02/18 DC 10/02/18 Chloride 1,000 mls/hr IV 21:22 10/02/18 22:03 22:21 Ceftriaxone 50 ml @ ONCE ONCE 10/02/18 DC 10/02/18 Sodium 100 mls/hr IVPB 22:30 10/02/18 22:41 22:59 Procedures/MDM EMERGENT LABS AND DIAGNOSTIC STUDIES: Lab Results above were reviewed and interpreted by me. CBC: Mild anemia. No leukocytosis but there is thrombocytosis, possibly due to infection CMP: Elevated BUN with normal creatinine, consistent with prerenal azotemia due to dehydration. No evidence of clinically significant electrolyte abnormality, acidosis, renal failure, hypoglycemia, liver disease, or biliary obstruction Troponin within normal limits, not indicative of cardiac ischemia Lactate within normal limits without evidence of sepsis or tissue hypoperfusion UA: Findings consistent with infection 12-lead EKG was interpreted by Jin Gonzalez MD: Normal Sinus Rhythm with sinus arrhythmia Normal axis Normal intervals No acute ST or T wave changes suggestive of acute ischemia or STEMI. Radiology Results as interpreted by Radiology below were reviewed by Becky Gonzalez MD: Chest x-ray shows no acute abnormalities Initial Nursing notes reviewed. Previous Medical Records requested via the Electronic Health Record. EMERGENCY DEPARTMENT COURSE / MEDICAL DECISION MAKING: Patient was sent here for reported fever but did not have a fever here. However given the history of fever and her heart rate above 90, sepsis work-up was initiated as the patient is high risk for infection. Work-up did not show any evidence of severe sepsis or septic shock. She was given IV fluids and IV antibiotics. Labs and exam are consistent with dehydration. She also seems to have a UTI. Patient will be admitted to the panel team for further management and close monitoring for decompensation. Critical Care Time: 35 minutes Treatments/Evaluations: Close monitoring and treatment of unstable vital signs, cardiorespiratory, and neurologic status, while maintaining tight balance of fluid, respiratory, and cardiac interventions. This time includes discussing the case with the patient and the patients family. This time does not include all procedures stated elsewhere in this record. This time also includes reviewing old records, labs and radiological studies. This time includes examining and re- examining the patient. Additionally, this time also includes arranging care with admitting and consulting physicians. Departure Diagnosis: Primary Impression: Sepsis Sepsis type: sepsis due to unspecified organism Qualified Codes: A41.9 - Sepsis, unspecified organism Additional Impression: UTI (urinary tract infection) Urinary tract infection type: site unspecified Hematuria presence: without hematuria Qualified Codes: N39.0 - Urinary tract infection, site not specified Condition: Serious HALIE GONZALEZ MD October 02, 2018 23:40
[2018-10-03] VITALS (8 sets, daily range): BP systolic 93–105; BP diastolic 58–68; PULSE 81–83; RESP 14–20; Ht 142.2 cm; Wt 48.9 kg
[2018-10-03] MEDS ORDERED: ACETAMINOPHEN 325 MG TAB PO PRN
[2018-10-03] MEDS ORDERED: ONDANSETRON 4 MG INJ IV PRN
[2018-10-03] MEDS ORDERED: IPRATROPIUM (HFA) 12.9 GM INHALER INH PRN (01:30)
[2018-10-03] MEDS ORDERED: CEFTRIAXONE 1 GM/50 ML (PMX) 50 ML IVPB SCH (01:30)
[2018-10-03] MEDS ORDERED: LEVETIRACETAM (100 MG/ML PO SYG) GTB SCH (01:30)
[2018-10-03] MEDS ORDERED: ACETAMINOPHEN 325 MG TAB GTB PRN (01:30)
[2018-10-03] MEDS ORDERED: NACL 0.9% 3 ML SYG IV SCH (01:30)
[2018-10-03] MEDS ORDERED: ONDANSETRON 4 MG TAB GTB PRN (01:30)
[2018-10-03] MEDS ORDERED: ACET-2047 GTB (01:59)
[2018-10-03] MEDS: TOPIRAMATE 100 MG TAB GTB SCH ×3 (04:21→21:00)
[2018-10-03] MEDS: LEVETIRACETAM (100 MG/ML PO SYG) GTB SCH ×3 (04:21→18:21)
[2018-10-03] MEDS: ATORVASTATIN 10 MG TAB GTB SCH ×2 (04:21→21:51)
[2018-10-03] MEDS: LISINOPRIL 20 MG TAB GTB SCH ×2 (04:22→12:36)
[2018-10-03] MEDS: METHYLPHENIDATE 5 MG TAB GTB SCH ×3 (05:51→21:00)
--- NOTE | 2018-10-03 08:51 | HP ---
Date/Time of Note Date/Time of Note DATE: 10/03/18 TIME: 08:39 Assessment/Plan VTE Prophylaxis SCD applied (from Nsg): Yes Pharmacological prophylaxis: NA/contraindicated Pharm contraindication: low risk/ambulating Lines/Catheters IV Catheter Type (from Nrsg): Saline Lock Urinary Cath still in place: Yes Reason Cath still needed: other (indicate) (prolonged immobilization, skin wounds) Assessment/Plan Hospital Course This is a 63 female being admitted to the telemetry floor for: #1 Fever: Patient reportedly had a fever at the [facility], the highest temperature recorded in the ER was 99.7 rectally. suspicion is for likely underlying urinary tract infection. Patient's Forman catheter was cloudy and odorous and urinalysis was positive for leukoesterase. Will treat for suspected UTI. Exam IV every 24 hours. Will await urine culture results. #2 acute on chronic respiratory failure: Patient has tracheostomy. Currently connected to vent. Continue vent management, pulmonary to consult #3 chronic right hip wound: Wound care consult. 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 Continue supportive care. Continue home meds #7 dysphagia: Continue meds via J-tube, consult nutrition for feeds #8 Seizure disorder: Continue Keppra, Topamax #9 hypertension: Resume home blood pressure meds as indicated #10 DVT GI prophylaxis: SCDs, Protonix CODE STATUS currently full code . PT SON RENZO [phone] L[facility] IN [facility]. Result Diagram: 10/03/18 0543 10/03/18 0543 Results 24hrs Laboratory Tests Test 10/02/18 19:18 10/02/18 19:34 10/02/18 19:37 10/02/18 21:12 Blood Gas Specimen Blood arterial Source Arterial Blood 10/02/2018 7:57:45 Date Drawn PM Arterial Blood pH 7.458 H (Temp corrected) Arterial Blood 36.9 pCO2 (Temp correct) Arterial Blood pO2 309.9 H (Temp corrected) Arterial Blood 25.5 HCO3 Arterial Blood 1.8 Base Excess Arterial Blood 99.5 H Oxygen Saturation Kiko Test ACCEPTAB Arterial Blood Gas Right Radial Puncture Site Arterial 0.2 Blood Carboxyhemog lobin Arterial Blood 0.4 Methemoglobin Blood Gas A-a O2 77.3 H Differential Oxyhemoglobin 98.9 Percent Blood Gas 37.0 Temperature Blood Gas 14.0 Respiration Rate Blood Gas Actual 14 Respiration Rate Blood Gas Modality VENT - AC FiO2 60.0 Blood Gas Tidal 450.0 Volume Blood Gas Low PEEP 5.0 Setting Blood Gas 20.0 Inspiratory Pressure Blood Gas Notified KM Whom Blood Gas Notified 10/02/2018 8:08:15 Time PM POC Venous Lactate 1.4 White Blood Count 8.2 # Red Blood Count 3.79 L Hemoglobin 10.3 L Hematocrit 33.3 L Mean Corpuscular 87.9 Volume Mean Corpuscular 27.2 L Hemoglobin Mean Corpuscular 30.9 L Hemoglobin Concent Red Cell 15.2 H Distribution Width Platelet Count 594 #H Mean Platelet 9.1 Volume Immature 0.700 H Granulocytes % Neutrophils % 69.4 Lymphocytes % 18.9 Monocytes % 6.8 Eosinophils % 3.8 Basophils % 0.4 Nucleated Red 0.0 Blood Cells % Immature 0.060 H Granulocytes # Neutrophils # 5.7 Lymphocytes # 1.6 Monocytes # 0.6 Eosinophils # 0.3 Basophils # 0.0 Nucleated Red 0.0 Blood Cells # Prothrombin Time 13.4 Prothrombin Time 1.0 Ratio INR International 1.01 Normalized Ratio Activated 23.[address] Time Sodium Level 136 Potassium Level 4.5 Chloride Level 98 Carbon Dioxide 27 Level Anion Gap 11 Blood Urea 63 H Nitrogen Creatinine 0.66 Est Glomerular > 60 Filtrat Rate mL/min Glucose Level 142 Calcium Level 11.0 H Total Bilirubin 0.2 Direct Bilirubin 0.00 Indirect Bilirubin 0.2 Aspartate Amino 26 Transf (AST/SGOT) Alanine 28 Aminotransferase ( ALT/SGPT) Alkaline 178 H Phosphatase Troponin I < 0.012 Total Protein 9.0 H Albumin 3.9 Globulin 5.10 H Albumin/Globulin 0.76 Ratio Urine Color GWYN Urine Clarity TURBID A Urine pH 9.0 Urine Specific 1.015 [place] Urine Ketones NEGATIVE Urine Nitrite NEGATIVE Urine Bilirubin NEGATIVE Urine Urobilinogen NEGATIVE Urine Leukocyte 3+ H Esterase Urine Microscopic 5 RBC Urine Microscopic 42 H WBC Urine Bacteria MANY A Urine Hemoglobin NEGATIVE Urine Glucose NEGATIVE Urine Total 1+ H Protein Test 10/03/18 05:43 White Blood Count 10.3 # Red Blood Count 3.34 L Hemoglobin 9.0 L Hematocrit 29.4 L Mean Corpuscular 88.0 Volume Mean Corpuscular 26.9 L Hemoglobin Mean Corpuscular 30.6 L Hemoglobin Concent Red Cell 15.2 H Distribution Width Platelet Count 462 #H Mean Platelet 8.7 Volume Immature 0.700 H Granulocytes % Neutrophils % 80.0 H Lymphocytes % 11.4 L Monocytes % 5.4 Eosinophils % 2.2 Basophils % 0.3 Nucleated Red 0.0 Blood Cells % Immature 0.070 H Granulocytes # Neutrophils # 8.2 H Lymphocytes # 1.2 Monocytes # 0.6 Eosinophils # 0.2 Basophils # 0.0 Nucleated Red 0.0 Blood Cells # Sodium Level 139 Potassium Level 3.9 Chloride Level 107 Carbon Dioxide 23 Level Anion Gap 9 Blood Urea 43 #H Nitrogen Creatinine 0.43 L Est Glomerular > 60 Filtrat Rate mL/min Glucose Level 122 Calcium Level 10.1 Magnesium Level 2.0 Total Bilirubin 0.1 L Direct Bilirubin 0.00 Indirect Bilirubin 0.1 Aspartate Amino 19 Transf (AST/SGOT) Alanine 24 Aminotransferase ( ALT/SGPT) Alkaline 153 H Phosphatase Total Protein 7.8 # Albumin 3.4 Globulin 4.40 H Albumin/Globulin 0.77 Ratio HPI/ROS Admit Date/Time Admit Date/Time Hx of Present Illness Chief complaint: Fevers This is a 73-year-old female with chronic encephalopathy trach to [facility] who presented to the emergency department from [facility] for fevers. History was unable to obtain from the patient as she has chronic encephalopathy. Patient's rectal temperature was noted to be 99.7. Patient does withdraw to pain. She is currently connected via tracheostomy to the [facility]. Her urine does appear to be foul-smelling and dirty. She also appears to have a chronic wound of the right hip. 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 MANAGER shunt Seizure disorder Dysphagia status post J-tube Respiratory failure status post tracheostomy Previous episode of atrial fibrillation Hypertension Hyperlipidemia Medications Current Medications Ondansetron HCl (Zofran Inj) 4 mg BRIDGE ORDER PRN IV NAUSEA/VOMITING; Start 10/03/18 at 00:00; Stop 10/03/18 at 23:59 Acetaminophen (Tylenol Tab) 650 mg ER BRIDGE PRN PO .MILD PAIN 1-3 OR TEMP; Start 10/03/18 at 00:00; Stop 10/03/18 at 23:59 Ascorbic Acid (Vitamin C) 500 mg DAILY GTB ; Start 10/03/18 at 09:00 Atorvastatin Calcium (Lipitor) 10 mg QHS GTB Last administered on 10/03/18at 04:21; Admin Dose 10 MG; Start 10/03/18 at 01:30 Bisacodyl (Dulcolax Supp) 10 mg DAILY [place] ; Start 10/03/18 at 09:00 Carvedilol (Coreg) 12.5 mg BID GTB ; Start 10/03/18 at 09:00 Ipratropium [place] (Atrovent Hfa) 2 puff Q6H PRN INH SHORTNESS OF BREATH; Start 10/03/18 at 01:30 Lansoprazole (Prevacid) 30 mg DAILY GTB ; Start 10/03/18 at 09:00 Lisinopril (Zestril) 20 mg Q12H GTB Last administered on 10/03/18at 04:22; Admin Dose 20 MG; Start 10/03/18 at 01:30 Ondansetron HCl (Zofran Tab) 4 mg Q6H PRN GTB NAUSEA AND/OR VOMITING; Start 10/03/18 at 01:30 Zinc Sulfate (Zinc Sulfate) 220 mg DAILY GTB ; Start 10/03/18 at 09:00 Lactobacillus Acidophilus/ Rhamnosus (Culturelle) 1 cap Q6 PO ; Start 10/03/18 at 12:00 Methylphenidate HCl (Ritalin) 10 mg Q12 GTB Last administered on 10/03/18at 05:51; Admin Dose 10 MG; Start 10/03/18 at 02:00 Multivitamins/ Minerals (Theragran-M) 1 tab DAILY GTB ; Start 10/03/18 at 09:00 Topiramate (Topamax) 200 mg BID GTB Last administered on 10/03/18at 04:21; Admin Dose 200 MG; Start 10/03/18 at 02:00 IV Flush (NS 3 ml) 3 ml PER PROTOCOL IV ; Start 10/03/18 at 01:30 Acetaminophen (Tylenol Tab) 650 mg Q6H PRN GTB .PAIN 1-3 OR TEMP; Start 10/03/18 at 01:30 Levetiracetam (Keppra Liq (Ped)) 250 mg Q8H GTB Last administered on 10/03/18at 04:21; Admin Dose 250 MG; Start 10/03/18 at 01:44 Ceftriaxone Sodium 50 ml @ 100 mls/hr Q24H IVPB ; Start 10/03/18 at 22:00 Coded Allergies: No Known Drug Allergies (Unverified Allergy, Unknown, 10/03/18) Past Surgical History Jejunostomy Tracheostomy, [employer] OUTCOMES MANAGER shunt Family History Significant Family History: no pertinent family hx Social History Smoking Status: Never smoker Exam/Review of Systems Vital Signs Vitals Vital Signs Date Temp Pulse Resp B/P (MAP) Pulse Ox O2 O2 Flow FiO2 Time Delivery Rate 10/03/18 99.0 93 14 105/74 100 Mechanical 08:00 (84) Ventilator 10/03/18 30 07:15 Intake and Output 10/02/18 10/02/18 10/03/18 1515:00 23:00 07:00 IntakeIntake Total 1000 ml BalanceBalance 1000 ml Exam Exam General: Chronic encephalopathy, patient does appear to move around in bed, spontaneous eye movements HEENT: Atraumatic, normocephalic. The pupils are equal, round and reactive. Extraocular motor are intact Neck: Supple with full range of motion. No rigidity or meningismus,, trach to vent Lungs: Clear to auscultation bilaterally no crackles rales or wheezing Heart: Normal S1-S2, Regular rhythm and rate. Abdomen: Soft , J-tube, nondistended , bowel sounds are present. No guarding no rebound tenderness , No masses or organomegaly. No costovertebral temporal angle mass Extremities: Normal to inspection, no edema no cyanosis Genitourinary: Chronic Forman with foul smelling, dirty urine Skin: Chronic wound of the right hip, does not appear to be using. Neurologic: Chronic encephalopathy, spontaneous eye movements, spontaneous movements Additional Comments PROCEDURE: XR Chest. CLINICAL INDICATION: Chest pain TECHNIQUE: Single frontal view of the chest was obtained COMPARISON: 08/29/2018 FINDINGS: The tracheostomy is again seen with the tip 3.5 cm above the brionna. The cardiac silhouette is unremarkable Shunt tubing overlies the medial right hemithorax. There is very mild blunting of the left costophrenic angle which could represent a very small left pleural effusion. The right pleural space is clear. The lungs are grossly clear. The bones and soft tissue show no acute change. IMPRESSION: 1. Stable tracheostomy. 2. Very mild blunting of the left costophrenic angle which could represent a very small left pleural effusion. RPTAT:AAJJ Mk Bo Physician Date Time Electronically viewed and signed by Mk Bo Physician on 10/02/2018 20:35 MC/ CC: HALIE EDWARDS MD [phone] EKG: Normal sinus rhythm at approximately 90 bpm, no ST or T wave abnormalities concerning for acute ischemia BIENVENIDO ACEVEDO October 03, 2018 08:50
[2018-10-03] MEDS ORDERED: NON-FORMULARY/PATIENT OWN MED (Amino Acids/Protein Hydrolys (Pro-Stat Liquid) 30 ML) GTB SCH (09:00)
[2018-10-03] MEDS ORDERED: LANSOPRAZOLE 30 MG CAP GTB SCH (09:00)
[2018-10-03] MEDS ORDERED: SELENIUM 200 MCG GTB SCH (09:00)
[2018-10-03] MEDS: ZINC SULFATE 220 MG CAP GTB SCH (09:07)
[2018-10-03] MEDS: ASCORBIC ACID 500 MG TAB GTB SCH (09:08)
[2018-10-03] MEDS: MULTIVITAMINS/MINERALS TAB GTB SCH (09:08)
[2018-10-03] MEDS: BISACODYL 10 MG SUPP PR SCH (09:12)
[2018-10-03] MEDS: LANSOPRAZOLE 15 MG CAP GTB SCH (09:37)
[2018-10-03] MEDS: LACTOBACILLUS RHAMNOSUS CAP PO SCH ×2 (12:28→18:21)
--- NOTE | 2018-10-03 15:01 | PN ---
Date/Time of Note Date/Time of Note DATE: 10/03/18 TIME: 14:55 Assessment/Plan VTE Prophylaxis SCD applied (from Nsg): Yes Pharmacological prophylaxis: NA/contraindicated Pharm contraindication: low risk/ambulating Lines/Catheters IV Catheter Type (from Nrsg): Saline Lock Urinary Cath still in place: Yes Reason Cath still needed: skin wounds contaminated by urine Assessment/Plan Assessment/Plan 63 yo woman s/p brain hemorrhage, chronic trach to vent admitted from [facility] with fever. # Fever: - Patient reportedly had a fever at the [facility], the highest temperature recorded in the ER was 99.7 rectally. - suspicion is for likely underlying urinary tract infection. - Patient's Forman catheter was cloudy and odorous and urinalysis was positive for leukoesterase. - Will treat for suspected UTI - Ceftriaxone IV every 24 hours. Will await urine culture results. # acute on chronic respiratory failure: Patient has tracheostomy. Currently connected to vent. Continue vent management, pulmonary to consult # chronic right hip wound: Wound care consult. 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 Continue supportive care. Continue home meds # dysphagia: Continue meds via J-tube, consult nutrition for feeds # Seizure disorder: Continue Keppra, Topamax # hypertension: Resume home blood pressure meds as indicated # DVT GI prophylaxis: SCDs, Protonix CODE STATUS currently full code . PT SON RENZO [phone] LIVES IN [facility]. Result Diagram: 10/03/18 0543 10/03/18 0543 Subjective 24 Hr Interval Summary Free Text/Dictation No acute overnight events. Patient admitted to [facility] but still boarding in the ED. Exam/Review of Systems Exam Vitals Vital Signs Date Temp Pulse Resp B/P (MAP) Pulse Ox O2 O2 Flow FiO2 Time Delivery Rate 10/03/18 99.0 88 13 102/80 100 Mechanical 14:00 (87) Ventilator 10/03/18 30 07:15 Intake and Output 10/02/18 10/02/18 10/03/18 1515:00 23:00 07:00 IntakeIntake Total 1000 ml BalanceBalance 1000 ml Exam General: Frail appearing woman, chronic trach to vent, unresponsive. HEENT: Atraumatic, normocephalic. The pupils are equal, round and reactive. Neck: Supple with full range of motion. No rigidity or meningismus,, trach to vent Lungs: Mechanical lung sounds bilaterally no crackles rales or wheezing Heart: Normal S1-S2, Regular rhythm and rate. Abdomen: Soft , J-tube, nondistended , bowel sounds are present. Extremities: Normal to inspection, no edema no cyanosis Genitourinary: Chronic Forman with foul smelling, dirty urine Skin: Chronic wound of the right hip, does not appear to be using. Results Results 24hrs Laboratory Tests Test 10/02/18 19:18 10/02/18 19:34 10/02/18 19:37 10/02/18 21:12 Blood Gas Specimen Blood arterial Source Arterial Blood 10/02/2018 7:57:45 Date Drawn PM Arterial Blood pH 7.458 H (Temp corrected) Arterial Blood 36.9 pCO2 (Temp correct) Arterial Blood pO2 309.9 H (Temp corrected) Arterial Blood 25.5 HCO3 Arterial Blood 1.8 Base Excess Arterial Blood 99.5 H Oxygen Saturation Kiko Test ACCEPTAB Arterial Blood Gas Right Radial Puncture Site Arterial 0.2 Blood Carboxyhemog lobin Arterial Blood 0.4 Methemoglobin Blood Gas A-a O2 77.3 H Differential Oxyhemoglobin 98.9 Percent Blood Gas 37.0 Temperature Blood Gas 14.0 Respiration Rate Blood Gas Actual 14 Respiration Rate Blood Gas Modality VENT - AC FiO2 60.0 Blood Gas Tidal 450.0 Volume Blood Gas Low PEEP 5.0 Setting Blood Gas 20.0 Inspiratory Pressure Blood Gas Notified KM Whom Blood Gas Notified 10/02/2018 8:08:15 Time PM POC Venous Lactate 1.4 White Blood Count 8.2 # Red Blood Count 3.79 L Hemoglobin 10.3 L Hematocrit 33.3 L Mean Corpuscular 87.9 Volume Mean Corpuscular 27.2 L Hemoglobin Mean Corpuscular 30.9 L Hemoglobin Concent Red Cell 15.2 H Distribution Width Platelet Count 594 #H Mean Platelet 9.1 Volume Immature 0.700 H Granulocytes % Neutrophils % 69.4 Lymphocytes % 18.9 Monocytes % 6.8 Eosinophils % 3.8 Basophils % 0.4 Nucleated Red 0.0 Blood Cells % Immature 0.060 H Granulocytes # Neutrophils # 5.7 Lymphocytes # 1.6 Monocytes # 0.6 Eosinophils # 0.3 Basophils # 0.0 Nucleated Red 0.0 Blood Cells # Prothrombin Time 13.4 Prothrombin Time 1.0 Ratio INR International 1.01 Normalized Ratio Activated 23.[address] Time Sodium Level 136 Potassium Level 4.5 Chloride Level 98 Carbon Dioxide 27 Level Anion Gap 11 Blood Urea 63 H Nitrogen Creatinine 0.66 Est Glomerular > 60 Filtrat Rate mL/min Glucose Level 142 Calcium Level 11.0 H Total Bilirubin 0.2 Direct Bilirubin 0.00 Indirect Bilirubin 0.2 Aspartate Amino 26 Transf (AST/SGOT) Alanine 28 Aminotransferase ( ALT/SGPT) Alkaline 178 H Phosphatase Troponin I < 0.012 Total Protein 9.0 H Albumin 3.9 Globulin 5.10 H Albumin/Globulin 0.76 Ratio Urine Color GWYN Urine Clarity TURBID A Urine pH 9.0 Urine Specific 1.015 [place] Urine Ketones NEGATIVE Urine Nitrite NEGATIVE Urine Bilirubin NEGATIVE Urine Urobilinogen NEGATIVE Urine Leukocyte 3+ H Esterase Urine Microscopic 5 RBC Urine Microscopic 42 H WBC Urine Bacteria MANY A Urine Hemoglobin NEGATIVE Urine Glucose NEGATIVE Urine Total 1+ H Protein Test 10/03/18 05:43 White Blood Count 10.3 # Red Blood Count 3.34 L Hemoglobin 9.0 L Hematocrit 29.4 L Mean Corpuscular 88.0 Volume Mean Corpuscular 26.9 L Hemoglobin Mean Corpuscular 30.6 L Hemoglobin Concent Red Cell 15.2 H Distribution Width Platelet Count 462 #H Mean Platelet 8.7 Volume Immature 0.700 H Granulocytes % Neutrophils % 80.0 H Lymphocytes % 11.4 L Monocytes % 5.4 Eosinophils % 2.2 Basophils % 0.3 Nucleated Red 0.0 Blood Cells % Immature 0.070 H Granulocytes # Neutrophils # 8.2 H Lymphocytes # 1.2 Monocytes # 0.6 Eosinophils # 0.2 Basophils # 0.0 Nucleated Red 0.0 Blood Cells # Sodium Level 139 Potassium Level 3.9 Chloride Level 107 Carbon Dioxide 23 Level Anion Gap 9 Blood Urea 43 #H Nitrogen Creatinine 0.43 L Est Glomerular > 60 Filtrat Rate mL/min Glucose Level 122 Calcium Level 10.1 Magnesium Level 2.0 Total Bilirubin 0.1 L Direct Bilirubin 0.00 Indirect Bilirubin 0.1 Aspartate Amino 19 Transf (AST/SGOT) Alanine 24 Aminotransferase ( ALT/SGPT) Alkaline 153 H Phosphatase Total Protein 7.8 # Albumin 3.4 Globulin 4.40 H Albumin/Globulin 0.77 Ratio Medications Medication Current Medications Ascorbic Acid (Vitamin C) 500 mg DAILY GTB Last administered on 10/03/18 09:08; Admin Dose 500 MG; Start 10/03/18 at 09:00 Atorvastatin Calcium (Lipitor) 10 mg QHS GTB Last administered on 10/03/18 04:21; Admin Dose 10 MG; Start 10/03/18 at 01:30 Bisacodyl (Dulcolax Supp) 10 mg DAILY [place] Last administered on 10/03/18 09:12; Admin Dose 10 MG; Start 10/03/18 at 09:00 Carvedilol (Coreg) 12.5 mg BID GTB Last administered on 10/03/18 09:07; Admin Dose 12.5 MG; Start 10/03/18 at 09:00 Ipratropium [place] (Atrovent Hfa) 2 puff Q6H PRN INH SHORTNESS OF BREATH; Start 10/03/18 at 01:30 Lisinopril (Zestril) 20 mg Q12H GTB Last administered on 10/03/18 04:22; Admin Dose 20 MG; Start 10/03/18 at 01:30 Ondansetron HCl (Zofran Tab) 4 mg Q6H PRN GTB NAUSEA AND/OR VOMITING; Start 10/03/18 at 01:30 Zinc Sulfate (Zinc Sulfate) 220 mg DAILY GTB Last administered on 10/03/18 09:07; Admin Dose 220 MG; Start 10/03/18 at 09:00 Lactobacillus Acidophilus/ Rhamnosus (Culturelle) 1 cap Q6 PO Last administered on 10/03/18 12:28; Admin Dose 1 CAP; Start 10/03/18 at 12:00 Methylphenidate HCl (Ritalin) 10 mg Q12 GTB Last administered on 10/03/18 05:51; Admin Dose 10 MG; Start 10/03/18 at 02:00 Multivitamins/ Minerals (Theragran-M) 1 tab DAILY GTB Last administered on 10/03/18 09:08; Admin Dose 1 TAB; Start 10/03/18 at 09:00 Topiramate (Topamax) 200 mg BID GTB Last administered on 10/03/18 04:21; Admin Dose 200 MG; Start 10/03/18 at 02:00 IV Flush (NS 3 ml) 3 ml PER PROTOCOL IV ; Start 10/03/18 at 01:30 Acetaminophen (Tylenol Tab) 650 mg Q6H PRN GTB .PAIN 1-3 OR TEMP; Start 10/03/18 at 01:30 Levetiracetam (Keppra Liq (Ped)) 250 mg Q8H GTB Last administered on 10/03/18at 04:21; Admin Dose 250 MG; Start 10/03/18 at 01:44 Ceftriaxone Sodium 50 ml @ 100 mls/hr Q24H IVPB ; Start 10/03/18 at 22:00 Lansoprazole (Prevacid) 30 mg DAILY GTB Last administered on 10/03/18at 09:37; Admin Dose 30 MG; Start 10/03/18 at 09:30 ANGEL LUIS REDD MD October 03, 2018 15:01
[2018-10-03] MEDS ORDERED: SOD CHLORIDE 0.9% 500 ML IV ONE (16:00)
[2018-10-03] MEDS: SOD CHLORIDE 0.9% 1,000 ML IV SCH ×2 (16:01→18:21)
[2018-10-03] MEDS: CEFTRIAXONE 1 GM/50 ML (PMX) 50 ML IVPB SCH (21:51)
[2018-10-04] VITALS (25 sets, daily range): BP systolic 86–144; BP diastolic 54–68; PULSE 64–96; RESP 14–21
[2018-10-04] MEDS: LACTOBACILLUS RHAMNOSUS CAP PO SCH ×4 (00:23→17:45)
[2018-10-04] MEDS: TOPIRAMATE 100 MG TAB GTB SCH ×3 (00:24→21:58)
[2018-10-04] MEDS: METHYLPHENIDATE 5 MG TAB GTB SCH ×3 (00:24→21:58)
[2018-10-04] MEDS: LEVETIRACETAM (100 MG/ML PO SYG) GTB SCH ×3 (01:44→17:45)
[2018-10-04] MEDS: LISINOPRIL 20 MG TAB GTB SCH ×2 (02:24→13:35)
[2018-10-04] MEDS ORDERED: PENDING SANTYL ORDER FOR WOUND CARE XX PRN (08:00)
[2018-10-04] MEDS: MULTIVITAMINS/MINERALS TAB GTB SCH (08:50)
[2018-10-04] MEDS: BISACODYL 10 MG SUPP PR SCH (08:50)
[2018-10-04] MEDS: ZINC SULFATE 220 MG CAP GTB SCH (08:50)
[2018-10-04] MEDS: LANSOPRAZOLE 15 MG CAP GTB SCH (08:50)
[2018-10-04] MEDS: ASCORBIC ACID 500 MG TAB GTB SCH (08:50)
[2018-10-04] MEDS: SOD CHLORIDE 0.9% 1,000 ML IV SCH (08:51)
--- NOTE | 2018-10-04 14:40 | PN ---
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 # Fever: - Patient reportedly had a fever at the [facility], the highest temperature recorded in the ER was 99.7 rectally. - suspicion is for likely underlying urinary tract infection. - Patient's Forman catheter was cloudy and odorous and urinalysis was positive for leukoesterase. - Will treat for UTI - Ceftriaxone IV every 24 hours. Will await urine culture results. # acute on chronic respiratory failure: Patient has tracheostomy. Currently connected to vent. Continue vent management, pulmonary to consult # chronic right hip wound: Wound care consult. 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 Continue supportive care. Continue home meds # dysphagia: Continue meds via J-tube, consult nutrition for feeds # Seizure disorder: Continue Keppra, Topamax # hypertension: Resume home blood pressure meds as indicated # DVT GI prophylaxis: SCDs, Protonix CODE STATUS currently full code . PT SON SHEKHAR [phone] LIVES IN [facility]. Result Diagram: 10/04/18 0607 10/04/18 0607 Subjective 24 Hr Interval Summary Free Text/Dictation No acute overnight events. Spoke to patient's son Shekhar today to update him on the plan. He does not want to make her DNR/DNI with a "complete neurologic evaluation" detailing her prognosis. She had a neuro eval last admission and I told him that any time she's admitted to the hospital she'll have a condition which may potentially influence her mentation. I added that in my opinion she is certainly in a persistent vegetative state with no chance of recovery. He wants to keep her full code though. Exam/Review of Systems Exam Vitals Vital Signs Date Temp Pulse Resp B/P (MAP) Pulse Ox O2 O2 Flow FiO2 Time Delivery Rate 10/04/18 76 15 100 35 13:21 10/04/18 100/61 12:41 (74) 10/04/18 97.9 Room Air 10:43 Intake and Output 10/03/18 10/03/18 10/04/18 1515:00 23:00 07:00 IntakeIntake Total 800 ml OutputOutput Total 900 ml 380 ml BalanceBalance -100 ml -380 ml Exam General: Frail appearing woman, chronic trach to vent, unresponsive. HEENT: Atraumatic, normocephalic. The pupils are equal, round and reactive. Neck: Supple with full range of motion. No rigidity or meningismus,, trach to vent Lungs: Mechanical lung sounds bilaterally no crackles rales or wheezing Heart: Normal S1-S2, Regular rhythm and rate. Abdomen: Soft , J-tube, nondistended , bowel sounds are present. Extremities: Normal to inspection, no edema no cyanosis Genitourinary: Chronic Forman with foul smelling, dirty urine Skin: Chronic wound of the right hip, does not appear to be using. Results Results 24hrs Laboratory Tests Test 10/04/18 06:07 10/04/18 07:00 White Blood Count 8.7 Red Blood Count 3.00 L Hemoglobin 8.2 L Hematocrit 26.6 L Mean Corpuscular Volume 88.7 Mean Corpuscular Hemoglobin 27.3 L Mean Corpuscular Hemoglobin Concent 30.8 L Red Cell Distribution Width 15.4 H Platelet Count 415 Mean Platelet Volume 8.8 Immature Granulocytes % 0.500 H Neutrophils % 78.6 H Lymphocytes % 13.6 L Monocytes % 5.3 Eosinophils % 1.7 Basophils % 0.3 Nucleated Red Blood Cells % 0.0 Immature Granulocytes # 0.040 H Neutrophils # 6.8 Lymphocytes # 1.2 Monocytes # 0.5 Eosinophils # 0.2 Basophils # 0.0 Nucleated Red Blood Cells # 0.0 Sodium Level 142 Potassium Level 3.6 Chloride Level 111 H Carbon Dioxide Level 19 L Anion Gap 12 Blood Urea Nitrogen 25 #H Creatinine 0.42 L Est Glomerular Filtrat Rate mL/min > 60 Glucose Level 92 Calcium Level 10.0 Total Bilirubin 0.1 L Direct Bilirubin 0.00 Indirect Bilirubin 0.1 Aspartate Amino Transf (AST/SGOT) 14 L Alanine Aminotransferase (ALT/SGPT) 16 Alkaline Phosphatase 126 H Total Protein 7.4 Albumin 3.2 L Globulin 4.20 H Albumin/Globulin Ratio 0.76 Blood Gas Specimen Source Blood arterial Arterial Blood Date Drawn 10/04/2018 7:25:39 AM Arterial Blood pH (Temp corrected) 7.414 Arterial Blood pCO2 (Temp correct) 30.8 L Arterial Blood pO2 (Temp corrected) 163.7 H Arterial Blood HCO3 19.3 L Arterial Blood Base Excess -4.5 L Arterial Blood Oxygen Saturation 98.7 H Kiko Test ACCEPTAB Arterial Blood Gas Puncture Site Left Radial Arterial Blood Carboxyhemoglobin 0.2 Arterial Blood Methemoglobin 0.6 Blood Gas A-a O2 Differential 86.1 H Oxyhemoglobin Percent 97.9 Blood Gas Temperature 37.0 Blood Gas Respiration Rate 14.0 Blood Gas Actual Respiration Rate 15 Blood Gas Modality VENT - AC FiO2 40.0 Blood Gas Tidal Volume 450.0 Blood Gas Low PEEP Setting 5.0 Blood Gas Notified Whom TM Blood Gas Notified Time 10/04/2018 7:35:37 AM Medications Medication Current Medications Ascorbic Acid (Vitamin C) 500 mg DAILY GTB Last administered on 10/04/18 08:50; Admin Dose 500 MG; Start 10/03/18 at 09:00 Atorvastatin Calcium (Lipitor) 10 mg QHS GTB Last administered on 10/03/18 21:51; Admin Dose 10 MG; Start 10/03/18 at 01:30 Bisacodyl (Dulcolax Supp) 10 mg DAILY [place] Last administered on 10/04/18 08:50; Admin Dose 10 MG; Start 10/03/18 at 09:00 Carvedilol (Coreg) 12.5 mg BID GTB Last administered on 10/04/18 08:51; Admin Dose 12.5 MG; Start 10/03/18 at 09:00 Ipratropium [place] (Atrovent Hfa) 2 puff Q6H PRN INH SHORTNESS OF BREATH; Start 10/03/18 at 01:30 Lisinopril (Zestril) 20 mg Q12H GTB Last administered on 10/04/18 13:35; Admin Dose 20 MG; Start 10/03/18 at 01:30 Ondansetron HCl (Zofran Tab) 4 mg Q6H PRN GTB NAUSEA AND/OR VOMITING; Start 10/03/18 at 01:30 Zinc Sulfate (Zinc Sulfate) 220 mg DAILY GTB Last administered on 10/04/18 08:50; Admin Dose 220 MG; Start 10/03/18 at 09:00 Lactobacillus Acidophilus/ Rhamnosus (Culturelle) 1 cap Q6 PO Last administered on 10/04/18 12:30; Admin Dose 1 CAP; Start 10/03/18 at 12:00 Methylphenidate HCl (Ritalin) 10 mg Q12 GTB Last administered on 10/04/18 08:50; Admin Dose 10 MG; Start 10/03/18 at 02:00 Multivitamins/ Minerals (Theragran-M) 1 tab DAILY GTB Last administered on 10/04/18 08:50; Admin Dose 1 TAB; Start 10/03/18 at 09:00 Topiramate (Topamax) 200 mg BID GTB Last administered on 10/04/18 08:50; Admin Dose 200 MG; Start 10/03/18 at 02:00 IV Flush (NS 3 ml) 3 ml PER PROTOCOL IV ; Start 10/03/18 at 01:30 Acetaminophen (Tylenol Tab) 650 mg Q6H PRN GTB .PAIN 1-3 OR TEMP; Start 10/03/18 at 01:30 Levetiracetam (Keppra Liq (Ped)) 250 mg Q8H GTB Last administered on 10/04/18 08:51; Admin Dose 250 MG; Start 10/03/18 at 01:44 Ceftriaxone Sodium 50 ml @ 100 mls/hr Q24H IVPB Last administered on 10/03/18 21:51; Admin Dose 100 MLS/HR; Start 10/03/18 at 22:00 Lansoprazole (Prevacid) 30 mg DAILY GTB Last administered on 10/04/18 08:50; Admin Dose 30 MG; Start 10/03/18 at 09:30 Sodium Chloride 1,000 ml @ 75 mls/hr [id number] IV Last administered on 10/04/18 08:51; Admin Dose 75 MLS/HR; Start 10/03/18 at 16:00 Miscellaneous Information (Pending Santyl Order For Wound Care) This patient hsieh... PRN PRN XX WOUND CARE; Start 10/04/18 at 08:00 ANGEL LUIS REDD MD October 04, 2018 14:40
[2018-10-04] MEDS: ENOXAPARIN 40 MG/0.4 ML SYG SC SCH (16:35)
[2018-10-04] MEDS: COLLAGENASE 5 GM (UD JAR) TOP SCH (19:00)
[2018-10-04] MEDS ORDERED: COLLAGENASE 5 GM (UD JAR) TOP PRN (19:00)
[2018-10-04] MEDS: DAKINS 0.0125%(1/40) 473 ML SOLUTION TP SCH (20:30)
[2018-10-04] MEDS: ATORVASTATIN 10 MG TAB GTB SCH (21:58)
[2018-10-04] MEDS: CEFTRIAXONE 1 GM/50 ML (PMX) 50 ML IVPB SCH (21:59)
[2018-10-05] VITALS (22 sets, daily range): BP systolic 110–163; BP diastolic 65–88; PULSE 61–75; RESP 14–23
[2018-10-05] MEDS: LACTOBACILLUS RHAMNOSUS CAP PO SCH ×4 (03:33→17:47)
[2018-10-05] MEDS: LISINOPRIL 20 MG TAB GTB SCH ×2 (03:33→12:30)
[2018-10-05] MEDS: LEVETIRACETAM (100 MG/ML PO SYG) GTB SCH ×3 (03:34→17:47)
[2018-10-05] MEDS: COLLAGENASE 5 GM (UD JAR) TOP SCH ×2 (08:27→08:57)
[2018-10-05] MEDS: DAKINS 0.0125%(1/40) 473 ML SOLUTION TP SCH ×2 (08:28→08:57)
[2018-10-05] MEDS: ZINC SULFATE 220 MG CAP GTB SCH (08:58)
[2018-10-05] MEDS: METHYLPHENIDATE 5 MG TAB GTB SCH ×2 (08:58→20:15)
[2018-10-05] MEDS: TOPIRAMATE 100 MG TAB GTB SCH ×2 (08:58→20:11)
[2018-10-05] MEDS: MULTIVITAMINS/MINERALS TAB GTB SCH (08:58)
[2018-10-05] MEDS: LANSOPRAZOLE 15 MG CAP GTB SCH (08:59)
[2018-10-05] MEDS: ASCORBIC ACID 500 MG TAB GTB SCH (08:59)
[2018-10-05] MEDS: BISACODYL 10 MG SUPP PR SCH (08:59)
[2018-10-05] MEDS: ENOXAPARIN 40 MG/0.4 ML SYG SC SCH (09:01)
[2018-10-05] MEDS: SOD CHLORIDE 0.9% 1,000 ML IV SCH ×2 (09:06→22:45)
--- NOTE | 2018-10-05 11:37 | PN ---
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 with fever. # Fever #UTI - Patient [facility] the [facility], the highest temperature recorded here so far was 99.7 rectally. - suspicion is for likely underlying urinary tract infection. - Patient's Forman catheter was cloudy and odorous and urinalysis was positive for leuk esterase. - Will treat for UTI - Ceftriaxone IV every 24 hours. - Urine growing proteus sensitive to 3rd gen cephalosporins. Pending second gram negative harman sensitivities. # acute on chronic respiratory failure: Patient has tracheostomy. Currently connected to vent. Continue vent management, pulmonary to consult # chronic right hip wound: Wound care consult. 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 Continue supportive care. Continue home meds # dysphagia: Continue meds via J-tube, consult nutrition for feeds # Seizure disorder: Continue Keppra, Topamax # hypertension: Resume home blood pressure meds as indicated # DVT GI prophylaxis: SCDs, Protonix CODE STATUS currently full code . PT SON RENZO [phone] LIVES IN [facility]. Result Diagram: 10/05/18 0618 10/05/18 0618 Subjective 24 Hr Interval Summary Free Text/Dictation No acute overnight events. Exam/Review of Systems Exam Vitals Vital Signs Date Temp Pulse Resp B/P (MAP) Pulse Ox O2 O2 Flow FiO2 Time Delivery Rate 10/05/18 70 08:12 10/05/18 98.2 18 148/78 100 Room Air 08:05 (101) 10/05/18 35 05:41 Intake and Output 10/04/18 10/04/18 10/05/18 1414:59 22:59 06:59 IntakeIntake Total 260 ml 920 ml OutputOutput Total 380 ml 250 ml 385 ml BalanceBalance -380 ml 10 ml 535 ml Exam General: Frail appearing woman, chronic trach to vent, unresponsive. HEENT: Atraumatic, normocephalic. The pupils are equal, round and reactive. Neck: Supple with full range of motion. No rigidity or meningismus,, trach to vent Lungs: Mechanical lung sounds bilaterally no crackles rales or wheezing Heart: Normal S1-S2, Regular rhythm and rate. Abdomen: Soft , J-tube, nondistended , bowel sounds are present. Extremities: Normal to inspection, no edema no cyanosis Genitourinary: Chronic Forman with foul smelling, dirty urine Skin: Chronic wound of the right hip, does not appear to be using. Results Results 24hrs Laboratory Tests Test 10/05/18 06:18 White Blood Count 5.8 # Red Blood Count 2.90 L Hemoglobin 7.9 L Hematocrit 25.8 L Mean Corpuscular Volume 89.0 Mean Corpuscular Hemoglobin 27.2 L Mean Corpuscular Hemoglobin Concent 30.6 L Red Cell Distribution Width 15.2 H Platelet Count 383 Mean Platelet Volume 9.2 Immature Granulocytes % 0.300 Neutrophils % 69.5 Lymphocytes % 18.8 Monocytes % 7.6 Eosinophils % 3.3 Basophils % 0.5 Nucleated Red Blood Cells % 0.0 Immature Granulocytes # 0.020 Neutrophils # 4.0 Lymphocytes # 1.1 Monocytes # 0.4 Eosinophils # 0.2 Basophils # 0.0 Nucleated Red Blood Cells # 0.0 Sodium Level 142 Potassium Level 3.4 L Chloride Level 113 H Carbon Dioxide Level 21 Anion Gap 8 Blood Urea Nitrogen 25 H Creatinine 0.37 L Est Glomerular Filtrat Rate mL/min > 60 Glucose Level 120 Calcium Level 9.6 Total Bilirubin 0.0 L Direct Bilirubin 0.00 Indirect Bilirubin 0.0 Aspartate Amino Transf (AST/SGOT) 24 Alanine Aminotransferase (ALT/SGPT) 22 Alkaline Phosphatase 135 H Total Protein 7.1 Albumin 3.1 L Globulin 4.00 H Albumin/Globulin Ratio 0.77 Medications Medication Current Medications Ascorbic Acid (Vitamin C) 500 mg DAILY GTB Last administered on 10/05/18at 08:59; Admin Dose 500 MG; Start 10/03/18 at 09:00 Atorvastatin Calcium (Lipitor) 10 mg QHS GTB Last administered on 10/04/18at 21:58; Admin Dose 10 MG; Start 10/03/18 at 01:30 Bisacodyl (Dulcolax Supp) 10 mg DAILY [place] Last administered on 10/05/18 08:59; Admin Dose 10 MG; Start 10/03/18 at 09:00 Carvedilol (Coreg) 12.5 mg BID GTB Last administered on 10/05/18 08:58; Admin Dose 12.5 MG; Start 10/03/18 at 09:00 Ipratropium [place] (Atrovent Hfa) 2 puff Q6H PRN INH SHORTNESS OF BREATH; Start 10/03/18 at 01:30 Lisinopril (Zestril) 20 mg Q12H GTB Last administered on 10/05/18 03:33; Admin Dose 20 MG; Start 10/03/18 at 01:30 Ondansetron HCl (Zofran Tab) 4 mg Q6H PRN GTB NAUSEA AND/OR VOMITING; Start 10/03/18 at 01:30 Zinc Sulfate (Zinc Sulfate) 220 mg DAILY GTB Last administered on 10/05/18 08:58; Admin Dose 220 MG; Start 10/03/18 at 09:00 Lactobacillus Acidophilus/ Rhamnosus (Culturelle) 1 cap Q6 PO Last administered on 10/05/18 06:04; Admin Dose 1 CAP; Start 10/03/18 at 12:00 Methylphenidate HCl (Ritalin) 10 mg Q12 GTB Last administered on 10/05/18 08:58; Admin Dose 10 MG; Start 10/03/18 at 02:00 Multivitamins/ Minerals (Theragran-M) 1 tab DAILY GTB Last administered on 10/05/18 08:58; Admin Dose 1 TAB; Start 10/03/18 at 09:00 Topiramate (Topamax) 200 mg BID GTB Last administered on 10/05/18 08:58; Admin Dose 200 MG; Start 10/03/18 at 02:00 IV Flush (NS 3 ml) 3 ml PER PROTOCOL IV ; Start 10/03/18 at 01:30 Acetaminophen (Tylenol Tab) 650 mg Q6H PRN GTB .PAIN 1-3 OR TEMP; Start 10/03/18 at 01:30 Levetiracetam (Keppra Liq (Ped)) 250 mg Q8H GTB Last administered on 10/05/18 08:59; Admin Dose 250 MG; Start 10/03/18 at 01:44 Ceftriaxone Sodium 50 ml @ 100 mls/hr Q24H IVPB Last administered on 10/04/18 21:59; Admin Dose 100 MLS/HR; Start 10/03/18 at 22:00 Lansoprazole (Prevacid) 30 mg DAILY GTB Last administered on 10/05/18 08:59; Admin Dose 30 MG; Start 10/03/18 at 09:30 Sodium Chloride 1,000 ml @ 75 mls/hr [id number] IV Last administered on 10/05/18 09:06; Admin Dose 75 MLS/HR; Start 10/03/18 at 16:00 Miscellaneous Information (Pending Santyl Order For Wound Care) This patient hsieh... PRN PRN XX WOUND CARE; Start 10/04/18 at 08:00 Enoxaparin Sodium (Lovenox) 40 mg DAILY [place] Last administered on 10/05/18 09:01; Admin Dose 40 MG; Start 10/04/18 at 15:00 Collagenase (Santyl) 1 applic DAILY TOP Last administered on 10/05/18 08:57; Admin Dose 1 APPLIC; Start 10/04/18 at 19:00 Collagenase (Santyl) 1 applic WHEN SOILED PRN TOP when soiled; Start 10/04/18 at 19:00 Sodium Hypochlorite (Dakins Diluted (40)) 1 applic DAILY TP Last administered on 10/05/18 08:57; Admin Dose 1 APPLIC; Start 10/04/18 at 20:30 ANGEL LUIS REDD MD October 05, 2018 11:37
[2018-10-05] MEDS: POTASSIUM CHLORIDE 100 ML IVPB SCH ×2 (12:29→14:46)
[2018-10-05] MEDS: ATORVASTATIN 10 MG TAB GTB SCH (20:11)
[2018-10-05] MEDS: CEFTRIAXONE 1 GM/50 ML (PMX) 50 ML IVPB SCH (22:45)
[2018-10-06] VITALS (21 sets, daily range): BP systolic 128–159; BP diastolic 61–91; PULSE 64–81; RESP 14–22
[2018-10-06] MEDS: LACTOBACILLUS RHAMNOSUS CAP PO SCH ×4 (00:58→17:36)
[2018-10-06] MEDS: LISINOPRIL 20 MG TAB GTB SCH ×2 (01:00→13:11)
[2018-10-06] MEDS: LEVETIRACETAM (100 MG/ML PO SYG) GTB SCH ×3 (01:16→17:36)
[2018-10-06] MEDS: LANSOPRAZOLE 15 MG CAP GTB SCH (09:15)
[2018-10-06] MEDS: TOPIRAMATE 100 MG TAB GTB SCH ×2 (09:15→20:18)
[2018-10-06] MEDS: ZINC SULFATE 220 MG CAP GTB SCH (09:16)
[2018-10-06] MEDS: BISACODYL 10 MG SUPP PR SCH (09:16)
[2018-10-06] MEDS: COLLAGENASE 5 GM (UD JAR) TOP SCH (09:16)
[2018-10-06] MEDS: MULTIVITAMINS/MINERALS TAB GTB SCH (09:16)
[2018-10-06] MEDS: ASCORBIC ACID 500 MG TAB GTB SCH (09:16)
[2018-10-06] MEDS: DAKINS 0.0125%(1/40) 473 ML SOLUTION TP SCH (09:17)
[2018-10-06] MEDS: ENOXAPARIN 40 MG/0.4 ML SYG SC SCH (09:20)
[2018-10-06] MEDS: METHYLPHENIDATE 5 MG TAB GTB SCH ×2 (09:22→20:18)
[2018-10-06] MEDS: SOD CHLORIDE 0.9% 1,000 ML IV SCH (10:40)
--- NOTE | 2018-10-06 15:58 | DS ---
Date/Time of Note Date/Time of Note DATE: 10/06/18 TIME: 15:54 Discharge Summary Admission/Discharge Info Admit Date/Time October 02, 2018 at 23:40 Discharge Date/Time October 06, 2018 Discharge Diagnosis Catheter-associated UTI Patient Condition: Fair Consults None Procedures None Hx of Present Illness This is a 73-year-old female with chronic encephalopathy trach to [facility] who presented to the emergency department from SNF for fevers. History was unable to obtain from the patient as she has chronic encephalopathy. Patient's rectal temperature was noted to be 99.7. Patient does withdraw to pain. She is currently connected via tracheostomy to the [facility]. Her urine does appear to be foul-smelling and dirty. She also appears to have a chronic wound of the right hip. Allergies: NKDA Medications: See AUG Hospital Course The patient was admitted for UTI. She had cloudy, foul-smelling urine. Forman was exchanged. Urine culture was drawn and grew proteus and enterobacter, both sensitive to 3rd gen cephalosporins. The patient was not septic at time of discharge. Will return to SNF to finish a 2 week course of ceftriaxone. Of note, I did call her son Shekhar in [place] and updated him on her status. I reiterated that she is in a persistent vegetative state and DNR would be the ethical decision at this time. He declined to change code status, saying he wants a "full neurologic workup" prior to making this decision. He added that he's planning to fly out to [place] to see her "someday". Home Meds Reported Medications Acetaminophen* (Acetaminophen*) 650 Mg Tablet, 650 MG GTB Q6H PRN for PAIN AND OR ELEVATED TEMP, #30 TAB 10/03/18 Zinc Sulfate* (Zinc Sulfate*) 220 Mg Tablet, 220 MG GTB DAILY, TAB 08/21/18 Ascorbic Acid (Vitamin C) 500 Mg Tab, 500 MG GTB DAILY, TAB 08/21/18 Multivitamin with Minerals (Multivitamins with Minerals) 1 Each Tablet, 1 EACH GTB DAILY, TAB 08/21/18 Amino Acids/Protein Hydrolys (PRO-STAT LIQUID) 30 Ml Liquid.pkt, 30 ML GTB BID SUGAR FREE 08/21/18 Lisinopril* (Lisinopril*) 20 Mg Tablet, 20 MG GTB Q12H, #30 TAB 08/21/18 Levetiracetam* (Keppra* (Ped)) 100 Mg/Ml Liq, 250 ML GTB Q8H for 30 Days, BOTTLE GIVE 250MG/2.5ML VIA GT Q8H 08/21/18 Lansoprazole* (Lansoprazole*) 30 Mg Capsule.dr, 30 MG GTB DAILY, CAP 08/21/18 Ipratropium-Albuterol (Ipratropium-Albuterol) 0.5-3 Mg/3 Ml Ampul.neb, 3 ML INHALATION Q6, #30 VIAL 08/21/18 Ipratropium [facility]* (Atrovent HFA*) 12.9 Gm Aer.w.adap, 2 PUFF INHALATION Q6H for SHORTNESS OF BREATH, #1 INHALER 08/21/18 Lactobacillus Acidophilus* (Lactinex*) 1 Tab Chew, 1 TAB GTB Q6H, TAB 08/21/18 Carvedilol* (Carvedilol*) 12.5 Mg Tablet, 12.5 MG GTB BID, #60 TAB 08/21/18 Bisacodyl* (Bisacodyl*) 10 Mg Supp, 10 MG ND Q OTHER DAY, SUPP 08/21/18 Atorvastatin Calcium (Atorvastatin Calcium) 10 Mg Tablet, 10 MG GTB QHS, #30 TAB 08/21/18 Topiramate* (Trokendi XR*) 200 Mg Cap.er.24h, 200 MG GTB Q12H, CAP 08/21/18 Selenium* (Selenimin*) 200 Mcg Tablet, 200 MCG GTB DAILY, TAB 08/21/18 Ondansetron Hcl* (Zofran*) 4 Mg Tab, 4 MG GTB Q6H PRN for NAUSEA AND OR VOMITING, TAB 08/21/18 Methylphenidate Hcl* (Methylphenidate Hcl*) 10 Mg Tablet, 10 MG GTB Q12H, TAB 08/21/18 Discontinued Reported Medications Clindamycin Hcl* (Clindamycin Hcl*) 300 Mg Capsule, 300 MG GTB QID, CAP STOP DATE 08/25/18 08/21/18 Levofloxacin* (Levofloxacin*) 500 Mg Tablet, 500 MG GTB DAILY, TAB STOP DATE 08/25/18 08/21/18 Citric Acid/Potassium Citrate (Cytra-K Oral Solution) 473 Ml Solution, 5 ML GTB DAILY 08/21/18 Primary Care Provider Husam Jacobson MD Time spent on discharge: > 30 minutes Pending Labs Laboratory Tests Test 10/06/18 05:59 White Blood Count 5.9 10^3/ul (4.8-10.8) Red Blood Count 2.89 10^6/ul (4.20-5.40) Hemoglobin 7.8 g/dl (12.0-16.0) Hematocrit 25.8 % (37.0-47.0) Mean Corpuscular Volume 89.3 fl (82.0-101.0) Mean Corpuscular Hemoglobin 27.0 pg (29.0-33.0) Mean Corpuscular Hemoglobin Concent 30.2 g/dl (32.0-37.0) Red Cell Distribution Width 15.3 % (11.5-14.5) Platelet Count 364 10^3/UL (140-415) Mean Platelet Volume 9.1 fl (7.4-10.4) Immature Granulocytes % 0.500 % (0.001-0.429) Neutrophils % 71.2 % (39.0-77.0) Lymphocytes % 17.8 % (15.0-51.0) Monocytes % 6.6 % (0.0-11.0) Eosinophils % 3.6 % (0.0-7.0) Basophils % 0.3 % (0.0-2.0) Nucleated Red Blood Cells % 0.0 /100WBC (0.0-0.0) Immature Granulocytes # 0.030 10^3/ul (0.0-0.031) Neutrophils # 4.2 10^3/ul (1.6-7.5) Lymphocytes # 1.1 10^3/ul (0.8-2.9) Monocytes # 0.4 10^3/ul (0.3-0.9) Eosinophils # 0.2 10^3/ul (0.0-0.5) Basophils # 0.0 10^3/ul (0.0-0.1) Nucleated Red Blood Cells # 0.0 10^3/ul (0.0-0.0) Sodium Level 140 mmol/L (135-144) Potassium Level 3.9 mmol/L (3.5-5.1) Chloride Level 112 mmol/L (97-110) Carbon Dioxide Level 22 mmol/L (21-31) Anion Gap 6 (5-13) Blood Urea Nitrogen 20 mg/dl (7-20) Creatinine 0.33 mg/dl (0.44-1.00) Est Glomerular Filtrat Rate mL/min > 60 mL/min (>60) Glucose Level 112 mg/dl (70-220) Calcium Level 9.1 mg/dl (8.4-10.2) Total Bilirubin 0.0 mg/dl (0.2-1.3) Direct Bilirubin 0.00 mg/dl (0.00-0.20) Indirect Bilirubin 0.0 mg/dl (0-1.1) Aspartate Amino Transf (AST/SGOT) 17 IU/L (15-46) Alanine Aminotransferase (ALT/SGPT) 21 IU/L (13-69) Alkaline Phosphatase 110 IU/L (42-121) Total Protein 6.5 g/dl (6.1-8.1) Albumin 2.9 g/dl (3.3-4.9) Globulin 3.60 g/dl (1.3-3.2) Albumin/Globulin Ratio 0.80 ANGEL LUIS REDD MD October 06, 2018 15:57
[2018-10-06] MEDS: CEFTRIAXONE 1 GM/50 ML (PMX) 50 ML IVPB SCH (19:10)
[2018-10-06] MEDS: ATORVASTATIN 10 MG TAB GTB SCH (20:18)
== END 2018-10-06 20:55 | DRG 698 ==
LOC: E/R 18:55 → TEL 23:40 → EDBEDREQ 10-03 02:45 → SUATTDRO 10-03 08:40
PROVIDERS: ADMIT Family Medicine; ATTEND Internal Medicine
PROC: 5A1945Z Respiratory Ventilation, 24-96 Consecutive Hours (ICD-10-PCS; principal; 2018-10-02)
DX: T83.511A Infection and inflammatory reaction due to indwelling urethral catheter, initial encounter (principal); L89.213 Pressure ulcer of right hip, stage 3; L89.154 Pressure ulcer of sacral region, stage 4; J96.20 Acute and chronic respiratory failure, unspecified whether with hypoxia or hypercapnia; G93.49 Other encephalopathy; R13.10 Dysphagia, unspecified; D64.9 Anemia, unspecified; I10 Essential (primary) hypertension; Z93.0 Tracheostomy status; G40.909 Epilepsy, unspecified, not intractable, without status epilepticus; E78.5 Hyperlipidemia, unspecified; Z93.4 Other artificial openings of gastrointestinal tract status; Z86.73 Personal history of transient ischemic attack (TIA), and cerebral infarction without residual deficits; Y73.8 Miscellaneous gastroenterology and urology devices associated with adverse incidents, not elsewhere classified
CPT/HCPCS: 36415; 36600; 71045; 80053; 81001; 82803; 83605; 83735; 84484; 85025; 85610; 85730; 87081; 87086; 93005; 94002; 94003; 96374; J0696; J1650; J3480; J7030; J7040